=== PATIENT | male | born 1960 | race Caucasian/White ===

== ENCOUNTER 2016-06-24 11:53 | Inpatient (IN) | payer OTHER ==
[~2016-06-24] VITALS: Ht 175.3 cm; Wt 67.1 kg
[~2016-06-24 11:53] MED LIST: ASPIRIN EC81 M1 PO; ATIVAN0.5 M1 PO; ATORVASTATIN CA10 M1 PO; BUPROPION HCL150 M4 PO; CHLORDIAZEPOXID25 M3 PO; DOCUSATE SODIU100 M3 PO; ESCITALOPRAM OX10 MG; ESCITALOPRAM OX10 MG PO; GABAPENTIN300 M2; GABAPENTIN300 M2 PO; HYDROCHLOROTH12.5 M3 PO; LEXAPRO10 M1 PO; MIRALAX119 GM PO; NEURONTIN300 M1 PO; NORCO 325 MG-51 TAB PO; OMEPRAZOLE20 M2 PO; ONE DAILY MULT1 EAC2 PO; POTASSIUM CHLO20 ME2 PO; PRINIVIL20 M1 PO; SENNA8.6 M3 PO; TOPROL XL50 M1 PO; VICODIN 5-3001 EACH PO; VITAMIN B-121000 MC3 PO; VITAMIN B-650 M1 PO; VITAMIN C500 M8 PO; VITAMIN D31000 UNI1 PO
--- NOTE | 2016-06-24 12:13 | NUR ---
YOLIS FROM HOME, PER EMS, [facility] NURSE CALLED PD, REPORTED PT WAS ACTIING IF UNDER THE INFLUENCE OF "SOMETHING", HAD A GUN NEXT TO HIM. PT HAD AN APPOINTMENT AT THE WOUND CENTER TODAY WHICH HE MISSED. PT STATES THE GUM IS LOCKED IN HIS SAFE. C/O PAIN ALL OVER, AND HAND TWITCHING X 2 WEEKS. HAS STAGE 4 COCCYX WOUND WITH A DRAIN. RESTLESS ON STRETCHER. WANDED BY SECURITY.
--- NOTE | 2016-06-24 12:20 | NUR ---
PT STATES HE WAS IN [facility] LAST WEEK, "TOOK TOO MANY MUSCLE RELAXERS". STATES HE HAS RUN OUT OF HYDROCODONE.
--- NOTE | 2016-06-24 12:34 | NUR ---
Geri LISA (WOUND CARE NURSE) AT BEDSIDE. PT HAS STAGE IV COCCYX WOUND, ( 2CM X1,5 X 0.7 CM DEEP) . NO DRAINAGE, NS/ WET TO DRY DRESSING APPLIED.
--- NOTE | 2016-06-24 12:39 | NUR ---
WOUND CARE: REQUESTED BY ER STAFF TO EVALUATE PT FOR SKIN ALTERATION PRESENT ON ADMISSION - CHRONIC NONHEALING STAGE 4 PRESSURE INJURY TO COCCYX - CLEAN RED FILL WITH PERIWOUND EDGE EPIBOLE - 2 X 1.5 X 0.7 CM WITH 0.8 CM UNDERMINING CIRCUMFERENTIALLY - NO EVIDENCE OF INFECTION - BRUISING NOTED TO LEFT EYE AND FOREHEAD WHICH PATIENT REPORTS "FELL AND HIT COFFEE TABLE A FEW DAYS AGO WHEN I TRIPPED ON THE VAC CORD" - PT BEHAVIOR ABNORMAL FROM USUAL STATE - PLEASANT AND COOPERATIVE WITH ALL CARE, ALTHOUGH PT EXTREMELY RESTLESS, TWITCHING, AND UNABLE TO LAY STILL FOR ANY LENGTH OF TIME - ER STAFF UPDATED RE: CHAIN OF EVENTS WHICH LED TO PTS ARRIVAL TO HOSPITAL INCLUDING MULTIPLE CALLS FROM HOME CARE STAFF, DR SALES, AND LAW ENFORCEMENT OFFICERS - HOLD VAC UNTIL FURTHER NOTICE DUE TO CONCERN FOR PT SAFETY - CLEANSE COCCYX WOUND WITH NS FB LOOSELY PACK WITH MOIST SALINE GAUZE AND ABD PAD - PT ABLE TO INDEPENDENTLY REPOSITION WIB
--- NOTE | 2016-06-24 12:45 | NUR ---
DENIES SI OR HI, STATES HIS GUN IS LOCKED AT HOME.
--- NOTE | 2016-06-24 12:48 | ED GENERAL ADULT ---
History of Present Illness General Chief Complaint: Altered Mental Status Stated Complaint: ?ALTERED MENTAL STATUS Source: patient Exam Limitations: no limitations Vital Signs & Intake/Output Vital Signs & Intake/Output Vital Signs Date Time Temp Pulse Resp B/P Pulse O2 O2 Flow FiO2 Ox Delivery Rate 06/25 0643 97.3 69 20 150/88 97 Room Air 06/25 0400 97.6 71 20 122/70 06/25 0032 97.6 71 20 122/70 97 Room Air 06/25 0000 97.6 71 20 122/70 06/24 2200 97.8 83 20 130/80 06/24 2000 97.8 83 20 130/80 06/24 1957 97.8 83 20 130/80 98 Room Air 06/24 1914 99.0 97 18 125/74 98 Room Air 06/24 1800 98.4 84 18 124/90 06/24 1755 98.3 84 18 124/94 99 Room Air 06/24 1431 97.5 85 18 107/68 95 Room Air 06/24 1206 97.0 77 20 117/59 100 Nasal 2.0L Cannula ED Intake and Output 06/25 0000 06/24 1200 Intake Total 3570 Output Total 1280 Balance 2290 Intake, IV 2450 Intake, Oral 1120 Output, Urine 1280 Patient 148 lb Weight Allergies Coded Allergies: No Known Allergies (06/24/16) Triage Note: BIBA FROM HOME, PER EMS, [facility] NURSE CALLED PD, REPORTED PT WAS ACTIING IF UNDER THE INFLUENCE OF "SOMETHING", HAD A GUN NEXT TO HIM. PT HAD AN APPOINTMENT AT THE WOUND CENTER TODAY WHICH HE MISSED. PT STATES THE GUM IS LOCKED IN HIS SAFE. C/O PAIN ALL OVER, AND HAND TWITCHING X 2 WEEKS. HAS STAGE 4 COCCYX WOUND WITH A DRAIN. RESTLESS ON STRETCHER. WANDED BY SECURITY. Triage Nurses Notes Reviewed? yes Onset: Gradual Duration: day(s): (1) Timing: no prior history Injury Environment: home Severity: moderate No Modifying Factors: none HPI: Patient is a 56-year-old male with history of hypertension, chronic COCCYX wound , stage IV, presenting to the emergency department with chief complaint of needing a wound check and dressing change. Per EMS patient was home when the [facility] nurse arrived she reported that he was altered and "on something" and he was had a gun next to him. Patient denies having a gun next. He reports that he had a gun in his states that was locked. He also reports that he had 4 GUNS AND sold 3 of them for money. Denies any suicidal or homicidal ideation. Denies any nausea or vomiting fevers or chills or malaise. Denies any decrease in by mouth intake. Denies any urinary frequency or urgency or dysuria. Per wound care nurse saw the patient and the emergency department, she reports that his mental status is different than baseline. She reports that the wound has been healing up well and there is no signs of acute infection. (BRIGHT LAL,JAJA) Reconcile Medications Ascorbic Acid (Vitamin C) (Unknown Strength) TABLET (Unknown Dose) PO DAILY SUPPLEMENT (Reported) Aspirin (Ecotrin*) 81 MG TABLET.DR 1 TAB PO DAILY HEART/BLOOD (Reported) Atorvastatin Calcium 10 MG TABLET 1 TAB PO DAILY cholestrol (Reported) Bupropion HCl (Bupropion HCl Sr) 150 MG TABLET.ER 1 TAB PO DAILY MENTAL HEALTH (Reported) Bupropion HCl (Bupropion HCl Sr) 100 MG TABLET.ER 1 TAB PO QPM MENTAL HEALTH (Reported) Chlordiazepoxide HCl 25 MG CAPSULE 1 CAP PO TID PRN ALCOHOL WITHDRAWAL ONE TABLET 3 TIMES A DAY FOR 1 DAY THEN ONE TABLET TWICE A DAY FOR ONE DAY THEN ONE TABLET DAILY FOR ONE DAY Cholecalciferol (Vitamin D3) (Vitamin D3) (Unknown Strength) CAPSULE (Unknown Dose) PO DAILY SUPPLEMENT (Reported) Cyanocobalamin (Vitamin B-12) 1,000 MCG TABLET 1 TAB PO DAILY SUPPLEMENT ( Reported) Escitalopram Oxalate 10 MG TABLET 1 TAB PO DAILY MENTAL HEALTH (Reported) Ferrous Sulfate 325 MG (65 MG IRON) TABLET.DR 325 MG PO DAILY SUPPLEMENT Folic Acid 1 MG TABLET 1 TAB PO DAILY SUPPLEMENT (Reported) Gabapentin (Neurontin) 300 MG CAPSULE 1 CAP PO TID ANTICONVULSANT (Reported) Hydrochlorothiazide 12.5 MG CAPSULE 1 CAP PO DAILY blood pressure (Reported) Hydrocodone/Acetaminophen (Vicodin 5-300 MG Tablet) 1 EACH TABLET 2 TAB PO Q12 PRN PAIN SCALE 7-10 (SEVERE) Lisinopril 20 MG TABLET 1 TAB PO DAILY HEART (Reported) Multivitamin (One Daily Multivitamin) 1 EACH TABLET 1 TAB PO DAILY SUPPLEMENT Omeprazole 20 MG CAPSULE.DR 2 TAB PO DAILY Reflux Pyridoxine HCl (Vitamin B-6) (Unknown Strength) CAPSULE (Unknown Dose) PO DAILY SUPPLEMENT (Reported) (MALICK VICENTE,SANDRA) Past History Travel History Traveled to [place] past 21 day No Medical History Any Pertinent Medical History? 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 No (JAJA ARRINGTON) Review of Systems Review of Systems Constitutional: Reports: no symptoms. Comments Review of systems: See HPI, All other systems negative. Constitutional, no chills fever or weight loss HEENT: No visual changes no sore throat no congestion Cardiovascular: No chest pain ,palpitation , orthopnea or ankle swelling Skin, no jaundice no rashes Respiratory: No dyspnea cough sputum or hemoptysis GI: No nausea no vomiting : No dysuria No hematuria Muscle skeletal: no back pain, no neck pain, Neurologic: No numbness no confusion Psych: No stress anxiety Immunology: No splenectomy or history of AIDS (JAJA ARRINGTON) Physical Exam Physical Exam General Appearance: well developed/nourished, no apparent distress, alert, awake , anxious Comments: Well-developed well-nourished person in no acute distress HEENT: extraocular motion intact, no nystagmus. Pupils equally round and reactive to light and accommodation. Nose is atraumatic. External auditory canal and Tympanic membranes clear. Pharynx normal. No swelling or edema. Neck: Supple, no lymphadenopathy, normal range of motion without pain or tenderness Back: Nontender, no CVA tenderness. Full range of motion Cardiovascular: Regular rate and rhythms no murmurs rubs or gallops, normal JVP Respiratory: Chest nontender. No respiratory distress.breath sounds clear to auscultation bilaterally Extremity: No edema, full range of motion. Neuro: Alert oriented x3, slightly confused about the situation, feels that he is here in the emergency Department for a wound check., motor sensory normal, cranial nerves II through XII grossly intact. Skin: Chronic-appearing stage IV wounds noted over the coccyx, no surrounding erythema. Psych: ANXIOUS,PRESSURED SPEECH Core Measures ACS in differential dx? No CVA/TIA Diagnosis: No Severe Sepsis Present: No Septic Shock Present: No (BRIGHT LAL,JAJA) Progress Differential Diagnoses I considered the following diagnoses in my evaluation of the patient: Cellulitis, dehydration, electrolyte abnormality, drug intoxication, polysubstance abuse Plan of Care: Orders Procedure Date/time Status Regular Diet 06/25 D Active Regular Diet 06/25 B Active MISTAKE 06/25 0934 Active ECHOCARDIOGRAM 06/25 0934 Active VIT D 25 HYDROXY 06/25 06 Active THYROID STIMULATING HORMONE 06/25 06 Active CBC WITHOUT DIFFERENTIAL 06/25 06 Active BASIC ELECTROLYTES PLUS BUN&CR 06/25 06 Active VITAMIN B12 06/25 06 Active Pain Treatment and Response 06/25 0325 Active Skin/Pressure Ulcer Assess (Sk 06/25 0321 Active Wound Care/Dressing 06/25 0038 Active Regular Diet 06/24 L Active Vital Signs 06/24 2321 Active Teach/Educate 06/24 2321 Active Nutritional Intake, Monitor 06/24 2321 Active Isolation 06/24 2321 Active Intake & Output 06/24 2321 Active Patient Care Conference 06/24 2321 Active Activity/Ambulation 06/24 2321 Active Pathway - chart 06/24 1748 Active House Staff 06/24 1748 Active Patient Data 06/24 1748 Active Code Status 06/24 1748 Active ED CRISIS PSYCH CONSULT 06/24 1652 Active Patient Data 06/24 1547 Active OXYGEN SETUP (GEN) 06/24 1457 Active Saline Lock 06/24 1457 Active Admit to inpatient 06/24 1457 Active Vital Signs 06/24 1457 Active Activity/Ambulation 06/24 1457 Active Code Status 06/24 1457 Complete Intake & Output 06/24 1355 Active Telemetry/Escrow Manager 06/24 1231 Complete URINE DRUG SCREEN FOR ER ONLY 06/24 1231 Complete URINALYSIS 06/24 1231 Complete ACETOMINOPHEN 06/24 1231 Complete TROPONIN LEVEL 06/24 1231 Complete SALICYLATE 06/24 1231 Complete ETHANOL 06/24 1231 Complete COMPREHENSIVE METABOLIC PANEL 06/24 1231 Complete CBC WITHOUT DIFFERENTIAL 06/24 1231 Complete EKG 06/24 1231 Active VTE Mechanical Prophylaxis 06/24 UNK Active Patient Safety Monitor 06/24 UNK Active Seizure Precautions 06/24 UNK Active CIWA 06/24 UNK Active SOCIAL WORK CONSULT 06/24 UNK Active PSYCHIATRIC CONSULT 06/24 UNK Active PHYSICIAN CONSULT 06/24 UNK Active Current Medications Sig/Anaya Start time Last Medication Dose Stop Time Status Admin Atorvastatin Calcium 10 MG DAILY@1700 06/25 1700 AC (Lipitor) Bupropion HCl 150 MG DAILY 06/25 1000 CAN (Wellbutrin SR) Escitalopram Oxalate 10 MG DAILY 06/25 1000 CAN (Lexapro) Ferrous Sulfate 325 MG DAILY 06/25 1000 AC (Feosol) Lorazepam 0 Q1P PRN 06/24 1800 AC (Ativan) Acetaminophen 650 MG Q6P PRN 06/24 1745 AC (Tylenol) Sodium Chloride 1,000 ML BOLUS ONE 06/24 1400 CAN (Normal Saline 0.9%) 06/24 1559 Laboratory Tests 06/25/16 0650: Anion Gap 7, Estimated GFR > 60, BUN/Creatinine Ratio 26.4 H, Vitamin B12 Pending, 25-OH Vitamin D Total Pending, TSH Pending, CBC w Diff Pending, WBC Pending, RBC Pending, Hgb Pending, Hct Pending, MCV Pending, MCH Pending, RDW Pending, Plt Count Pending, MPV Pending, Gran % Pending, Lymphocytes % Pending, Monocytes % Pending, Eosinophils % Pending, Basophils % Pending, Absolute Granulocytes Pending, Absolute Lymphocytes Pending, Absolute Monocytes Pending, Absolute Eosinophils Pending, Absolute Basophils Pending, PUBS MCHC Pending 06/24/16 1647: Urine Opiates Screen < 100.00, Methadone Screen 51, Barbiturate Screen < 60, Ur Phencyclidine Scrn < 6.00, Amphetamines Screen 544, U Benzodiazepines Scrn < 85, Urine Cocaine Screen < 50, Urine Cannabis Screen < 5.00, Urine Color YEL, Urine Clarity CLEAR, Urine pH 6.0, Ur Specific [place] >= 1.030, Urine Protein NEG, Urine Ketones NEG, Urine Nitrite NEG, Urine Bilirubin NEG, Urine Urobilinogen 0.2, Ur Leukocyte Esterase NEG, Ur Microscopic EXAM NOT REQUIRED, Urine Hemoglobin NEG, Urine Glucose NEG 06/24/16 1302: Anion Gap 13, Estimated GFR 31 L, BUN/Creatinine Ratio 22.3, Glucose 79, Calcium 10.0, Total Bilirubin 0.5, AST 35, ALT 29, Alkaline Phosphatase 87, Troponin I < 0.01, Total Protein 7.6, Albumin 4.1, Globulin 3.5, Albumin/ Globulin Ratio 1.2, CBC w Diff NO MAN DIFF REQ, RBC 4.47 L, MCV 75.6 L, MCH 23.7 L, RDW 20.7 H, MPV 10.6 H, Gran % 75.3 H, Lymphocytes % 13.1 L, Monocytes % 9.8 H, Eosinophils % 1.1, Basophils % 0.7, Absolute Granulocytes 10.4 H, Absolute Lymphocytes 1.8, Absolute Monocytes 1.4 H, Absolute Eosinophils 0.1, Absolute Basophils 0.1, PUBS MCHC 31.4 L, Salicylates < 1.0, Acetaminophen < 10.0 L, Serum Alcohol < 10.0 Diagnostic Imaging: Viewed by Me: Radiology Read, CT Scan. Discussed w/RAD: Radiology Read, CT Scan. Radiology Impression: PATIENT: MANA LORA PRESENT AGE: 56 PATIENT ACCOUNT NO: [id number] : 56 LOCATION: [facility] ORDERING PHYSICIAN: JAJA LAL SERVICE DATE: 06/24/16 EXAM TYPE: CAT - CT HEAD WO IV CONTRAST EXAMINATION: CT HEAD WITHOUT CONTRAST CLINICAL INFORMATION: Altered mental status COMPARISON: 03/02/2016 TECHNIQUE: Contiguous axial imaging was performed from the skull base to vertex without intravenous administration of contrast. FINDINGS: There is no midline shift. There is no mass effect. No hemorrhage. Motion limits the evaluation. Basal cisterns are patent. The posterior fossa risk grossly within normal limits. No extra-axial collection is seen here. IMPRESSION: Negative acute noncontrast CT of the brain. Initial ED EKG: SINUS RHYTHM AT 76 BPM Prior EKG: changed (IMPROVED FROM PREVIOUS ekg) Comments: On arrival patient is alert and oriented 3, pressured speech appears anxious. No focal deficits on exam. We will obtain CBC, CMP, urine drug screen, urinalysis, chest x-ray, head CT. Patient swallowed CUP OF clear thin liquids without choking. Able to complete the entire cup without difficulty. Patient informed of acute kidney injury. IV fluids initiated. Still pending urinalysis. No signs of infection and thus far. Patient does have slightly increased white blood cell count. Signs of wound infection on examination. Patient admitted for acute kidney injury. IV fluids will continue. Patient may need crisis evaluation pending the rest of the laboratory workup. (JAJA ARRINGTON) Departure Departure Time of Disposition: 1511 Disposition: STILL A PATIENT Condition: Stable Clinical Impression Primary Impression: Acute kidney injury Secondary Impressions: Altered mental status Qualifiers: Altered mental status type: unspecified Qualified Code: R41.82 - Altered mental status, unspecified Referrals: PRITI SALES MD (PCP/Family) Departure Forms: Customer Survey General Discharge Information Admission Note Spoke With: ANGELO KENNEDY MD Documentation of Exam: Documentation of any treatments & extenuating circumstances including Concerns Regarding Discharge (functional status, medication knowledge or non-compliance, living conditions, etc.) that warrant an admission rather than observation: Patient requiring IV fluids for acute kidney injury, pending urinalysis may need nephrology consult, discharge at this time and be medically harmful. (JAJA ARRINGTON) Departure Prescriptions: Current Visit Scripts Ferrous Sulfate 325 MG PO DAILY 14 Days PA/PIGMENT MAKING SUPERVISOR Co-Sign Statement Statement: ED Attending supervision documentation- [] I saw and evaluated the patient. I have also reviewed all the pertinent lab results and diagnostic results. I agree with the findings and the plan of care as documented in the PA's/PIGMENT MAKING SUPERVISOR's documentation. [X] I have reviewed the ED Record and agree with the PA's/PIGMENT MAKING SUPERVISOR's documentation. [] Additions or exceptions (if any) to the PAs/PIGMENT MAKING SUPERVISOR's note and plan are summarized below: [] (MALICK VICENTE,SANDRA) Critical Care Note Critical Care Note Critical Care Time: 30-74 min (JAJA ARRINGTON)
--- NOTE | 2016-06-24 13:05 | NUR ---
LABS DRAWN AND SENT(BLUE,SST,PIBK,LAV,SANTOS)
[2016-06-24 13:10] LABS: ABSOLUTE BASOPHIL COUNT 0.1 /CUMM (0.0-0.2); ABSOLUTE EOSINOPHIL COUNT 0.1 /CUMM (0.0-0.7); ABSOLUTE GRANULOCYTE CT 10.4 /CUMM (1.4-6.5); ABSOLUTE LYMPH COUNT 1.8 /CUMM (1.2-3.4); ABSOLUTE MONOCYTE COUNT 1.4 /CUMM (0.10-0.60); BASOPHIL % 0.7 % (0.0-2.0); EOSINOPHIL % 1.1 % (0-5); GRANULOCYTE % 75.3 % (42.2-75.2); HEMATOCRIT 33.7 % (42-52); MEAN CORPUSCULAR HGB 23.7 PG (27.0-31.0); MEAN CORPUSCULAR HGB CONC 31.4 G/DL (33.0-37.0); MEAN CORPUSCULAR VOLUME 75.6 FL (80.0-94.0); MEAN PLATELET VOLUME 10.6 FL (7.4-10.4); PLATELET COUNT 239 /CUMM (130-400); RBC DISTRIBUTION WIDTH 20.7 % (11.5-14.5); RED BLOOD CELL CT 4.47 /CUMM (4.70-6.10); WHITE BLOOD CELL COUNT 13.9 /CUMM (4.8-10.8)
--- NOTE | 2016-06-24 13:54 | NUR ---
1 VALUABLES BAG TO SAFE, 1 BELONGINGS BAG TO CLOSET.
[2016-06-24] MEDS ORDERED: BUPROPION HCL100 M3 PO (14:22)
[2016-06-24] MEDS ORDERED: FOLIC ACID1 M1 PO (14:24)
[2016-06-24] MEDS ORDERED: PANTOPRAZOLE SO20 M1 PO (14:24)
[2016-06-24] MEDS ORDERED: LISINOPRIL20 M1 PO (14:24)
--- NOTE | 2016-06-24 14:34 | RADIOLOGY REPORT ---
EXAMINATION: XR PORTABLE CHEST CLINICAL INFORMATION: Rule out pneumonia. COMPARISON: None. TECHNIQUE: Portable view of the chest was obtained. FINDINGS: Right inferior lateral hemithorax is not completely included. The cardiomediastinal silhouette is within normal limits. The lungs and pleural spaces appear clear. There is no evidence of pneumothorax or pulmonary edema. Included osseous structures appear largely unremarkable. IMPRESSION: No evidence of an acute intrathoracic process.
--- NOTE | 2016-06-24 15:25 | NUR ---
TO AND FROM CT SCAN.
--- NOTE | 2016-06-24 15:35 | CT SCAN REPORT ---
EXAMINATION: CT HEAD WITHOUT CONTRAST CLINICAL INFORMATION: Altered mental status COMPARISON: 03/02/2016 TECHNIQUE: Contiguous axial imaging was performed from the skull base to vertex without intravenous administration of contrast. FINDINGS: There is no midline shift. There is no mass effect. No hemorrhage. Motion limits the evaluation. Basal cisterns are patent. The posterior fossa risk grossly within normal limits. No extra-axial collection is seen here. IMPRESSION: Negative acute noncontrast CT of the brain.
[2016-06-24 16:00] VITALS: BP 130/80
--- NOTE | 2016-06-24 16:00 | History & Physical ---
GALINA VICENTE,[facility] 06/24/16 1559: General Information and HPI History of Present Illness: 56 year old gentleman with a PMH significant for multiple admissions for alcohol dependence and seizure, polysubstance abuse, Stage 4 ulcer on the coccyx, HTN, HLD, gastritis, hemorrhoids, and chronic back pain 2/2 disc herniation, last amidtted in Feb 2016 for alochol intoxicaton, presents with a chief complaint of "I am here for wound vac of my butt wound by Josefina." Per records, however, patient was reportedly found confused by his visiting nurse at home earlier today. The visiting nurse also noticed a gun next to him and subsequently called the police. Patient was then BIBA for a futher evaluation of altered mental status and possible suicidal/homicidal ideation. Per family, patient was recently admitted at [facility] with the same clinical presentation with confusion of indefinite etiology. Per family, his AMS was attributed to possible overdose of home medication (Tramadol and Wellbutryn). On admission patient currently denies SI/HI. He also denies alcohol use since his last admisison for detox at [facility] 3 months ago. He does not use recreational drug use. He is a chronic active smoker. Patient does not see any psychiatrist although he had been taking an antidepressant which he reportedly ran out of recently. Patient lives in a house with his niaon and the stepson's girlfriend. He was hospitalized at [place] back in January 2016 for alcohol intoxication. At that time he was intubated and bedridden for about a week, resulting in a ulcer in his buttock. He has been receiving wound care since then. In addition patient has a history of polysubstance abuse, espeically narcotics over the street. As per previous records, patient had a number of life stresssors since 2014. He had a stroke in November 2014 with residual weakness in the left leg and gait imbalance. He was hospitzlied at [facility] for two weeks after which he lost his job and health insurance. His in August 2015 at the age of 55 from severe COPD. These events ultimately led to his increaed alcohol consumption and hospitalizations at [facility] and [facility] in January and February 2016, respectively. Patient reports that he has been sober since February. On ROS patient reports intermitten dizziness with recent syncopal episodes resulting in a fall a couple of days ago. He has had "twitching in the arms" for the past few weeks and 10 out of 10 lumbar back pain which is also chronic. Patient reports visual hallucination on two occasions during which he saw the ghost of his who last year. He currently denies any f/c, headache, lightheadedness, dizziness, chest pain, palpitations, abdominal pain. Full code. Allergies/Medications Allergies: Coded Allergies: No Known Allergies (06/24/16) Home Med list Ascorbic Acid (Vitamin C) (Unknown Strength) TABLET (Unknown Dose) PO DAILY SUPPLEMENT (Reported) Aspirin (Ecotrin*) 81 MG TABLET.DR 1 TAB PO DAILY HEART/BLOOD (Reported) Atorvastatin Calcium 10 MG TABLET 1 TAB PO DAILY cholestrol (Reported) Bupropion HCl (Bupropion HCl Sr) 150 MG TABLET.ER 1 TAB PO DAILY MENTAL HEALTH (Reported) Bupropion HCl (Bupropion HCl Sr) 100 MG TABLET.ER 1 TAB PO QPM MENTAL HEALTH (Reported) Chlordiazepoxide HCl 25 MG CAPSULE 1 CAP PO TID PRN ALCOHOL WITHDRAWAL ONE TABLET 3 TIMES A DAY FOR 1 DAY THEN ONE TABLET TWICE A DAY FOR ONE DAY THEN ONE TABLET DAILY FOR ONE DAY Cholecalciferol (Vitamin D3) (Vitamin D3) (Unknown Strength) CAPSULE (Unknown Dose) PO DAILY SUPPLEMENT (Reported) Cyanocobalamin (Vitamin B-12) 1,000 MCG TABLET 1 TAB PO DAILY SUPPLEMENT ( Reported) Escitalopram Oxalate 10 MG TABLET 1 TAB PO DAILY MENTAL HEALTH (Reported) Folic Acid 1 MG TABLET 1 TAB PO DAILY SUPPLEMENT (Reported) Gabapentin (Neurontin) 300 MG CAPSULE 1 CAP PO TID ANTICONVULSANT (Reported) Hydrochlorothiazide 12.5 MG CAPSULE 1 CAP PO DAILY blood pressure (Reported) Hydrocodone/Acetaminophen (Vicodin 5-300 MG Tablet) 1 EACH TABLET 2 TAB PO Q12 PRN PAIN SCALE 7-10 (SEVERE) Lisinopril 20 MG TABLET 1 TAB PO DAILY HEART (Reported) Multivitamin (One Daily Multivitamin) 1 EACH TABLET 1 TAB PO DAILY SUPPLEMENT Omeprazole 20 MG CAPSULE.DR 2 TAB PO DAILY Reflux Pyridoxine HCl (Vitamin B-6) (Unknown Strength) CAPSULE (Unknown Dose) PO DAILY SUPPLEMENT (Reported) Past History Travel History Traveled to [place] past 21 day No Medical History Neurological: NONE EENT: TONSILS REMOVED Cardiovascular: hypertension, HLD Respiratory: asthma, COPD Gastrointestinal: GASTRITIS Hepatic: NONE Renal: NONE Musculoskeletal: DISC HERNIATION Psychiatric: NONE Endocrine: NONE Blood Disorders: NONE Cancer(s): NONE 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 Home Who Do You Live With? child Services at Home: None Primary Language: Uzbek ETOH Use: alcoholic Living Will? no Functional Ability ADLs Independent: dressing, eating, toileting, bathing. Ambulation: independent Review of Systems Review of Systems Constitutional: Reports: see HPI. Exam & Diagnostic Data Last 24 Hrs of Vital Signs/I&O Vital Signs Date Time Temp Pulse Resp B/P Pulse O2 O2 Flow FiO2 Ox Delivery Rate 06/24 195 97.8 83 20 130/80 98 Room Air 06/24 1914 99.0 97 18 125/74 98 Room Air 06/24 1800 98.4 84 18 124/90 06/24 1755 98.3 84 18 124/94 99 Room Air 06/24 1431 97.5 85 18 107/68 95 Room Air 06/24 1206 97.0 77 20 117/59 100 Nasal 2.0L Cannula Intake & Output 06/24 1600 06/24 0800 06/24 0000 Intake Total 3000 Output Total Balance 3000 Intake, IV 2000 Intake, Oral 1000 Patient 67.132 kg Weight Physical Exam General Appearance Alert, Oriented X3, Cooperative, No Acute Distress Skin Stage 4 ulcer in the left sided coccyx covered with dressings; no active drainage HEENT Atraumatic, PERRLA, EOMI, Horizontal nystagmus in the right eye, Dry mucous membrane Neck Supple, +2 Carotid Pulse wo Bruit, No LAD Cardiovascular Regular Rate, Normal S1, Normal S2, No Murmurs, Gallops, Rubs Lungs Clear to Auscultation, Normal Air Movement Abdomen Normal Bowel Sounds, Soft, No Tenderness Neurological Normal Gait, Normal Speech, Normal Tone, Sensation Intact, Cranial Nerves 3-12 NL, Decreased strength in LLE (4/5) Extremities No Clubbing, No Cyanosis, No Edema, Normal Pulses, No Tenderness/ Swelling Vascular Normal Pulses, Pulses Symmetrical Last 24 Hrs of Labs/Marcus: Laboratory Tests 06/24/16 1647: Urine Opiates Screen < 100.00, Methadone Screen 51, Barbiturate Screen < 60, Ur Phencyclidine Scrn < 6.00, Amphetamines Screen 544, U Benzodiazepines Scrn < 85, Urine Cocaine Screen < 50, Urine Cannabis Screen < 5.00, Urine Color YEL, Urine Clarity CLEAR, Urine pH 6.0, Ur Specific [place] >= 1.030, Urine Protein NEG, Urine Ketones NEG, Urine Nitrite NEG, Urine Bilirubin NEG, Urine Urobilinogen 0.2, Ur Leukocyte Esterase NEG, Ur Microscopic EXAM NOT REQUIRED, Urine Hemoglobin NEG, Urine Glucose NEG 06/24/16 1302: Anion Gap 13, Estimated GFR 31 L, BUN/Creatinine Ratio 22.3, Glucose 79, Calcium 10.0, Total Bilirubin 0.5, AST 35, ALT 29, Alkaline Phosphatase 87, Troponin I < 0.01, Total Protein 7.6, Albumin 4.1, Globulin 3.5, Albumin/ Globulin Ratio 1.2, CBC w Diff NO MAN DIFF REQ, RBC 4.47 L, MCV 75.6 L, MCH 23.7 L, RDW 20.7 H, MPV 10.6 H, Gran % 75.3 H, Lymphocytes % 13.1 L, Monocytes % 9.8 H, Eosinophils % 1.1, Basophils % 0.7, Absolute Granulocytes 10.4 H, Absolute Lymphocytes 1.8, Absolute Monocytes 1.4 H, Absolute Eosinophils 0.1, Absolute Basophils 0.1, PUBS MCHC 31.4 L, Salicylates < 1.0, Acetaminophen < 10.0 L, Serum Alcohol < 10.0 Assessment/Plan Assessment: 56 year old gentleman with a PMH significant for multiple admissions for alcohol dependence and seizure, polysubstance abuse, Stage 4 ulcer on the coccyx, HTN, HLD, gastritis, hemorrhoids, and chronic back pain 2/2 disc herniation, last amidtted in Feb 2016 for alochol intoxicaton, BIBA for a futher evaluation of altered mental status with dizziness and possible suicidal/homicidal ideation. # Altered mental status 2/2 delirium Etiology unknown. Possibly due to street drug use vs. home med overdose. Utox negative, serum EtOH in a normal range. CT head done in the ED unremarkable for acute pathology. * Admit to general medicine floor * Neuro consulted, appreciate recs * One to one sitter for now esepcially in the setting of possible SI * IV hydration * Vitals per protocol * Check TFT, Vitamin D & B12 # BERNARDO In the ED patient was found to have elevated creatinine of 2.2. Baseline 0.8 per previous records. Most likely pre-renal etiology. * Begin IV resuscitation with NS @ 150cc/hr * BEP daily, trend creatinine # Leukocytosis Most likely reactive. Possibly infectious etiology from the decubitus ulcer. However patient remains febrile with no other signs of SIRS. HDS & VSS. * Vitals every shift * Cont to monitor for signs of infection * Check CBC daily, trend WBC # Stage 4 coccygeal decubitus ulcer * Appreciate wound care recs (Dr. Gann informed) * Dressing change as needed daily # Syncope Patient reports 2 recent falls due to syncope. He endorses intermitten dizziness. * Appreciate neuro recs * Check orthostatic BP * Consider further cardiac work up and cardio consult * IV hydration as per above-mentioned plan # History of EtOH abuse * Initiate CIWA protocol with IV Ativan as needed * Cont folate, thamine, IV hydration # Mood disorders * Consult psych * Cont home meds Wellbutrin 150mg PO daily and Lexapro 10mg PO daily # Chronic shoulder pain * Percocet 2 tab Q6P sever pain * Vicodin 1 tabl Q6P moderate pain. * Tylenol PO for mild pain * Cont home med gabapentin 300mg PO TID # Crhonic medical conditions * Cont Lipitor, Prilosec, baby aspirin at home dose - Regular diet - Mild pathway - DVTppx with Heparin - Full code As Ranked By This Provider Problem List: 1. Benign essential hypertension 2. Hypercholesterolemia 3. chronic shoulder pain 4. Alcohol dependence 5. Altered mental status Qualifiers Altered mental status type: unspecified Qualified Code: R41.82 - Altered mental status, unspecified 6. Acute kidney injury 7. Decubitus ulcer of left buttock, stage 4 8. Opiate abuse, continuous Core Measures/Miscellaneous Acute Coronary Syndrome ACS Diagnosis: No Cerebrovascular Accident CVA/TIA Diagnosis: No Congestive Heart Failure CHF Diagnosis: No Venous Thromboembolism VTE Risk Factors: Age > 40 VTE Prophylaxis Ordered Inpt: Pharm- Heparin No Mech VTE prophylaxis d/t: No contraindications No VTE Pharm Prophylaxis d/t: No contraindications VTE Diagnosis: No VTE Type: NONE VTE Confirmed by (Test): NONE Severe Sepsis Severe Sepsis Present: No Septic Shock Septic Shock Present: No Miscellaneous Documentation Attending Case Discussed With: ANGELO KENNEDY MD Primary Care Physician: PRITI SALES MD Patient sees these Specialists PCP Level of Patient Care: General Medicine ANGELO KENNEDY MD 06/24/16 1725: Attending MD Review Statement Attending Statement Attending MD Statement: examined this patient, discuss w/resident/PA/VICE PRESIDENT OF NEWS, agreed w/resident/PA/VICE PRESIDENT OF NEWS, reviewed EMR data (avail) Attending Assessment/Plan: 56M PMH bipolar, EtOH and polysubstance abuse, large sacral decubitus ulcer, HTN , HLD sent in by visiting nurse for bizarre behavior. Patient was sitting on his couch, very confused, holding a gun. He denies this. When I saw him he was delirious and fidgeting. Calm and cooperative but his story kept changing. Several admissions in the past for EtOH withdrawal and drug overdose, had to be intubated over the summer. Last admission was a week or two ago in [place], resident is getting those records. Labs show BERNARDO, he's dehydrated and not caring for self. Of note he has a vertical nystagmus with leftward gaze. CT head is normal. Remaining neuro exam is normal. 1. Delirium 2. BERNARDO 3. Dehydration 4. Stage IV sacral decubitus ulcer 5. Bipolar disorder 6. Polysubstance abuse Plan - Admit to general medicine - IV hydration - Monitor renal function and electrolytes - Follow up UA and urine culture - Psychiatry consult - Ativan PRN per CIWA - Vitamin supplementation - Check TSH, Vitamin D level, B12 level - Obtain records from recent admission to [facility] - Continue home medications - DVT PPx THAIS HOLLEYIA 06/24/16 1837: Resident Review Statement Resident Statement: examined this patient, discussed with internal grinding machine operator, agreed with internal grinding machine operator Other Findings: Patient is 56-year-old gentleman with past medical history significant for multiple alcohol detox, polysubstance abuse and alcohol abuse with history of recent intubation at [facility], stage IV decubitus ulcer on left gluteal region, hypertension, hyperlipidemia, anxiety depression with bipolar disorder admitted at [place] almost a week ago with overdose on his pain medications came with chief complaint of altered mental status. Patient was seen by home health visiting nurse and she found to have a gun next to him and patient seems very confused and embolus/police was called and patient was brought in. During interview patient was alert and oriented but agitated, was changing his statements very often and denying today's event including having a gun next to him and's seen by visiting nurse. His history was not reliable but he mentioned that he was seeing his lately and last time he saw him was almost few weeks ago when she slept with him. He denied any auditory hallucinations. He denied fever, chills, chest pain, any urinary or bowel complaints. He admits for having severe pain at his ulcer site. He felt 2 days ago at home where he said he was tripped over his wound VAC but later he said he was very dizzy and fell twice. His medications were given by visiting nurse and Under lock. He denied any recent alcohol intake and last alcohol intake was almost 3 months ago. Also denying any substance abuse at the moment. Vital signs on admission were temperature 97.0, pulse 77, respiratory rate 20, blood pressure 117/59, he was saturating 100% on room air Initial labs were WBC count 13.9, hemoglobin 10.6, hematocrit 33.6, platelet count 239, sodium 140, potassium 5.1, BUNs 49, creatinine 2.2, negative troponins and normal LFTs CT head and chest x-ray were normal On physical examination He is alert and oriented 3 but agitated Forehead has an abrasion and left sided PERIorbital bruise Neck supple Chest clear to auscultate Abdomen soft with full bladder Extremities no edema or cyanosis noted Skin stage IV decubitus ulcer covered with dressing no signs of infection or discharge from wound on left buttock Neurological examination was positive for horizontal nystagmus, questionable positive Romberg, imbalance/wide gait Assessment and plan Patient is 56-year-old male with history of polysubstance abuse, alcohol withdrawal, multiple alcohol detox in the past, history of decubitus ulcer stage IV wound VAC, hypertension, hyperlipidemia, anxiety, depression and bipolar disorder came with altered mental status and found to have acute kidney injury on admission labs. His symptoms could be due to acute delirium/ encephalopathy/drug withdrawal versus overdose We will admit patient on general medical floor . Vital signs every shift We will trend WBCs as he was found to have leukocytosis on admission most likely due to dehydration His creatinine was elevated to 2.2 from his normal baseline most likely due to dehydration and we will hydrate him and we'll trend his BEP. As patient was found to have horizontal nystagmus/tremors/questionable positive Romberg and most likely encephalopathy/delirium we would request neurology consultation We will start patient on CIWA and seizure protocols We will hold his antihypertensives as of acute kidney injury for now and we will restart it as his kidney functions improved. We will request social work and psych consultation in a.m. As patient is very agitated we will order sitter We will request medical records from [facility] in a.m. Patient is full code Pharmacological DVT prophylaxis
--- NOTE | 2016-06-24 16:11 | NUR ---
FIDGETY IN BED. REQUESTED BANDAIDS, BACITRACIN AND TAPE, APPLIED TO ALL OF HIS FINGER TIPS, STATES HIS FINGERS ARE CRACKED.
--- NOTE | 2016-06-24 16:22 | NUR ---
HOUISE STAFF IN TO EVALUATE.
--- NOTE | 2016-06-24 16:36 | NUR ---
PT HAS BED ASSIGNMENT 230-2
--- NOTE | 2016-06-24 16:49 | NUR ---
URINE TRIO SENT TO LAB
--- NOTE | 2016-06-24 17:00 | NUR ---
DR. DELGADO CALLED TO [facility] JIMENEZ. PT. APPLIED BACITRACIN TO ABRASION ON FOREHEAD.
--- NOTE | 2016-06-24 17:26 | Admission Certification ---
Admission Certification Certification Statement - As attending physician, I certify that at the time of - admission, based on clinical presentation, severity of - symptoms, need for further diagnostic testing and - therapeutic interventions, and risk of adverse outcomes - without in-hospital treatment, in my clinical assessment, - this patient requires an acute hospital stay for a minimum - of two nights or longer. I have also considered psychsocial - factors such as support system, advanced age, financial - issues, cognitive issues, and failed out-patient treatments, - past re-admission history, safety of patient, and lack of - compliance as applicable. Specific rationale supporting this admission is: Delirium and altered mental status
--- NOTE | 2016-06-24 17:32 | NUR ---
C/O PAIN IN BACK, DIAPHORETIC. DR. CARTAGENA NOTIFIED; WILL ORDER HYDROMETEOROLOGY TEACHER.
--- NOTE | 2016-06-24 17:58 | NUR ---
REPORT TO FLOOR.
--- NOTE | 2016-06-24 17:58 | NUR ---
PT STAES HE HASNT DRANK ALCOHOL IN 3 MONTHS, DENIES HX OF WITHDRAWAL SEIZURES.
[2016-06-24 18:00] VITALS: BP 124/90
--- NOTE | 2016-06-24 18:27 | Event Note ---
Event Note Event Note: Patient's dsister and coy's daughter contacted and informed about the admission at patient's request. They informed be that patient has recently been admitted a week prior for the same chief complaint of confusion without a definite etiology. Per the niaon's daughter, patient overdosed Tramadol and Wellbutryn. Patient's sister requested to be kept updated about hospital course.
--- NOTE | 2016-06-24 18:28 | NUR ---
DAUGHTER IN LAW [employer]YLES CALLED TO REPORT PT HAD TRAMADOL 50 MG # 60 PRESCRIVED ON 06/09, INGESTED ALL OF HIS MED BY LAST WEEK, PRIOR TO HOSPITALIZATION AT [facility] ON 06/15. PT'S HOME CARE NURSE IS FRANCISCO JAVIER ([phone] [facility]).
--- NOTE | 2016-06-24 18:38 | NUR ---
PT AND SON AWARE OF DELAY IN OBTAINING BED. PT SITTING IN RECLINER CHAIR. DENIES CHEST PAIN, SOB.
--- NOTE | 2016-06-24 19:36 | NUR ---
PT MEDICATED WITH 300MG GABAPENTIN, NS INFUSING AT 150ML/HR AND 5000 UNIT HEPARIN SC IN LEFT ABD P0ER EMAR. SITTER IS HERE FOR TRANSPORT TO TAKE PT TO UPSTAIRS
[2016-06-24 19:57] VITALS: BP 130/80
[2016-06-24 20:00] VITALS: BP 130/80
[2016-06-24 22:00] VITALS: BP 130/80
[2016-06-25] VITALS: BP 122/70
--- NOTE | 2016-06-25 00:27 | NUR ---
LATE ENTRY 06/24/16: PT ARRIVED TO FLOOR A&O X 3 WITH SITTER TO BEDSIDE. PT APPEARS AXIOUS WITH PRESSURED SPEECH. C/O PAIN 10/10 TO BACK. MEDS GIVEN PER EMAR. DSG TO COCXY CD&I. CHANGED BY WOUND NURSE IN ED. PT BROUGHT HIS PERSONAL WOUND VAC TO FLOOR NOT ATTACHED, STATING BATTERY . PLACED ON SHELF BELOW TV. L EYE NOTED TO BE SWOLLEN WITH LID AREA RED WELL SMALL LACERATION TO FOREHEAD. PT REPORTS THIS IS RESULT FROM RECENT FALL. BELONGING BAD IN LOCKED B SIDE CLOSET. SMALLER BAG OPENED PER PT REQUEST - 2 PAIRS OF GLASSES AND 2 CELL PHONES (WITH BATTERIES PER PT AND NO CHARGERS) IN ROOM. OTHER BELONGINGS FROM BAG- 1 PACK CIGGARETTES AND 2 LIGHTERS IN A SIDE MED ROOM IN MED DRAWER PER PLATE DRYING MACHINE TENDER. RECEIVING NURSE MADE AWARE. BED LOW, LOCKED, CALL MONGE WITHIN REACH. MONITOR PT STATUS AND MAINTAIN SAFETY PRECATIONS.
[2016-06-25 00:32] VITALS: BP 122/70
[2016-06-25 04:00] VITALS: BP 122/70
--- NOTE | 2016-06-25 06:35 | PN- Housestaff ---
GALINA VICENTE,BLANCA 06/25/16 0634: Subjective Follow-up For: Altered mental status Dizziness Subjective: Patient was seen and examined at bedside. He reports feeling much better after taking Percocet. Awake alert and oriented 3. He reports a good appetite and adequate hydration. Denies any dizziness or lightheadedness nausea vomiting shortness breath chest pain palpitations this morning. No events reported overnight. No new complaints., Review of Systems Constitutional: Reports: see HPI. Objective Last 24 Hrs of Vital Signs/I&O Vital Signs Date Time Temp Pulse Resp B/P Pulse O2 O2 Flow FiO2 Ox Delivery Rate 06/25 0643 97.3 69 20 150/88 97 Room Air 06/25 0400 97.6 71 20 122/70 06/25 0032 97.6 71 20 122/70 97 Room Air 06/25 0000 97.6 71 20 122/70 06/24 2200 97.8 83 20 130/80 06/24 2000 97.8 83 20 130/80 06/24 1957 97.8 83 20 130/80 98 Room Air 06/24 1914 99.0 97 18 125/74 98 Room Air 06/24 1800 98.4 84 18 124/90 06/24 1755 98.3 84 18 124/94 99 Room Air 06/24 1431 97.5 85 18 107/68 95 Room Air Intake & Output 06/25 1600 06/25 0800 06/25 0000 Intake Total 400 570 Output Total 1150 1275 1280 Balance -1150 -875 -710 Intake, IV 450 Intake, Oral 400 120 Output, Urine 1150 1275 1280 Patient 67.132 kg Weight Physical Exam General Appearance: Alert, Oriented X3, Cooperative, No Acute Distress Other Physical Findings: Skin Stage 4 ulcer in the left sided coccyx covered with dressings; no active drainage HEENT Atraumatic, PERRLA, EOMI, Horizontal nystagmus in the right eye, Dry mucous membrane Neck Supple, +2 Carotid Pulse wo Bruit, No LAD Cardiovascular Regular Rate, Normal S1, Normal S2, No Murmurs, Gallops, Rubs Lungs Clear to Auscultation, Normal Air Movement Abdomen Normal Bowel Sounds, Soft, No Tenderness Neurological Normal Gait, Normal Speech, Normal Tone, Sensation Intact, Cranial Nerves 3-12 NL, Decreased strength in LLE (4/5) Extremities No Clubbing, No Cyanosis, No Edema, Normal Pulses, No Tenderness/ Swelling Vascular Normal Pulses, Pulses Symmetrical Last 24 Hrs of Lab/Marcus Results Last 24 Hrs of Labs/Mics: Laboratory Tests 06/25/16 0650: Anion Gap 7, Estimated GFR > 60, BUN/Creatinine Ratio 26.4 H, Vitamin B12 675, 25-OH Vitamin D Total 30.8, TSH 0.080 L, CBC w Diff NO MAN DIFF REQ, RBC 4.26 L, MCV 76.9 L, MCH 24.2 L, RDW 20.7 H, MPV 11.5 H, Gran % 59.5, Lymphocytes % 25.6, Monocytes % 10.4 H, Eosinophils % 3.2, Basophils % 1.3, Absolute Granulocytes 4.2, Absolute Lymphocytes 1.8, Absolute Monocytes 0.7 H, Absolute Eosinophils 0.2, Absolute Basophils 0.1, PUBS MCHC 31.4 L 06/24/16 1647: Urine Opiates Screen < 100.00, Methadone Screen 51, Barbiturate Screen < 60, Ur Phencyclidine Scrn < 6.00, Amphetamines Screen 544, U Benzodiazepines Scrn < 85, Urine Cocaine Screen < 50, Urine Cannabis Screen < 5.00, Urine Color YEL, Urine Clarity CLEAR, Urine pH 6.0, Ur Specific [place] >= 1.030, Urine Protein NEG, Urine Ketones NEG, Urine Nitrite NEG, Urine Bilirubin NEG, Urine Urobilinogen 0.2, Ur Leukocyte Esterase NEG, Ur Microscopic EXAM NOT REQUIRED, Urine Hemoglobin NEG, Urine Glucose NEG Assessment/Plan Assessment: 56 year old gentleman with a PMH significant for multiple admissions for alcohol dependence and seizure, polysubstance abuse, Stage 4 ulcer on the coccyx, HTN, HLD, gastritis, hemorrhoids, and chronic back pain 2/2 disc herniation, last amidtted in Feb 2016 for alochol intoxicaton, BIBA for a futher evaluation of altered mental status with dizziness and possible suicidal/homicidal ideation. # Altered mental status 2/2 delirium vs. Wernicke's encephalopathy Definite etiology unknown. Possibly due to street drug use vs. home med overdose. Utox negative, serum EtOH in a normal range. CT head done in the ED unremarkable for acute pathology. * Start thiamine 500 mg IV TID for 2 days and then 250 mg daily for 5 days * Neuro consulted, appreciate recs * Discontinue sitter per psych recommendation * Discontinue IV fluid, patient tolerating adequate intake by mouth * Vitals per protocol * Check TFT, Vitamin D & B12 - TSH 0.08, Vit D & B12 WNL # BERNARDO In the ED patient was found to have elevated creatinine of 2.2. Baseline 0.8 per previous records. Most likely pre-renal etiology. Patient received 3 L of normal saline since the admission. * Discontinue IV resuscitation * BEP daily, trend creatinine - 1.1 today (given his baseline creatinine of 0.8 patient still has a BERNARDO) * Encourage adequate PO intake and hydration # Leukocytosis - resolved Most likely hemoconcentration vs. reactive. Possibly infectious etiology from the decubitus ulcer but less likely as patient is febrile with no other signs of SIRS. HDS & VSS. * Vitals every shift * Cont to monitor for signs of infection * Check CBC daily, trend WBC - 7 today # Stage 4 coccygeal decubitus ulcer * Appreciate wound care recs (Dr. Gann informed) * Dressing change as needed daily # Syncope Patient reports 2 recent falls due to syncope. He endorses intermitten dizziness. * Appreciate neuro recs * Check orthostatic BP - negative * Consider further cardiac work up and cardio consult * Check echocardiogram # History of EtOH abuse His CIWA score has been 0 since the admission. * Initiate CIWA protocol with IV Ativan as needed * Cont folate, thamine, IV hydration # Anemia Most likely alcohol induced and iron deficiency * Provide iron supplement * Check CBCs daily trend hemoglobin # Mood disorders * Psych consulted, follow recommendation * Hold home meds Wellbutrin 150mg PO daily and Lexapro 10mg PO daily until further psych evaluation # Chronic shoulder and lower back pain * Vicodin 2 tab Q6P sever pain * Tramadol 50mg Q6P moderate pain. * Tylenol PO for mild pain * Cont home med gabapentin 300mg PO TID # Crhonic medical conditions * Cont Lipitor, Prilosec, baby aspirin at home dose - Regular diet - Mild pathway - DVTppx with Heparin - Full code Problem List: 1. Decubitus ulcer of left buttock, stage 4 2. Acute kidney injury 3. Altered mental status 4. Alcohol abuse Pain Ratin Pain Location: Lower back Pain Goal: Remain pain free Pain Plan: Vicodin 2 tab Q6P sever pain Tramadol 50mg Q6P moderate pain. Tylenol PO for mild pain Gabapentin 300mg PO TID Tomorrow's Labs & Rationales: CBC to check for leukocytosis and anemia BEP to check renal function in the setting of BERNARDO KEVIN HOLLY MD 06/25/16 1635: Attending MD Review Statement Attending Statement Attending MD Statement: examined this patient, discuss w/resident/PA/FRUIT II FARMWORKER, agreed w/resident/PA/FRUIT II FARMWORKER, reviewed EMR data (avail), discussed with nursing, discussed with case mgmt, amended to note Attending Assessment/Plan: Patient seen and examined. He is currently alert and oriented 3. He is conversing appropriately. Etiology of his acute confusional state is not clear at this point. He had similar episode recently was admitted to [facility]. Workup at that time was negative including urine toxicology an MRI of the brain. He does have mild horizontal nystagmus on examination. This in addition to his confusion and unsteady gait raise concern for wedding his encephalopathy however he is unsteady gait is due to his chronic left lower extremity weakness. Also his confusion has resolved spontaneously. patient also denies recent alcohol ingestion. There is a possibility he may have ingested some other medication not detected in the urine drug screen however this cannot be confirmed at present. Recommendations: Continue IV hydration overnight with monitoring of further improvement of his BERNARDO. Continue timing supplementation. Will resume his oral regimen upon discharge. If his mental status remained stable he may be discharged home tomorrow. Recommend outpatient follow-up with the neurology service for evaluation of his chronic left lower extremity weakness
[2016-06-25 06:43] VITALS: BP 150/88
[2016-06-25 09:08] LABS: ABSOLUTE BASOPHIL COUNT 0.1 /CUMM (0.0-0.2); ABSOLUTE EOSINOPHIL COUNT 0.2 /CUMM (0.0-0.7); ABSOLUTE GRANULOCYTE CT 4.2 /CUMM (1.4-6.5); ABSOLUTE MONOCYTE COUNT 0.7 /CUMM (0.10-0.60); HEMATOCRIT 32.8 % (42-52); MEAN CORPUSCULAR HGB CONC 31.4 G/DL (33.0-37.0)
[2016-06-25 09:30] LABS: ABSOLUTE LYMPH COUNT 1.8 /CUMM (1.2-3.4); BASOPHIL % 1.3 % (0.0-2.0); EOSINOPHIL % 3.2 % (0-5); GRANULOCYTE % 59.5 % (42.2-75.2); MEAN CORPUSCULAR HGB 24.2 PG (27.0-31.0); MEAN CORPUSCULAR VOLUME 76.9 FL (80.0-94.0); MEAN PLATELET VOLUME 11.5 FL (7.4-10.4); PLATELET COUNT 201 /CUMM (130-400); RBC DISTRIBUTION WIDTH 20.7 % (11.5-14.5); RED BLOOD CELL CT 4.26 /CUMM (4.70-6.10)
[2016-06-25] MEDS ORDERED: FERROUS SULFAT325 M2 PO (09:44)
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
--- NOTE | 2016-06-25 11:33 | PN- Wound Care ---
Subjective Subjective: 86-year-old gentleman followed in the wound care center for a left buttock stage IV pressure ulcer formally treated with wound VAC. He was admitted because of abnormal mental status and his wound VAC was discontinued. Objective Vital Signs and I&Os Vital Signs Result Date Time Pulse Ox 97 06/25 0643 B/P 150/88 06/25 0643 O2 Delivery Room Air 06/25 642 Temp 97.3 06/25 0643 Pulse 69 06/25 0643 Resp 20 06/25 642 O2 Flow Rate 2.0L 06/24 1206 Intake & Output 06/25 0000 06/24 1600 06/24 0800 Intake Total 570 3000 Output Total 1280 Balance -710 3000 Intake, IV 450 2000 Intake, Oral 120 1000 Output, Urine 1280 Patient 148 lb Weight Physical Exam: The left buttock is a approximately 1.5 x 1.5 cm stage IV pressure ulcer there is minor undermining and edges are rolled inwardly there is no probable bone Impression/Plan Impression/Plan Impression/Plan: 56-year-old gentleman who was admitted with altered mental status and stage IV pressure ulcer of the left buttock present on admission. The wound remains clean and if he is to remain in the hospital his wound VAC will be replaced. For now wound care can be packed with small amount of Aquacel Ag changed daily or quarter strength Dakin's changed twice daily
--- NOTE | 2016-06-25 15:03 | Cons- Neurology ---
General Information and HPI Consulting Request Date of Consult: 06/25/16 Requested By: ANGELO KENNEDY MD History of Present Illness: 56-year-old male who states yesterday he was waiting for medical bus pickup when apparently he was late. He then states that someone called the EMS. He states that the please also arrived found him "loopy"" advising that he go to Hospital Per hospital records he was found confused by his visiting nurse and had a gun next to him He has had a recent admission to [facility] for confusion Patient denies alcohol use currently and stated that he stopped all alcohol about 4 months ago He denies headache or loss of consciousness or seizure Once the loss of his about a year ago due to severe COPD He is on chronic pain medication which he states is supervised by visiting nurse Allergies/Medications Allergies: Coded Allergies: No Known Allergies (06/24/16) Home Med List: Ascorbic Acid (Vitamin C) (Unknown Strength) TABLET (Unknown Dose) PO DAILY SUPPLEMENT (Reported) Aspirin (Ecotrin*) 81 MG TABLET.DR 1 TAB PO DAILY HEART/BLOOD (Reported) Atorvastatin Calcium 10 MG TABLET 1 TAB PO DAILY cholestrol (Reported) Bupropion HCl (Bupropion HCl Sr) 150 MG TABLET.ER 1 TAB PO DAILY MENTAL HEALTH (Reported) Bupropion HCl (Bupropion HCl Sr) 100 MG TABLET.ER 1 TAB PO QPM MENTAL HEALTH (Reported) Chlordiazepoxide HCl 25 MG CAPSULE 1 CAP PO TID PRN ALCOHOL WITHDRAWAL ONE TABLET 3 TIMES A DAY FOR 1 DAY THEN ONE TABLET TWICE A DAY FOR ONE DAY THEN ONE TABLET DAILY FOR ONE DAY Cholecalciferol (Vitamin D3) (Vitamin D3) (Unknown Strength) CAPSULE (Unknown Dose) PO DAILY SUPPLEMENT (Reported) Cyanocobalamin (Vitamin B-12) 1,000 MCG TABLET 1 TAB PO DAILY SUPPLEMENT ( Reported) Escitalopram Oxalate 10 MG TABLET 1 TAB PO DAILY MENTAL HEALTH (Reported) Ferrous Sulfate 325 MG (65 MG IRON) TABLET.DR 325 MG PO DAILY SUPPLEMENT Folic Acid 1 MG TABLET 1 TAB PO DAILY SUPPLEMENT (Reported) Gabapentin (Neurontin) 300 MG CAPSULE 1 CAP PO TID ANTICONVULSANT (Reported) Hydrochlorothiazide 12.5 MG CAPSULE 1 CAP PO DAILY blood pressure (Reported) Hydrocodone/Acetaminophen (Vicodin 5-300 MG Tablet) 1 EACH TABLET 2 TAB PO Q12 PRN PAIN SCALE 7-10 (SEVERE) Lisinopril 20 MG TABLET 1 TAB PO DAILY HEART (Reported) Multivitamin (One Daily Multivitamin) 1 EACH TABLET 1 TAB PO DAILY SUPPLEMENT Omeprazole 20 MG CAPSULE.DR 2 TAB PO DAILY Reflux Pyridoxine HCl (Vitamin B-6) (Unknown Strength) CAPSULE (Unknown Dose) PO DAILY SUPPLEMENT (Reported) Current Medications: Current Medications Sig/Anaay Start time Last Medication Dose Route Stop Time Status Admin Acetaminophen 650 MG Q6P PRN 06/24 1745 AC PO Acetaminophen/ 2 TAB Q6P PRN 06/25 1230 AC 06/25 Hydrocodone Bitart PO 1232 Acetaminophen/ 1 TAB Q6P PRN 06/24 1745 DC 06/25 Hydrocodone Bitart PO 0912 Ascorbic Acid 500 MG DAILY 06/25 1000 AC 06/25 PO 0912 Aspirin Buffered 81 MG DAILY 06/25 1000 AC 06/25 PO 0912 Atorvastatin Calcium 10 MG DAILY@1700 06/25 1700 AC PO Bupropion HCl 150 MG DAILY 06/25 1000 CAN PO Bupropion HCl 100 MG QPM 06/24 2200 AC 06/24 PO 2302 Cyanocobalamin 1,000 MCG DAILY 06/25 1000 AC 06/25 PO 0912 Escitalopram Oxalate 10 MG DAILY 06/25 1000 CAN PO Ferrous Sulfate 325 MG DAILY 06/25 1000 AC 06/25 PO 1232 Folic Acid 1 MG DAILY 06/25 1000 AC 06/25 PO 0912 Gabapentin 0 .STK-MED ONE 06/24 1927 DC PO Gabapentin 300 MG TID 06/24 1752 AC 06/25 PO 0912 Heparin Sodium 0 .STK-MED ONE 06/24 1929 DC (Porcine) .ROUTE Heparin Sodium 5,000 UNIT Q8 06/24 1744 AC 06/25 (Porcine) SC 0514 Lorazepam 0 Q1P PRN 06/24 1800 AC IV Omeprazole 40 MG DAILY 06/25 1000 AC 06/25 PO 0912 Oxycodone/ 1 TAB Q4P PRN 06/25 1230 CAN Acetaminophen PO Oxycodone/ 2 TAB Q6P PRN 06/24 1745 DC 06/25 Acetaminophen PO 0514 Patient Medication 1 ED .STK-MED ONE 06/25 1405 DC Teaching ED 06/25 1406 Sodium Chloride 1,000 ML Q6H 06/24 1800 AC 06/25 IV 0912 Sodium Chloride 1,000 ML BOLUS ONE 06/24 1515 DC 06/24 IV 06/24 1614 1511 Sodium Chloride 1,000 ML BOLUS ONE 06/24 1400 DC 06/24 IV 06/24 1459 1419 Sodium Hypochlorite 1 TITA Q12P PRN 06/25 1245 AC TOP Thiamine HCl 250 MG DAILY 06/27 1000 AC Sodium Chloride 100 ML IV Thiamine HCl 500 MG Q8 06/25 1400 AC Sodium Chloride 100 ML IV 06/27 0000 Tramadol HCl 50 MG Q6P PRN 06/25 1230 AC PO Review of Systems Review of Systems: Denies headache, vertigo, diplopia, difficulty with swallowing, chest pain, breathing troubles, incontinence, weight loss,, focal weakness head trauma He has chronic pain and numbness in the left lower extremity and persistent back pain Past History Travel History Traveled to [place] past 21 day No Medical History Neurological: NONE EENT: TONSILS REMOVED Cardiovascular: hypertension, HLD Respiratory: asthma, COPD Gastrointestinal: GASTRITIS Hepatic: NONE Renal: NONE Musculoskeletal: DISC HERNIATION Psychiatric: NONE Endocrine: NONE Blood Disorders: NONE Cancer(s): NONE 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 Home Who Do You Live With? child Services at Home: None Primary Language: Libyan Smoking Status: Light Tobacco Smoker ETOH Use: alcoholic Living Will? no Functional Ability ADLs Independent: dressing, eating, toileting, bathing. Ambulation: independent Exam & Diagnostic Data Vital Signs and I&O Vital Signs Date Time Temp Pulse Resp B/P Pulse O2 O2 Flow FiO2 Ox Delivery Rate 06/25 0643 97.3 69 20 150/88 97 Room Air 06/25 0400 97.6 71 20 122/70 06/25 0032 97.6 71 20 122/70 97 Room Air 06/25 0000 97.6 71 20 122/70 06/24 2200 97.8 83 20 130/80 06/24 1999 97.8 83 20 130/80 06/24 1957 97.8 83 20 130/80 98 Room Air 06/24 1914 99.0 97 18 125/74 98 Room Air 06/24 1800 98.4 84 18 124/90 06/24 1755 98.3 84 18 124/94 99 Room Air Intake & Output 06/25 1600 06/25 0800 06/25 0000 Intake Total 1400 400 570 Output Total 1150 1275 1280 Balance 250 -875 -710 Intake, IV 800 450 Intake, Oral 600 400 120 Output, Urine 1150 1275 1280 Patient 148 lb Weight Physical Exam: Alert and oriented Heart sounds normal'no carotid bruits'distal pulses intact Extraocular movements full, fundi benign,, visual medina intact, no facial weakness, no hearing loss, palate tongue and shoulders intact, no facial sensory loss Normal tone and strength in upper and lower extremities Diminished touch sensation left foot Deep tendon reflexes 1+ bilateral According to functions and gait intact Last 48 Hours of Lab Results: Laboratory Tests 06/25 06/24 0650 1647 Chemistry Sodium (137 - 145 mmol/L) 143 Potassium (3.5 - 5.1 mmol/L) 4.7 Chloride (98 - 107 mmol/L) 108 H Carbon Dioxide (22 - 30 mmol/L) 27 Anion Gap (5 - 16) 7 BUN (9 - 20 mg/dL) 29 H Creatinine (0.7 - 1.2 mg/dL) 1.1 Estimated GFR (>60 ml/min) > 60 BUN/Creatinine Ratio (7 - 25 %) 26.4 H Vitamin B12 (239 - 931 pg/mL) 675 25-OH Vitamin D Total (30 - 100 ng/ml) 30.8 TSH (0.270 - 4.200 uIU/mL) 0.080 L Hematology CBC w Diff NO MAN DIFF REQ WBC (4.8 - 10.8 /CUMM) 7.0 RBC (4.70 - 6.10 /CUMM) 4.26 L Hgb (14.0 - 18.0 G/DL) 10.3 L Hct (42 - 52 %) 32.8 L MCV (80.0 - 94.0 FL) 76.9 L MCH (27.0 - 31.0 PG) 24.2 L RDW (11.5 - 14.5 %) 20.7 H Plt Count (130 - 400 /CUMM) 201 MPV (7.4 - 10.4 FL) 11.5 H Gran % (42.2 - 75.2 %) 59.5 Lymphocytes % (20.5 - 51.1 %) 25.6 Monocytes % (1.7 - 9.3 %) 10.4 H Eosinophils % (0 - 5 %) 3.2 Basophils % (0.0 - 2.0 %) 1.3 Absolute Granulocytes (1.4 - 6.5 /CUMM) 4.2 Absolute Lymphocytes (1.2 - 3.4 /CUMM) 1.8 Absolute Monocytes (0.10 - 0.60 /CUMM) 0.7 H Absolute Eosinophils (0.0 - 0.7 /CUMM) 0.2 Absolute Basophils (0.0 - 0.2 /CUMM) 0.1 PUBS MCHC (33.0 - 37.0 G/DL) 31.4 L Toxicology Urine Opiates Screen (>2000 NG/ML) < 100.00 Methadone Screen (>300 NG/ML) 51 Barbiturate Screen (>200 NG/ML) < 60 Ur Phencyclidine Scrn (>25 NG/ML) < 6.00 Amphetamines Screen (>1000 NG/ML) 544 U Benzodiazepines Scrn (>200 NG/ML) < 85 Urine Cocaine Screen (>300 NG/ML) < 50 Urine Cannabis Screen (>50 NG/ML) < 5.00 Urines Urine Color (YEL,AMB,STR) YEL Urine Clarity (CLEAR) CLEAR Urine pH (5.0 - 8.0) 6.0 Ur Specific Donaldson (1.001 - 1.035) >= 1.030 Urine Protein (NEG,<30 MG/DL) NEG Urine Ketones (NEG) NEG Urine Nitrite (NEG) NEG Urine Bilirubin (NEG) NEG Urine Urobilinogen (0.1 - 1.0 EU/dl) 0.2 Ur Leukocyte Esterase (NEG) NEG Ur Microscopic EXAM NOT REQUIRED Urine Hemoglobin (NEG) NEG Urine Glucose (N MG/DL) NEG 06/24 1302 Chemistry Sodium (137 - 145 mmol/L) 140 Potassium (3.5 - 5.1 mmol/L) 5.1 Chloride (98 - 107 mmol/L) 103 Carbon Dioxide (22 - 30 mmol/L) 25 Anion Gap (5 - 16) 13 BUN (9 - 20 mg/dL) 49 H Creatinine (0.7 - 1.2 mg/dL) 2.2 H Estimated GFR (>60 ml/min) 31 L BUN/Creatinine Ratio (7 - 25 %) 22.3 Glucose (65 - 99 mg/dL) 79 Calcium (8.4 - 10.2 mg/dL) 10.0 Total Bilirubin (0.2 - 1.3 mg/dL) 0.5 AST (17 - 59 U/L) 35 ALT (21 - 72 U/L) 29 Alkaline Phosphatase (< 127 U/L) 87 Troponin I (<0.11 ng/ml) < 0.01 Total Protein (6.3 - 8.2 g/dL) 7.6 Albumin (3.5 - 5.0 g/dL) 4.1 Globulin (1.9 - 4.2 gm/dL) 3.5 Albumin/Globulin Ratio (1.1 - 2.2 %) 1.2 Hematology CBC w Diff NO MAN DIFF REQ WBC (4.8 - 10.8 /CUMM) 13.9 H RBC (4.70 - 6.10 /CUMM) 4.47 L Hgb (14.0 - 18.0 G/DL) 10.6 L Hct (42 - 52 %) 33.7 L MCV (80.0 - 94.0 FL) 75.6 L MCH (27.0 - 31.0 PG) 23.7 L RDW (11.5 - 14.5 %) 20.7 H Plt Count (130 - 400 /CUMM) 239 MPV (7.4 - 10.4 FL) 10.6 H Gran % (42.2 - 75.2 %) 75.3 H Lymphocytes % (20.5 - 51.1 %) 13.1 L Monocytes % (1.7 - 9.3 %) 9.8 H Eosinophils % (0 - 5 %) 1.1 Basophils % (0.0 - 2.0 %) 0.7 Absolute Granulocytes (1.4 - 6.5 /CUMM) 10.4 H Absolute Lymphocytes (1.2 - 3.4 /CUMM) 1.8 Absolute Monocytes (0.10 - 0.60 /CUMM) 1.4 H Absolute Eosinophils (0.0 - 0.7 /CUMM) 0.1 Absolute Basophils (0.0 - 0.2 /CUMM) 0.1 PUBS MCHC (33.0 - 37.0 G/DL) 31.4 L Toxicology Salicylates (0 - 20.0 mg/dL) < 1.0 Acetaminophen (10.0 - 30.0 ug/mL) < 10.0 L Serum Alcohol (<10 MG/DL) < 10.0 Imaging/Other Studies: CT BRAIN FINDINGS: There is no midline shift. There is no mass effect. No hemorrhage. Motion limits the evaluation. Basal cisterns are patent. The posterior fossa risk grossly within normal limits. No extra-axial collection is seen here. IMPRESSION: Negative acute noncontrast CT of the brain. Assessment/Plan Assessment: Possible confusional state, now appears resolved Probable underlying psychiatric disorder Recommendations: psychiatric assessment before discharge Consult Acknowledgment - Thank you for your consult request.
[2016-06-25 15:30] VITALS: BP 120/80
[2016-06-25 22:29] VITALS: BP 140/80
--- NOTE | 2016-06-26 03:38 | PN- Housestaff ---
GALINA VICENTE,BLANCA 06/26/16 0337: Subjective Follow-up For: Altered mental status - resolved Dizziness - resolved Subjective: Patient was seen and examined at bedside. Resting comfortably in bed in no acute distress. Continues to feel well with no new complaints. He has a good appetite with adequate hydration and PO intake. Discussed with him the need for follow up with a psychiatrist and pain specialist upon discharge. Patient is agreeable to it. Denies any dizziness or lightheadedness nausea vomiting shortness breath chest pain palpitations this morning. Review of Systems Constitutional: Reports: see HPI. Objective Last 24 Hrs of Vital Signs/I&O Vital Signs Date Time Temp Pulse Resp B/P Pulse O2 O2 Flow FiO2 Ox Delivery Rate 06/26 0634 97.3 92 20 150/90 97 Room Air 06/25 2229 99.0 101 20 140/80 98 Room Air 06/25 1530 98.2 84 20 120/80 97 Intake & Output 06/26 1600 06/26 0800 06/26 0000 Intake Total 2200 Output Total 200 800 Balance 2000 -800 Intake, IV 1000 Intake, Oral 1200 Output, Urine 200 800 Physical Exam General Appearance: Alert, Oriented X3, Cooperative, No Acute Distress Other Physical Findings: Skin Stage 4 ulcer in the left sided coccyx covered with dressings; no active drainage HEENT Atraumatic, PERRLA, EOMI, Horizontal nystagmus in the right eye, Dry mucous membrane Neck Supple, +2 Carotid Pulse wo Bruit, No LAD Cardiovascular Regular Rate, Normal S1, Normal S2, No Murmurs, Gallops, Rubs Lungs Clear to Auscultation, Normal Air Movement Abdomen Normal Bowel Sounds, Soft, No Tenderness Neurological Normal Gait, Normal Speech, Normal Tone, Sensation Intact, Cranial Nerves 3-12 NL, Decreased strength in LLE (4/5) Extremities No Clubbing, No Cyanosis, No Edema, Normal Pulses, No Tenderness/ Swelling Vascular Normal Pulses, Pulses Symmetrical Current Medications: Current Medications Sig/Anaya Start time Last Medication Dose Route Stop Time Status Admin Acetaminophen 650 MG Q6P PRN 06/24 1745 AC PO Acetaminophen/ 2 TAB Q6P PRN 06/25 1230 AC 06/26 Hydrocodone Bitart PO 0228 Acetaminophen/ 1 TAB Q6P PRN 06/24 1745 DC 06/25 Hydrocodone Bitart PO 0912 Ascorbic Acid 500 MG DAILY 06/25 1000 AC 06/25 PO 0912 Aspirin Buffered 81 MG DAILY 06/25 1000 AC 06/25 PO 0912 Atorvastatin Calcium 10 MG DAILY@1700 06/25 1700 AC 06/25 PO 1616 Bupropion HCl 100 MG QPM 06/24 2200 AC 06/25 PO 2201 Cyanocobalamin 1,000 MCG DAILY 06/25 1000 AC 06/25 PO 0912 Ferrous Sulfate 325 MG DAILY 06/25 1000 AC 06/25 PO 1232 Folic Acid 1 MG DAILY 06/25 1000 AC 06/25 PO 0912 Gabapentin 300 MG TID 06/24 1752 AC 06/25 PO 2201 Heparin Sodium 5,000 UNIT Q8 06/24 1744 AC 06/26 (Porcine) SC 0534 Lorazepam 0 Q1P PRN 06/24 1800 AC IV Nicotine 21 MG ONCE ONE 06/25 2245 DC 06/26 TOP 06/25 2246 0228 Omeprazole 40 MG DAILY 06/25 1000 AC 06/25 PO 0912 Oxycodone/ 1 TAB Q4P PRN 06/25 1230 CAN Acetaminophen PO Oxycodone/ 2 TAB Q6P PRN 06/24 1745 DC 06/25 Acetaminophen PO 0514 Patient Medication 1 ED .STK-MED ONE 06/25 1405 DC Teaching ED 06/25 1406 Sodium Chloride 1,000 ML Q6H 06/24 1800 AC 06/26 IV 0534 Sodium Hypochlorite 1 TITA Q12P PRN 06/25 1245 AC TOP Thiamine HCl 250 MG DAILY 06/27 1000 AC Sodium Chloride 100 ML IV Thiamine HCl 500 MG Q8 06/25 1400 AC 06/26 Sodium Chloride 100 ML IV 06/27 0000 0534 Tramadol HCl 50 MG Q6P PRN 06/25 1230 AC PO Last 24 Hrs of Lab/Marcus Results Last 24 Hrs of Labs/Mics: Laboratory Tests 06/26/16 0748: Free T4 Cancelled 06/26/16 0640: Sodium Pending, Potassium Pending, Chloride Pending, Carbon Dioxide Pending, Anion Gap Pending, BUN Pending, Creatinine Pending, BUN/Creatinine Ratio Pending , Free T4 Pending Assessment/Plan Assessment: 56 year old gentleman with a PMH significant for multiple admissions for alcohol dependence and seizure, polysubstance abuse, Stage 4 ulcer on the coccyx, HTN, HLD, gastritis, hemorrhoids, and chronic back pain 2/2 disc herniation, last amidtted in Feb 2016 for alochol intoxicaton, BIBA for a futher evaluation of altered mental status with dizziness and possible suicidal/homicidal ideation. # Altered mental status 2/2 delirium vs. Wernicke's encephalopathy Definite etiology unknown. Possibly due to street drug use vs. home med overdose. Utox negative, serum EtOH in a normal range. CT head done in the ED unremarkable for acute pathology. * Cont thiamine 500 mg IV TID for 1 more day * Neuro consulted, appreciate recs * Vitals per protocol * Check TFT, Vitamin D & B12 - TSH 0.08, Vit D & B12 WNL # BERNARDO - resolved In the ED patient was found to have elevated creatinine of 2.2. Baseline 0.8 per previous records. Most likely pre-renal etiology. Patient received 3 L of normal saline since the admission. * BEP daily, trend creatinine - 1.0 today * Encourage adequate PO intake and hydration * Continue IVF for this morning and then stop # Leukocytosis - resolved Most likely hemoconcentration vs. reactive. Possibly infectious etiology from the decubitus ulcer but less likely as patient is febrile with no other signs of SIRS. HDS & VSS. * Vitals every shift * Cont to monitor for signs of infection * Check CBC daily, trend WBC # Stage 4 coccygeal decubitus ulcer * Appreciate wound care recs (Dr. Gann informed) * Dressing change as needed daily # Hyperkalemia Patient's K level has been trending up gradually since the admission. * Give 1 dose of lactulose this morning * Repeat BEP in the afternoon, discharge if patient downtrends # Syncope Patient reports 2 recent falls due to syncope. He endorses intermitten dizziness. * Appreciate neuro recs - no interventions recommended * Check orthostatic BP - negative * Consider further cardiac work up and cardio consult * Follow echocardiogram - grossly normal # History of EtOH abuse His CIWA score has been 0 since the admission. * Initiate CIWA protocol with IV Ativan as needed * Cont folate, thamine, IV hydration # Anemia Most likely alcohol induced and iron deficiency * Provide iron supplement * Check CBCs daily trend hemoglobin # Mood disorders * Psych consulted, follow recommendation * Hold home meds Wellbutrin 150mg PO daily and Lexapro 10mg PO daily until further psych evaluation * Start Lexapro 5mg PO daily per psych rec # Chronic shoulder and lower back pain * Vicodin 2 tab Q6P sever pain * Tramadol 50mg Q6P moderate pain. * Tylenol PO for mild pain * Cont home med gabapentin 300mg PO TID # Crhonic medical conditions * Cont Lipitor, Prilosec, baby aspirin at home dose - Regular diet - Mild pathway - DVTppx with Heparin - Full code Problem List: 1. Altered mental status 2. Acute kidney injury Pain Ratin Pain Location: Back Pain Goal: Pain 4 or less Pain Plan: Moderate pathway Tomorrow's Labs & Rationales: None AVNI VICENTE,MAXIMILIANGLORIAELIAS 06/26/16 1310: Attending MD Review Statement Attending Statement Attending MD Statement: examined this patient, discuss w/resident/PA/FARMWORKER FUR, agreed w/resident/PA/FARMWORKER FUR, reviewed EMR data (avail), discussed with nursing, discussed with case mgmt, amended to note Attending Assessment/Plan: Patient similarly examined. Resting comfortably and not in acute distress. He remains alert and oriented 3. He continues to converse appropriately. It is unclear the etiology of his acute confusional state. When EKG encephalopathy appears less likely given his rapid improvement. He very adamantly denies overdosing on any of his prescribed medications though he reports that he feels the dose of his Wellbutrin is too much for him. Case was discussed with the psychiatric service. Recommendations are to discontinue Wellbutrin and begin patient on Lexapro. They will be following the patient in the IOP setting. His acute kidney injury has resolved. Likely secondary to dehydration. His potassium however is elevated today. There is no clear offending drug on board. In view of his complaints of mild constipation will administer a dose of lactulose and hydrate patient intravenously. We'll repeat labs later on this afternoon. If potassium level has improved patient will be discharged home today.
[2016-06-26] MEDS ORDERED: TRAMADOL HCL50 M1 PO (03:54)
[2016-06-26] MEDS ORDERED: VICODIN 5-3001 EACH PO (03:54)
--- NOTE | 2016-06-26 04:01 | Patient Discharge Instructions ---
Discharge Instructions General Discharge Information You were seen/treated for: Altered mental status Watch for these problems: Return to ED if you have worse/persistent dizziness, lightheadedness, confusion, fever, chills, or any symptoms with which you were admitted to the hospital. Special Instructions: 1. Please follow up with Dr. Gilbert (primary care), Dr. Azar (neurologist) and your pain specialist within a week of discharge. 2. Please follow up at [facility] Psychiatry unit on 07/03/16, at 10:15AM, located at [address] [place] [address]. Please bring your reading glasses , insurance card and photo ID. 3. Please follow up [facility] Dr. Pedro (gastroenterology) for colonscopy within 2 weeks of discharge. Diet Continue normal diet: Yes Activity Full Activity/No Limits: Yes Acute Coronary Syndrome Inclusion Criteria At DC or during hospital stay patient has or had the following: ACS DIAGNOSIS No Discharge Core Measures Meds if any: Prescribed or Continued at Discharge Meds if any: NOT Prescribed or Continued at Discharge Congestive Heart Failure Inclusion Criteria At DC or during hospital stay patient has or had the following: CHF DIAGNOSIS No Discharge Core Measures Meds if any: Prescribed or Continued at Discharge Meds if any: NOT Prescribed or Continued at Discharge Cerebrovascular accident Inclusion Criteria At DC or during hospital stay patient has or had the following: CVA/TIA Diagnosis No Discharge Core Measures Meds if any: Prescribed or Continued at Discharge Meds if any: NOT Prescribed or Continued at Discharge Venous thromboembolism Inclusion Criteria VTE Diagnosis No VTE Type NONE VTE Confirmed by (Test) NONE Discharge Core Measures - Per Current guidelines, there needs to be overlap - treatment for the first 5 days of Warfarin therapy. - If discharged on Warfarin prior to 5 days of - overlap therapy, the patient will need to be - assessed for post discharge needs including - *Post discharge parental anticoagulation - *Warfarin and/or parental anticoagulation education - *Follow up date to check INR post discharge At least 5 days overlap therapy as Inpatient No Meds if any: Prescribed or Continued at Discharge Note: Overlap Therapy is Warfarin and Anticoagulant Meds if any: NOT Prescribed or Continued at Discharge
[2016-06-26 06:34] VITALS: BP 150/90
--- NOTE | 2016-06-26 11:07 | ECHOCARDIOGRAM REPORT ---
MANA LORA Age: 56 : 1960 Gender: M Exam Date: 06/25/2016 18:20 Exam Location: [address] Ht (in): 69 Wt (lb): 148 BSA: 1.81 BP: 120 / 80 Ordering Physician: BLANCA MOJICA MD Referring Physician: BLANCA MOJICA MD Technologist: Rebekah Gonzalez [facility] Room Number: 230-02 Indications: LIGHTHEADEDNESS Rhythm: Sinus Technical Quality: Good FINDINGS Left Ventricle Normal global left ventricular size, wall thickness, systolic function with no obvious regional wall motion abnormalities. Normal left ventricular ejection fraction visually estimated at >60%. Normal left ventricular diastolic filling pattern for age. Right Ventricle Normal right ventricular size and function. Right Atrium Normal right atrial size. Left Atrium Mild left atrial dilatation. Mitral Valve Mild mitral annular calcification. Trace mitral regurgitation. Aortic Valve Diffuse thickening of the aortic valve cusps with reduced excursion. Trace aortic regurgitation. Mild aortic stenosis. Tricuspid Valve Tricuspid valve not well visualized, grossly normal. Trace tricuspid regurgitation. No evidence of pulmonary hypertension. Pulmonic Valve Pulmonic valve not well visualized, grossly normal. Pericardium No pericardial effusion. Great Vessels Normal size aortic root. CONCLUSIONS Normal global left ventricular size, wall thickness, systolic function with no obvious regional wall motion abnormalities. Normal left ventricular ejection fraction visually estimated at > 60%. Normal left ventricular diastolic filling pattern for age. Mild left atrial dilatation. Trace mitral regurgitation. Trace aortic regurgitation. Mild aortic stenosis. Ricki Davis M.D. (Electronically Signed) Final Date: 26 June 2016 11:06 MEASUREMENTS (Male / Female) Normal Values 2D ECHO LV Diastolic Diameter PLAX 5.3 cm 4.2 - 5.9 / 3.9 - 5.3 cm LV Systolic Diameter PLAX 3.5 cm 2.1 - 4.0 cm LV Fractional Shortening PLAX 34.0 % 25 - 46 % LV Ejection Fraction 2D Teich 62.4 % IVS Diastolic Thickness 1.1 cm LVPW Diastolic Thickness 1.1 cm LV Relative Wall Thickness 0.4 RV Internal Dim ED PLAX 2.5 cm 1.9 - 3.8 cm LVOT Diameter 2.2 cm Aortic Root Diameter 3.7 cm LA Systolic Diameter LX 4.1 cm 3.0 - 4.0 / 2.7 - 3.8 cm LA Volume 46.0 cm 18 - 58 / 22 - 52 cm Ascending Aorta Diameter 2.9 cm DOPPLER AV Peak Velocity 241.0 cm/s AV Peak Gradient 23.2 mmHg AV Mean Velocity 152.0 cm/s AV Mean Gradient 11.0 mmHg AV Velocity Time Integral 47.1 cm LVOT Peak Velocity 102.0 cm/s LVOT Peak Gradient 4.2 mmHg LVOT Mean Velocity 67.9 cm/s LVOT Mean Gradient 2.0 mmHg LVOT Velocity Time Integral 19.4 cm LVOT Stroke Volume 73.7 cm AV Area Cont Eq vti 1.6 cm AV Area Cont Eq pk 1.6 cm MV Peak Velocity 121.0 cm/s MV Peak Gradient 5.9 mmHg MV Mean Velocity 65.1 cm/s MV Mean Gradient 2.0 mmHg Mitral E Point Velocity 99.7 cm/s Mitral A Point Velocity 74.0 cm/s Mitral E to A Ratio 1.3 MV PHT Velocity 125.0 cm/s MV Deceleration [place] 725.0 cm/s MV Pressure Half Time 51.7 ms MV Area PHT 4.3 cm MV Deceleration Time 169.0 ms TR Peak Velocity 274.0 cm/s TR Peak Gradient 30.0 mmHg Right Atrial Pressure 5.0 mmHg Pulmonary Artery Systolic Pressu 35.0 mmHg Right Ventricular Systolic Press 35.0 mmHg PV Peak Velocity 120.0 cm/s PV Peak Gradient 5.8 mmHg PV Mean Velocity 80.5 cm/s PV Mean Gradient 3.0 mmHg PV Velocity Time Integral 22.5 cm LV E' Lateral Velocity 8.8 cm/s Mitral E to LV E' Lateral Ratio 11.4 LV E' Septal Velocity 7.4 cm/s Mitral E to LV E' Septal Ratio 13.5
--- NOTE | 2016-06-26 12:03 | PN- Psychiatry ---
Assessment/Plan Impression: The patient wishes to stop bupropion, and feels that it may have led to delirium. He wishes to re-start escitalopram/Lexapro, which we recommend at a low dose to reduce adverse events. He agrees to come to a [facility] intake appointment next week, and will arrange a ride with [employer]. The patient reports that he sold three of his firearms, and keeps the 4th one, which belonged to his , in a safe, unloaded. He believes that the VN may have seen the holster, but the firearm was secured in the safe. He denies suicidality or homicidality. He reports he takes gabapentin for neuropathic pain, but this possibly helps with anxiety, as well. Suggestion: 1. Stop bupropion. We do not anticipate a discontinuation syndrome at the current dosing. 2. Start escitalopram 5 mg PO every AM. If tolerated, this may be increased to 10 mg PO every AM after 7 days. B/R/SE reviewed with patient. a. Monitor for hyponatremia b. Monitor EKG for QTc prolongation 3. Baseline EKG on 06/24/16 shows SR, 76bpm, QTc 450 mS. 4. The patient has an intake appointment at [facility] psychiatry on 07/03/16, at 1015AM, at [address] [place] [address], with Jenny. He is to bring his reading glasses, insurance card and photo ID. A card with this information was given to nursing. The patient is in agreement and was given the information verbally. 5. VNA to continue medication administration from lockbox. We do not anticipate further visits. Psychiatry signing off. Thanks-you for asking us to participate in Timoteo's care. Ricki Vasquez APRN, Pager [phone] Subjective Subjective: Pt seen. A+OX3. Denies SI/HI. Not delirious or psychotic. Depression 3/10, but 8 /10 at home; anxiety 8/10; 10/10 is the most severe. Depression began 6 months before his 's . No FPHx, as far as he knows.
--- NOTE | 2016-06-26 13:16 | Discharge Summary ---
See Addendum Visit Information Visit Dates Admission Date: 06/24/16 Discharge Date: 06/26/16 Hospital Course Course Attending Physician: KEVIN HOLLY M.D Primary Care Physician: HENRRY VICENTE,[facility] Course: 56 year old gentleman with a PMH significant for multiple admissions for alcohol dependence and seizure, polysubstance abuse, Stage 4 ulcer on the coccyx, HTN, HLD, gastritis, hemorrhoids, and chronic back pain 2/2 disc herniation, last amidtted at [place] in Feb 2016 for alochol intoxicaton and at [facility] for AMS a week [employer], BIB[place] for a futher evaluation of altered mental status with dizziness and possible suicidal/homicidal ideation. # Altered mental status 2/2 delirium vs. Wernicke's encephalopathy Definite etiology unknown. Possibly due to street drug use vs. home med overdose. Basic utox negative, serum EtOH in a normal range. CT head done in the ED unremarkable for acute patholoy. Although Wernicke's was a less likely diagnosis, patient was supplemented with thiamine intravenously. Neuro was consulted and recommended no interventions as his AMS resolved after 1 day. TSH was low at 0.08. Vitamin D & B12 were WNL. # BERNARDO In the ED patient was found to have elevated creatinine of 2.2. Baseline 0.8 per previous records. Most likely pre-renal etiology. Patient received 3 L of normal saline since the admission. BERNARDO has resolved by the time of discharge as his creatinine improved to 1.0. # Leukocytosis Patient presented with a white count of 13.9. Most likely hemoconcentration vs. reactive. Possibly infectious etiology from the decubitus ulcer but less likely as patient is febrile with no other signs of SIRS. HDS & VSS. His leukocytosis resolved (white count normalized to 7) without requiring any antibiotic therapy. # Stage 4 coccygeal decubitus ulcer The wound remained clean during the hospital stay. Wound was packed with small amount of Aquacel Ag changed daily or quarter strength Dakin's changed twice daily # Hyperkalemia Patient's K level was elevated up to 5.2. He was given one dose of lactulose. Repeat BEP showed a decrease in K level to 4.8 subsequently. # Syncope Patient reported 2 recent falls due to syncope with intermitten dizziness. Neurology was consulted and recommended psychiatric assessment. Orthostatic BP was negative. CT head was unremarkable for acute pathology. Echocardiogram was grossly normal. # History of EtOH abuse His CIWA score has been 0 since the admission. * Patient was monitored per [facility] protocol with IV Ativan as needed. * He received folate, thamine, and IV hydration. # Anemia Most likely alcohol induced and iron deficiency. There were no signs of active bleeding. He remained hemodynamically stable with no significant drop in his hemoglobin during the hospital stay. Patient was provided iron supplement amd a referral to Dr. Pedro for colonoscopy upon discharge. # Mood disorders * Psych was consulted. * Held home meds Wellbutrin 150mg PO daily and Lexapro 10mg PO daily until further psych evaluation * Started him on Lexapro 5mg PO daily per psych rec # Chronic shoulder and lower back pain * Vicodin 2 tab Q6P sever pain * Tramadol 50mg Q6P moderate pain. * Tylenol PO for mild pain * Cont home med gabapentin 300mg PO TID # Crhonic medical conditions * Cont Lipitor, Prilosec, baby aspirin at home dose Allergies: Coded Allergies: No Known Allergies (06/24/16) Disposition Summary Disposition Principal Diagnosis: Altered mental status Additional Diagnosis: Acute kidney injury Discharge Disposition: home or self care Discharge Instructions General Discharge Information Code Status: Full Code Patient's Diet: Regular Patient's Activity: As tolerated Follow-Up Instructions/Appts: 1. Please follow up with Dr. Gilbert (primary care), Dr. Azar (neurologist) and your pain specialist within a week of discharge. 2. Please follow up at [place] [facility] [facility] on 07/03/16, at 10:15AM, located at [address] [place] [address]. Please bring your reading glasses , insurance card and photo ID. 3. Please follow up [facility] Dr. Pedro (gastroenterology) for colonscopy within 2 weeks of discharge. Medications at Discharge Discharge Medications: Stop taking the following medications: Chlordiazepoxide HCl (Chlordiazepoxide HCl) 25 MG CAPSULE ORAL THREE TIMES DAILY as needed for ALCOHOL WITHDRAWAL Qty = 6 Bupropion HCl (Bupropion HCl Sr) 150 MG TABLET.ER ORAL DAILY Qty = 60 Bupropion HCl (Bupropion HCl Sr) 100 MG TABLET.ER ORAL Every night Qty = 30 Continue taking these medications: Hydrochlorothiazide (Hydrochlorothiazide) 12.5 MG CAPSULE 1 Capsule ORAL DAILY Comments: Last Taken: 03/04/16 Time: 1000 Atorvastatin Calcium (Atorvastatin Calcium) 10 MG TABLET 1 Tablet ORAL DAILY Comments: Last Taken:06/26/16 Time:1600 Multivitamin (One Daily Multivitamin) 1 EACH TABLET 1 Tablet ORAL DAILY Days = 30 Comments: Last Taken: 03/04/16 Time: 1000 Aspirin (Ecotrin*) 81 MG TABLET. 1 Tablet ORAL DAILY Comments: Last Taken:06/26/16 Time:0830 Pyridoxine HCl (Vitamin B-6) 50 MG CAPSULE 1 Capsule ORAL DAILY Comments: NOT TAKEN IN HOSPITAL Cholecalciferol (Vitamin D3) (Vitamin D3) (Unknown Strength) CAPSULE Unknown Dose ORAL DAILY Comments: NOT TAKEN IN HOSPITAL Ascorbic Acid (Vitamin C) (Unknown Strength) TABLET Unknown Dose ORAL DAILY Comments: VITAMIN C 5OO MG Last Taken:06/26/16 Time:0830 Cyanocobalamin (Vitamin B-12) 1,000 MCG TABLET 1 Tablet ORAL DAILY Comments: Last Taken:06/26/16 Time:0830 Gabapentin (Neurontin) 300 MG CAPSULE 1 Capsule ORAL THREE TIMES DAILY Days = 30 Comments: Last Taken: 06/26/16 Time: 1600 Omeprazole (Omeprazole) 20 MG CAPSULE. 2 Tablet ORAL DAILY Qty = 30 Comments: Last Taken: 06/26/16 Time: 0830 Folic Acid (Folic Acid) 1 MG TABLET 1 Tablet ORAL DAILY Qty = 30 Comments: Last Taken:06/26/16 Time:0830 Lisinopril (Lisinopril) 20 MG TABLET 1 Tablet ORAL DAILY Qty = 30 Escitalopram Oxalate (Lexapro) 20 MG TABLET 1 Tablet ORAL DAILY Days = 29 Start taking the following new medications: Ferrous Sulfate (Ferrous Sulfate) 325 MG (65 MG IRON) TABLET. 325 Milligram ORAL DAILY Days = 14 No Refills Comments: Last Taken:06/26/16 Time:0830 Copies To: ANTONIO VICENTE,PAULINO Saenz; HENRRY VICENTE,PRITI; OC VICENTE,CEDRIC
[2016-06-26] MEDS ORDERED: LEXAPRO5 M1 PO (13:20)
[2016-06-26] MEDS ORDERED: LEXAPRO20 M1 PO (14:02)
[2016-06-26 14:21] VITALS: BP 150/90
--- NOTE | 2016-06-26 14:50 | NUR ---
wound care: due to concern over discharge and home vac not being charged, as well as concern over if patient will continue with home care services, wound vac was held at this time - pt updated re: reason - wound cleansed with ns and loosely packed with tiele dressing and abd pad - pt educated re: home care instructions and nned to f/u at [facility] wednesday with vac for reapplication recommednation: cleanse coccyx with ns fb tiele packing and dpd daily (pt provided with samples) - offloading at all times please
--- NOTE | 2016-06-26 15:06 | NUR ---
Referral received yesterday via electronic mill order scheduler. This patient is a 56 year old man, admitted to the hospital on 06/24/16 with altered mental status and acute kidney injury. Reason for referral was "Behavioral and Drug Issues". Case discussed at [facility]'s this am. Patient with a known history of ETOH dependence, but none now for a few months (validated by MD). Lola is adamanat that his mental status changes were the direct result of improper doses of wellbutrin, prescribed to him by his community attending. When I saw Scar earlier this afternoon, he was angry that "everyone is pointing their fingers at me". Patient reports discharge anticipated for later today; new home care agency secured (please see Comprehensive CM Assessment). Patient also has outpatient psychiatry appointment for next week. Please call if other social work needs arise.
--- NOTE | 2016-06-26 18:18 | NUR ---
PATIENT DISCHARGED HOME WITH SELF CARE. DISCHARGE PACKET GIVEN TO PATIENT. PMO MANAGER MADE ARRANGEMENT FOR [employer] [facility] HOME. CIGARETTE GIVEN BACK TO PATIENT FROM MED ROOM. ALL QUESTIONS ANSWERED FOR PATIENT.
[2016-08-19] MEDS ORDERED: PANTOPRAZOLE SO20 M1 PO (12:35)
[2016-08-19] MEDS ORDERED: NALTREXONE HCL50 M1 (12:35)
[2016-08-19] MEDS ORDERED: BACLOFEN20 M1 PO (12:36)
[2016-08-19] MEDS ORDERED: HYDROCODON-ACE1 EAC2 PO (12:36)
== END 2016-06-26 19:00 | disposition home health service (06) | DRG 469 ==
LOC: ENRESERVTM → ENRESERVDT → CANRESERV → ERH 11:53 → ERHI 14:57 → 2NA 14:57
PROVIDERS: Internal Medicine; Physician Assistant; ADMIT Internal Medicine
DX: N17.9 Acute kidney failure, unspecified (principal); I10 Essential (primary) hypertension; L89.154 Pressure ulcer of sacral region, stage 4; R41.0 Disorientation, unspecified; F19.10 Other psychoactive substance abuse, uncomplicated; F10.20 Alcohol dependence, uncomplicated
CPT/HCPCS: 2NASP; 36415; 80307; 81003; 82436; 93005; 93010; 93306; 96360; 96361; 96372; 97116-GO; 97162-GP; 99232; 99233; G0480; J1644; J3490

== ENCOUNTER → 2016-08-21 | Day surgery (SDC) | payer OTHER ==
[~2016-08-21] VITALS: Ht 172.7 cm; Wt 59.9 kg
[~2016-08-21] MED LIST changes: +BACLOFEN20 M1 PO; +BUPROPION HCL100 M3 PO; +FERROUS SULFAT325 M2 PO; +FOLIC ACID1 M1 PO; +HYDROCODON-ACE1 EAC2 PO; +LEXAPRO20 M1 PO; +LEXAPRO5 M1 PO; +LISINOPRIL20 M1 PO; +NALTREXONE HCL50 M1; +PANTOPRAZOLE SO20 M1 PO; +TRAMADOL HCL50 M1 PO
--- NOTE | 2016-08-21 10:14 | Operative Report ---
Operative/Inv Procedure Report Surgery Date: 08/21/16 Name of Procedure: 2. 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 Patient had a temporary prolonged bed rest status resulting in a chronic wound that has not been able to close with local care and long-term wound VAC use. We talked about the risks of surgery including infection bleeding pain and numbness disability and recurrence of the wound. We talked about possibility of the wound opening and again requiring prolonged wound care possibly with a VAC. The patient is currently a smoker and says he is not able to stop using tobacco. We talked about the additional risks of that. Patient's were discussed with the patient in regards to postoperative recovery. We informed consent was signed producing to the operating placed supine on the table of Venodyne boots are placed and local anesthesia was administered after IV sedation given. The buttock was prepped and draped in usual sterile fashion. The patient did not tolerate local anesthesia was converted to an LMA. The fasciocutaneous flap was developed off the left gluteal muscle. It was rotated into position after completely excising the ulcer after installation of methylene blue. Tension-free closure was carried out with 3 layers over a drain. Ends dictation
== END ==
LOC: STS 01:39
DX: L89.159 Pressure ulcer of sacral region, unspecified stage (principal); I10 Essential (primary) hypertension; E78.5 Hyperlipidemia, unspecified; E03.9 Hypothyroidism, unspecified; N19 Unspecified kidney failure; F17.200 Nicotine dependence, unspecified, uncomplicated; Z79.82 Long term (current) use of aspirin
CPT/HCPCS: 88304; J0131; J0690; J1100; J2250; J2405

== ENCOUNTER 2016-11-06 15:05 | Inpatient (IN) | payer OTHER ==
[~2016-11-06] VITALS: Ht 175.3 cm; Wt 63.3 kg
--- NOTE | 2016-11-06 15:10 | ED AMS/SEIZURE/WEAK/DIZZY ---
History of Present Illness General Chief Complaint: Altered Mental Status Stated Complaint: BIBA FOR AMS Source: patient, old records, EMS Exam Limitations: no limitations Vital Signs & Intake/Output Vital Signs & Intake/Output Vital Signs Date Time Temp Pulse Resp B/P B/P Pulse O2 O2 Flow FiO2 Mean Ox Delivery Rate 06/04 0023 30 06/04 0000 98.3 85 27 126/76 06/04 0000 94 Ventilator 30% 06/04 0000 98.3 85 27 126/76 94 Ventilator 30% 06/03 2230 30 06/03 2200 90 28 120/67 06/03 2127 86 20 120/74 06/03 1999 97.6 94 22 120/78 06/03 2000 95 Ventilator 30% 06/03 1950 30 06/03 1640 30 06/03 1600 97.6 90 22 131/84 06/03 1600 97.6 90 22 131/84 98 Ventilator 30% 06/03 1409 30 06/03 1400 93 24 134/71 06/03 1200 98.7 83 24 110/70 06/03 1200 97 Ventilator 30% 06/03 1151 30 06/03 1000 87 24 101/59 06/03 0840 30 06/03 0800 97.8 90 24 110/66 06/03 0800 97.8 90 24 110/70 97 Ventilator 30% 06/03 0800 97 Ventilator 30% 06/03 0614 30 06/03 0600 83 26 94/56 06/03 0400 97.7 86 28 112/51 06/03 0400 94 Ventilator 30% 06/03 0344 30 06/03 0200 77 24 99/51 06/03 0137 30 ED Intake and Output /04 0000 06/03 1200 Intake Total 2664 1435 Output Total 1725 1200 Balance 939 235 Intake, IV 2224 1435 Intake, Oral 0 Intake, Other 190 Intake, Tube 140 Feeding Intake, Tube 110 Irrigant Number 0 0 Bowel Movements Output, Urine 1725 1200 Patient 143 lb Weight Weight Bed scale Measurement Method Reconcile Medications Ascorbic Acid (Vitamin C) (Unknown Strength) TABLET (Unknown Dose) PO DAILY SUPPLEMENT (Reported) Aspirin (Ecotrin*) 81 MG TABLET.DR 1 TAB PO DAILY HEART/BLOOD (Reported) Atorvastatin Calcium 10 MG TABLET 1 TAB PO DAILY cholestrol (Reported) Baclofen 20 MG TABLET 1 TAB PO TID LOW BACK PAIN (Reported) Cholecalciferol (Vitamin D3) (Vitamin D3) (Unknown Strength) CAPSULE (Unknown Dose) PO DAILY SUPPLEMENT (Reported) Cyanocobalamin (Vitamin B-12) 1,000 MCG TABLET 1 TAB PO DAILY SUPPLEMENT ( Reported) Escitalopram Oxalate (Lexapro) 20 MG TABLET 1 TAB PO DAILY depression ( Reported) Ferrous Sulfate 325 MG (65 MG IRON) TABLET.DR 325 MG PO DAILY SUPPLEMENT Folic Acid 1 MG TABLET 1 TAB PO DAILY SUPPLEMENT (Reported) Hydrochlorothiazide 12.5 MG CAPSULE 1 CAP PO DAILY blood pressure (Reported) Hydrocodone/Acetaminophen (Hydrocodon-Acetaminophen 5-325) 5 MG-325 MG TABLET 1-2 TAB PO Q4-6 PRN PRN PAIN (Reported) Multivitamin (One Daily Multivitamin) 1 EACH TABLET 1 TAB PO DAILY SUPPLEMENT Naltrexone HCl 50 MG TABLET ETOH DETOX (Reported) Omeprazole 20 MG CAPSULE.DR 2 TAB PO DAILY Reflux Pantoprazole Sodium 20 MG TABLET.DR 1 TAB PO DAILY GERD (Reported) Pyridoxine HCl (Vitamin B-6) 50 MG CAPSULE 1 CAP PO DAILY SUPPLEMENT ( Reported) Triage Nurses Notes Reviewed? yes Onset: Gradual Duration: constant Timing: recent history Severity: severe HPI: Patient is a 56-year-old male with past medical history of multiple admissions due to alcohol dependency and alcohol withdrawal seizures, polysubstance abuse, stage IV decubitus ulcer on coccyx, hypertension, hyperlipidemia, gastritis, hemorrhoids and chronic back pain who was last admitted to [facility] in June 2016 for concerns of delirium versus Warnicke's encephalopathy who presents emergency room brought in by ambulance in which the family member at home was concerned about patient's health. Patient is extremely difficult historian when asking him questions he responds with all answers "hours ago" when when asking review of systems. Patient complains of entire body pain chest pain abdominal pain extremity pain back pain neck pain. Patient states that he does not use illicit drugs however drank alcohol "hours ago" Denies any headache blurred vision recent falls or trauma patient is able tolerate by mouth. Patient has not taken any medications for symptoms It is noted through previous records that 3 days ago patient was evaluated by primary care Priti Sales MD in which he received blood work with a 15,000 leukocytosis and the elevated d-dimer where he received CT angiogram with unremarkable home in embolism findings. It is also noted through old records the patient just received a surgical debridement of his cubitus sacral ulcer PATIENT: MANA LORA PRESENT AGE: 56 PATIENT ACCOUNT NO: [id number] DATE OF : 56 ADMIT/SERVICE DATE: 11/06/16 ATTENDING PHYSICIAN: CLAY LOPEZ PATIENT CARE UNIT CONFIDENTIAL COPY Operative/Inv Procedure Report Surgery Date: 11/06/16 Name of Procedure: Debridement sacral wound with ostectomy Muscle flap coverage bone Fasciocutaneous flap closure buttock Pre-Operative Diagnosis: Sacral wound secondary to paraplegiarecurrent Post-Operative Diagnosis: Same Estimated Blood Loss: 50ml to 100ml Surgeon/Manager Telecom: cruz mccoy Anesthesia: moderate sedation Operative/Procedure Note Note: Patient was counseled regarding the procedure the alternatives the risks and expected outcomes as relates to his request for surgical intervention to treat her recurrent sacral wound. The patient previous flap which failed approximately 1 month to recovery. This was done at [facility]. The patient there is additional risk due to his comorbidities regards to healing. The chance of recurrence infection bleeding and wound dehiscence is moderate. She understanding the risks. We will use the same incision. Patient was brought to the operating room placed supine on the stretcher. He was sedated and turned into the prone position. The buttock was prepped and draped in usual sterile fashion. The previous scar was used and a flap was elevated. The gluteus paz was elevated individually from the fasciocutaneous rotation buttock flap. The muscle was brought into position to cover all exposed bone. The fascial cutaneous flap was then rotated to cover the entire defect. 3 layer closure was carried out over a drain. Of note an ostectomy was performed a portion of which was sent for micron path analysis to identify osteomyelitis and avascular necrosis. DICTATED BY: EDELMIRA MCCOY MD DATE/TIME DICTATED:11/06/16 1549 SILK HANGER:EUGENE (CLAY LOPEZ) Allergies Coded Allergies: Penicillins (UNKNOWN 11/06/16) (SANDRA TERESA MD) Past History Travel History Traveled to [place] past 21 day No Medical History Any Pertinent Medical History? 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 No (CLAY LOPEZ) Review of Systems Review of Systems Constitutional: Reports: see HPI. EENTM: Reports: no symptoms. Respiratory: Reports: see HPI, short of breath. Cardiovascular: Reports: see HPI, chest pain. GI: Reports: see HPI, abdominal pain. Genitourinary: Reports: no symptoms. Musculoskeletal: Reports: see HPI, joint pain, muscle pain. Skin: Reports: no symptoms. Neurological/Psychological: Reports: see HPI. Hematologic/Endocrine: Reports: no symptoms. Immunologic/Allergic: Reports: no symptoms. All Other Systems: Reviewed and Negative (CLAY LOPEZ) Physical Exam Physical Exam General Appearance: anxious, cachetic, moderate distress Head: atraumatic Eyes: Bilateral: normal appearance, PERRL, EOMI. Ears, Nose, Throat: normal pharynx, normal ENT inspection, hearing grossly normal Neck: normal inspection Respiratory: chest non-tender, no respiratory distress, crackles Cardiovascular: regular rate/rhythm Peripheral Pulses: 2+ radial (R), 2+ radial (L) Gastrointestinal: tenderness Back: normal inspection Extremities: normal range of motion Neurologic/Psych: awake, disoriented x 3 Skin: normal color Diagram Body: 1) Noted well-healing old incisional scar with a well-healing Core Measures ACS in differential dx? No CVA/TIA Diagnosis: No Severe Sepsis Present: Yes BC x2: Yes Lactic Acid x2: Yes IV ABX Broad Spectrum: Yes NS/LR Started: Yes Septic Shock Present: No (CLAY LOPEZ) Progress Differential Diagnosis: arrythmia, alcohol intoxication, anemia, benign positional vertigo, CVA/stroke, dehydration, drug intoxication, encephalitis, electrolyte imbalance, GI bleed, hypoglycemia, hypoxia, intracranial Hem., intracranial mass/tumor, labrynthitis, meningitis, Meniere's disease, migraine MO, multiple sclerosis, pneumonia, postural hypotension, presyncope, post- traumatic vertigo, sepsis, seizure disorder, subarachnoid Hem., UTI/pyelo, vertebrobasilar insuff Plan of Care: Orders Procedure Date/time Status CT HEAD WO IV CONTRAST 11/08 0800 Active XRY-PORTABLE CHEST XRAY 11/08 0500 Active ICU LAB BUNDLE 11/08 0500 Active CBC WITHOUT DIFFERENTIAL 11/08 0500 Active Tube Feeding 11/07 L Active ICU LAB BUNDLE 11/07 2000 Complete Restraint- Medical 11/07 1930 Active EKG 11/07 1800 Active Nursing Misc 11/07 1626 Active PROTHROMBIN TIME 11/07 1200 Complete ICU LAB BUNDLE 11/07 1200 Complete STREP PNEUMO URINARY ANTIGEN 11/07 1130 Complete LEGIONELLA URINARY ANTIGEN 11/07 1130 Complete SPUTUM INDUCTION (GEN) 11/07 1129 Complete Restraint- Medical 11/07 0821 Complete Woods, Insertion/Removal/Asses 11/07 0821 Active Drains/Tubes 11/07 0648 Active CREATINE PHOSPHOKINASE 11/07 0440 Complete THERAPIST ORDERS 11/07 UNK Complete Lab Add-on Test 11/07 UNK Active Seizure Precautions 11/07 UNK Active OGT 11/07 UNK Active Nursing Misc 11/07 UNK Complete NUTRITIONAL CONSULT 11/07 UNK Active Current Medications Sig/Anaya Start time Last Medication Dose Stop Time Status Admin Lorazepam 50 MG Q24H 11/08 0000 AC (Ativan Drip) Dextrose/Water 500 ML (D5W) Levetiracetam 500 MG BID 11/07 2200 AC 11/07 (Keppra) 2241 Sodium Chloride 500 ML .Q6H40M 11/07 2030 AC 11/07 (Normal Saline 0.9%) 11/08 0309 2054 Magnesium Sulfate 1 GM ONCE ONE 11/07 1430 CAN (Mag Sulfate in D5) 11/07 1829 Dextrose/Water 100 ML (D5W) Magnesium Sulfate 1 GM ONCE ONE 11/07 1430 CAN (Mag Sulfate in D5) 11/07 1829 Dextrose/Water 100 ML (D5W) Morphine Sulfate 2 MG Q6P PRN 11/07 1145 AC (Morphine) Azithromycin 500 MG DAILY 11/07 1127 AC 11/07 (Zithromax) 11/11 1001 1316 Chlordiazepoxide HCl 25 MG TID 11/07 1120 AC 11/07 (Librium) 2241 Cyanocobalamin/ 1 BAG DAILY 11/07 1000 AC 11/07 Thiamine/Pyridoxine 11/09 1759 1027 (Vitamin in I.V.) Sodium Chloride 1,000 ML (Normal Saline 0.9%) Pantoprazole Sodium 40 MG DAILY 11/07 1000 AC 11/07 (Protonix) 1026 Dextrose/Water 1,000 ML Q13H 11/07 0815 CAN (D5W 1000) Levetiracetam 500 MG ONCE ONE 11/07 0145 CAN (Keppra) 11/07 0146 Ceftazidime 1,000 MG IQ8 11/07 0000 AC 11/07 (Fortaz) 2349 Clindamycin 300 MG IQ8 11/07 0000 AC 11/07 (Cleocin) 2353 Dextrose/Water 50 ML (D5W) Acetaminophen 650 MG Q6 PRN 11/06 1830 AC (Tylenol) Oxycodone HCl 5 MG Q6 PRN 11/06 183 AC (Roxicodone) Oxycodone/ 2 TAB Q6 PRN 11/06 183 AC Acetaminophen (Percocet) Enoxaparin Sodium 40 MG DAILY 11/06 181 AC 11/07 (Lovenox) 0927 Laboratory Tests 11/07/16 2000: Anion Gap 8, Estimated GFR > 60, Glucose 86, Calcium 8.5, Phosphorus 3.0, Magnesium 2.1, Total Bilirubin 0.2, AST 23, ALT 45, Albumin 2.4 L 11/07/16 1250: Anion Gap 8, Estimated GFR > 60, Glucose 86, Calcium 8.3 L, Phosphorus 3.5, Magnesium 1.7, Total Bilirubin 0.1 L, AST 27, ALT 46, Albumin 2.4 L 11/07/16 1056: PT 14.0 H, INR 1.34 H 11/07/16 0440: Troponin I 0.02 11/07/16 0440: Anion Gap 11, Estimated GFR > 60, Glucose 85, Calcium 8.2 L, Phosphorus 4.0, Magnesium 1.8, Total Bilirubin 0.2, AST 34, ALT 50, Creatine Kinase 211 H, Albumin 2.4 L, CBC w Diff NO MAN DIFF REQ, RBC 3.85 L, MCV 82.4, MCH 26.6 L, RDW 22.2 H, MPV 10.0, Gran % 75.3 H, Lymphocytes % 14.9 L, Monocytes % 4.8, Eosinophils % 4.6, Basophils % 0.4, Absolute Granulocytes 7.9 H, Absolute Lymphocytes 1.6, Absolute Monocytes 0.5, Absolute Eosinophils 0.5, Absolute Basophils 0, PUBS MCHC 32.3 L Microbiology 11/07 1332 URINE ROUT: Legionella Antigen - COMP 11/07 1332 URINE ROUT: Streptococcus pneumoniae Antigen (M - COMP 11/07 1215 LOWER RESP: Respiratory Culture - RES 11/07 1215 LOWER RESP: Gram Stain - RES Patient on initial examination was noted to be significantly altered and delirious. Patient was disoriented 4 Patient was afebrile and noted to be hypothermic in which a bear hugger was ordered. Patient had no signs of CVA or TIA. Patient was significantly agitated and significantly showed akathisia. It was noted to me that the hydro technician performed 3 days ago the imaging of the CT angiogram and stated that the patient has been significantly altered compared to 3 days ago. It was also noted that Dr. Mccoy had dictated a surgical debridement on the patient however when discussing with him personally he states that that he incorrectly dictated this on the wrong patient and please disregard the documentation scribed by him today. The sacral ulcer looks well-healing and is not the source of patient's symptoms. Patient does so concern of CT scan of GROUND GLASS OPACITY patient agrees and leukocytosis in which he was administered antibiotics for concerns of pneumonia. Patient was administered significant IV fluid resuscitation Patient noted to be significantly agitated and noted to be significantly a fall risk to himself and others in which she was administered first IV Ativan which patient still was showing significant agitation and akathisia which she was administered another 2 mg of IV Ativan and Benadryl for the safety of himself and others. There was a differential diagnosis noted to be meningitis however patient however on his clinical condition could not ascertain a lumbar puncture in the emergency room Discussed disposition plan with DR. TERESA who also evaluated patient and agrees. (CLAY LOPEZ) Patient seen and examined with Annia and Dr. guerrero at bedside. Acute change in his clinical condition over the past 30 minutes. At this time he is much more delirious, combative. IV Versed given. IV Ativan drip ordered. Patient to be made as the ICU. (MALICK VICENTE,SANDRA) Diagnostic Imaging: Viewed by Me: CT Scan. Radiology Impression: SEE COMMENTS Initial ED EKG: normal intervals, normal p-waves, normal QRS complex, 71 BPM, MULTIPLE ARTIFACT NOTED Comments: PATIENT: MANA LORA PRESENT AGE: 56 PATIENT ACCOUNT NO: [id number] : 56 LOCATION: [facility], [place] ORDERING PHYSICIAN: CLAY LAL SERVICE DATE: 11/06/16 EXAM TYPE: CAT - CT ABD & PELVIS W/O IV CONTRAS EXAMINATION: CT ABDOMEN AND PELVIS WITHOUT CONTRAST CLINICAL INFORMATION: Chest and abdominal pain, short of breath. COMPARISON: CT pulmonary angiogram 11/04/2016. TECHNIQUE: Multidetector volumetric imaging was performed from the superior aspect of the liver through the pubic symphysis. Sagittal and coronal reformatted images were obtained on the technologist's workstation. DLP: 272 mGy-cm FINDINGS: LUNG BASES: A mosaic attenuation pattern is again noted with fairly diffuse groundglass opacity throughout the lower lobes greater than lingula and middle lobe which appears increased compared with the previous exam which is nonspecific most likely related to small airway disease. There is no evidence of underlying interstitial thickening to suggest pulmonary edema or pleural effusions and the heart does not appear enlarged. Hypersensitivity pneumonitis versus atypical or opportunistic pneumonia could have this appearance in the proper clinical setting, especially if the patient is immunocompromised. Eosinophilic pneumonia possibly as well however less likely. Clinical correlation and pulmonary consultation should be considered. LIVER, GALLBLADDER, AND BILIARY TREE: The liver is normal in size, shape, and attenuation. No focal hepatic lesion or biliary ductal dilatation is present. The gallbladder is unremarkable with no evidence of radiopaque gallstones, gallbladder wall thickening, or obvious pericholecystic inflammatory changes. PANCREAS: Unremarkable. SPLEEN: Unremarkable. ADRENAL GLANDS: Normal appearing. KIDNEYS AND URETERS: Unremarkable on this noncontrast examination. Small calcifications in the hilar regions are likely vascular given the extensive atherosclerotic changes. BLADDER: Moderately distended and unremarkable. GASTROINTESTINAL TRACT: Unremarkable, colon is stool-filled. Stomach is underdistended, mural thickening not excluded. ABDOMINAL WALL: No significant hernia is appreciated. LYMPH NODES: There is no evidence of retroperitoneal or mesenteric adenopathy. No inguinal adenopathy or pelvic adenopathy is seen. VASCULAR: Extensive atherosclerotic retroperitoneal calcifications without aneurysmal dilatation. PELVIC VISCERA: Prostate is only mildly enlarged. Urinary bladder moderately distended. OSSEOUS STRUCTURES: Unremarkable. IMPRESSION: 1. Worsening groundglass opacity with somewhat of a mosaic attenuation pattern most likely small airway disease. Pulmonary consultation should be considered. Please see discussion above. 2. There is extensive atherosclerotic aortic calcification without aneurysm, otherwise largely unremarkable examination. DICTATED BY: GOMEZ JOYNER MD DATE/TIME DICTATED:11/06/161600 SILK HANGER:PADMA DATE/TIME TRANSCRIBED:11/06/161600 CONFIDENTIAL, DO NOT COPY WITHOUT APPROPRIATE AUTHORIZATION. PATIENT: MANA LORA PRESENT AGE: 56 PATIENT ACCOUNT NO: [id number] : 56 LOCATION: [facility], [place] ORDERING PHYSICIAN: CLAY LAL SERVICE DATE: 11/06/16 EXAM TYPE: CAT - CT ABD & PELVIS W/O IV CONTRAS EXAMINATION: CT ABDOMEN AND PELVIS WITHOUT CONTRAST CLINICAL INFORMATION: Chest and abdominal pain, short of breath. COMPARISON: CT pulmonary angiogram 11/04/2016. TECHNIQUE: Multidetector volumetric imaging was performed from the superior aspect of the liver through the pubic symphysis. Sagittal and coronal reformatted images were obtained on the technologist's workstation. DLP: 272 mGy-cm FINDINGS: LUNG BASES: A mosaic attenuation pattern is again noted with fairly diffuse groundglass opacity throughout the lower lobes greater than lingula and middle lobe which appears increased compared with the previous exam which is nonspecific most likely related to small airway disease. There is no evidence of underlying interstitial thickening to suggest pulmonary edema or pleural effusions and the heart does not appear enlarged. Hypersensitivity pneumonitis versus atypical or opportunistic pneumonia could have this appearance in the proper clinical setting, especially if the patient is immunocompromised. Eosinophilic pneumonia possibly as well however less likely. Clinical correlation and pulmonary consultation should be considered. LIVER, GALLBLADDER, AND BILIARY TREE: The liver is normal in size, shape, and attenuation. No focal hepatic lesion or biliary ductal dilatation is present. The gallbladder is unremarkable with no evidence of radiopaque gallstones, gallbladder wall thickening, or obvious pericholecystic inflammatory changes. PANCREAS: Unremarkable. SPLEEN: Unremarkable. ADRENAL GLANDS: Normal appearing. KIDNEYS AND URETERS: Unremarkable on this noncontrast examination. Small calcifications in the hilar regions are likely vascular given the extensive atherosclerotic changes. BLADDER: Moderately distended and unremarkable. GASTROINTESTINAL TRACT: Unremarkable, colon is stool-filled. Stomach is underdistended, mural thickening not excluded. ABDOMINAL WALL: No significant hernia is appreciated. LYMPH NODES: There is no evidence of retroperitoneal or mesenteric adenopathy. No inguinal adenopathy or pelvic adenopathy is seen. VASCULAR: Extensive atherosclerotic retroperitoneal calcifications without aneurysmal dilatation. PELVIC VISCERA: Prostate is only mildly enlarged. Urinary bladder moderately distended. OSSEOUS STRUCTURES: Unremarkable. IMPRESSION: 1. Worsening groundglass opacity with somewhat of a mosaic attenuation pattern most likely small airway disease. Pulmonary consultation should be considered. Please see discussion above. 2. There is extensive atherosclerotic aortic calcification without aneurysm, otherwise largely unremarkable examination. PATIENT: MANA LORA PRESENT AGE: 56 PATIENT ACCOUNT NO: [id number] : 56 LOCATION: [facility] ORDERING PHYSICIAN: PRITI SALES MD SERVICE DATE: 11/04/16 EXAM TYPE: CAT - CTA CHEST EXAMINATION: CT ANGIOGRAM CHEST, PE STUDY CLINICAL INFORMATION: Dyspnea. COMPARISON: Chest x-ray 06/24/2016 TECHNIQUE: A noncontrast localizer was performed, followed by the administration of 95 mL Optiray [address] of the chest was then performed. Coronal and sagittal reformatted and 3-D technique MIP images of the chest were completed at the CT scanner and reviewed on the PACS workstation. No adverse effects were reported. DLP: 325.02 mGy-cm. FINDINGS: VASCULAR: The main pulmonary artery, secondary and tertiary branches of the pulmonary artery are normally opacified with no evidence of pulmonary embolism. Atherosclerotic vascular wall calcifications of aorta. No aneurysm or dissection of the aorta. MEDIASTINUM: Shotty mediastinal lymph nodes. There are multiple lymph nodes measuring about 1 cm and less in the pretracheal retrovascular space and AP window. LUNGS: There is a mosaic attenuation pattern of the lung parenchyma. All lobes of the lungs are involved. No significant bronchial wall thickening and no bronchiectasis. There is no attenuation of the vasculature. No interstitial thickening or reticular opacity. No lung nodule. The mosaic attenuation is therefore nonspecific. Would favor small airways disease as etiology. FLUID: There is no pericardial effusion. There is no pleural effusion. AXILLA: No significant lymphadenopathy. UPPER ABDOMEN: Adrenal glands normal. Visualized portions of liver and spleen unremarkable. SKELETAL: No suspicious focal bone finding. IMPRESSION: 1. No evidence of pulmonary embolism. 2. Diffuse Mosaic attenuation of the lung parenchyma possibly related to small airways disease. Clinically correlate. DICTATED BY: EMEKA HENRY MD DATE/TIME DICTATED:11/04/161736 SILK HANGER:PADMA DATE/TIME TRANSCRIBED:11/04/161736 (CLAY LOPEZ) CXR Impression: PATIENT: MANA LORA PRESENT AGE: 56 PATIENT ACCOUNT NO: [id number] : 56 LOCATION: [facility] ORDERING PHYSICIAN: CLAY LAL SERVICE DATE: 11/06/16 EXAM TYPE: RAD - XRY-PORTABLE CHEST XRAY EXAMINATION: XR PORTABLE CHEST CLINICAL INFORMATION: Chest pain. COMPARISON: CTA chest 11/04/2016. TECHNIQUE: Portable frontal view of the chest was obtained. FINDINGS: Single AP view of the chest demonstrates patchy airspace opacities throughout the bilateral lungs. An endotracheal tube is visualized terminating approximately 8.4 cm above the level of the trip. No pleural effusions or pneumothoraces. Cardiomediastinal contours are stable. No visible acute osseous abnormality. IMPRESSION: Multifocal confluent and patchy airspace opacities throughout the bilateral lungs. This finding is nonspecific but may represent a multifocal infectious process. An atypical infectious process should also be considered. An endotracheal tube terminates approximately 8.4 cm above the level of the trip. Consider 2 to 3 cm advancement. DICTATED BY: VASHTI VINCENT MD DATE/TIME DICTATED:11/06/162100 SILK HANGER:PADMA DATE/TIME TRANSCRIBED:11/06/162100 CONFIDENTIAL, DO NOT COPY WITHOUT APPROPRIATE AUTHORIZATION. <Electronically signed in Other Vendor System> SIGNED BY: VASHTI VINCENT MD 11/06/162111 (SANDRA TERESA MD) Departure Departure Disposition: STILL A PATIENT Condition: Critical Clinical Impression Primary Impression: Alcohol withdrawal delirium Secondary Impressions: Encephalopathy, Pneumonia Referrals: PRITI SALES MD (PCP/Family) Departure Forms: Customer Survey General Discharge Information Admission Note Spoke With: STEVE BUCKNER MD Documentation of Exam: Documentation of any treatments & extenuating circumstances including Concerns Regarding Discharge (functional status, medication knowledge or non-compliance, living conditions, etc.) that warrant an admission rather than observation: [ Discussed patient with Dr. Buckner who agrees with ICU admission for concerns of acute delirium and concerns of encephalopathy and delirium tremens and pneumonia. Patient requires continuous telemetry monitoring, , FREQUENT vital signs checks IV benzodiazepine drip IV antibiotics, IV fluid resuscitation infectious disease consultation and neurology consultation] (CLAY LOPEZ) PA/BREAKER OPERATOR Co-Sign Statement Statement: ED Attending supervision documentation- [X] I saw and evaluated the patient. I have also reviewed all the pertinent lab results and diagnostic results. I agree with the findings and the plan of care as documented in the PA's/BREAKER OPERATOR's documentation. [X] I have reviewed the ED Record and agree with the PA's/BREAKER OPERATOR's documentation. [] Additions or exceptions (if any) to the PAs/BREAKER OPERATOR's note and plan are summarized below: [] (SANDRA TERESA MD) Procedures Intubation Time of Intubation: 1999 Intubation Method: orotracheal Tube Size (cm): 7.5 Medications: succinylcholine, ETOMIDATE Breath Sounds After Intubation: equal Intubation Complications: no complications Post Intubation Xray? Yes (SANDRA TERESA MD) Critical Care Note Critical Care Note Critical Care Time: 75-104 min (CLAY LOPEZ)
--- NOTE | 2016-11-06 15:22 | NUR ---
PT REFUSING TO COOPERATE WITH EKG PROCEDURE. WILL NOT LIE DOWN AND WILL NOT UNCROSS ARMS AND LEGS. SITTING IN FARHEEN POSITION AND WHEN ASKED TO PLEASE COMPLY HE SAYS NO EACH TIME.
--- NOTE | 2016-11-06 15:52 | Operative Report ---
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 The patient previous flap which failed approximately 1 month to recovery. This was done at [facility]. The patient there is additional risk due to his comorbidities regards to healing. The chance of recurrence infection bleeding and wound dehiscence is moderate. She understanding the risks. We will use the same incision. Patient was brought to the operating room placed supine on the stretcher. He was sedated and turned into the prone position. The buttock was prepped and draped in usual sterile fashion. The previous scar was used and a flap was elevated. The gluteus paz was elevated individually from the fasciocutaneous rotation buttock flap. The muscle was brought into position to cover all exposed bone. The fascial cutaneous flap was then rotated to cover the entire defect. 3 layer closure was carried out over a drain. Of note an ostectomy was performed a portion of which was sent for micron path analysis to identify osteomyelitis and avascular necrosis.
[2016-11-06 16:07] LABS: ABSOLUTE BASOPHIL COUNT 0 /CUMM (0.0-0.2); ABSOLUTE EOSINOPHIL COUNT 0.2 /CUMM (0.0-0.7); ABSOLUTE GRANULOCYTE CT 13.6 /CUMM (1.4-6.5); ABSOLUTE LYMPH COUNT 0.9 /CUMM (1.2-3.4); ABSOLUTE MONOCYTE COUNT 0.6 /CUMM (0.10-0.60); BASOPHIL % 0 % (0.0-2.0); EOSINOPHIL % 1.2 % (0-5); GRANULOCYTE % 89.1 % (42.2-75.2); MEAN CORPUSCULAR HGB 26.1 PG (27.0-31.0); MEAN CORPUSCULAR HGB CONC 31.7 G/DL (33.0-37.0); MEAN CORPUSCULAR VOLUME 82.4 FL (80.0-94.0); MEAN PLATELET VOLUME 10.1 FL (7.4-10.4); RBC DISTRIBUTION WIDTH 22.6 % (11.5-14.5); RED BLOOD CELL CT 5.22 /CUMM (4.70-6.10); WHITE BLOOD CELL COUNT 15.3 /CUMM (4.8-10.8)
[2016-11-06 16:08] LABS: PLATELET COUNT 360 /CUMM (130-400)
--- NOTE | 2016-11-06 16:11 | CT SCAN REPORT ---
EXAMINATION: CT HEAD WITHOUT CONTRAST CLINICAL INFORMATION: Altered mental status. COMPARISON: Noncontrast head CT 06/24/2016. TECHNIQUE: Contiguous axial imaging was performed from the skull base to vertex without intravenous administration of contrast. DLP: 1117 mGy-cm FINDINGS: No acute intracranial abnormality. No acute intracranial hemorrhage, mass or mass effect or abnormal extra-axial fluid collections. The density within the dural venous sinuses is within normal limits. The ventricles are normal in size, without hydrocephalus. There are no focal areas of hypoattenuation within a vascular distribution to suggest acute transcortical ischemia. The basilar cisterns are patent. No acute calvarial abnormality is identified. Soft tissues appear unremarkable. The imaged paranasal sinuses and mastoid air cells are well aerated. IMPRESSION: No acute intracranial pathology.
--- NOTE | 2016-11-06 16:20 | NUR ---
CONDOM CATH APPLIED IN ORDER TO OBTAIN UA
--- NOTE | 2016-11-06 16:21 | NUR ---
CRITICAL TEST RESULTS [id number] MANA LORA 56 M TESTS AND RESULTS: LACTIC 2.2 Results received and read back by: JANEE JACKSON Results received date and time: 11/06/16 1622 The following provider was notified of the results, and read the results back: MALICK Notified date and time: 11/06/16 at 1622
--- NOTE | 2016-11-06 16:22 | CT SCAN REPORT ---
EXAMINATION: CT ABDOMEN AND PELVIS WITHOUT CONTRAST CLINICAL INFORMATION: Chest and abdominal pain, short of breath. COMPARISON: CT pulmonary angiogram 11/04/2016. TECHNIQUE: Multidetector volumetric imaging was performed from the superior aspect of the liver through the pubic symphysis. Sagittal and coronal reformatted images were obtained on the technologist's workstation. DLP: 272 mGy-cm FINDINGS: LUNG BASES: A mosaic attenuation pattern is again noted with fairly diffuse groundglass opacity throughout the lower lobes greater than lingula and middle lobe which appears increased compared with the previous exam which is nonspecific most likely related to small airway disease. There is no evidence of underlying interstitial thickening to suggest pulmonary edema or pleural effusions and the heart does not appear enlarged. Hypersensitivity pneumonitis versus atypical or opportunistic pneumonia could have this appearance in the proper clinical setting, especially if the patient is immunocompromised. Eosinophilic pneumonia possibly as well however less likely. Clinical correlation and pulmonary consultation should be considered. LIVER, GALLBLADDER, AND BILIARY TREE: The liver is normal in size, shape, and attenuation. No focal hepatic lesion or biliary ductal dilatation is present. The gallbladder is unremarkable with no evidence of radiopaque gallstones, gallbladder wall thickening, or obvious pericholecystic inflammatory changes. PANCREAS: Unremarkable. SPLEEN: Unremarkable. ADRENAL GLANDS: Normal appearing. KIDNEYS AND URETERS: Unremarkable on this noncontrast examination. Small calcifications in the hilar regions are likely vascular given the extensive atherosclerotic changes. BLADDER: Moderately distended and unremarkable. GASTROINTESTINAL TRACT: Unremarkable, colon is stool-filled. Stomach is underdistended, mural thickening not excluded. ABDOMINAL WALL: No significant hernia is appreciated. LYMPH NODES: There is no evidence of retroperitoneal or mesenteric adenopathy. No inguinal adenopathy or pelvic adenopathy is seen. VASCULAR: Extensive atherosclerotic retroperitoneal calcifications without aneurysmal dilatation. PELVIC VISCERA: Prostate is only mildly enlarged. Urinary bladder moderately distended. OSSEOUS STRUCTURES: Unremarkable. IMPRESSION: 1. Worsening groundglass opacity with somewhat of a mosaic attenuation pattern most likely small airway disease. Pulmonary consultation should be considered. Please see discussion above. 2. There is extensive atherosclerotic aortic calcification without aneurysm, otherwise largely unremarkable examination.
--- NOTE | 2016-11-06 16:28 | NUR ---
SILVIA CHOI APPLIED FOR LOW RECTAL TEMP.
--- NOTE | 2016-11-06 16:57 | NUR ---
PATIENT HAS BEEN MEDICATED X'S 2 FOR HIS INABILITY TO REMAIN STILL IN THE BED. PATIENT IS AT RISK OF CAUSING SELF HARM. PATIENT IS CONTINUOUSLY BEING REMINDED THAT HE NEEDS TO BE STILL. REMAINS ON BEAR HUGGER. CONDOM CATH REMAINS IN PLACE.
[2016-11-06 17:00] VITALS: BP 141/63
--- NOTE | 2016-11-06 17:53 | NUR ---
BEAR HUGGER BLANKET IS CHANGED D/T PATIENT THRASHING ABOUT AND TEARING THE PREVIOUS ONE.
--- NOTE | 2016-11-06 18:18 | NUR ---
LORAZEPAM GTT INITIATED PER ORDER. PATIENT CONTINUES TO THRASH AROUND IN BED. MD & CN ARE AWARE. PATIENT REMAINS HYPOTHERMIC
--- NOTE | 2016-11-06 18:41 | NUR ---
ATIVAN GTT INCREASED TO 6MG/HR PER CRITICAL ORTHODONTIC LABORATORY TECHNICIAN.
--- NOTE | 2016-11-06 19:08 | NUR ---
PT BED ASSIGNMENT 108
[2016-11-06 19:11] VITALS: BP 130/68
--- NOTE | 2016-11-06 19:17 | NUR ---
ATIVAN GTT INCREASED TO 8MG/HR PER CC MD
--- NOTE | 2016-11-06 19:51 | NUR ---
etomodate 20mg given ivp for rsi
--- NOTE | 2016-11-06 19:57 | NUR ---
additional 20mg etomodate for sedation during rsi
--- NOTE | 2016-11-06 20:00 | NUR ---
Succinylcholine 150mg ivp for continued rsi.
--- NOTE | 2016-11-06 20:10 | NUR ---
PATIENT IS ORALLY INTUBATED BY DR. TERESA W/ #7.5 ETT WHICH IS TAPED ON THE RIGHT SIDE OF HIS MOUTH AND TAPED AT THE 23CM LL. POSITIVE BREATH SOUNDS BILATERALLY.
--- NOTE | 2016-11-06 20:13 | NUR ---
GUIAC NEGATIVE STOOL
[2016-11-06 20:45] VITALS: BP 105/62
--- NOTE | 2016-11-06 21:12 | RADIOLOGY REPORT ---
EXAMINATION: XR PORTABLE CHEST CLINICAL INFORMATION: Chest pain. COMPARISON: CTA chest 11/04/2016. TECHNIQUE: Portable frontal view of the chest was obtained. FINDINGS: Single AP view of the chest demonstrates patchy airspace opacities throughout the bilateral lungs. An endotracheal tube is visualized terminating approximately 8.4 cm above the level of the trip. No pleural effusions or pneumothoraces. Cardiomediastinal contours are stable. No visible acute osseous abnormality. IMPRESSION: Multifocal confluent and patchy airspace opacities throughout the bilateral lungs. This finding is nonspecific but may represent a multifocal infectious process. An atypical infectious process should also be considered. An endotracheal tube terminates approximately 8.4 cm above the level of the trip. Consider 2 to 3 cm advancement.
[2016-11-06 22:00] VITALS: BP 117/61
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
[2016-11-06 23:00] VITALS: BP 130/80
[2016-11-07] VITALS (12 sets, daily range): BP systolic 94–134; BP diastolic 51–84
[2016-11-07 00:41] LABS: ABSOLUTE BASOPHIL COUNT 0 /CUMM (0.0-0.2); ABSOLUTE LYMPH COUNT 1.6 /CUMM (1.2-3.4); BASOPHIL % 0 % (0.0-2.0)
[2016-11-07 00:59] LABS: ABSOLUTE EOSINOPHIL COUNT 0.3 /CUMM (0.0-0.7); ABSOLUTE MONOCYTE COUNT 0.5 /CUMM (0.10-0.60); EOSINOPHIL % 2.8 % (0-5); GRANULOCYTE % 80.1 % (42.2-75.2); MEAN CORPUSCULAR HGB 26.3 PG (27.0-31.0); MEAN CORPUSCULAR HGB CONC 32.5 G/DL (33.0-37.0); MEAN CORPUSCULAR VOLUME 80.8 FL (80.0-94.0); PLATELET COUNT 291 /CUMM (130-400); RBC DISTRIBUTION WIDTH 21.9 % (11.5-14.5); WHITE BLOOD CELL COUNT 12.5 /CUMM (4.8-10.8)
[2016-11-07 01:01] LABS: HEMATOCRIT 30.2 % (42-52); RED BLOOD CELL CT 3.73 /CUMM (4.70-6.10)
--- NOTE | 2016-11-07 01:19 | NUR ---
FROM 2044-RECEIVED PT FROM ER [facility] AT 2044-ORALLY INTUBATED AND BAGGED BY RESP THERAPIST, EKG MONITORING, ATIVAN GTT INFUSING AT 10MG/HR, ESPARZA IN PLACE, IVF INFUSING,BILATERAL SOFT WRIST RESTRAINTS ON. PT PLACED IN BED AND ATTACHED TO BEDSIDE MONITOR. PLACED ON VENT BY RESP THERAPIST. ORIENTATION TO UNIT DONE. PT SEDATED ON ATIVAN GTT AT 10MG/HR-SEE FLOW SHEET FOR SAS SCORES. NO SEIZURE ACTIVITY NOTED SINCE ADMISSION TO ICU. OCC MOVEMENT NOTED. NO CLOLUS NOTED AT PRESENT. ATIVAN GTT TITRATED DOWN AT 0100. PT PUPILS 1-2MM, SLUGGISH TO LIGHT. PT EXAMINED BY DR. LYNCH AND DR. KING. RHONCI WITH DIMINISHED BREATH SOUNDS AT BASES NOTED. SUCTIONING FOR SM AMT OF THICK, BLOOD TINGED SECREATIONS. NO SOB OR RESP DISTRESS NOTED AT PRESENT. SEE FLOW SHEET FOR VS, 02 SATS, I/O'S. MONITOR SHOWS NSR, NO ECTOPY NOTED AT PRESENT. BP STABLE AT PRESENT. ABD SOFT, NONTENDER, NONDISTENDED, POSITIVE BOWEL SOUNDS. NGT PLACED ORDERED IN RT NARES WITHOUT DIFFICULTY, TAPED AT 65CM, PLACEMENT CONFIRMED BY AIR. ESPARZA IN PLACE-DRAINIG GOOD AMT OF CLEAR YELLOW URINE AT PRESENT. LT UPPER IYER RIGHT BELOW KNEE WITH 1CMX2.3CM SUPERFICIAL OPEN AREA-100% YELLOW, IRREGULAR SHAPED, SURROUNDING SKIN WNL, NO ODOR OR DRAINAGE NOTED. LT BUTTOCKS WITH 1.6CMX0.5CMX0.2CM OPEN AREA-100% RED, NO ODOR OR DRAINAGE NOTED. SURROUNDING SKIN WHITE. AT 010 ATIVAN TITRATED DOWN TO 9MG/HR-WILL MONITOR
--- NOTE | 2016-11-07 02:26 | Admission Certification ---
Admission Certification Certification Statement - As attending physician, I certify that at the time of - admission, based on clinical presentation, severity of - symptoms, need for further diagnostic testing and - therapeutic interventions, and risk of adverse outcomes - without in-hospital treatment, in my clinical assessment, - this patient requires an acute hospital stay for a minimum - of two nights or longer. I have also considered psychsocial - factors such as support system, advanced age, financial - issues, cognitive issues, and failed out-patient treatments, - past re-admission history, safety of patient, and lack of - compliance as applicable. Specific rationale supporting this admission is: Delirium, intubation for airway protection
[2016-11-07 06:01] LABS: ABSOLUTE BASOPHIL COUNT 0 /CUMM (0.0-0.2); ABSOLUTE EOSINOPHIL COUNT 0.5 /CUMM (0.0-0.7); ABSOLUTE GRANULOCYTE CT 7.9 /CUMM (1.4-6.5); ABSOLUTE LYMPH COUNT 1.6 /CUMM (1.2-3.4); ABSOLUTE MONOCYTE COUNT 0.5 /CUMM (0.10-0.60); BASOPHIL % 0.4 % (0.0-2.0); EOSINOPHIL % 4.6 % (0-5); GRANULOCYTE % 75.3 % (42.2-75.2); HEMATOCRIT 31.7 % (42-52); MEAN CORPUSCULAR HGB 26.6 PG (27.0-31.0); MEAN CORPUSCULAR HGB CONC 32.3 G/DL (33.0-37.0); MEAN CORPUSCULAR VOLUME 82.4 FL (80.0-94.0); PLATELET COUNT 304 /CUMM (130-400); RBC DISTRIBUTION WIDTH 22.2 % (11.5-14.5); RED BLOOD CELL CT 3.85 /CUMM (4.70-6.10); WHITE BLOOD CELL COUNT 10.5 /CUMM (4.8-10.8)
--- NOTE | 2016-11-07 06:54 | NUR ---
PT REMAINED SEDATED FOR SHIFT-ATIVAN GTT TITRATED DOWN TO 6MG/HR. NO SEIZURE ACTIVITY NOTED THOUGHOUT SHIFT. NO FURTHER CLONIC MOVEMENTS NOTED. REMAINS IN BILATERAL SOFT WRIST RESTRAINTS. PUPIL REACTING BRISKLY TO LIGHT AT PRESENT. MINIMAL SUCTIONING OF THICK BLOOD TINGED SECREATIONS VIA ETT, MOD AMT OF BLOOD TINGED ORAL SECREATIONS. MONITOR NSR, OCC PVC'S NOTED. BP STABLE THOUGHOUT SHIFT. GOOD URINE OUTPUT FOR SHIFT. NO CHANGE IN LT KNEE AND LT BUTTOCK OPEN AREAS-WOUND CONSULT ORDERED, NUTRITION CONSULT ORDERED, SIZEWISE BED ORDERED. NO OTHER CHANGE IN PT ASSESSMENTS THOUGHOUT SHIFT
--- NOTE | 2016-11-07 08:41 | NUR ---
CXR REQUESTED FOR NGT PLACEMENT(PO MEDS ORDERED) TUG HAND TO ROOM AT 0815 RECEIVED PATIENT W/ ATIVAN RUNNING AT 6MG/HR SAS 3 TITRATED TO 5MG/HR AT 0700 TITRATED TO 4MG/HR AT 0800 B/L SOFT UPPER REST.,ROM GIVEN PUPILS 2MM BRISK,NO S/S SEIZURE ACTIVITY,KEPPRA TO BE GIVEN NSR 90 BP 110/70,POSITIVE PULSES, PER ORDERS D/C NS @ 100MLS AFTER LITER HANGING FINISHES VENTED 30% FIO2 O2 SAT 97% RONCHI BREATH SOUDS/DIMINISHED NGT RIGHT NARES, ABD SOFT POSITIVE B.S. SIZE PAINTER SPECIALITY BED ORDERED, LEFT BUTTOCKS WOUND,LEFT KNEE WOUND,BRUISES B/L KNEES,ALPS IN PLACE, BED LOCKED IN LOW POSITION ESPARZA INTACT ADEQUATE AMOUNT CLEAR YELLOW U/O POTASSIUM 3.4 2 RUNS 10MEQ IV & 40 KLOR TO BE GIVEN MAG. 1.8 400 PO TO BE GIVEN AWAITING XRAY PLACEMENT TO ADM 0800 PO MEDS VIA NGT 0900 TITRATED ATIVAN GTT TO 3MG/HR WILL CONTINUE TO CLOSELY MONITOR
--- NOTE | 2016-11-07 08:52 | PN- Resident CRCU ---
Subjective HPI/CRCU Issues: No acute events overnight. Patient remains intubated and on mechanical ventilation, day #2 with the following vent settings: AC mode, VT 550, FiO2 30%, RR 16 and PEEP 5. Hypothermia has improved with administration of Elmer Hugger. Patient was seen and examined this morning. He is intubated, sedated and unresponsive. He moves all four extremities spontaneously but does not follow commands. He remains on Ativan drip, which was gradually tapered down from 10 mg /hr yesterday to 1 mg/hr today. NG tube was removed and OG tube was placed, with placement successfully confirmed by CXR. CXR this AM showed the ET tube terminating 8.5 cm above the trip and ET tube was subsequently advanced several centimeters. However repeat CXR showed that the ET tube was still in the same position. Per respiratory, this was likely secondary to neck flexion/ extension which can affect ET tube position on CXR. CXR was not advanced further as it was felt by respiratory that it could not be advanced further safely. Oxygen saturations remained stable. Objective Vital Signs & I&O Last 8 Hrs of Vitals and I&O: Vital Signs Date Time Temp Pulse Resp B/P B/P Pulse O2 O2 Flow FiO2 Mean Ox Delivery Rate 06/03 2230 30 06/03 2127 86 20 120/74 06/03 1950 30 06/03 1640 30 06/03 1600 97.6 90 22 131/84 06/03 1600 97.6 90 22 131/84 98 Ventilator 30% 06/03 1409 30 06/03 1400 93 24 134/71 06/03 1200 98.7 83 24 110/70 06/03 1200 97 Ventilator 30% 06/03 1151 30 06/03 1000 87 24 101/59 06/03 0840 30 06/03 0800 97.8 90 24 110/66 06/03 0800 97.8 90 24 110/70 97 Ventilator 30% 06/03 0800 97 Ventilator 30% 06/03 0614 30 06/03 0600 83 26 94/56 06/03 0400 97.7 86 28 112/51 06/03 0400 94 Ventilator 30% 06/03 0344 30 06/03 0200 77 24 99/51 06/03 0137 30 06/03 0000 98.0 84 23 110/65 06/03 0000 95 Ventilator 30% 06/02 2300 98.0 93 23 130/80 95 Ventilator 30% Intake & Output 11/07 1600 Intake Total 1969 Output Total 975 Balance 994 Intake, IV 1779 Intake, Oral 0 Intake, Other 190 Number 0 Bowel Movements Output, Urine 975 Patient 64.665 kg Weight Weight Bed scale Measurement Method Exam General Appearance: sedated, intubated, lethargic, unresponsive, moving all four extremities spontaneously Head: atraumatic, normal appearance Ears, Nose, Throat: moist mucus membranes Neck: normal inspection Respiratory: decreased breath sounds Cardiovascular: regular rate/rhythm Gastrointestinal: soft, non-tender, positive bowel sounds Extremities: no edema, no clubbing or cyanosis Skin: intact, normal color, warm/dry Current Medications: Current Medications Sig/Anaya Start time Last Medication Dose Route Stop Time Status Admin Acetaminophen 650 MG Q6 PRN 11/06 1830 AC PO Azithromycin 500 MG DAILY 11/07 1127 AC 11/07 PO 11/11 1001 1316 Ceftazidime 1,000 MG IQ8 11/07 0000 AC 11/07 IV 1613 Chlordiazepoxide HCl 25 MG TID 11/07 1120 AC 11/07 PO 2241 Clindamycin 300 MG IQ8 11/07 0000 AC 11/07 Dextrose/Water 50 ML IV 1613 Cyanocobalamin/ 1 BAG DAILY 11/07 1000 AC 11/07 Thiamine/Pyridoxine IV 11/09 1759 1027 Sodium Chloride 1,000 ML Cyproheptadine HCl 8 MG Q6 11/07 0500 DC 11/07 PO 1052 Dextrose/Water 1,000 ML Q13H 11/07 0815 CAN IV Enoxaparin Sodium 40 MG DAILY 11/06 1816 AC 11/07 SC 0927 Levetiracetam 500 MG BID 11/07 2200 AC 11/07 NG 2241 Levetiracetam 500 MG Q12 11/07 1000 DC 11/07 N/A 1 UNIT IV 1028 Levetiracetam 1,000 MG ONCE ONE 11/07 0300 DC 11/07 N/A 1 UNIT IV 11/07 0329 0259 Levetiracetam 500 MG ONCE ONE 11/07 0145 CAN IV 11/07 0146 Lorazepam 50 MG Q24H 11/08 0000 AC Dextrose/Water 500 ML IV Lorazepam 1 MG Q1 PRN 11/06 2315 CAN IV Lorazepam 100 MG Q10H 11/06 2300 AC 11/07 Dextrose/Water 1,000 ML IV 11/07 2359 0056 Magnesium Oxide 400 MG ONE ONE 11/07 0830 DC 11/07 PO 11/07 0831 1028 Magnesium Sulfate 1 GM Q2H 11/07 1445 DC 11/07 Dextrose/Water 100 ML IV 11/07 1844 1543 Magnesium Sulfate 1 GM ONCE ONE 11/07 1430 CAN Dextrose/Water 100 ML IV 11/07 1829 Magnesium Sulfate 1 GM ONCE ONE 11/07 1430 CAN Dextrose/Water 100 ML IV 11/07 1829 Morphine Sulfate 2 MG Q6P PRN 11/07 1145 AC IV Oxycodone HCl 5 MG Q6 PRN 11/06 1830 AC PO Oxycodone/ 2 TAB Q6 PRN 11/06 1830 AC Acetaminophen PO Pantoprazole Sodium 40 MG DAILY 11/07 1000 AC 11/07 IV 1026 Potassium Chloride 40 MEQ ONCE ONE 11/07 0830 DC 11/07 PO 11/07 0831 1028 Potassium Chloride 10 MEQ Q1H 11/07 0715 DC 11/07 IV 11/07 0816 1029 Potassium Chloride 20 MEQ Q1H 11/07 0645 DC IV 11/07 0746 Sodium Chloride 500 ML .Q6H40M 11/07 2030 AC 11/07 IV 04 0309 2054 Sodium Chloride 1,000 ML Q10H 11/07 0145 DC 11/07 IV 0145 Sodium Chloride 1,000 ML Q10H / 2315 CAN IV Results Results: Laboratory Tests 11/07 11/07 11/07 11/07 2000 1250 1056 0440 Chemistry Sodium (137 - 145 mmol/L) 144 146 H Potassium (3.5 - 5.1 mmol/L) 3.9 4.6 Chloride (98 - 107 mmol/L) 118 H 120 H Carbon Dioxide (22 - 30 mmol/L) 18 L 18 L Anion Gap (5 - 16) 8 8 BUN (9 - 20 mg/dL) 22 H 27 H Creatinine (0.7 - 1.2 mg/dL) 0.7 0.8 Estimated GFR (>60 ml/min) > 60 > 60 Glucose (65 - 99 mg/dL) 86 86 Calcium (8.4 - 10.2 mg/dL) 8.5 8.3 L Phosphorus (2.5 - 4.5 mg/dL) 3.0 3.5 Magnesium (1.6 - 2.3 mg/dL) 2.1 1.7 Total Bilirubin (0.2 - 1.3 mg/dL) 0.2 0.1 L AST (17 - 59 U/L) 23 27 ALT (21 - 72 U/L) 45 46 Troponin I (<0.11 ng/ml) 0.02 Albumin (3.5 - 5.0 g/dL) 2.4 L 2.4 L Coagulation PT (9.4 - 12.5 SEC) 14.0 H INR (0.90 - 1.17) 1.34 H 11/07 06/ 06/ 0440 0104 0104 Chemistry Sodium (137 - 145 mmol/L) 146 H Potassium (3.5 - 5.1 mmol/L) 3.4 L Chloride (98 - 107 mmol/L) 120 H Carbon Dioxide (22 - 30 mmol/L) 16 L Anion Gap (5 - 16) 11 BUN (9 - 20 mg/dL) 39 H Creatinine (0.7 - 1.2 mg/dL) 0.9 Estimated GFR (>60 ml/min) > 60 Glucose (65 - 99 mg/dL) 85 Lactic Acid (0.7 - 2.1 mmol/L) 0.8 Calcium (8.4 - 10.2 mg/dL) 8.2 L Phosphorus (2.5 - 4.5 mg/dL) 4.0 Magnesium (1.6 - 2.3 mg/dL) 1.8 Total Bilirubin (0.2 - 1.3 mg/dL) 0.2 AST (17 - 59 U/L) 34 ALT (21 - 72 U/L) 50 Creatine Kinase (55 - 170 U/L) 211 H Troponin I (<0.11 ng/ml) 0.01 Albumin (3.5 - 5.0 g/dL) 2.4 L Hematology CBC w Diff NO MAN DIFF REQ WBC (4.8 - 10.8 /CUMM) 10.5 RBC (4.70 - 6.10 /CUMM) 3.85 L Hgb (14.0 - 18.0 G/DL) 10.2 L Hct (42 - 52 %) 31.7 L MCV (80.0 - 94.0 FL) 82.4 MCH (27.0 - 31.0 PG) 26.6 L RDW (11.5 - 14.5 %) 22.2 H Plt Count (130 - 400 /CUMM) 304 MPV (7.4 - 10.4 FL) 10.0 Gran % (42.2 - 75.2 %) 75.3 H Lymphocytes % (20.5 - 51.1 %) 14.9 L Monocytes % (1.7 - 9.3 %) 4.8 Eosinophils % (0 - 5 %) 4.6 Basophils % (0.0 - 2.0 %) 0.4 Absolute Granulocytes (1.4 - 6.5 /CUMM) 7.9 H Absolute Lymphocytes (1.2 - 3.4 /CUMM) 1.6 Absolute Monocytes (0.10 - 0.60 /CUMM) 0.5 Absolute Eosinophils (0.0 - 0.7 /CUMM) 0.5 Absolute Basophils (0.0 - 0.2 /CUMM) 0 PUBS MCHC (33.0 - 37.0 G/DL) 32.3 L 11/07/ 0035 0023 2321 Blood Gas pH (7.35 - 7.45 PH) 7.37 pCO2 (35 - 45 TORR) 23 L pO2 (80 - 100 TORR) 75 L HCO3 (21 - 28 MEQ/L) 13 L ABG O2 Sat (Measured) (>96.0 %) 93.0 L P-50 (Temp Corrected) Y Carboxyhemoglobin (1.5 - 5.0 %) 0.3 L O2 Concentration % 30% Temperature (97.0 - 100.0 FARH) 98.0 Respiration Rate (BPM) 16 O2 Delivery Method ESPRIT Vent Mode AC Expiratory Pressure (CMH2O/P) 5 Tidal Volume (CC) 550 Chemistry Sodium (137 - 145 mmol/L) 146 H Potassium (3.5 - 5.1 mmol/L) 3.6 Chloride (98 - 107 mmol/L) 121 H Carbon Dioxide (22 - 30 mmol/L) 15 L Anion Gap (5 - 16) 10 BUN (9 - 20 mg/dL) 53 H Creatinine (0.7 - 1.2 mg/dL) 1.0 Estimated GFR (>60 ml/min) > 60 Glucose (65 - 99 mg/dL) 92 Serum Osmolality (285 - 295 MOSM/KG) 320 H Calcium (8.4 - 10.2 mg/dL) 7.8 L Phosphorus (2.5 - 4.5 mg/dL) 5.8 H Magnesium (1.6 - 2.3 mg/dL) 1.7 Total Bilirubin (0.2 - 1.3 mg/dL) 0.2 AST (17 - 59 U/L) 36 ALT (21 - 72 U/L) 41 Ammonia (9 - 30 umol/L) 20 Creatine Kinase (55 - 170 U/L) 340 H Albumin (3.5 - 5.0 g/dL) 2.2 L Hematology CBC w Diff NO MAN DIFF REQ WBC (4.8 - 10.8 /CUMM) 12.5 H RBC (4.70 - 6.10 /CUMM) 3.73 L Hgb (14.0 - 18.0 G/DL) 9.8 L Hct (42 - 52 %) 30.2 L MCV (80.0 - 94.0 FL) 80.8 MCH (27.0 - 31.0 PG) 26.3 L RDW (11.5 - 14.5 %) 21.9 H Plt Count (130 - 400 /CUMM) 291 MPV (7.4 - 10.4 FL) 10.0 Gran % (42.2 - 75.2 %) 80.1 H Lymphocytes % (20.5 - 51.1 %) 12.8 L Monocytes % (1.7 - 9.3 %) 4.3 Eosinophils % (0 - 5 %) 2.8 Basophils % (0.0 - 2.0 %) 0 L Absolute Granulocytes (1.4 - 6.5 /CUMM) 10.0 H Absolute Lymphocytes (1.2 - 3.4 /CUMM) 1.6 Absolute Monocytes (0.10 - 0.60 /CUMM) 0.5 Absolute Eosinophils (0.0 - 0.7 /CUMM) 0.3 Absolute Basophils (0.0 - 0.2 /CUMM) 0 PUBS MCHC (33.0 - 37.0 G/DL) 32.5 L Miscellaneous Phlebotomy Draw Site RIGHT RADIAL Strep pneumo urinary antigen (11/07/16): Negative Legionella urinary antigen (11/07/16): Negative Sputum Cx (11/07/16): Moderate WBCs, rare squamous cells, no organisms seen BCx (11/06/16): NGTD x2 CXR Findings: CXR (8:44 AM): 1. ET tube tip terminates at the thoracic inlet, similar to prior and roughly 8.5 cm above trip. Consider advancement. Enteric tube terminates in the stomach and could also be advanced by several centimeters. 2. Significant improvement in the pulmonary opacities bilaterally with residual hazy and nodular opacities persisting. Focal lucency at the right costophrenic angle may reflect lung sparing and can be followed on reassessment. CXR (2:18 PM): Cardiomegaly with [id number] CHF. No change in endotracheal tube and nasogastric tube. EKG Findings: EKG (7:53 AM): Sinus rhythm HR 84 QTc 473 No significant change since previous tracing EKG (6:33 PM): Sinus rhythm HR 91 Atrial premature complex QTc 493 Impression/Plan Impression/Problem List Impression: Mr. Macias is a 56 y/o M with PMHx of alcohol dependence c/b withdrawal seizures with multiple hospitalizations for detox, polysubstance abuse and stage IV decubitus ulcer of the coccyx and sacrum who is admitted for AMS, likely secondary to serotonin syndrome. Problem List: 1. Drug overdose 2. Serotonin syndrome 3. Sacral decubitus ulcer, stage IV 4. Decubitus ulcer of coccygeal region, stage 4 5. Alcohol dependence 6. Polysubstance abuse 7. Acute hypoxemic respiratory failure 8. Endotracheally intubated 9. Acute delirium 10. Pneumonia 11. Sepsis Pain Ratin Tomorrow's Labs & Rationales: CBC and ICU bundle (ICU patient) Plan Respiratory: #Acute hypoxemic respiratory failure: Secondary to AMS. Remains intubated and on mechanical ventilation, day #2 with the following vent settings: AC mode, VT 550 , FiO2 30%, RR 16 and PEEP 5. * Continue mechanical ventilation. * ET tube advanced several centimeters. Although repeat CXR did not show change in position, this is likely not true and reflective of the effect of patient posturing on ET tube position on CXR. Per respiratory, ET tube cannot be advanced further safely. * Protonix 40 mg IV daily for GI PPx while intubated. * NG tube removed and OG tube placed. #Suspected bronchiolitis: CT scan with groundglass opacities in bilateral lungs consistent with small airways disease. Potential etiologies are aspiration pneumonia/pneumonitis, inhalation injury in the setting of polysubstance abuse or recent viral infection. No symptoms concerning for vasculitis or other rheumatologic disease. * Start azithromycin 500 mg PO daily for 5 days. * Consider further workup as outpatient. Infectious Diseases: #Suspected sepsis of unknown origin: Patient was tachypneic and tachycardiac on admission with leukocytosis and lactic acidosis concerning for sepsis. Potential sources are the lungs given concern for aspiration pneumonia given bilateral groundglass opacities on CT scan and AMS and chronic stage IV decubitus of the sacrum/coccyx. Started on clindamycin and ceftazidime yesterday with resolution of leukocytosis and temperatures remaining normal. Infectious work-up negative so far. Strep pneumo and Legionella urinary antigen negative. BCx NGTD x2. No organisms seen on gram stain of sputum. CT Abdomen/Pelvis W/O IV Contrast with no acute intraabdominal pathology. * Continue clindamycin 300 mg IV Q8H and ceftazidime 1 mg IV Q8H. * If all cultures are negative, discontinue ceftazidime and clindamycin and start ceftriaxone. * Follow BCx, UCx and sputum Cx. Cardiovascular: Hemodynamically stable. No issues. Hematology: H/H has decreased from 13/6/43.0 yesterday to 10.2/31.7 today, however this is most likely dilutional as patient received significant amount of IVF. Metabolic: Stable. Lytes and kidney function WNL. * Check ICU bundle daily and replete to K >4, Mg >2 and Phos >2.5. Alimentary: #Tube feeds: * NPO in the setting of AMS. * Start tube feeds running at 20 cc/hr. Neurological: #AMS: Started on cyproheptadine yesterday for suspected serotonin syndrome as patient was on multiple serotonergic agents including Lexapro, trazodone and sertraline and in the presence of leukocytosis and clonus on admission which would be consistent with this diagnosis. Clonus has resolved. Other potential contributory etiologies include drug overdose and alcohol withdrawal in view of history of polysubstance abuse. Of note, patient has a history of suspected Wernicke's encephalopathy. CT Head W/O IV Contrast with no acute intracranial pathology. Mental status remains poor, patient is unresponsive with bilateral Babinski. * Neurology and psychiatry following. Appreciat their recs. * Ativan drip weaned from 10 mg/hr yesterday to 1 mg/hr today. Continue to wean off Ativan drip. * Chlordiazepoxide 25 mg PO Q8H started. Uptitrate as needed. * Repeat CT Head W/O IV Contrast in view of bilateral Babinski on exam. * Discontinue cyproheptadine given resolution of clonus. Poison Control made aware. * Treat for suspected alcohol withdrawal and Wernicke's encephalopathy per psych recs. * Continue banana bag with thiamine. * Avoid serotonergic agents. * Check EEG. * Continue Keppra 500 mg BID. Switch from IV route to through the OG tube. * Morphine 2 mg IV Q6H PRN for agitation. Skin: #Stage IV decubitus ulcer of the coccyx and sacrum: Present on admission. [facility]. * Management per wound care. * Packed with Xeroform, sealed with Telfa and covered with Tegaderm per Wound Care. DVT/Prophylaxis: mechanical, pharmacological Code Status: Full Code
--- NOTE | 2016-11-07 09:42 | RADIOLOGY REPORT ---
EXAMINATION: XR PORTABLE CHEST CLINICAL INFORMATION: ET tube and NG tube placement COMPARISON: Multiple prior studies most recently 11/06/2016 TECHNIQUE: Portable AP view of the chest was obtained. FINDINGS: There is moderate improvement in the hazy opacity and nodularity in the bilateral lungs with findings more prominent on the left side and slight volume loss in the left lower lobe. Focal lucency is seen at the right costophrenic angle, unchanged and this can be followed. No pleural effusion or pneumothorax. The cardiac silhouette is not enlarged. Endotracheal tube terminates at the thoracic inlet. Enteric tube extends below diaphragm. IMPRESSION: 1. ET tube tip terminates at the thoracic inlet, similar to prior and roughly 8.5 cm above trip. Consider advancement. Enteric tube terminates in the stomach and could also be advanced by several centimeters. 2. Significant improvement in the pulmonary opacities bilaterally with residual hazy and nodular opacities persisting. Focal lucency at the right costophrenic angle may reflect lung sparing and can be followed on reassessment.
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
--- NOTE | 2016-11-07 11:26 | Cons- Psychiatry ---
Psychiatric Consult Date of Consult: 11/06/16 Reason for Consult: "AMS, drug overdose" History of Present Illness: Pt with hx of alcohol use disorder with complicated withdrawal + sz, stage IV coccyx ulcer, HTN, HLD, and cLBP admitted for AMS in the setting of likely alcohol use, gabapentin overuse, leading to encephalopathy. Per family report, taking excess gabapentin as well as two antidepressant medications. Pt was found to have clonus on exam and started on treatment for presumptive SS as well as alcohol wd, and WE with thiamine, given past hx of concern for WE. Unfortunately, pt remained intubated with AMS and unable to interview. Allergies: Coded Allergies: Penicillins (UNKNOWN 11/06/16) Current Medications: Current Medications Sig/Anaya Start time Last Medication Dose Route Stop Time Status Admin Acetaminophen 650 MG Q6 PRN 11/06 1830 AC PO Acetaminophen 0 .STK-MED ONE 11/06 1602 DC PO Acetaminophen 650 MG ONCE ONE 11/06 1530 DC 11/06 PO 11/06 1531 1557 Ampicillin Sodium/ 1,500 MG Q6 11/06 1914 DC Sulbactam Sodium IV Sodium Chloride 100 ML Azithromycin 500 MG ONCE ONE 11/06 1630 DC 11/06 Sodium Chloride 250 ML IV 11/06 1729 1722 Ceftazidime 1,000 MG IQ8 11/07 0000 AC 11/07 IV 1028 Ceftriaxone Sodium 0 .STK-MED ONE 11/06 1653 DC .ROUTE Ceftriaxone Sodium 1,000 MG ONCE ONE 11/06 1630 DC / IV 11/06 1631 1651 Clindamycin 300 MG IQ8 11/07 0000 AC 11/07 Dextrose/Water 50 ML IV 0838 Cyanocobalamin/ 1 BAG DAILY 11/07 1000 AC 11/07 Thiamine/Pyridoxine IV 11/09 1759 1027 Sodium Chloride 1,000 ML Cyproheptadine HCl 8 MG Q6 11/07 0500 AC 11/07 PO 1052 Cyproheptadine HCl 12 MG ONCE ONE 11/06 2145 DC / PO 11/06 2146 2307 Dextrose/Water 1,000 ML Q13H 11/07 0815 CAN IV Diphenhydramine HCl 0 .STK-MED ONE 11/06 1652 DC .ROUTE Diphenhydramine HCl 50 MG ONCE ONE 11/06 1645 DC 11/06 IV 11/06 1646 1651 Enoxaparin Sodium 40 MG DAILY 11/06 1816 AC 11/07 SC 0927 Etomidate 0 .STK-MED ONE 11/06 2203 DC IV Etomidate 0 .STK-MED ONE 11/06 1950 DC IV Etomidate 20 MG ONCE ONE 11/06 1945 DC 11/06 IV 11/06 194 1958 Haloperidol 0 .STK-MED ONE 11/06 1911 DC .ROUTE Haloperidol 1 MG ONCE ONE 11/06 1900 DC 11/06 IM 11/06 1901 1908 Levetiracetam 500 MG Q12 11/07 1000 AC 11/07 N/A 1 UNIT IV 1028 Levetiracetam 1,000 MG ONCE ONE 11/07 0300 DC 11/07 N/A 1 UNIT IV 11/07 0329 0259 Levetiracetam 500 MG ONCE ONE 11/07 0145 CAN IV 11/07 0146 Lorazepam 1 MG Q1 PRN 11/06 2315 CAN IV Lorazepam 100 MG Q10H 11/06 2300 AC 11/07 Dextrose/Water 1,000 ML IV 0056 Lorazepam 50 MG ONCE ONE 11/06 1730 DC 11/06 Dextrose/Water 500 ML IV 11/06 1731 1817 Lorazepam 3 MG ONCE ONE 11/06 1715 DC 11/06 IV 11/06 1716 1717 Lorazepam 0 .STK-MED ONE 11/06 1713 DC .ROUTE Lorazepam 0 .STK-MED ONE 11/06 1710 DC .ROUTE Lorazepam 0 .STK-MED ONE 11/06 1652 DC .ROUTE Lorazepam 2 MG ONE ONE 11/06 1645 DC 11/06 IV 11/06 1646 1651 Lorazepam 2 MG ONE ONE 11/06 1630 DC / IV 11/06 1631 1610 Lorazepam 2 MG ONE ONE 11/06 1615 CAN IV 11/06 1616 Lorazepam 0 .STK-MED ONE 11/06 1611 DC .ROUTE Magnesium Oxide 400 MG ONE ONE 11/07 0830 DC 11/07 PO 11/07 0831 1028 Midazolam HCl 4 MG ONCE ONE 11/06 1730 DC 11/06 IV 11/06 1731 1736 Oxycodone HCl 5 MG Q6 PRN 11/06 1830 AC PO Oxycodone/ 2 TAB Q6 PRN 11/06 1830 AC Acetaminophen PO Pantoprazole Sodium 40 MG DAILY 11/07 1000 AC 11/07 IV 1026 Potassium Chloride 40 MEQ ONCE ONE 11/07 0830 DC 11/07 PO 11/07 0831 1028 Potassium Chloride 10 MEQ Q1H 11/07 0715 DC 11/07 IV 11/07 0816 1029 Potassium Chloride 20 MEQ Q1H 11/07 0645 DC IV 11/07 0746 Sodium Chloride 1,000 ML Q10H 11/07 0145 DC 11/07 IV 0145 Sodium Chloride 1,000 ML Q10H 11/06 2315 CAN IV Sodium Chloride 1,000 ML BOLUS ONE 11/06 1630 DC 06/ IV / 1729 1641 Sodium Chloride 1,000 ML BOLUS ONE 11/06 1630 DC / IV / 1729 1646 Sodium Chloride 1,000 ML BOLUS ONE 11/06 1530 DC / IV / 1629 1551 Thiamine HCl 100 MG ONCE ONE 11/06 1900 DC 11/06 Sodium Chloride 100 ML IV 11/06 1959 2313 Past History Past Medical History Any Pertinent Medical History? 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: NONE Past Surgical History Surgical History: WOUND DEBRIDEMENT Psychosocial History Strengths/Capabilities: Tx motivated, 3 months of ETOH abstinence Physical Limitations (Interventions): Chronic pain, multiple medical issues Psychiatric Treatment History Psych Treatment Psychiatric Treatment Yes (unable to specify) Substance Use/Abuse History Drug Use/Abuse Substances Used/Abused Yes Substance Used/Abused Alcohol Last Used [employer] PERSON Substance Abuse Treatment Substance Abuse Treatment Past Substance Abuse TX Yes Inpatient Treatment Yes Outpatient Treatment Yes Response to Treatment relapse recently after 7mo of soberity per family Assessment/Plan Mental Status Orientation: pt intubated, not alert, awake or orientated at this time Affect: Constricted (not a/o) Mental Status Exam: unable to assess as AMS intubated Lab Results: Laboratory Tests 11/07 11/07 11/07 11/07 1056 0440 0440 0104 Chemistry Sodium (137 - 145 mmol/L) Pending 146 H Potassium (3.5 - 5.1 mmol/L) Pending 3.4 L Chloride (98 - 107 mmol/L) Pending 120 H Carbon Dioxide (22 - 30 mmol/L) Pending 16 L Anion Gap (5 - 16) Pending 11 BUN (9 - 20 mg/dL) Pending 39 H Creatinine (0.7 - 1.2 mg/dL) Pending 0.9 Estimated GFR (>60 ml/min) > 60 Glucose (65 - 99 mg/dL) Pending 85 Calcium (8.4 - 10.2 mg/dL) Pending 8.2 L Phosphorus (2.5 - 4.5 mg/dL) Pending 4.0 Magnesium (1.6 - 2.3 mg/dL) Pending 1.8 Total Bilirubin (0.2 - 1.3 mg/dL) Pending 0.2 AST (17 - 59 U/L) Pending 34 ALT (21 - 72 U/L) Pending 50 Creatine Kinase (55 - 170 U/L) 211 H Troponin I (<0.11 ng/ml) 0.02 0.01 Albumin (3.5 - 5.0 g/dL) Pending 2.4 L Coagulation PT Pending INR Pending Hematology CBC w Diff NO MAN DIFF REQ WBC (4.8 - 10.8 /CUMM) 10.5 RBC (4.70 - 6.10 /CUMM) 3.85 L Hgb (14.0 - 18.0 G/DL) 10.2 L Hct (42 - 52 %) 31.7 L MCV (80.0 - 94.0 FL) 82.4 MCH (27.0 - 31.0 PG) 26.6 L RDW (11.5 - 14.5 %) 22.2 H Plt Count (130 - 400 /CUMM) 304 MPV (7.4 - 10.4 FL) 10.0 Gran % (42.2 - 75.2 %) 75.3 H Lymphocytes % (20.5 - 51.1 %) 14.9 L Monocytes % (1.7 - 9.3 %) 4.8 Eosinophils % (0 - 5 %) 4.6 Basophils % (0.0 - 2.0 %) 0.4 Absolute Granulocytes (1.4 - 6.5 /CUMM) 7.9 H Absolute Lymphocytes (1.2 - 3.4 /CUMM) 1.6 Absolute Monocytes (0.10 - 0.60 /CUMM) 0.5 Absolute Eosinophils (0.0 - 0.7 /CUMM) 0.5 Absolute Basophils (0.0 - 0.2 /CUMM) 0 PUBS MCHC (33.0 - 37.0 G/DL) 32.3 L 11/07 11/07 11/07 0104 0035 0023 Blood Gas pH (7.35 - 7.45 PH) 7.37 pCO2 (35 - 45 TORR) 23 L pO2 (80 - 100 TORR) 75 L HCO3 (21 - 28 MEQ/L) 13 L ABG O2 Sat (Measured) (>96.0 %) 93.0 L P-50 (Temp Corrected) Y Carboxyhemoglobin (1.5 - 5.0 %) 0.3 L O2 Concentration % 30% Temperature (97.0 - 100.0 FARH) 98.0 Respiration Rate (BPM) 16 O2 Delivery Method ESPRIT Vent Mode AC Expiratory Pressure (CMH2O/P) 5 Tidal Volume (CC) 550 Chemistry Lactic Acid (0.7 - 2.1 mmol/L) 0.8 Ammonia (9 - 30 umol/L) 20 Hematology CBC w Diff NO MAN DIFF REQ WBC (4.8 - 10.8 /CUMM) 12.5 H RBC (4.70 - 6.10 /CUMM) 3.73 L Hgb (14.0 - 18.0 G/DL) 9.8 L Hct (42 - 52 %) 30.2 L MCV (80.0 - 94.0 FL) 80.8 MCH (27.0 - 31.0 PG) 26.3 L RDW (11.5 - 14.5 %) 21.9 H Plt Count (130 - 400 /CUMM) 291 MPV (7.4 - 10.4 FL) 10.0 Gran % (42.2 - 75.2 %) 80.1 H Lymphocytes % (20.5 - 51.1 %) 12.8 L Monocytes % (1.7 - 9.3 %) 4.3 Eosinophils % (0 - 5 %) 2.8 Basophils % (0.0 - 2.0 %) 0 L Absolute Granulocytes (1.4 - 6.5 /CUMM) 10.0 H Absolute Lymphocytes (1.2 - 3.4 /CUMM) 1.6 Absolute Monocytes (0.10 - 0.60 /CUMM) 0.5 Absolute Eosinophils (0.0 - 0.7 /CUMM) 0.3 Absolute Basophils (0.0 - 0.2 /CUMM) 0 PUBS MCHC (33.0 - 37.0 G/DL) 32.5 L Miscellaneous Phlebotomy Draw Site RIGHT RADIAL 11/06 11/06 11/06 2321 2200 1815 Blood Gas pH (7.35 - 7.45 PH) 7.34 L pCO2 (35 - 45 TORR) 25 L pO2 (80 - 100 TORR) 81 HCO3 (21 - 28 MEQ/L) 13 L ABG O2 Sat (Measured) (>96.0 %) 93.0 L P-50 (Temp Corrected) Y Carboxyhemoglobin (1.5 - 5.0 %) 0.2 L O2 Concentration % 30 Temperature (97.0 - 100.0 FARH) 97.7 Respiration Rate (BPM) 16 O2 Delivery Method VENT Vent Mode CMV Expiratory Pressure (CMH2O/P) 5 Tidal Volume (CC) 550 Chemistry Sodium (137 - 145 mmol/L) 146 H Potassium (3.5 - 5.1 mmol/L) 3.6 Chloride (98 - 107 mmol/L) 121 H Carbon Dioxide (22 - 30 mmol/L) 15 L Anion Gap (5 - 16) 10 BUN (9 - 20 mg/dL) 53 H Creatinine (0.7 - 1.2 mg/dL) 1.0 Estimated GFR (>60 ml/min) > 60 Glucose (65 - 99 mg/dL) 92 Serum Osmolality (285 - 295 MOSM/KG) 320 H Lactic Acid Cancelled Calcium (8.4 - 10.2 mg/dL) 7.8 L Phosphorus (2.5 - 4.5 mg/dL) 5.8 H Magnesium (1.6 - 2.3 mg/dL) 1.7 Total Bilirubin (0.2 - 1.3 mg/dL) 0.2 AST (17 - 59 U/L) 36 ALT (21 - 72 U/L) 41 Creatine Kinase (55 - 170 U/L) 340 H Albumin (3.5 - 5.0 g/dL) 2.2 L Miscellaneous Phlebotomy Draw Site RIGHT RADIAL 11/06 11/06 1708 1530 Chemistry Lactic Acid (0.7 - 2.1 mmol/L) 2.2 H Toxicology Urine Opiates Screen (>2000 NG/ML) < 100.00 Methadone Screen (>300 NG/ML) 45 Barbiturate Screen (>200 NG/ML) < 60 Ur Phencyclidine Scrn (>25 NG/ML) < 6.00 Amphetamines Screen (>1000 NG/ML) < 100 U Benzodiazepines Scrn (>200 NG/ML) < 85 Urine Cocaine Screen (>300 NG/ML) < 50 Urine Cannabis Screen (>50 NG/ML) < 5.00 Urines Urine Color (YEL,AMB,STR) YEL Urine Clarity (CLEAR) CLEAR Urine pH (5.0 - 8.0) 6.0 Ur Specific [place] (1.001 - 1.035) 1.020 Urine Protein (NEG,<30 MG/DL) TRACE H Urine Ketones (NEG) TRACE H Urine Nitrite (NEG) NEG Urine Bilirubin (NEG) NEG Urine Urobilinogen (0.1 - 1.0 EU/dl) 0.2 Ur Leukocyte Esterase (NEG) NEG Ur Microscopic SEDIMENT EXAMINED Urine WBC (0 - 2 /HPF) 3-5 H Ur Epithelial Cells (NONE,FEW) RARE Urine Bacteria (NEG/NONE) FEW H Urine Hemoglobin (NEG) NEG Urine Glucose (N MG/DL) NEG 11/06 11/06 1530 1522 Chemistry Sodium (137 - 145 mmol/L) 146 H Potassium (3.5 - 5.1 mmol/L) 4.3 Chloride (98 - 107 mmol/L) 110 H Carbon Dioxide (22 - 30 mmol/L) 18 L Anion Gap (5 - 16) 19 H BUN (9 - 20 mg/dL) 65 H Creatinine (0.7 - 1.2 mg/dL) 1.2 Estimated GFR (>60 ml/min) > 60 BUN/Creatinine Ratio (7 - 25 %) 54.2 H Glucose (65 - 99 mg/dL) 80 Calcium (8.4 - 10.2 mg/dL) 10.3 H Magnesium (1.6 - 2.3 mg/dL) 2.1 Total Bilirubin (0.2 - 1.3 mg/dL) 0.4 AST (17 - 59 U/L) 45 ALT (21 - 72 U/L) 60 Alkaline Phosphatase (< 127 U/L) 156 H Ammonia (9 - 30 umol/L) < 9 L Creatine Kinase (55 - 170 U/L) 346 H Cancelled Troponin I (<0.11 ng/ml) < 0.01 Total Protein (6.3 - 8.2 g/dL) 7.4 Albumin (3.5 - 5.0 g/dL) 3.7 Globulin (1.9 - 4.2 gm/dL) 3.7 Albumin/Globulin Ratio (1.1 - 2.2 %) 1.0 L Amylase (30 - 110 U/L) 46 Lipase (23 - 300 U/L) 42 TSH (0.270 - 4.200 uIU/mL) 0.064 L Free T4 (0.64 - 1.79 ng/dL) 1.73 Prolactin (3.7 - 17.9 ng/mL) 8.1 Cortisol PM Sample (1.7 - 14.1) 41.5 H Hematology CBC w Diff NO MAN DIFF REQ WBC (4.8 - 10.8 /CUMM) 15.3 H RBC (4.70 - 6.10 /CUMM) 5.22 Hgb (14.0 - 18.0 G/DL) 13.6 L Hct (42 - 52 %) 43.0 MCV (80.0 - 94.0 FL) 82.4 MCH (27.0 - 31.0 PG) 26.1 L RDW (11.5 - 14.5 %) 22.6 H Plt Count (130 - 400 /CUMM) 360 MPV (7.4 - 10.4 FL) 10.1 Gran % (42.2 - 75.2 %) 89.1 H Lymphocytes % (20.5 - 51.1 %) 6.1 L Monocytes % (1.7 - 9.3 %) 3.6 Eosinophils % (0 - 5 %) 1.2 Basophils % (0.0 - 2.0 %) 0 L Absolute Granulocytes (1.4 - 6.5 /CUMM) 13.6 H Absolute Lymphocytes (1.2 - 3.4 /CUMM) 0.9 L Absolute Monocytes (0.10 - 0.60 /CUMM) 0.6 Absolute Eosinophils (0.0 - 0.7 /CUMM) 0.2 Absolute Basophils (0.0 - 0.2 /CUMM) 0 PUBS MCHC (33.0 - 37.0 G/DL) 31.7 L Toxicology Salicylates (0 - 20.0 mg/dL) < 1.0 Acetaminophen (10.0 - 30.0 ug/mL) < 10.0 L Serum Alcohol (<10 MG/DL) < 10.0 Diffential Diagnosis: AMS 2/2 a) SS given report of taking multiple sertoninergic agents b) encephalopathy 2/2 underlying infection vs WE c) complicated alcohol withdrawal +/- recent sz Impression: A/P: Pt with hx of severe AUD c/b wd sz, underlying possible infection, use of multiple seratoningeric agents, and possible WE. At this given, given AMS, use of lexapro, trazodone, and sertraline possible, elevated WBC, and clonus (which helps to distingush presentation for NMS and most other causes of AMS), very resonable to treat for suspected SS. Would continue hydration, cessation of possible offending agents, and cryoheptadine. In addition, also resonable to treat for for complicated alcohol wd and possible WE with thiamine as benefit outweight risks. Given hx, pt at high risk for delirium in the setting of acute infection given ulcer and recent debridement, with w/u already underway. Provisional Treatment Plan: - Continue excellent care for presumed SS, WE, and alcohol wd - Will attempt to see pt tomorrow - Do need to carify if presentation in any way 2/2 intentional overdose in the setting of SI - Will continue to follow Thank you for this very interesting consult.
--- NOTE | 2016-11-07 13:08 | Cons- Neurology ---
General Information and HPI Consulting Request Date of Consult: 11/07/16 Requested By: JOSEY BRANDT MD Reason for Consult: AMS History of Present Illness: The patient is a 56 year old gentleman with a PMH significant for multiple admissions for alcohol dependence and seizure, polysubstance abuse, Stage 4 ulcer on the coccyx, HTN, HLD, gastritis, hemorrhoids, and chronic back pain 2/2 disc herniation was brought in to the hospital by police for altered mental status, after he was found walking naked and was found to be noncohesive, confused, agitated, staring blankly and just answering in single words. The patient has history of drug abuse and has overdosed on his drugs in the past. He is on multiple medications including oxycodone, baclofen, Lexapro, gabapentin , sertraline, trazodone. The brother believes that he might be drinking since he smelled of alcohol prior to admission. Patient has been admitted at [facility] in June 2016 for similar presentation. He was treated with IV Thiamine suspecting Wernicke's Encephalopathy. His altered mental status improved after 1 day. Allergies/Medications Allergies: Coded Allergies: Penicillins (UNKNOWN 11/06/16) Home Med List: Ascorbic Acid (Vitamin C) (Unknown Strength) TABLET (Unknown Dose) PO DAILY SUPPLEMENT (Reported) Aspirin (Ecotrin*) 81 MG TABLET.DR 1 TAB PO DAILY HEART/BLOOD (Reported) Atorvastatin Calcium 10 MG TABLET 1 TAB PO DAILY cholestrol (Reported) Baclofen 20 MG TABLET 1 TAB PO TID LOW BACK PAIN (Reported) Cholecalciferol (Vitamin D3) (Vitamin D3) (Unknown Strength) CAPSULE (Unknown Dose) PO DAILY SUPPLEMENT (Reported) Cyanocobalamin (Vitamin B-12) 1,000 MCG TABLET 1 TAB PO DAILY SUPPLEMENT ( Reported) Escitalopram Oxalate (Lexapro) 20 MG TABLET 1 TAB PO DAILY depression ( Reported) Ferrous Sulfate 325 MG (65 MG IRON) TABLET.DR 325 MG PO DAILY SUPPLEMENT Folic Acid 1 MG TABLET 1 TAB PO DAILY SUPPLEMENT (Reported) Hydrochlorothiazide 12.5 MG CAPSULE 1 CAP PO DAILY blood pressure (Reported) Hydrocodone/Acetaminophen (Hydrocodon-Acetaminophen 5-325) 5 MG-325 MG TABLET 1-2 TAB PO Q4-6 PRN PRN PAIN (Reported) Multivitamin (One Daily Multivitamin) 1 EACH TABLET 1 TAB PO DAILY SUPPLEMENT Naltrexone HCl 50 MG TABLET ETOH DETOX (Reported) Omeprazole 20 MG CAPSULE.DR 2 TAB PO DAILY Reflux Pantoprazole Sodium 20 MG TABLET.DR 1 TAB PO DAILY GERD (Reported) Pyridoxine HCl (Vitamin B-6) 50 MG CAPSULE 1 CAP PO DAILY SUPPLEMENT ( Reported) Current Medications: Current Medications Sig/Anaya Start time Last Medication Dose Route Stop Time Status Admin Acetaminophen 650 MG Q6 PRN 11/06 1830 AC PO Acetaminophen 0 .STK-MED ONE 11/06 1602 DC PO Acetaminophen 650 MG ONCE ONE 11/06 1530 DC 06 PO 11/06 1531 1557 Ampicillin Sodium/ 1,500 MG Q6 11/06 1914 DC Sulbactam Sodium IV Sodium Chloride 100 ML Azithromycin 500 MG DAILY 11/07 1127 AC PO 11/11 1001 Azithromycin 500 MG ONCE ONE 11/06 1630 DC 11/06 Sodium Chloride 250 ML IV 11/06 1729 1722 Ceftazidime 1,000 MG IQ8 11/07 0000 AC 11/07 IV 1028 Ceftriaxone Sodium 0 .STK-MED ONE 11/06 1653 DC .ROUTE Ceftriaxone Sodium 1,000 MG ONCE ONE 11/06 1630 DC 11/06 IV 11/06 1631 1651 Chlordiazepoxide HCl 25 MG TID 11/07 1120 AC PO Clindamycin 300 MG IQ8 11/07 0000 AC 11/07 Dextrose/Water 50 ML IV 0838 Cyanocobalamin/ 1 BAG DAILY 11/07 1000 AC 11/07 Thiamine/Pyridoxine IV 11/09 1759 1027 Sodium Chloride 1,000 ML Cyproheptadine HCl 8 MG Q6 11/07 0500 DC 11/07 PO 1052 Cyproheptadine HCl 12 MG ONCE ONE 11/06 2145 DC 11/06 PO 11/06 2146 2307 Dextrose/Water 1,000 ML Q13H 11/07 0815 CAN IV Diphenhydramine HCl 0 .STK-MED ONE 11/06 1652 DC .ROUTE Diphenhydramine HCl 50 MG ONCE ONE 11/06 1645 DC 11/06 IV 11/06 1646 1651 Enoxaparin Sodium 40 MG DAILY 11/06 1816 AC 11/07 SC 0927 Etomidate 0 .STK-MED ONE 11/06 2203 DC IV Etomidate 0 .STK-MED ONE 11/06 1950 DC IV Etomidate 20 MG ONCE ONE 11/06 1945 DC / IV 11/06 1946 1958 Haloperidol 0 .STK-MED ONE 11/06 1911 DC .ROUTE Haloperidol 1 MG ONCE ONE 11/06 1900 DC 11/06 IM 11/06 1901 1908 Levetiracetam 500 MG BID 11/07 2200 AC NG Levetiracetam 500 MG Q12 11/07 1000 DC 11/07 N/A 1 UNIT IV 1028 Levetiracetam 1,000 MG ONCE ONE 11/07 0300 DC 11/07 N/A 1 UNIT IV 11/07 0329 0259 Levetiracetam 500 MG ONCE ONE 11/07 0145 CAN IV 11/07 0146 Lorazepam 1 MG Q1 PRN 11/06 2315 CAN IV Lorazepam 100 MG Q10H 11/06 2300 AC 11/07 Dextrose/Water 1,000 ML IV 0056 Lorazepam 50 MG ONCE ONE 11/06 1730 DC 11/06 Dextrose/Water 500 ML IV 11/06 1731 1817 Lorazepam 3 MG ONCE ONE 11/06 1715 DC / IV 11/06 1716 1717 Lorazepam 0 .STK-MED ONE 11/06 1713 DC .ROUTE Lorazepam 0 .STK-MED ONE 11/06 1710 DC .ROUTE Lorazepam 0 .STK-MED ONE 11/06 1652 DC .ROUTE Lorazepam 2 MG ONE ONE 11/06 1645 DC / IV 11/06 1646 1651 Lorazepam 2 MG ONE ONE 11/06 1630 DC / IV 11/06 1631 1610 Lorazepam 2 MG ONE ONE 11/06 1615 CAN IV 11/06 1616 Lorazepam 0 .STK-MED ONE 11/06 1611 DC .ROUTE Magnesium Oxide 400 MG ONE ONE 11/07 0830 DC 11/07 PO 11/07 0831 1028 Midazolam HCl 4 MG ONCE ONE 11/06 1730 DC 11/06 IV 11/06 1731 1736 Morphine Sulfate 2 MG Q6P PRN 11/07 1145 AC IV Oxycodone HCl 5 MG Q6 PRN 11/06 1830 AC PO Oxycodone/ 2 TAB Q6 PRN 11/06 1830 AC Acetaminophen PO Pantoprazole Sodium 40 MG DAILY 11/07 1000 AC 11/07 IV 1026 Potassium Chloride 40 MEQ ONCE ONE 11/07 0830 DC /03 PO / 0831 1028 Potassium Chloride 10 MEQ Q1H 11/07 0715 DC / IV 11/07 0816 1029 Potassium Chloride 20 MEQ Q1H 11/07 0645 DC IV 11/07 0746 Sodium Chloride 1,000 ML Q10H 11/07 0145 DC / IV 0145 Sodium Chloride 1,000 ML Q10H 11/06 2315 CAN IV Sodium Chloride 1,000 ML BOLUS ONE 11/06 1630 DC 06/ IV 06/ 1729 1641 Sodium Chloride 1,000 ML BOLUS ONE / 1630 DC 06/ IV / 1729 1646 Sodium Chloride 1,000 ML BOLUS ONE 11/06 1530 DC / IV / 1629 1551 Thiamine HCl 100 MG ONCE ONE 11/06 1900 DC / Sodium Chloride 100 ML IV / 1959 2313 Review of Systems Review of Systems: unabl;e to obtain Past History Travel History Traveled to [place] past 21 day No Medical History Blood Transfusion Hx: No Neurological: NONE EENT: TONSILS REMOVED Cardiovascular: hypertension, HLD Respiratory: asthma, COPD Gastrointestinal: GASTRITIS Hepatic: NONE Renal: NONE Musculoskeletal: DISC HERNIATION Psychiatric: NONE Endocrine: NONE Blood Disorders: NONE Cancer(s): NONE 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 Home Who Do You Live With? child Services at Home: None Primary Language: Occitan Smoking Status: Smoker Current Stat [place] Living Will? no Functional Ability ADLs Independent: dressing, eating, toileting, bathing. Ambulation: independent Exam & Diagnostic Data Vital Signs and I&O Vital Signs Date Time Temp Pulse Resp B/P B/P Pulse O2 O2 Flow FiO2 Mean Ox Delivery Rate 11/07 1151 30 11/07 0840 30 11/07 0800 97.8 90 24 110/66 / 0614 30 11/07 0600 83 26 94/56 / 0400 97.7 86 28 112/51 / 0400 94 Ventilator 30% / 0344 30 11/07 0200 77 24 99/51 / 0137 30 / 0000 98.0 84 23 110/65 06/03 0000 95 Ventilator 30% 11/06 2300 98.0 93 23 130/80 95 Ventilator 30% 11/06 2236 30 11/06 2200 101 26 117/61 11/066 30 11/06 2044 97.8 96 26 105/62 11/065 92 Ventilator 30% 11/06 2008 98.4 107 22 166/87 96 Room Air 11/06 1911 117 22 130/68 11/06 1700 96.8 85 22 141/63 11/06 1625 96.8 11/06 1519 85 22 141/63 93 Room Air Intake & Output 11/07 1600 11/07 0800 11/07 0000 Intake Total 1435 3318 Output Total 1200 480 Balance 235 2838 Intake, IV 1435 3318 Number 0 0 Bowel Movements Output, Urine 1200 480 Patient 64.665 kg 64.665 kg Weight Weight Bed scale Measurement Method Physical Exam: Patient is intubated, sedated, not responsive pupils are 2mm yuly, no ocr, no corneal reflex tone is decreased t/o, no yessi's, no clonus there is yuly babinski no response to noxious stim t/o Last 48 Hours of Lab Results: Laboratory Tests 11/07 11/07 11/07 11/07 1056 0440 0440 0104 Chemistry Sodium (137 - 145 mmol/L) 146 H Potassium (3.5 - 5.1 mmol/L) 3.4 L Chloride (98 - 107 mmol/L) 120 H Carbon Dioxide (22 - 30 mmol/L) 16 L Anion Gap (5 - 16) 11 BUN (9 - 20 mg/dL) 39 H Creatinine (0.7 - 1.2 mg/dL) 0.9 Estimated GFR (>60 ml/min) > 60 Glucose (65 - 99 mg/dL) 85 Calcium (8.4 - 10.2 mg/dL) 8.2 L Phosphorus (2.5 - 4.5 mg/dL) 4.0 Magnesium (1.6 - 2.3 mg/dL) 1.8 Total Bilirubin (0.2 - 1.3 mg/dL) 0.2 AST (17 - 59 U/L) 34 ALT (21 - 72 U/L) 50 Creatine Kinase (55 - 170 U/L) 211 H Troponin I (<0.11 ng/ml) 0.02 0.01 Albumin (3.5 - 5.0 g/dL) 2.4 L Coagulation PT (9.4 - 12.5 SEC) 14.0 H INR (0.90 - 1.17) 1.34 H Hematology CBC w Diff NO MAN DIFF REQ WBC (4.8 - 10.8 /CUMM) 10.5 RBC (4.70 - 6.10 /CUMM) 3.85 L Hgb (14.0 - 18.0 G/DL) 10.2 L Hct (42 - 52 %) 31.7 L MCV (80.0 - 94.0 FL) 82.4 MCH (27.0 - 31.0 PG) 26.6 L RDW (11.5 - 14.5 %) 22.2 H Plt Count (130 - 400 /CUMM) 304 MPV (7.4 - 10.4 FL) 10.0 Gran % (42.2 - 75.2 %) 75.3 H Lymphocytes % (20.5 - 51.1 %) 14.9 L Monocytes % (1.7 - 9.3 %) 4.8 Eosinophils % (0 - 5 %) 4.6 Basophils % (0.0 - 2.0 %) 0.4 Absolute Granulocytes (1.4 - 6.5 /CUMM) 7.9 H Absolute Lymphocytes (1.2 - 3.4 /CUMM) 1.6 Absolute Monocytes (0.10 - 0.60 /CUMM) 0.5 Absolute Eosinophils (0.0 - 0.7 /CUMM) 0.5 Absolute Basophils (0.0 - 0.2 /CUMM) 0 PUBS MCHC (33.0 - 37.0 G/DL) 32.3 L /08 10/08 10/ 0104 0035 0023 Blood Gas pH (7.35 - 7.45 PH) 7.37 pCO2 (35 - 45 TORR) 23 L pO2 (80 - 100 TORR) 75 L HCO3 (21 - 28 MEQ/L) 13 L ABG O2 Sat (Measured) (>96.0 %) 93.0 L P-50 (Temp Corrected) Y Carboxyhemoglobin (1.5 - 5.0 %) 0.3 L O2 Concentration % 30% Temperature (97.0 - 100.0 FARH) 98.0 Respiration Rate (BPM) 16 O2 Delivery Method ESPRIT Vent Mode AC Expiratory Pressure (CMH2O/P) 5 Tidal Volume (CC) 550 Chemistry Lactic Acid (0.7 - 2.1 mmol/L) 0.8 Ammonia (9 - 30 umol/L) 20 Hematology CBC w Diff NO MAN DIFF REQ WBC (4.8 - 10.8 /CUMM) 12.5 H RBC (4.70 - 6.10 /CUMM) 3.73 L Hgb (14.0 - 18.0 G/DL) 9.8 L Hct (42 - 52 %) 30.2 L MCV (80.0 - 94.0 FL) 80.8 MCH (27.0 - 31.0 PG) 26.3 L RDW (11.5 - 14.5 %) 21.9 H Plt Count (130 - 400 /CUMM) 291 MPV (7.4 - 10.4 FL) 10.0 Gran % (42.2 - 75.2 %) 80.1 H Lymphocytes % (20.5 - 51.1 %) 12.8 L Monocytes % (1.7 - 9.3 %) 4.3 Eosinophils % (0 - 5 %) 2.8 Basophils % (0.0 - 2.0 %) 0 L Absolute Granulocytes (1.4 - 6.5 /CUMM) 10.0 H Absolute Lymphocytes (1.2 - 3.4 /CUMM) 1.6 Absolute Monocytes (0.10 - 0.60 /CUMM) 0.5 Absolute Eosinophils (0.0 - 0.7 /CUMM) 0.3 Absolute Basophils (0.0 - 0.2 /CUMM) 0 PUBS MCHC (33.0 - 37.0 G/DL) 32.5 L Miscellaneous Phlebotomy Draw Site RIGHT RADIAL 11/06 11/06 11/06 4030 6718 0974 Blood Gas pH (7.35 - 7.45 PH) 7.34 L pCO2 (35 - 45 TORR) 25 L pO2 (80 - 100 TORR) 81 HCO3 (21 - 28 MEQ/L) 13 L ABG O2 Sat (Measured) (>96.0 %) 93.0 L P-50 (Temp Corrected) Y Carboxyhemoglobin (1.5 - 5.0 %) 0.2 L O2 Concentration % 30 Temperature (97.0 - 100.0 FARH) 97.7 Respiration Rate (BPM) 16 O2 Delivery Method VENT Vent Mode CMV Expiratory Pressure (CMH2O/P) 5 Tidal Volume (CC) 550 Chemistry Sodium (137 - 145 mmol/L) 146 H Potassium (3.5 - 5.1 mmol/L) 3.6 Chloride (98 - 107 mmol/L) 121 H Carbon Dioxide (22 - 30 mmol/L) 15 L Anion Gap (5 - 16) 10 BUN (9 - 20 mg/dL) 53 H Creatinine (0.7 - 1.2 mg/dL) 1.0 Estimated GFR (>60 ml/min) > 60 Glucose (65 - 99 mg/dL) 92 Serum Osmolality (285 - 295 MOSM/KG) 320 H Lactic Acid Cancelled Calcium (8.4 - 10.2 mg/dL) 7.8 L Phosphorus (2.5 - 4.5 mg/dL) 5.8 H Magnesium (1.6 - 2.3 mg/dL) 1.7 Total Bilirubin (0.2 - 1.3 mg/dL) 0.2 AST (17 - 59 U/L) 36 ALT (21 - 72 U/L) 41 Creatine Kinase (55 - 170 U/L) 340 H Albumin (3.5 - 5.0 g/dL) 2.2 L Miscellaneous Phlebotomy Draw Site RIGHT RADIAL 11/06 11/06 1708 1530 Chemistry Lactic Acid (0.7 - 2.1 mmol/L) 2.2 H Toxicology Urine Opiates Screen (>2000 NG/ML) < 100.00 Methadone Screen (>300 NG/ML) 45 Barbiturate Screen (>200 NG/ML) < 60 Ur Phencyclidine Scrn (>25 NG/ML) < 6.00 Amphetamines Screen (>1000 NG/ML) < 100 U Benzodiazepines Scrn (>200 NG/ML) < 85 Urine Cocaine Screen (>300 NG/ML) < 50 Urine Cannabis Screen (>50 NG/ML) < 5.00 Urines Urine Color (YEL,AMB,STR) YEL Urine Clarity (CLEAR) CLEAR Urine pH (5.0 - 8.0) 6.0 Ur Specific Garrett (1.001 - 1.035) 1.020 Urine Protein (NEG,<30 MG/DL) TRACE H Urine Ketones (NEG) TRACE H Urine Nitrite (NEG) NEG Urine Bilirubin (NEG) NEG Urine Urobilinogen (0.1 - 1.0 EU/dl) 0.2 Ur Leukocyte Esterase (NEG) NEG Ur Microscopic SEDIMENT EXAMINED Urine WBC (0 - 2 /HPF) 3-5 H Ur Epithelial Cells (NONE,FEW) RARE Urine Bacteria (NEG/NONE) FEW H Urine Hemoglobin (NEG) NEG Urine Glucose (N MG/DL) NEG 11/06 11/06 1530 1522 Chemistry Sodium (137 - 145 mmol/L) 146 H Potassium (3.5 - 5.1 mmol/L) 4.3 Chloride (98 - 107 mmol/L) 110 H Carbon Dioxide (22 - 30 mmol/L) 18 L Anion Gap (5 - 16) 19 H BUN (9 - 20 mg/dL) 65 H Creatinine (0.7 - 1.2 mg/dL) 1.2 Estimated GFR (>60 ml/min) > 60 BUN/Creatinine Ratio (7 - 25 %) 54.2 H Glucose (65 - 99 mg/dL) 80 Calcium (8.4 - 10.2 mg/dL) 10.3 H Magnesium (1.6 - 2.3 mg/dL) 2.1 Total Bilirubin (0.2 - 1.3 mg/dL) 0.4 AST (17 - 59 U/L) 45 ALT (21 - 72 U/L) 60 Alkaline Phosphatase (< 127 U/L) 156 H Ammonia (9 - 30 umol/L) < 9 L Creatine Kinase (55 - 170 U/L) 346 H Cancelled Troponin I (<0.11 ng/ml) < 0.01 Total Protein (6.3 - 8.2 g/dL) 7.4 Albumin (3.5 - 5.0 g/dL) 3.7 Globulin (1.9 - 4.2 gm/dL) 3.7 Albumin/Globulin Ratio (1.1 - 2.2 %) 1.0 L Amylase (30 - 110 U/L) 46 Lipase (23 - 300 U/L) 42 TSH (0.270 - 4.200 uIU/mL) 0.064 L Free T4 (0.64 - 1.79 ng/dL) 1.73 Prolactin (3.7 - 17.9 ng/mL) 8.1 Cortisol PM Sample (1.7 - 14.1) 41.5 H Hematology CBC w Diff NO MAN DIFF REQ WBC (4.8 - 10.8 /CUMM) 15.3 H RBC (4.70 - 6.10 /CUMM) 5.22 Hgb (14.0 - 18.0 G/DL) 13.6 L Hct (42 - 52 %) 43.0 MCV (80.0 - 94.0 FL) 82.4 MCH (27.0 - 31.0 PG) 26.1 L RDW (11.5 - 14.5 %) 22.6 H Plt Count (130 - 400 /CUMM) 360 MPV (7.4 - 10.4 FL) 10.1 Gran % (42.2 - 75.2 %) 89.1 H Lymphocytes % (20.5 - 51.1 %) 6.1 L Monocytes % (1.7 - 9.3 %) 3.6 Eosinophils % (0 - 5 %) 1.2 Basophils % (0.0 - 2.0 %) 0 L Absolute Granulocytes (1.4 - 6.5 /CUMM) 13.6 H Absolute Lymphocytes (1.2 - 3.4 /CUMM) 0.9 L Absolute Monocytes (0.10 - 0.60 /CUMM) 0.6 Absolute Eosinophils (0.0 - 0.7 /CUMM) 0.2 Absolute Basophils (0.0 - 0.2 /CUMM) 0 PUBS MCHC (33.0 - 37.0 G/DL) 31.7 L Toxicology Salicylates (0 - 20.0 mg/dL) < 1.0 Acetaminophen (10.0 - 30.0 ug/mL) < 10.0 L Serum Alcohol (<10 MG/DL) < 10.0 Imaging/Other Studies: CT head: No acute intracranial pathology. Assessment/Plan Assessment: The patient is a 56 year old gentleman with a PMH significant for multiple admissions for alcohol dependence and seizure, polysubstance abuse, Stage 4 ulcer on the coccyx, HTN, HLD, gastritis, hemorrhoids, and chronic back pain 2/2 disc herniation was brought in to the hospital by police for altered mental status, after he was found walking naked and was found to be noncohesive, confused, agitated, staring blankly and just answering in single words. The patient has history of drug abuse and has overdosed on his drugs in the past. He is on multiple medications including oxycodone, baclofen, Lexapro, gabapentin , sertraline, trazodone. The brother believes that he might be drinking since he smelled of alcohol prior to admission. Agree with psych on recommendation of SS treatment, continue iv hydration repeat CT head considering bilateral Babinski, MRI of brain w/o brain would be preferrable but if unable to do then do CT head w/o contrast EEG when able Continue with thiamine and banana bags Call with questions Recommendations: see above Consult Acknowledgment - Thank you for your consult request.
--- NOTE | 2016-11-07 14:17 | NUR ---
NGT REMOVED,OGT PLACED XRAY ORDERED TUBE FEED TO BE STARTED
--- NOTE | 2016-11-07 16:00 | NUR ---
ASSUMED CARE OF PATIENT. PATIENT JANE SAS 3 DOES NOT FOLLOW COMMANDS BUT DOES MOVE ALL EXTREMITIES. INTUBATED ON VENT WITH SATS IN HIGH 90'S. LUNGS CLEAR A BIT DECREASED AT BASES. MONITOR NSR BELLY SOFT NON TENDER OG TUBE IN PLACE AWAITING CONFIRMATION XRAY PRIOR TO USE. GOOD BOWEL SOUNDS. ESPARZA INTACT DRAINING CLEAR URINE. ABRASION TO L KNEE, STAGE 3 TO L COCCYX EVALUATED BY WOUND NURSE Cary MULLER AND PACKED WITH XEROFORM AND SEALED WITH TELFA AND COVERED WITH TEGADERM. NO EDEMA.
--- NOTE | 2016-11-07 16:02 | RADIOLOGY REPORT ---
EXAMINATION: XR PORTABLE CHEST CLINICAL INFORMATION: ET tube placement. COMPARISON: Chest 11/07/2016 at 8:44 AM. TECHNIQUE: Portable frontal view of the chest was obtained. FINDINGS: There is a nasogastric tube below the diaphragm in stomach. There is endotracheal tube 8 cm above the trip. Is at the same level as before. Both lungs are well-expanded with increased vascular markings and Muna B lines suggestive of CHF. The heart size is borderline enlarged. No acute consolidation or effusion seen. IMPRESSION: Cardiomegaly with [id number] CHF. No change in endotracheal tube and nasogastric tube.
--- NOTE | 2016-11-07 18:36 | Event Note ---
Event Note Event Note: AM CXR had shown the ET tube terminating approximately 8.5 cm above the trip. ET tube was subsequently advanced by several centimeters by respiratory. However repeat CXR showed no change in ET tube positioning. Radiologist on-call was contacted who confirmed the reading. Respiratory therapist was contacted to see if the ET tube could be advanced further. She explained that the ET tube position on CXR is affected by patient positioning including neck flexion/ extension which could potentially explain why the repeat CXR failed to show a change in the ET tube position despite its advancement. She further stated that the ET tube is already at a depth of 26 cm and cannot be advanced further in a safe fashion.
[2016-11-08] VITALS (9 sets, daily range): BP systolic 92–138; BP diastolic 56–82
--- NOTE | 2016-11-08 01:18 | NUR ---
[id number] PATIENT RECEIVED UNRESPONSIVE TO STIMULI NOTED ON PREVIOUS SHIFT, ATIVAN DRIP HAS BEEN OFF SINCE 11/07, PUPILS 4MM EQUAL AND REACT BRISKLY TO LIGHT, SKIN PINK, WARM AND DRY, RETORT PRE COOKER SINUS WITHOUT ECTOPY, HEART RATE 80'S TO 90/MIN, ETT TO VENTILATOR WITH FIO2 OF 30%, CONTINOUS O2 SAT 94%, BREATHE SOUNDS WITH SCATTERED RHONCHI, DIMINISHED RIGHT BASE, OGT IN PATENT AND IN PLACE, ABDOMEN SOFT, +BS, HOB ELEVATED- GASTRIC RESIDUAL CHECK WITH RETURN OF 15 ML, TF CONTINUES AT 20 ML/HR, ESPARZA TO GRAVITY WITH CLEAR YELLOW UO NOTED
[2016-11-08 05:06] LABS: ABSOLUTE BASOPHIL COUNT 0.1 /CUMM (0.0-0.2); ABSOLUTE EOSINOPHIL COUNT 0.3 /CUMM (0.0-0.7); ABSOLUTE GRANULOCYTE CT 7.3 /CUMM (1.4-6.5); ABSOLUTE LYMPH COUNT 1.3 /CUMM (1.2-3.4); ABSOLUTE MONOCYTE COUNT 0.6 /CUMM (0.10-0.60); BASOPHIL % 0.6 % (0.0-2.0); EOSINOPHIL % 2.6 % (0-5); HEMATOCRIT 30.2 % (42-52); MEAN CORPUSCULAR HGB 26.3 PG (27.0-31.0); MEAN CORPUSCULAR HGB CONC 32.2 G/DL (33.0-37.0); MEAN CORPUSCULAR VOLUME 81.8 FL (80.0-94.0); MEAN PLATELET VOLUME 9.6 FL (7.4-10.4); PLATELET COUNT 291 /CUMM (130-400); RBC DISTRIBUTION WIDTH 21.9 % (11.5-14.5); RED BLOOD CELL CT 3.69 /CUMM (4.70-6.10); WHITE BLOOD CELL COUNT 9.5 /CUMM (4.8-10.8)
--- NOTE | 2016-11-08 05:20 | NUR ---
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
--- NOTE | 2016-11-08 06:41 | NUR ---
PATIENT REMAINS MINIMALLY RESPONSIVE- FOR CT HEAD THIS AM, TEMPERATURE LOW GRADE OVERNIGHT, AWAITING AM MD ROUNDS
--- NOTE | 2016-11-08 07:59 | RADIOLOGY REPORT ---
EXAMINATION: XR PORTABLE CHEST CLINICAL INFORMATION: Confirm ET tube placement. Patient is intubated and on mechanical ventilation. COMPARISON: 11/07/2016. TECHNIQUE: Portable AP 90 degrees upright view of the chest was obtained. FINDINGS: ET tube tip terminates approximately 5 cm above trip. Enteric tube extends below diaphragm, tip not visualized. The cardiac silhouette is mildly enlarged. Vascular congestion and mild increased interstitial markings is seen similar to the prior allowing for differences in aeration. The lung volumes are decreased. Patchy retrocardiac opacity is suspected. No significant pleural effusions. IMPRESSION: ET tube tip terminates 5 cm above trip. Persistent interstitial edema is demonstrated. Retrocardiac opacity is suspected, difficult to evaluate with a shallow inspiration.
--- NOTE | 2016-11-08 08:11 | PN- Resident CRCU ---
Subjective HPI/CRCU Issues: Patient seen and examined at bedside this AM. He was resting comfortably in bed in no acute distress and remains on mechanical ventilation for respiratory support. He is on both a fentanyl drip, PO librium via OGT and morphine PRN agitation. 24 Hour Events: Telemetry events: None. Vital signs last 24 hours: T 97.6-100.1, HR 83-94, RR 17-29, BP 105-134/59-80, O2 94-100% on AC ventilation RR 16 TV 550 FiO2 30% 5 PEEP. Total intake last 24 hours: 3560 cc Total output last 24 hours: 2540 cc Objective Vital Signs & I&O Last 8 Hrs of Vitals and I&O: Intake & Output 11/08 1600 Intake Total Output Total Balance Patient 140 lb Weight Weight Bed scale Measurement Method T 97.6-100.1, HR 83-94, RR 17-29, BP 105-134/59-80, O2 94-100% on AC ventilation RR 16 TV 550 FiO2 30% 5 PEEP. Exam General Appearance: well developed/nourished, sedated, intubated Head: atraumatic, normal appearance Ears, Nose, Throat: moist mucus membranes Neck: normal inspection, supple Respiratory: normal breath sounds Cardiovascular: regular rate/rhythm Gastrointestinal: normal bowel sounds, soft, non-tender Extremities: normal inspection Cranial Nerves: PERRL Skin: normal color, warm/dry Nutrition Nutrition: tube feeding Current Medications: Current Medications Sig/Anaya Start time Last Medication Dose Route Stop Time Status Admin Acetaminophen 650 MG Q6 PRN 11/06 1830 DC PO Azithromycin 500 MG DAILY 11/08 1104 DC Sodium Chloride 250 ML IV Azithromycin 500 MG DAILY 11/07 1127 AC 06/04 PO 11/11 1001 0945 Ceftazidime 1,000 MG IQ8 11/07 0000 DC 06 IV 0753 Ceftriaxone Sodium 1,000 MG DAILY 11/08 1104 AC 06/ IV 1229 Chlordiazepoxide HCl 50 MG TID 11/08 1600 AC PO Chlordiazepoxide HCl 25 MG TID 11/07 1120 DC / PO 0945 Clindamycin 300 MG IQ8 11/07 0000 DC 06 Dextrose/Water 50 ML IV 2353 Cyanocobalamin/ 1 BAG DAILY 11/07 1000 AC / Thiamine/Pyridoxine IV 11/09 1759 1112 Sodium Chloride 1,000 ML Enoxaparin Sodium 40 MG DAILY 11/06 1816 AC 11/08 SC 0945 Fentanyl Citrate 1,000 MCG Q24H 11/08 0900 AC 11/08 Dextrose/Water 250 ML IV 0946 Levetiracetam 500 MG BID 11/07 2200 AC 11/08 NG 0945 Lorazepam 50 MG Q24H 11/08 0000 DC Dextrose/Water 500 ML IV Lorazepam 100 MG Q10H 11/06 2300 DC 11/07 Dextrose/Water 1,000 ML IV 11/07 2359 0056 Magnesium Sulfate 1 GM ONCE ONE 11/08 1115 AC 11/08 Dextrose/Water 100 ML IV 11/08 1514 1116 Magnesium Sulfate 1 GM Q2H 11/07 1445 DC 11/07 Dextrose/Water 100 ML IV 11/07 1844 1543 Magnesium Sulfate 1 GM ONCE ONE 11/07 1430 CAN Dextrose/Water 100 ML IV 11/07 1829 Magnesium Sulfate 1 GM ONCE ONE 11/07 1430 CAN Dextrose/Water 100 ML IV 11/07 1829 Morphine Sulfate 2 MG Q6P PRN 11/07 1145 AC 11/08 IV 0753 Oxycodone HCl 5 MG Q6 PRN 11/06 1830 DC PO Oxycodone/ 2 TAB Q6 PRN 11/06 1830 DC 11/08 Acetaminophen PO 0849 Pantoprazole Sodium 40 MG DAILY 11/07 1000 AC 11/08 IV 0945 Potassium Chloride 40 MEQ ONCE ONE 11/08 0830 DC 11/08 PO / 0831 0849 Sodium Chloride 500 ML .Q6H40M 11/07 2030 DC 11/08 IV 11/08 0948 0331 CXR Findings: IMPRESSION: ET tube tip terminates 5 cm above trip. Persistent interstitial edema is demonstrated. Retrocardiac opacity is suspected, difficult to evaluate with a shallow inspiration. CT Scan Findings: CT head: IMPRESSION: No acute intracranial pathology. No significant interval change compared to recent head CT. Impression/Plan Impression/Problem List Impression: Mr. Macias is a 56 year old male with PMH alcohol dependance, seizures, polysubstance abuse, stage 4 ulcer of the coccyx, HTN, HLD, gastritis, hemorrhoids and chronic back pain 2/2 disc herniation who was brought in to the hospital by police for altered mental status. He is on multiple medications including oxycodone, baclofen, lexapro, gabapentin, sertraline and trazodone as an outpatient so there was concern from family that he overdosed or was altered secondary to alcohol intake. The patient is currently being monitored in the ICU and the following is the management: 1. Altered mental status Started on cyproheptadine / for suspected serotonin syndrome as patient was on multiple serotonergic agents including lexapro, trazodone and sertraline and in the presence of leukocytosis and clonus on admission which would be consistent with this diagnosis. Clonus has resolved. Other potential contributory etiologies include drug overdose and alcohol withdrawal in view of history of polysubstance abuse. Of note, patient has a history of suspected Wernicke's encephalopathy. CT Head w/o IV contrast showed no acute intracranial pathology. Mental status remains poor.. * Neurology and psychiatry following. Appreciate their recs. * Ativan drip off, patient now on fentanyl drip * Chlordiazepoxide increased to 50 mg PO Q8H. * Repeat CT Head this AM showed no interval change from prior and no acute intracranial pathology * Discontinued cyproheptadine given resolution of clonus. Poison Control made aware. * Treat for suspected alcohol withdrawal and Wernicke's encephalopathy per psych recs. * Continue banana bag with thiamine. * Avoid serotonergic agents. * Check EEG. * Continue PO Keppra 500 mg BID via OGT * Morphine 2 mg IV Q6H PRN for agitation. 2. Acute hypoxemic respiratory failure * Secondary to AMS. Remains intubated and on mechanical ventilation, day #3 with the following vent settings: AC mode, VT 550, FiO2 30%, RR 16 and PEEP 5. * Continue mechanical ventilation. * Protonix 40 mg IV daily for GI PPx while intubated. * Will cosnider steroids in future * Continue OG tube placed. 3. Suspected bronchiolitis * CT scan w/ groundglass opacities in b/l lungs consistent with small airways disease. * Change to ceftriaxone and azithromycin for bronchiolitis * Follow up repeat EKG in AM and if QTC prolonged cahnge azithro to doxycycline * Consider further workup as outpatient. 4. Sepsis * Patient was tachypneic/tachycardiac on admission with leukocytosis and lactic acidosis concerning for sepsis. Potential sources: lungs given bilateral groundglass opacities on CT scan and chronic stage IV decubitus of the sacrum/ coccyx. * Infectious work-up negative so far, WBC count improved today to 9.5, Tmax 100.1 * Strep pneumo and Legionella urinary antigen negative. * BCx NGTD x2. * LRC has light growth of staph aureus (prelim report) * CT Abdomen/Pelvis W/O IV Contrast with no acute intraabdominal pathology. * Continue antibiotics noted above and follow up final cultures 5. Stage 4 decubitus ulcer of coccyx and sacrum * Present on admission. * [facility]. * Management per wound care. * Packed with Xeroform, sealed with Telfa and covered with Tegaderm per Wound Care. 6. Alcohol abuse * Continue CIWA scoring * Continue librium, titrate up as needed * Banana bag to continue with replacement of vitamins * Continue to follow pysch recommendations FULL CODE DVTP: SC Lovenox Diet: Tube feeding Problem List: 1. Endotracheally intubated 2. Sepsis 3. Acute hypoxemic respiratory failure 4. Polysubstance abuse 5. Acute delirium 6. Altered mental status 7. Encephalopathy 8. Decubitus ulcer of coccygeal region, stage 4 Pain Ratin Tomorrow's Labs & Rationales: ICU bundle, CBC Plan DVT/Prophylaxis: mechanical, pharmacological Code Status: Full Code
--- NOTE | 2016-11-08 09:43 | PN- CRCU ---
Subjective HPI/Critical Care Issues: Still agitated low grade temp on sedation intubated On fio2 of .3 Adequate urineout put noted ON ivf still Tube feeding ongoing Objective Current Medications: Current Medications Sig/Anaya Start time Last Medication Dose Route Stop Time Status Admin Acetaminophen 650 MG Q6 PRN 11/06 1830 DC PO Azithromycin 500 MG DAILY 11/07 1127 AC 06 PO 07 1001 1316 Ceftazidime 1,000 MG IQ8 11/07 0000 AC 11/08 IV 0753 Chlordiazepoxide HCl 25 MG TID 11/07 1120 AC 11/07 PO 2241 Clindamycin 300 MG IQ8 11/07 0000 AC 11/07 Dextrose/Water 50 ML IV 2353 Cyanocobalamin/ 1 BAG DAILY 11/07 1000 AC 11/07 Thiamine/Pyridoxine IV 11/09 1759 1027 Sodium Chloride 1,000 ML Cyproheptadine HCl 8 MG Q6 11/07 0500 DC 11/07 PO 1052 Enoxaparin Sodium 40 MG DAILY 11/06 1816 AC 11/07 SC 0927 Fentanyl Citrate 1,000 MCG Q24H 11/08 0900 AC Dextrose/Water 250 ML IV Levetiracetam 500 MG BID 11/07 2200 AC 11/07 NG 2241 Levetiracetam 500 MG Q12 11/07 1000 DC 11/07 N/A 1 UNIT IV 1028 Lorazepam 50 MG Q24H 11/08 0000 DC Dextrose/Water 500 ML IV Lorazepam 100 MG Q10H 11/06 2300 DC 11/07 Dextrose/Water 1,000 ML IV 11/07 2359 0056 Magnesium Sulfate 1 GM Q2H 11/07 1445 DC 11/07 Dextrose/Water 100 ML IV 11/07 1844 1543 Magnesium Sulfate 1 GM ONCE ONE 11/07 1430 CAN Dextrose/Water 100 ML IV 11/07 1829 Magnesium Sulfate 1 GM ONCE ONE 11/07 1430 CAN Dextrose/Water 100 ML IV 11/07 1829 Morphine Sulfate 2 MG Q6P PRN 11/07 1145 AC 11/08 IV 0753 Oxycodone HCl 5 MG Q6 PRN 11/06 1830 DC PO Oxycodone/ 2 TAB Q6 PRN 11/06 1830 DC 11/08 Acetaminophen PO 0849 Pantoprazole Sodium 40 MG DAILY 11/07 1000 AC 11/07 IV 1026 Potassium Chloride 40 MEQ ONCE ONE 11/08 0830 DC 11/08 PO 11/08 0831 0849 Sodium Chloride 500 ML .Q6H40M 11/07 2030 AC 11/08 IV 11/08 0948 0331 Vital Signs & I&O Last 24 Hrs of Vitals and I&O: Vital Signs Date Time Temp Pulse Resp B/P B/P Pulse O2 O2 Flow FiO2 Mean Ox Delivery Rate 11/08 0815 30 / 0800 98.2 80 22 138/80 96 Ventilator 30% 11/08 0800 94 Ventilator 30% 11/08 0600 30 / 0600 99.2 90 25 134/82 06/04 0400 100.1 98 28 130/80 06/04 0400 98 Ventilator 30% / 0316 30 / 0200 99.0 98 29 123/70 06/04 0023 30 06/04 0000 98.3 85 27 126/76 06/04 0000 94 Ventilator 30% 06/04 0000 98.3 85 27 126/76 94 Ventilator 30% /03 2230 30 / 2200 90 28 120/67 06/03 2127 86 20 120/74 06/03 2000 97.6 94 22 120/78 06/03 2000 95 Ventilator 30% 06/03 1950 30 06/03 1640 30 06/03 1600 97.6 90 22 131/84 06/03 1600 97.6 90 22 131/84 98 Ventilator 30% 06/03 1409 30 06/03 1400 93 24 134/71 06/03 1200 98.7 83 24 110/70 06/03 1200 97 Ventilator 30% /03 1151 30 06/03 1000 87 24 101/59 Intake & Output /04 1600 06/04 0800 06/04 0000 Intake Total 876 695 Output Total 815 750 Balance 61 -55 Intake, IV 519 445 Intake, Tube 137 140 Feeding Intake, Tube 220 110 Irrigant Number 0 Bowel Movements Output, Urine 815 750 Patient 140 lb Weight Weight Bed scale Measurement Method Impression/Plan Impression/Plan Impression/Plan: Cxr ETT 5 cms above trip retrocardiac opacity Physical Exam General Appearance Intubated and sedated Skin warm, 2.5 cm ulcer over the left buttock near the coccyx, 1.5 X 1.5 cm skin break over the left knee, multiple bruise jacobson over both knees Skin Temp/Moisture Exam: Warm/Dry Sepsis Skin Exam (color): Normal for Ethnicity HEENT Atraumatic, PERRLA, EOMI, dried blood seen in the oral cavity Neck Supple, No JVD Cardiovascular Normal S1, Normal S2, tachycardia Lungs diminished breath sounds bilaterally Abdomen Normal Bowel Sounds, Soft Neurological exaqm difficult. Clonus not sig today Extremities No Clubbing, No Cyanosis, No Edema, Normal Pulses Vascular Normal Pulses, Pulses Symmetrical CT scan of the head was unremarkable CT of the abdomen and pelvis showed groundglass opacity bilateral significant small vessel disease with severe atherosclerosis of the aorta CTAshowed significant bronchiolitis-like picture with small vessel disease with no bronchiectasis IMPRESSION This is an unfortunate 56-year-old gentleman with severe alcohol dependency with multiple admissions, history of seizure, polysubstance abuse, significant sacral decubiti, hypertension, hyperlipidemia, previous gastritis and hemorrhoids, chronic back pain, now comes in with * Acute delirium secondary to multiple issues which could include combination of and - probable drug overdose versus alcohol withdrawal versus serotonin syndrome. Clonus noted initially by houseofficers on exam upon admission which seems to have resolved * Severe Resp failure hypoxic due to decreased mentation, Sig bronchiolitis with prob aspiration pna * REsolved Hypothermia rule out sepsis but seems unlikely, now better * Significant alcoholism with previous withdrawal seizure with probable seizure- now on keppra * Rule out Wernicke's encephalopathy on thiamine * ALtered Thyroid tests * Bilateral small airway disease as noted in his recent CT scan highly suggestive of bronchiolitis patient may be having significant GERD or rule out polysub inhalation abuse or He may have had recent viral infection. No clinical evidence suggestive of vasculitis or significant rheumatological disease so far, which needs to be investigated once stable * Depression, mood disorder, chronic pain, polypharmacy * Significant sacral decubiti for months followed by wound clinic * BOrderline qtc prolongation REC * Continue mechanical ventilator * Continue IV Ativan use a drip if needed. Increase librium dose tid * Continue Keppra it could be switched to OG tube * Pantoprazole * Change to ceftriaxone and zithromycin for bronchiolitis,watch qtc daily and if high change azithro to doxy * Can increase tube feedings to goal * Potassium replacement down OG 40 bid * Mag one gram today IV to keep above 2 * Watch for seizures * will consider steroids in the future for bronchioitis * Can dc ivf if stable and increase free water bolus * Start fentanyl drip low dose with ativan and chlordiazepoxide * DVT propylaxis, watch sugars Code Status: Full Code
--- NOTE | 2016-11-08 11:03 | CT SCAN REPORT ---
EXAMINATION: CT HEAD WITHOUT CONTRAST CLINICAL INFORMATION: Change in mental status. COMPARISON: Head CT performed 11/06/2016. TECHNIQUE: Contiguous axial imaging was performed from the skull base to vertex without intravenous administration of contrast. DLP: 284 mGy-cm FINDINGS: There is no evidence of acute intracranial hemorrhage or territorial infarction. No abnormal mass effect or midline shift is seen. Barrientos to white matter differentiation is well preserved. No extra-axial fluid collections are identified. The ventricles and sulcal spaces are proportionate without hydrocephalus. There is no new abnormal attenuation within the brain parenchyma. The osseous structures and soft tissues are normal. The mastoid air cells are well aerated. Mild mucosal thickening within the right maxillary sinus. IMPRESSION: No acute intracranial pathology. No significant interval change compared to recent head CT.
--- NOTE | 2016-11-08 12:34 | NUR ---
@0800-PT OPENS EYES TO VERBAL STIM. NOT FOLLOWS COMMANDS. PUPILS EQUAL AND REACTIVE. YAO. BILAT WRIST RESTRAINTS CONT FOR SAFETY OF ETT. MEDCIATED WITH MORPHINE PRN DOSE DUE TO PT CONT RESTLESS IN BED. FLACC SCORE 5. HX CHRONIC BACK PAIN. ORDER NOTED FOR CT SCAN OF HEAD THIS AM. AFEBRILE AT THIS TIME. CONT ON VENT-NO CHANGE TO SETTINGS NOTED. MOD AMTS OF ORAL AND ETT SECRETIONS NOTED. O2SAT 93-96% WITH COARSE BREATH SOUNDS AUSCULATED. NSR HR 80-90S. BP STABLE. OGT WITH JEVITY 1.2 INFUSING AT 20ML/HR WITH NO ADVANCEMENT ORD NOTED. H20 FLUSHES Q4H 110ML/HR. ESPARZA IN PLACE WITH ADEQUATE CLEAR YELLOW OUTPUT NOTED. MULT SCABS NOTED FROM FALLS AT HOME. SCABBED ABRASION NOTED TO LFA AND L KNEE. L KNEE SCAB NOTED TO HAVE PURULENT DRAINAGE WHEN PRESSURE APPLIED TO SURROUNDING AREA-DR TSE AT BEDSIDE TO ASSESS. IVF NS INFUSING AT 75ML/HR. BANANA BAG TO INFUSE AT 125ML/HR WHEN ARRIVES FROM PHARMACY. KLOR 40MEQ ADMINISTERED AT THIS TIME FOR K+3.6. CONT TO MONITOR CLOSELY.
--- NOTE | 2016-11-08 12:41 | NUR ---
@1000-FENT GTT STARTED AT 50MCG/HR PER ORDER. BANANA BAG INFUSING AT 125ML/HR. TF INCREASED TO 30ML/HR FOR 12HOURS. AWAITING SIZEWISE MATTRESS. PT HAS STAGE 3 PRESSURE INJURY TO COCCYX-DSG INTACT. WILL CHANGE LATER THIS AM. @1030-THIS RN TRANSPORTED PT TO CT SCAN FOR CT OF HEAD. PT ROSEMARY WELL.
--- NOTE | 2016-11-08 16:52 | NUR ---
@1600-PT CONT ON FENT GTT, INFUSING AT 50MCG/HR. BILAT WRIST RESTRAINTS CONT FOR SAFETY OF ETT. PT PLACED ON NEW SIZEWISE MATTRESS. CONT ON VENT-NO CHANGE TO SETTINGS. NSR HR 70S. BP STABLE. JEVITY CONT TO INFUSE AT 30ML/HR, TO ADVANCE TO 50ML AT 2300. COCCYX WOUND PACKED WITH KALTOSTAT, COVERED WITH TELFA AND TEGADERM. REPOSITONED TO L SIDE WITH PILLOWS. SCABBED ABRASIONS NOTED TO FORHEAD, LFA AND L KNEE. + PULSES NOTED. BANANA BAG CONT TO INFUSE AT 125ML/HR. CONT TO MONITOR CLOSELY. MOUTH CARE PROVIDED.
--- NOTE | 2016-11-08 18:12 | NUR ---
@1805-PT NOTED TO HAVE EYE GAZE TO LEFT WITH MILD MUSCLE TWITCHING BELOW R EYE. RAIL SPECIALIST DR MURRAY CALLED TO BEDSIDE TO ASSESS. GAZE RESOLVED AT THIS TIME. NO NEW ORDERS NOTED
[2016-11-09] VITALS (13 sets, daily range): BP systolic 94–150; BP diastolic 54–80
--- NOTE | 2016-11-09 03:14 | NUR ---
AFTER 1 HOUR OF 500 ML NS BOLUS BP REMAIN ON THE LOWER SIDE AT 62/34, DR. CAMERON INFORMED, PATIENT SEEN AND EXAMINED, ORDER TO START LEVOPHED DRIP. IV LEVOPHED 8 MG/ 250 DOUBLE CONENTRATE STARTED AND TITRATED ACCORDING TO THE [employer] MAP OF ABOVE 65 MMHG.
--- NOTE | 2016-11-09 03:47 | NUR ---
AT 0130, PATIENT BECAME AGITATED AND SEVERELY RESTLESS, NOT FOLLOWING COMMAND, TRYING TO GET OUT OF THE BED. DR. CAMERON INFORMED. PATIENT SEEN BY THE ABOVE DOCTOR, ORDER TO GIVE 2 MG IV ATIVEN, FENTANYL DRIP CURRENTLY RUNNING AT 100 MCG INCRAESED TO 125 MCG.
--- NOTE | 2016-11-09 03:51 | NUR ---
AT 0140, PATIENT REMAIN SEVERLY RESTLESS, REQUEST FOR ANOTHER DOSE OF ATIVAN AND 4 POINTS RESTRAINTS ADN VEST RESTRAINTS. IV FENTANYL INCREASED TO 150 MCG.
--- NOTE | 2016-11-09 03:55 | NUR ---
AT 0220, PATIENT STILL AGITATED AN D RESTLESS, ASKED DOCTOR TO PUT A PRN ORDER OF ATIVAN. AT 0225, 2 MG OF IV ATIVAN PRN ORDER GIVEN IV. PATIENT MODERATELY CALM BUT STILL MOVING LEFT AND RIGHT OCCASIONALLY. AT 0245, PATIENT SETTLED ADN CALM DOWM, VITAL SIGNS ARE STABLE, REMAIN ON 4 POINTS RESTRAINTS AND VEST RESTRAINTS. IV FENTANYL REMAIN AT 150 MCG.
[2016-11-09 05:28] LABS: ABSOLUTE BASOPHIL COUNT 0 /CUMM (0.0-0.2); ABSOLUTE EOSINOPHIL COUNT 0.5 /CUMM (0.0-0.7); ABSOLUTE GRANULOCYTE CT 8.3 /CUMM (1.4-6.5); ABSOLUTE LYMPH COUNT 1.4 /CUMM (1.2-3.4); ABSOLUTE MONOCYTE COUNT 0.7 /CUMM (0.10-0.60); BASOPHIL % 0.1 % (0.0-2.0); EOSINOPHIL % 4.8 % (0-5); GRANULOCYTE % 76.1 % (42.2-75.2); HEMATOCRIT 30.9 % (42-52); MEAN CORPUSCULAR HGB 26.3 PG (27.0-31.0); MEAN CORPUSCULAR HGB CONC 31.9 G/DL (33.0-37.0); MEAN CORPUSCULAR VOLUME 82.6 FL (80.0-94.0); MEAN PLATELET VOLUME 9.9 FL (7.4-10.4); PLATELET COUNT 277 /CUMM (130-400); RBC DISTRIBUTION WIDTH 22.4 % (11.5-14.5); RED BLOOD CELL CT 3.73 /CUMM (4.70-6.10); WHITE BLOOD CELL COUNT 10.9 /CUMM (4.8-10.8)
--- NOTE | 2016-11-09 07:17 | PN- Resident CRCU ---
Subjective HPI/CRCU Issues: Follow-up for: -Altered mental status secondary to drug overdose versus serotonin syndrome -Acute hypoxic respiratory failure/intubation -Hypothermia--resolved -Alcoholic withdrawal syndrome -Possible Wernicke's encephalopathy -CT chest findings suggestive for bilateral small airway disease -Sacral decubitus ulcer -Depression/mood disorder -Chronic pain syndrome Patient was seen and examined this morning, he is sedated intubated, open eyes half way to verbal stimulus, no purposeful movement. Overnight reported about repeat agitation that required multiple Ativan IV administration 24 Hour Events: AC 550/16/5/30% 95% Temperature 98.5, MAXIMUM TEMPERATURE 98.8 Blood pressure lowest 92/52, highest 160/52 Intake 08/08/2005, output 1760 Fentanyl drip running at 75.2 mcg/h Tolerating tube feeds well Objective Vital Signs & I&O Last 8 Hrs of Vitals and I&O: 11 Exam General Appearance: sedated, intubated Head: atraumatic, normal appearance Ears, Nose, Throat: normal pharynx, normal ENT inspection Neck: normal inspection, supple, full range of motion Respiratory: chest non-tender, rhonchi Cardiovascular: regular rate/rhythm Gastrointestinal: normal bowel sounds, soft, non-tender Extremities: normal inspection, normal capillary refill, normal range of motion, no edema Cranial Nerves: BL pinpoint pupils Current Medications: Current Medications Sig/Anaya Start time Last Medication Dose Route Stop Time Status Admin Azithromycin 500 MG DAILY 11/07 1127 AC 11/09 PO 11/11 1001 0956 Ceftriaxone Sodium 1,000 MG DAILY 11/08 1104 AC 11/09 IV 0955 Chlordiazepoxide HCl 100 MG TID 11/09 1600 AC PO Chlordiazepoxide HCl 50 MG TID 11/08 1600 DC 11/09 PO 1013 Cyanocobalamin/ 1 BAG DAILY 11/07 1000 AC 11/09 Thiamine/Pyridoxine IV 11/09 1759 0954 Sodium Chloride 1,000 ML Enoxaparin Sodium 40 MG DAILY 11/06 1816 AC 11/09 SC 0955 Fentanyl Citrate 1,000 MCG Q24H 11/08 0900 AC 11/09 Dextrose/Water 250 ML IV 1026 Levetiracetam 500 MG BID 11/07 2200 AC 11/09 NG 0954 Lorazepam 1 MG ONCE ONE 11/09 0915 DC 11/09 IV 11/09 0916 0917 Lorazepam 2 MG Q4P PRN 11/09 0215 AC 11/09 IV 0225 Lorazepam 2 MG ONE ONE 11/09 0130 DC 11/09 IV 11/09 0131 0132 Magnesium Sulfate 1 GM ONCE ONE 11/08 1115 DC 11/08 Dextrose/Water 100 ML IV 11/08 1514 1116 Morphine Sulfate 2 MG Q6P PRN 11/07 1145 AC 11/08 IV 0753 Pantoprazole Sodium 40 MG DAILY 11/07 1000 AC 11/09 IV 0955 Potassium Chloride 10 MEQ ONCE ONE 11/09 0745 DC 11/09 IV 11/09 0746 0810 Vancomycin HCl 1,000 MG Q12 11/09 1047 AC Sodium Chloride 250 ML IV Impression/Plan Impression/Problem List Impression: Mr. Macias is a 56 year old male with H alcohol dependance, seizures, polysubstance abuse, stage 4 ulcer of the coccyx, HTN, HLD, gastritis, hemorrhoids and chronic back pain 2/2 disc herniation who was brought in to the hospital by police for altered mental status. He is on multiple medications including oxycodone, baclofen, lexapro, gabapentin, sertraline and trazodone as an outpatient so there was concern from family that he overdosed or was altered secondary to alcohol intake. The patient is currently being monitored in the ICU and the following is the management: 1. Altered mental status Started on cyproheptadine 11/06 for suspected serotonin syndrome as patient was on multiple serotonergic agents including lexapro, trazodone and sertraline and in the presence of leukocytosis and clonus on admission which would be consistent with this diagnosis. Clonus has resolved. Other potential contributory etiologies include drug overdose and alcohol withdrawal in view of history of polysubstance abuse. Of note, patient has a history of suspected Wernicke's encephalopathy. CT Head w/o IV contrast showed no acute intracranial pathology. Mental status remains poor. * Neurology and psychiatry following. Appreciate their recs. * Ativan drip off, patient now on fentanyl drip * Ativan when necessary for agitation * Chlordiazepoxide increased to 100 mg PO Q8H. * Repeat CT Head showed no interval change from prior and no acute intracranial pathology * Discontinued cyproheptadine given resolution of clonus. Poison Control made aware. * Treat for suspected alcohol withdrawal and Wernicke's encephalopathy per psych recs. * Continue banana bag with thiamine. * If an antipsychotic is indicated do not utilize second-generation antipsychotics due to concern of possible serotonin syndrome and serotonergic properties of these meds. Haldol would be medication of choice. * Continue PO Keppra 500 mg BID via OGT * Morphine 2 mg IV Q6H PRN for agitation. 2. Acute hypoxemic respiratory failure * Secondary to AMS. Remains intubated and on mechanical ventilation, Day#4 * Protonix 40 mg IV daily for GI PPx while intubated. * Will cosnider steroids in future * Continue OG tube placed 3. Suspected bronchiolitis * CT scan w/ groundglass opacities in b/l lungs consistent with small airways disease * Continue ceftriaxone and azithromycin for bronchiolitis Day#2 * Sputum culture positive for staph aureus, will start vancomycin Day#1 for possible MRSA * Follow up repeat EKG in AM and if QTC prolonged cahnge azithro to doxycycline * Consider further workup as outpatient 4. Sepsis * Patient was tachypneic/tachycardiac on admission with leukocytosis and lactic acidosis concerning for sepsis. Potential sources: lungs given bilateral groundglass opacities on CT scan and chronic stage IV decubitus of the sacrum/ coccyx. * Infectious work-up negative so far, improved afebrile and no leukocytosis * Strep pneumo and Legionella urinary antigen negative * BCx NGTD x2 * Sputum culture positive for staph aureus, will start vancomycin Day#1 for possible MRSA * CT Abdomen/Pelvis W/O IV Contrast with no acute intraabdominal pathology * Continue antibiotics noted above and follow up final cultures 5. Stage 4 decubitus ulcer of coccyx and sacrum * Present on admission * [facility] * Management per wound care * Packed with Xeroform, sealed with Telfa and covered with Tegaderm per Wound Care * Aggressive offloading and frequent repositioning per Wound Care * Wound care can be Aquacel Ag placed over the wound. If there is any evidence of progression would advanced to a Clinitron bed 6. Alcohol abuse * Continue CIWA scoring * Will Increase librium to 100mg Q8 hours * PRN ativan * Banana bag to continue with replacement of vitamins * Continue to follow pysch recommendations FULL CODE DVTP: SC Lovenox Diet: Tube feeding Problem List: 1. Sepsis 2. Acute hypoxemic respiratory failure 3. Decubitus ulcer of coccygeal region, stage 4 4. Serotonin syndrome 5. Drug overdose 6. Encephalopathy 7. Alcohol withdrawal delirium 8. Acute delirium 9. Altered mental status Pain Ratin Tomorrow's Labs & Rationales: CBC, ICU bundle Plan DVT/Prophylaxis: mechanical, pharmacological Code Status: Full Code
--- NOTE | 2016-11-09 08:02 | PN- Wound Care ---
Subjective Subjective: pt intubated low air loss mattress in place. As to evaluate stage IV decubitus ulcer of the coccyx present on admission Objective Vital Signs and I&Os Vital Signs Result Date Time Pulse Ox 93 11/09 699 B/P 106/63 11/09 699 O2 Delivery Ventilator 11/09 699 O2 Flow Rate 30% 11/09 699 Temp 98.5 11/09 699 Pulse 77 11/09 699 Resp 16 11/09 699 FiO2 30 11/09 556 Intake & Output 11/09 0000 11/08 1600 11/09 799 Intake Total 1252.6 1289 876 Output Total 515 650 815 Balance 737.6 639 61 Intake, IV 662.6 839 519 Intake, Other 260 Intake, Tube 180 137 Feeding Intake, Tube 330 270 220 Irrigant Number 0 0 Bowel Movements Output, Stool 0 Output, Urine 515 650 815 Patient 140 lb Weight Weight Bed scale Measurement Method There is approximately 1.2 x 0.6 cm stage IV pressure ulcer with 100% red fill no exposed bone minor undermining no periwound erythema or drainage. This was present on admission Impression/Plan Impression/Plan Impression/Plan: 56-year-old with chronic stage IV pressure ulcer admitted with respiratory failure now intubated. The wound appears clean and not infected. Recommend aggressive offloading frequent repositioning. Wound care can be Aquacel Ag placed over the wound. If there is any evidence of progression would advanced to a Clinitron bed
--- NOTE | 2016-11-09 08:47 | NUR ---
0800: RECEIVED PATIENT IN BED. SAS 3-5, 5 WITH CARE. PUPILS PIN POINT, VERY SLUGGISH. NSR ON MONITOR, NO ECTOPY NOTED. B/P 110/66 MANUALLY. AFEBRILE. VENTED ETT 7.5 @ 26CM TO THE LEFT, LUNGS RHONCHI THROUGHOUT, SUCTION VIA ETT AND ORAL SHOW WHITE THIN SECRETIONS. VENT SETTINGS AC-16 550/30% PEEP 5. ABDOMEN SOFT, +BS. OGT AT 75CM, JEVITY 1.2 YOBANI @ 50ML/HR RESIDUAL 75ML. TUBE FEED TO BE TURNED UP TO GOAL RATE OF 70ML AT 11AM. ESPARZA IN PLACE DRAINING CLEAR YELLOW URINE ADEQUATE AMOUNTS. STAGE 4 TO COCCYX, EVALUATED BY DR ASIF, [employer] DAILY, SIZEWISE MATTRESS IN PLACE. SCATTERED SCABS. ALPS ON. #20 LF X2, FENTANYL GTT AT 75MCG OR 18.8 ML. SOFT RESTRAINTS X4, TREVON IN PLACE FOR AGITATION. CIWA 6 AT THIS TIME. K 3.8 TODAY, 10 MEQ KCL IV GIVEN. UPON ASSESSMENT WITH DR ASIF PATIENT NOTED TO HAVE LEFT LATERAL GAZE, ? SEIZURE ACTIVITY. MD PIMENTEL AWARE. TO HAVE EEG TODAY. WILL MONITOR.
--- NOTE | 2016-11-09 09:21 | NUR ---
PATIENT RESTELSS, AGITATED, ATIVAN 1MG IV GIVEN.
--- NOTE | 2016-11-09 09:21 | RADIOLOGY REPORT ---
EXAMINATION: XR PORTABLE CHEST CLINICAL INFORMATION: Respiratory failure, ET tube placement COMPARISON: 11/08/2016 TECHNIQUE: Portable frontal view of the chest was obtained. FINDINGS: Endotracheal tube tip lies approximately 4.8 cm above the trip. Enteric tube courses below the diaphragm. Lung volumes are symmetric. There is retrocardiac opacification which appears slightly worsened from prior. Additional regions of patchy/hazy airspace opacity are present bilaterally, left lung greater than right and similar in appearance to prior. No pneumothorax is seen. No significant pleural effusion. Cardiac size is at the upper limits of normal. No acute osseous findings are seen. IMPRESSION: Endotracheal tube tip 4.8 cm above the trip. Worsening retrocardiac opacification. Persistent additional regions of patchy/hazy airspace opacity bilaterally appear similar to prior.
--- NOTE | 2016-11-09 09:34 | NUR ---
WOUND CARE: REQUESTED BY [facility] TO EVAL PT FOR SKIN ALTERATIONS PRESENT ON ADMISSION - PT SEEN BY DR DESAI THIS AM FOR TREATMENT OF STAGE 4 PRESSURE INJURY - PLEASE REFER TO MD RECOMMENDATIONS - MAY USE KALTOSTAT Q 3 DAYS UNTIL AQUACEL AG IS AVAILABLE
--- NOTE | 2016-11-09 09:58 | PN- CRCU ---
Subjective HPI/Critical Care Issues: Still is sig agitated Intubated and sedated Objective Current Medications: Current Medications Sig/Anaya Start time Last Medication Dose Route Stop Time Status Admin Azithromycin 500 MG DAILY 11/08 1104 DC Sodium Chloride 250 ML IV Azithromycin 500 MG DAILY 11/07 1127 AC 11/08 PO 11/11 1001 0945 Ceftazidime 1,000 MG IQ8 11/07 0000 DC 11/08 IV 0753 Ceftriaxone Sodium 1,000 MG DAILY 11/08 1104 AC 11/08 IV 1229 Chlordiazepoxide HCl 50 MG TID 11/08 1600 AC 11/08 PO 2139 Chlordiazepoxide HCl 25 MG TID 11/07 1120 DC 11/08 PO 0945 Clindamycin 300 MG IQ8 11/07 0000 DC 11/07 Dextrose/Water 50 ML IV 2353 Cyanocobalamin/ 1 BAG DAILY 11/07 1000 AC 11/08 Thiamine/Pyridoxine IV 11/09 1759 1112 Sodium Chloride 1,000 ML Enoxaparin Sodium 40 MG DAILY 11/06 1816 11/08 SC 0945 Fentanyl Citrate 1,000 MCG Q24H 11/08 0900 AC 11/09 Dextrose/Water 250 ML IV 0135 Levetiracetam 500 MG BID 11/07 2200 AC 11/08 NG 2138 Lorazepam 1 MG ONCE ONE 11/09 0915 DC 11/09 IV 11/09 0916 0917 Lorazepam 2 MG Q4P PRN 11/09 0215 AC 11/09 IV 0225 Lorazepam 2 MG ONE ONE 11/09 0130 DC 11/09 IV 11/09 0131 0132 Magnesium Sulfate 1 GM ONCE ONE 11/08 1115 DC 11/08 Dextrose/Water 100 ML IV 11/08 1514 1116 Morphine Sulfate 2 MG Q6P PRN 11/07 1145 AC 11/08 IV 0753 Pantoprazole Sodium 40 MG DAILY 11/07 1000 AC 11/08 IV 0945 Potassium Chloride 10 MEQ ONCE ONE 11/09 0745 DC 11/09 IV 11/09 0746 0810 Vital Signs & I&O Last 24 Hrs of Vitals and I&O: Laboratory Tests 11/09 11/08 0500 0435 Chemistry Sodium (137 - 145 mmol/L) 143 145 Potassium (3.5 - 5.1 mmol/L) 3.8 3.6 Chloride (98 - 107 mmol/L) 112 H 118 H Carbon Dioxide (22 - 30 mmol/L) 22 20 L Anion Gap (5 - 16) 8 8 BUN (9 - 20 mg/dL) 13 17 Creatinine (0.7 - 1.2 mg/dL) 0.6 L 0.7 Estimated GFR (>60 ml/min) > 60 > 60 Glucose (65 - 99 mg/dL) 95 94 Calcium (8.4 - 10.2 mg/dL) 8.5 8.5 Phosphorus (2.5 - 4.5 mg/dL) 3.5 2.9 Magnesium (1.6 - 2.3 mg/dL) 1.6 1.7 Total Bilirubin (0.2 - 1.3 mg/dL) 0.2 0.2 AST (17 - 59 U/L) 19 19 ALT (21 - 72 U/L) 42 38 Albumin (3.5 - 5.0 g/dL) 2.3 L 2.3 L Hematology CBC w Diff NO MAN DIFF REQ NO MAN DIFF REQ WBC (4.8 - 10.8 /CUMM) 10.9 H 9.5 RBC (4.70 - 6.10 /CUMM) 3.73 L 3.69 L Hgb (14.0 - 18.0 G/DL) 9.8 L 9.7 L Hct (42 - 52 %) 30.9 L 30.2 L MCV (80.0 - 94.0 FL) 82.6 81.8 MCH (27.0 - 31.0 PG) 26.3 L 26.3 L RDW (11.5 - 14.5 %) 22.4 H 21.9 H Plt Count (130 - 400 /CUMM) 277 291 MPV (7.4 - 10.4 FL) 9.9 9.6 Gran % (42.2 - 75.2 %) 76.1 H 77.0 H Lymphocytes % (20.5 - 51.1 %) 12.9 L 14.0 L Monocytes % (1.7 - 9.3 %) 6.1 5.8 Eosinophils % (0 - 5 %) 4.8 2.6 Basophils % (0.0 - 2.0 %) 0.1 0.6 Absolute Granulocytes (1.4 - 6.5 /CUMM) 8.3 H 7.3 H Absolute Lymphocytes (1.2 - 3.4 /CUMM) 1.4 1.3 Absolute Monocytes (0.10 - 0.60 /CUMM) 0.7 H 0.6 Absolute Eosinophils (0.0 - 0.7 /CUMM) 0.5 0.3 Absolute Basophils (0.0 - 0.2 /CUMM) 0 0.1 PUBS MCHC (33.0 - 37.0 G/DL) 31.9 L 32.2 L 11/07 11/07 11/07 2000 1250 1056 Chemistry Sodium (137 - 145 mmol/L) 144 146 H Potassium (3.5 - 5.1 mmol/L) 3.9 4.6 Chloride (98 - 107 mmol/L) 118 H 120 H Carbon Dioxide (22 - 30 mmol/L) 18 L 18 L Anion Gap (5 - 16) 8 8 BUN (9 - 20 mg/dL) 22 H 27 H Creatinine (0.7 - 1.2 mg/dL) 0.7 0.8 Estimated GFR (>60 ml/min) > 60 > 60 Glucose (65 - 99 mg/dL) 86 86 Calcium (8.4 - 10.2 mg/dL) 8.5 8.3 L Phosphorus (2.5 - 4.5 mg/dL) 3.0 3.5 Magnesium (1.6 - 2.3 mg/dL) 2.1 1.7 Total Bilirubin (0.2 - 1.3 mg/dL) 0.2 0.1 L AST (17 - 59 U/L) 23 27 ALT (21 - 72 U/L) 45 46 Albumin (3.5 - 5.0 g/dL) 2.4 L 2.4 L Coagulation PT (9.4 - 12.5 SEC) 14.0 H INR (0.90 - 1.17) 1.34 H Microbiology Date/Time Procedure - Status Source Growth 11/07 1332 Legionella Antigen - COMP URINE ROUT 11/07 1332 Streptococcus pneumoniae Antigen (M - COMP URINE ROUT 11/07 1215 Respiratory Culture - RES LOWER RESP STAPH AUREUS 11/07 1215 Gram Stain - RES LOWER RESP 11/07 0010 Urine Culture - COMP URINE ROUT 11/06 2100 Surveillance Culture - COMP UPPER RESP 11/06 2052 Surveillance Culture - COMP GI 11/06 1650 Blood Culture - RES BLOOD 11/06 1640 Blood Culture - RES BLOOD Vital Signs Date Time Temp Pulse Resp B/P B/P Pulse O2 O2 Flow FiO2 Mean Ox Delivery Rate 06/05 0820 30 06/05 0700 98.5 77 16 106/63 93 Ventilator 30% 06/05 0600 98.5 85 14 150/68 06/05 0557 30 06/05 0403 30 06/05 0400 98.5 70 16 111/69 06/05 0400 94 Ventilator 30% 06/05 0057 30 06/05 0000 98.8 64 16 111/66 06/05 0000 98.8 64 16 138/80 06/05 0000 96 Ventilator 30% 06/04 2300 98.8 72 16 100/59 95 Ventilator 30% 06/04 2246 30 06/04 2200 98.2 60 16 92/56 06/04 2000 98.2 68 17 110/62 06/04 2000 94 Ventilator 30% 06/04 1950 30 06/04 1600 94 Ventilator 30% 06/04 1600 97.3 74 16 122/76 97 Ventilator 30% 06/04 1555 30 06/04 1400 30 06/04 1210 30 06/04 1200 96 Ventilator 30% Intake & Output 06/05 1600 06/05 0800 06/05 0000 Intake Total 864 1252.6 Output Total 595 515 Balance 269 737.6 Intake, IV 244 662.6 Intake, Other 400 260 Intake, Tube 220 330 Irrigant Output, Stool 0 Output, Urine 595 515 Impression/Plan Impression/Plan Impression/Plan: Cxr ETT 5 cms above trip retrocardiac opacity Physical Exam General Appearance Intubated and sedated Skin warm, 2.5 cm ulcer over the left buttock near the coccyx, 1.5 X 1.5 cm skin break over the left knee, multiple bruise jacobson over both knees Skin Temp/Moisture Exam: Warm/Dry Sepsis Skin Exam (color): Normal for Ethnicity HEENT Atraumatic, PERRLA, EOMI, dried blood seen in the oral cavity Neck Supple, No JVD Cardiovascular Normal S1, Normal S2, tachycardia Lungs diminished breath sounds bilaterally Abdomen Normal Bowel Sounds, Soft Neurological exaqm difficult. Clonus not sig today Extremities No Clubbing, No Cyanosis, No Edema, Normal Pulses Vascular Normal Pulses, Pulses Symmetrical CT scan of the head was unremarkable CT of the abdomen and pelvis showed groundglass opacity bilateral significant small vessel disease with severe atherosclerosis of the aorta CTA showed significant bronchiolitis-like picture with small vessel disease with no bronchiectasis IMPRESSION This is an unfortunate 56-year-old gentleman with severe alcohol dependency with multiple admissions, history of seizure, polysubstance abuse, significant sacral decubiti, hypertension, hyperlipidemia, previous gastritis and hemorrhoids, chronic back pain, now comes in with * Acute delirium secondary to multiple issues which could include combination of and - probable drug overdose versus alcohol withdrawal versus serotonin syndrome. Clonus noted initially by houseofficers on exam upon admission which seems to have resolved * Severe Resp failure hypoxic due to decreased mentation, Sig bronchiolitis with prob aspiration pna * REsolved Hypothermia rule out sepsis but seems unlikely, now better * Significant alcoholism with previous withdrawal seizure with probable seizure- now on keppra * Rule out Wernicke's encephalopathy on thiamine * ALtered Thyroid tests * Bilateral small airway disease as noted in his recent CT scan highly suggestive of bronchiolitis patient may be having significant GERD or rule out polysub inhalation abuse or He may have had recent viral infection. No clinical evidence suggestive of vasculitis or significant rheumatological disease so far, which needs to be investigated once stable * Depression, mood disorder, chronic pain, polypharmacy * Significant sacral decubiti for months followed by wound clinic * BOrderline qtc prolongation REC * Continue mechanical ventilator * Continue IV Ativan use a drip if needed. Increase librium dose tid * Continue Keppra it could be switched to OG tube * Pantoprazole * Change to ceftriaxone and zithromycin for bronchiolitis,watch qtc daily and if high change azithro to doxy * Start IV Vanco and isolate the patient for now till culture is back to rule out mrsa * Cont tube feeding * Potassium replacement down OG 40 bid * Mag one gram today IV to keep above 2 * Watch for seizures * will consider steroids in the future for bronchioitis * Can dc ivf if stable and increase free water bolus * Start fentanyl drip low dose COnt librium and can use ativan * DVT propylaxis, watch sugars Code Status: Full Code
--- NOTE | 2016-11-09 10:48 | PN- Psychiatry ---
Assessment/Plan Impression: Identifying Info: 56-year-old male known to this service with a h/o ETOH use d/o , PSA, MDD, r/o Wernicke's and chronic pain BIBA to [facility] ED on 11/06/16 with AMS. Admitted to critical care unit for treatment of delirium due to probable drug overdose versus alcohol withdrawal versus serotonin syndrome. Consult requested due to question of overdose and psych history. SUBJECTIVE (pt unable to participate in interview, is currentley intubated and sedated) Message left for current outpatient Psychiatrist Dr. Obie Carmona ) of [facility] to gain collateral. Brief ROS Gait: Unobserved Sleep: Did not assess Appetite: Did not assess OBJECTIVE Mental Status Exam Presentation/Appearance: Lying in bed. 2 point soft wrist restraints in place. Orientation: Unable to assess Sensorium: Somnolent Eye contact: Poor Affect: Flat Mood: Unable to assess Depression: Unable to assess Anxiety: Unable to assess Thought Content: - Unable to assess Thought Process: Unable to assess Associations: Unable to assess Speech: None Judgment: Unable to assess Insight: Unable to assess Cognition: Memory: Unable to assess Attention/Concentration: Unable to assess Fund of Knowledge: Unable to assess Abstractions: Unable to assess MMSE: Unable to assess Per nursing report this patient was agitated this morning, for aggression against his restraints. He was not redirectable and was completely disoriented and disorganized. He was given Ativan IV when necessary to good effect. ASSESSMENT 56-year-old male with a history of chronic alcohol abuse as well as overuse of medications presents to [facility] emergency department with altered mental status. He has multiple previous admissions for the same complaint which is typically attributed to accidental overdose. However at present intentional needs to be ruled out. He is known to have considerable bereavement issues and has in the past been suspected of Wernicke's. There is some concern his present status may be somewhat attributable to serotonin syndrome. More information will need to be gained from this patient as delirium clears. Diagnosis Delirium due to multiple etiologies including ETOH withdrawl possible serotonin syndrome and possible Wernicke's encephalopathy, mixed level of activity Major depressive disorder Alcohol use disorder, severe Cocaine use disorder in sustained remission Marijuana use disorder in sustained remission A total of 30 minutes was spent with the patient with more than 50% of the time spent in counseling and/or coordination of care. Suggestion: 1. Continue CIWA, vitamins, and benzodiazepine taper. 2. Recommend treatment of agitation with Ativan with careful consideration of total daily intake of benzodiazepines. If an antipsychotic is indicated do not utilize second-generation antipsychotics due to concern of possible serotonin syndrome and serotonergic properties of these meds. Haldol would be medication of choice. 3. We will collect collateral information from outpatient psychiatric prescriber. 4. We will continue to assess if overdose was intentional or not. Thank you for including psychiatry in this case, we will continue to follow. Subjective Subjective: as above Objective Last 24 Hrs of Vital Signs/I&O Current Medications Sig/Anaya Start time Last Medication Dose Route Stop Time Status Admin Azithromycin 500 MG DAILY 11/08 1104 DC Sodium Chloride 250 ML IV Azithromycin 500 MG DAILY 11/07 1127 AC 11/09 PO 11/11 1001 0956 Ceftazidime 1,000 MG IQ8 11/07 0000 DC 11/08 IV 0753 Ceftriaxone Sodium 1,000 MG DAILY 11/08 1104 AC 11/09 IV 0955 Chlordiazepoxide HCl 100 MG TID 11/09 1600 UNVr PO Chlordiazepoxide HCl 50 MG TID 11/08 1600 DC 11/09 PO 1013 Chlordiazepoxide HCl 25 MG TID 11/07 1120 DC 11/08 PO 0945 Clindamycin 300 MG IQ8 11/07 0000 DC 11/07 Dextrose/Water 50 ML IV 2353 Cyanocobalamin/ 1 BAG DAILY 11/07 1000 AC 11/09 Thiamine/Pyridoxine IV 11/09 1759 0954 Sodium Chloride 1,000 ML Enoxaparin Sodium 40 MG DAILY 11/06 1816 AC 11/09 SC 0955 Fentanyl Citrate 1,000 MCG Q24H 11/08 0900 AC 11/09 Dextrose/Water 250 ML IV 1026 Levetiracetam 500 MG BID 11/07 2200 AC 11/09 NG 0954 Lorazepam 1 MG ONCE ONE 11/09 0915 DC 11/09 IV 11/09 0916 0917 Lorazepam 2 MG Q4P PRN 11/09 0215 AC 11/09 IV 0225 Lorazepam 2 MG ONE ONE 11/09 0130 DC 11/09 IV 11/09 0131 0132 Magnesium Sulfate 1 GM ONCE ONE 11/08 1115 DC 11/08 Dextrose/Water 100 ML IV 11/08 1514 1116 Morphine Sulfate 2 MG Q6P PRN 11/07 1145 AC 11/08 IV 0753 Pantoprazole Sodium 40 MG DAILY 11/07 1000 AC 11/09 IV 0955 Potassium Chloride 10 MEQ ONCE ONE 11/09 0745 DC 11/09 IV 11/09 0746 0810 Laboratory Tests 11/09/16 0500: Anion Gap 8, Estimated GFR > 60, Glucose 95, Calcium 8.5, Phosphorus 3.5, Magnesium 1.6, Total Bilirubin 0.2, AST 19, ALT 42, Albumin 2.3 L, CBC w Diff NO MAN DIFF REQ, RBC 3.73 L, MCV 82.6, MCH 26.3 L, RDW 22.4 H, MPV 9.9, Gran % 76.1 H, Lymphocytes % 12.9 L, Monocytes % 6.1, Eosinophils % 4.8, Basophils % 0.1, Absolute Granulocytes 8.3 H, Absolute Lymphocytes 1.4, Absolute Monocytes 0.7 H, Absolute Eosinophils 0.5, Absolute Basophils 0, PUBS MCHC 31.9 L Vital Signs Date Time Temp Pulse Resp B/P B/P Pulse O2 O2 Flow FiO2 Mean Ox Delivery Rate / 0820 30 06/05 0700 98.5 77 16 106/63 93 Ventilator 30% /05 0600 98.5 85 14 150/68 06/05 0557 30 06/05 0403 30 06/05 0400 98.5 70 16 111/69 06/05 0400 94 Ventilator 30% 06/05 0057 30 06/05 0000 98.8 64 16 111/66 06/05 0000 98.8 64 16 138/80 06/05 0000 96 Ventilator 30% 06/04 2300 98.8 72 16 100/59 95 Ventilator 30% 06/04 2246 30 06/04 2200 98.2 60 16 92/56 06/04 1999 98.2 68 17 110/62 06/04 1999 94 Ventilator 30% 06/04 1950 30 06/04 1600 94 Ventilator 30% 06/04 1600 97.3 74 16 122/76 97 Ventilator 30% 06/04 1555 30 06/04 1400 30 06/04 1210 30 06/04 1200 96 Ventilator 30% Intake & Output / 1600 06/05 0800 06/05 0000 Intake Total 864 1252.6 Output Total 595 515 Balance 269 737.6 Intake, IV 244 662.6 Intake, Other 400 260 Intake, Tube 220 330 Irrigant Output, Stool 0 Output, Urine 595 515
--- NOTE | 2016-11-09 13:18 | NUR ---
TUBE FEED INCREASED TO 70ML AT 11:00. RESIDUAL AT THAT TIME WAS 20ML. PATIENT TURNED AND REPOSITIONED, DRESSING CHANGED, 2MG IV ATIVAN GIVEN FOR RESTLESSNESS AND SQUIRMING, PATIENT THRASHING HEAD SIDE TO SIDE, REMAINS IN RESTRAINTS. WILL MONITOR.
--- NOTE | 2016-11-09 15:04 | ELECTROENCEPHALOGRAM REPORT ---
Electroencephalogram Report Electroencephalogram Results Date of service: 11/09/16 Attending MD: JOSEY BRANDT MD Disability Specialist: Linda Dubon EEG Number: [id number] Test Utilizes: 10-20 system, 21 lead 18 channel digital recording Pertinent Hx/Physical/Neuro Findings/Clin Diagnosis: Abnormal mental status, history of seiuzres reported, evaluation for seizures requested Inpatient Medications: Current Medications Sig/Anaya Start time Last Medication Dose Route Stop Time Status Admin Azithromycin 500 MG DAILY 11/07 1127 AC 11/09 PO 11/11 1001 0956 Ceftriaxone Sodium 1,000 MG DAILY 11/08 1104 AC 11/09 IV 0955 Chlordiazepoxide HCl 100 MG TID 11/09 1600 AC PO Chlordiazepoxide HCl 50 MG TID 11/08 1600 DC 11/09 PO 1013 Cyanocobalamin/ 1 BAG DAILY 11/07 1000 AC 11/09 Thiamine/Pyridoxine IV 11/09 1759 0954 Sodium Chloride 1,000 ML Enoxaparin Sodium 40 MG DAILY 11/06 1816 AC 11/09 SC 0955 Fentanyl Citrate 1,000 MCG Q24H 11/08 0900 AC 11/09 Dextrose/Water 250 ML IV 1026 Levetiracetam 500 MG BID 11/07 2200 AC 11/09 NG 0954 Lorazepam 1 MG ONCE ONE 11/09 0915 DC 11/09 IV 11/09 0916 0917 Lorazepam 2 MG Q4P PRN 11/09 0215 AC 11/09 IV 1255 Lorazepam 2 MG ONE ONE 11/09 0130 DC / IV 11/09 0131 0132 Magnesium Sulfate 1 GM ONCE ONE 11/08 1115 DC 11/08 Dextrose/Water 100 ML IV 11/08 1514 1116 Morphine Sulfate 2 MG Q6P PRN 11/07 1145 AC / IV 0753 Pantoprazole Sodium 40 MG DAILY 11/07 1000 AC 11/09 IV 0955 Potassium Chloride 40 MEQ BID 11/09 1342 AC PO Potassium Chloride 10 MEQ ONCE ONE 11/09 0745 DC / IV 11/09 0746 0810 Vancomycin HCl 1,000 MG Q12 11/09 1047 AC 11/09 Sodium Chloride 250 ML IV 1255 Interpretation: Background consists mainly of moderate amplitude 6 Hertz generalized theta with intermittent intermixed slower delta frequencies. FIRDA (frontal intermittent rhythmic delta activity) is seen intermittently. No lateralized or epileptiform abnormalites seen. Activation procedures could not be performed. Impression: Abnormal due to moderate to severe generalized slowing with FIRDA consistent with a toxic or metabolic encephalopathy. No epileptiform abnormalities seen.
--- NOTE | 2016-11-09 17:08 | NUR ---
PATIENT WAS THRASHING AROUND IN BED, PULLING AT RESTRAINTS, TRYING TO TURN HIMSELF OVER. REPOSITIONED PATIENT ON LEFT SIDE. IV ATIVAN GIVEN PER ORDER. WHILE ON LEFT SIDE SAT DROPPED TO 85% AND REMAINED. FIO2 TURNED UP TO 35% WILL MONITOR.
--- NOTE | 2016-11-09 20:34 | NUR ---
PT WITH PERIODS OF AGITATION, SEDATED AT OTHER TIMES. ON FENTANYL GTT AT 100MCG/HR. SOFT RESTRAINTS X4 AND TREVON VEST IN PLACE. NOT FOLLOWING COMMANDS AT PRESENT. PUPILS 1MM, REACT SLUGGISHLY. ORALLY INTUBATED AND VENTED. RHONCI THOUGHOUT BILATERALLY. SUCTIONING FOR MOD OF THICK YELLOW SECREATIONS. NO SOB OR RESP DISTRESS NOTED AT PRESENT. SEE FLOW SHEET FOR VS, 02 SATS, I/O'S. MONITOR SHOWS NSR, NO ECTOPY NOTED AT PRESENT. BP STABLE AT PRESENT. ABD SOFT, NONTENDER, NONDISTENDED, POSITIVE BOWEL SOUNDS. OGT IN PLACE-PLACEMENT CONFIRMED BY AIR, ON TUBE FEEDS, TOLERATING WELL AT PRESENT. ESPARZA IN PLACE-DRAINING ADEQUATE AMT OF CLEAR YELLOW URINE AT PRESENT. LT BUTTOCKS WITH STAGE 4 WOUND PER RN REPORT-DRESSING C/D/I AT PRESENT, POSITIONING ON SIDE Q2, ON SIZEWISE BED. MULTIPLE SCABBED AREAS NOTED, LT KNEE, SCALP, BILATERAL ARMS
--- NOTE | 2016-11-09 22:30 | NUR ---
PT VERY AGITATED DESPITE BEING MORPHINE IV AND TITRATING FENTAYL GTT TO 150CG/HR-REPORTED TO DR. KING-ATIVAN 2MG IV GIVEN ORDERED-SEE EMAR. WILL MONITOR
[2016-11-10] VITALS: BP 102/58
[2016-11-10 04:00] VITALS: BP 94/52
[2016-11-10 05:04] LABS: ABSOLUTE BASOPHIL COUNT 0.1 /CUMM (0.0-0.2); ABSOLUTE EOSINOPHIL COUNT 0.5 /CUMM (0.0-0.7); ABSOLUTE GRANULOCYTE CT 7.9 /CUMM (1.4-6.5); ABSOLUTE LYMPH COUNT 1.3 /CUMM (1.2-3.4); ABSOLUTE MONOCYTE COUNT 0.6 /CUMM (0.10-0.60); BASOPHIL % 0.5 % (0.0-2.0); EOSINOPHIL % 4.8 % (0-5); GRANULOCYTE % 76.2 % (42.2-75.2); HEMATOCRIT 29.6 % (42-52); MEAN CORPUSCULAR HGB 26.1 PG (27.0-31.0); MEAN CORPUSCULAR HGB CONC 31.7 G/DL (33.0-37.0); MEAN CORPUSCULAR VOLUME 82.4 FL (80.0-94.0); RBC DISTRIBUTION WIDTH 21.7 % (11.5-14.5); RED BLOOD CELL CT 3.59 /CUMM (4.70-6.10); WHITE BLOOD CELL COUNT 10.4 /CUMM (4.8-10.8)
--- NOTE | 2016-11-10 05:08 | NUR ---
RESIDUAL AT 0400 250ML-TUBE FEEDS ON HOLD FOR 1HR-WILL RECHECK RESIDUAL-DR. KING AWARE-WILL MONITOR. GOOD EFFECT FROM 1 TIME ORDERED OF ATIVAN-PT DID NOT NEED ANOTHER ATIVAN UNTIL 0200. FENTANYL GTT REMAINS AT 150MCG/HR
[2016-11-10 05:39] LABS: PLATELET COUNT 257 /CUMM (130-400)
[2016-11-10 06:00] VITALS: BP 114/61
--- NOTE | 2016-11-10 07:27 | PN- Resident CRCU ---
See Addendum Subjective HPI/CRCU Issues: Follow-up for: Unknown overdose Encephalopathy Respiratory distress requiring intubation Decubitus ulcers of the left buttock Respiratory infection 24 Hour Events: Vital signs stable. Continuous agitation overnight noted requiring Ativan dose. Vital signs stable sinus rhythm heart rate of 80. Still on fentanyl 150 g drip and on intubation with before meals AC:VC tidal volume 550, PEEP of 5, rate 16 FiO2 45%. Woods day 4 and intact. Objective Vital Signs & I&O Last 8 Hrs of Vitals and I&O: Intake & Output 11/10 1600 Intake Total 1502 Output Total 440 Balance 1062 Intake, IV 794 Intake, Other 80 Intake, Tube 518 Feeding Intake, Tube 110 Irrigant Number 0 Bowel Movements Output, Urine 440 Exam General Appearance: well developed/nourished, no apparent distress, alert, awake , agitated Head: atraumatic, normal appearance Ears, Nose, Throat: ET TUBE INTACT Neck: JVD Respiratory: lungs clear Cardiovascular: regular rate/rhythm Gastrointestinal: normal bowel sounds, soft Extremities: normal capillary refill, no edema Current Medications: Current Medications Sig/Anaya Start time Last Medication Dose Route Stop Time Status Admin Azithromycin 500 MG DAILY 11/07 1127 AC 11/10 PO 11/11 1001 1021 Ceftriaxone Sodium 1,000 MG DAILY 11/08 1104 AC 11/10 IV 1021 Chlordiazepoxide HCl 100 MG TID 11/09 1600 AC 11/10 PO 1616 Cyanocobalamin/ 1 BAG DAILY 11/07 1000 DC 11/09 Thiamine/Pyridoxine IV 11/09 1759 0954 Sodium Chloride 1,000 ML Enoxaparin Sodium 40 MG DAILY 11/06 1816 AC 11/10 SC 1022 Fentanyl Citrate 1,000 MCG Q6H 11/10 0300 AC 11/10 Dextrose/Water 250 ML IV 1616 Fentanyl Citrate 1,000 MCG Q24H / 2000 DC / Dextrose/Water 250 ML IV 2025 Fentanyl Citrate 1,000 MCG Q24H / 0900 DC / Dextrose/Water 250 ML IV / 2000 1026 Folic Acid 1 MG DAILY 11/10 1000 AC 11/10 PO 1024 Furosemide 40 MG ONCE ONE 11/10 1545 CAN IV PUSH 11/10 1546 Furosemide 20 MG ONCE ONE 11/10 1545 DC IV PUSH 11/10 1546 Haloperidol 1 MG ONCE ONE 11/10 1515 DC 11/10 IM 11/10 1516 1514 Levetiracetam 500 MG BID 11/07 2200 AC 11/10 NG 1023 Lorazepam 2 MG ONE ONE 11/09 2230 DC 11/09 IV 11/09 2231 2229 Lorazepam 2 MG Q4P PRN 11/09 0215 AC 11/10 IV 1450 Magnesium Sulfate 1 GM ONCE ONE 11/10 0730 DC 11/10 Dextrose/Water 100 ML IV 11/10 1129 0755 Magnesium Sulfate 1 GM Q2H 11/09 1545 DC 11/09 Dextrose/Water 100 ML IV 11/09 1944 1655 Morphine Sulfate 2 MG Q6P PRN 11/07 1145 AC 11/10 IV 0813 Multivitamins 5 ML DAILY 11/10 1000 AC 11/10 PO 1021 Pantoprazole Sodium 40 MG DAILY 11/07 1000 AC 11/10 IV 1021 Polyethylene Glycol 17 GM DAILY 11/09 1548 AC 11/10 PO 1021 Potassium Chloride 40 MEQ BID 11/09 2200 DC 11/09 PO 2333 Potassium Chloride 40 MEQ BID 11/09 1342 DC 11/09 PO 1549 Thiamine HCl 100 MG DAILY 11/10 1000 AC 11/10 PO 1021 Vancomycin HCl 1,000 MG Q12 11/10 1000 AC 11/10 Sodium Chloride 250 ML IV 1020 Vancomycin HCl 1,000 MG Q12 11/09 1047 DC 11/09 Sodium Chloride 250 ML IV 2141 Impression/Plan Impression/Problem List Impression: Mr. Macias is a 56 year old male with PMH alcohol dependance, seizures, polysubstance abuse, stage 4 ulcer of the coccyx, HTN, HLD, gastritis, hemorrhoids and chronic back pain 2/2 disc herniation who was brought in to the hospital by police for altered mental status. He is on multiple medications including oxycodone, baclofen, lexapro, gabapentin, sertraline and trazodone as an outpatient so there was concern from family that he overdosed or was altered secondary to alcohol intake. Poison control was contacted upon admission and recommended a one-time dose of cyproheptadine due to presentation of clonus which led to a high suspicious of possible serotonin syndrome.He is in day 4 for ICU admission. Impression and Plan Respiratory: Still intubated day for secondary to severe respiratory failure likely from his chronic bronchiolitis superimposed by acute PNA. Currently continues to be moderately agitated which may prolong a possible liberation trial. Will assessment on a daily basis. Infection: Bronchiolitis currently on ceftriaxone and azithromycin and rhythm isolate with MSSA. Patient was on vancomycin yesterday. Ideally will switch to more appropriate methicillin to sedative agents such as oxacillin. However, patient is also groin gram-negative rods and sensitivities pending. We'll hold off on switching from vancomycin until gram-negative rods have beed identified with their sensitivity. Unasyn to cover the staph and gram neg will be probably be a good coverage if pseudomonas is not the identified bug. Regarding the buttock ulcer which is stage I will continue with daily dressing changes and repositioning, does not look infectious at this point, Cardiology: Stable with sinus rhythm no acute telemetry events. Concern for prolonged QT in the setting of possible initiation of hearing Haldol. His obtained today did not show any significant lengthening of the QT. Hematology: H&H currently stable. No acute bleeding noted. Metabolic: Stable with no noted acute metabolic derangement. Alimentary: Continue with TPN which is at goal rate of 70ml/hr. will trend triglyceride levels as needed. Neurological: Awoken by verbal stimuli. No overnight episode of seizures noted, will continue Keppra. However continues to be moderate to significant agitated requiring doses of Ativan. Chlordiazepoxide was increased to 3 times a day yesterday in addition to fentanyl drip. If patient continues to be agitated will consider Ativan drip. Due to initial assessment of possible serotonin syndrome will keep off any second-generation ANTIpsychotic and may use Haldol as needed. Will minimize agitation triggers such as uncontrolled pain. Problem List: 1. Sepsis Pain Ratin Tomorrow's Labs & Rationales: ICU Plan DVT/Prophylaxis: mechanical, pharmacological Code Status: Full Code
--- NOTE | 2016-11-10 07:31 | NUR ---
PT WITH PERIODS OF SEVERE AGITATION, AND PERIODS OF SEDATION. CURRENTLY ON FENTANYL GTT AT 150MCG/HR, LAST ATIVAN DOSE AT 0630. SAS 3-6 FOR SHIFT. REMAINS IN TREVON VEST AND 4 POINT SOFT RESTRAINTS. SUCTIONING FOR MOD AMT THICK YELLOW SECREATIONS. RHONCI BILATERALLY. NSR, NO ECTOPY, BP STABLE FOR SHIFT. GOOD URINE OUTPUT FOR SHIFT. LT BUTTOCKS C/D/I. RESIDUALS DOWN TO 120ML-TUBE FEEDS RESUMED AT 0600. PT BECAME VERY AGITATED WHEN ATTEMPTED CHEST XRAY-SALES DONOR RECRUITMENT REPRESENTATIVE UNABLE TO OBTAIN-WILL ATTEMPT WHEN MORE SEDATED
[2016-11-10 08:00] VITALS: BP 112/70
--- NOTE | 2016-11-10 09:39 | RADIOLOGY REPORT ---
EXAMINATION: XR PORTABLE CHEST CLINICAL INFORMATION: Mechanical ventilation. ET tube position. COMPARISON: 11/09/2016 TECHNIQUE: Portable AP view of the chest was obtained. FINDINGS: Endotracheal tube is located 5.4 cm above the trip. Enteric tube extends below the diaphragm, into the stomach, and beyond the [id number]. Again noted is a large cardiac silhouette, congested pulmonary vessels, interstitial opacities and hazy, patchy opacities suggestive of ongoing pulmonary edema. No overt pleural effusion. No pneumothorax, pneumomediastinum or other significant interval change. IMPRESSION: 1. Endotracheal tube is 5.4 cm above the trip. 2. Persistent pulmonary edema.
--- NOTE | 2016-11-10 11:43 | NUR ---
@0800-PT OPENS EYES TO VERBAL STIM. PT BECOMES VERY AGITATED AND RESTLESS WITH ANY STIMULATION, THRASHING BODY IN BED. PT CONT ON FENT GTT. INCREASED TO 175MCH FROM 150MCG THIS AM AND MEDICATED WITH PRN MORPHINE. ASSISTED TO COMF POSITION WITH PILLOWS. 4PT RESTRAINTS AND TREVON REMAINS IN PLACE FOR SAFETY OF PT,ETT,IVS. CONT ON VENT. NO CHANGE TO SETTINGS. PT DEAST TO 88% WHEN RESTLESS. SUCTIONED FOR ROMO, THICK SECRETIONS AT THIS TIME. MOUTH CARE PROVIDED. NSR HR 70-90S. BP STABLE. OGT INTACT, CONFIRMED PLACEMENT. NO RESIDUAL NOTED. TF CONT TO INFUSE AT GOAL RATE OF 70ML/HR. MIRALAX TO BE ADMINISTERED WITH AM MEDS FOR NO BM X 5 DAYS. ABD DISTENDED, SOFT WITH +BS. ESPARZA IN PLACE WITH ADEQUATE OUPUT NOTED. MULT ABRASIONS,SCABBED AREAS NOTED TO FOREHEAD, BUE AND L KNEE. PT HAS STAGE 4 PRESSURE INJURY WITH DSG INTACT AT THIS TIME. WILL PLACE NEW [employer] DSG THIS AM. 1 GM MAG INFUSING FOR MAG 1.7. PT RESTARTED ON PO VITAMINS. CONT TO MONITOR. CALL MONGE WITHIN REACH.
--- NOTE | 2016-11-10 11:48 | NUR ---
@1100-PERIOD OF EXTREME AGITATION AND THRASHING IN BED. PT MEDICATED WITH PRN DOSE OF ATIVAN. REPOSITIONED TO L SIDE WITH PILLOWS. CXR DONE AND PENDING.
[2016-11-10 16:00] VITALS: BP 122/70
--- NOTE | 2016-11-10 19:00 | NUR ---
ASSUMED CARE OF PT.; SEDATED SAS OF 3, PUPILS EQUAL AND REACTIVE. HR 68 IN SR. BP 122/72. REMAINS ON VENTILATOR; SETTINGS UNCHANGED PT. SUCTIONED FOR SCANT THICK ROMO SECRETIONS. FENTANYL AT 175MCG./43.8 ML/HR. TUBE FEED INFUSING AT GOAL OF 70 ML/HR. STAGE 4 DECUBITUS COVERED WITH AQUACELL AND TELFA IN PLACE. ESPARZA DRAINING CLEAR/YELLOW URINE.
[2016-11-10 22:00] VITALS: BP 107/63
--- NOTE | 2016-11-10 22:25 | NUR ---
PT. VERY AGITATED; MEDICATED WITH 2MG ATIVAN IV. REPOSITIONED WITH PILLOWS, AGITATION CONTINUED FOR COUPLE MINUTES THEN PT. CALMED DOWN INTO SAS OF 3.
[2016-11-11] VITALS (7 sets, daily range): BP systolic 100–128; BP diastolic 58–80
[2016-11-11 05:41] LABS: ABSOLUTE BASOPHIL COUNT 0 /CUMM (0.0-0.2); ABSOLUTE EOSINOPHIL COUNT 0.6 /CUMM (0.0-0.7); ABSOLUTE GRANULOCYTE CT 13.6 /CUMM (1.4-6.5); ABSOLUTE LYMPH COUNT 1.8 /CUMM (1.2-3.4); ABSOLUTE MONOCYTE COUNT 0.9 /CUMM (0.10-0.60); BASOPHIL % 0.2 % (0.0-2.0); EOSINOPHIL % 3.7 % (0-5); GRANULOCYTE % 79.8 % (42.2-75.2); HEMATOCRIT 34.4 % (42-52); MEAN CORPUSCULAR HGB 26.2 PG (27.0-31.0); MEAN CORPUSCULAR HGB CONC 31.9 G/DL (33.0-37.0); MEAN CORPUSCULAR VOLUME 82.1 FL (80.0-94.0); MEAN PLATELET VOLUME 10.8 FL (7.4-10.4); RBC DISTRIBUTION WIDTH 21.5 % (11.5-14.5); RED BLOOD CELL CT 4.19 /CUMM (4.70-6.10)
[2016-11-11 05:59] LABS: PLATELET COUNT 313 /CUMM (130-400)
--- NOTE | 2016-11-11 07:39 | Event Note ---
Event Note Event Note: BRIEF : Culture and Sensitivity Discussed with lab the culture and sensitivity, his enterobacter and Staph both are sensitive to ceftrioxone (even thought not the usual choice for staph), as the patient is already on combination of ceftrixone and azithromycin, we will continue the same.
--- NOTE | 2016-11-11 07:50 | PN- Resident CRCU ---
Subjective HPI/CRCU Issues: Unknown overdose Encephalopathy Respiratory distress requiring intubation Decubitus ulcers of the left buttock Respiratory infection 24 Hour Events: Intubation day 6 ac:vc TV:550, FIO2 55%, requiring increased FiO2 since last night. Continues to have episodes of agitation requiring 2 mg Ativan when necessary doses. Vital signs stable. Woods intact day 6. Objective Vital Signs & I&O Last 8 Hrs of Vitals and I&O: Intake & Output 11/11 1600 Intake Total Output Total Balance Patient 65.913 kg Weight Weight Bed scale Measurement Method Exam General Appearance: awake, wakes up to verbal stimuli. minimally follows verbal commands. appears agitated when awoken. Current Medications: Current Medications Sig/Anaya Start time Last Medication Dose Route Stop Time Status Admin Azithromycin 500 MG DAILY 11/07 1127 DC 11/11 PO 11/11 1001 0911 Bisacodyl 10 MG ONCE ONE 11/11 0900 DC 11/11 AR 11/11 0901 1013 Ceftriaxone Sodium 1,000 MG DAILY 11/08 1104 AC 11/11 IV 0911 Chlordiazepoxide HCl 100 MG TID 11/09 1600 AC 11/11 PO 1616 Enoxaparin Sodium 40 MG DAILY 11/06 1816 AC 11/11 SC 0909 Fentanyl Citrate 1,000 MCG Q6H 11/10 0300 AC 11/11 Dextrose/Water 250 ML IV 1659 Folic Acid 1 MG DAILY 11/10 1000 AC 11/11 PO 0908 Furosemide 20 MG ONCE ONE 11/11 1200 CAN IV 11/11 1201 Furosemide 20 MG ONCE ONE 11/11 0900 DC 11/11 IV 11/11 0901 0908 Levetiracetam 500 MG BID 11/07 2200 AC 11/11 NG 0908 Lorazepam 2 MG ONE ONE 11/11 1900 UNVr IV 11/11 1901 Lorazepam 50 MG ONCE ONE 11/11 1830 DC Sodium Chloride 500 ML IV 11/11 1831 Lorazepam 2 MG Q4P PRN 11/09 0215 AC 11/11 IV 1616 Magnesium Oxide 400 MG BID 11/12 1000 AC PO Magnesium Oxide 400 MG BID 11/11 1000 DC PO Magnesium Sulfate 1 GM Q2H 11/11 0730 DC 11/11 Dextrose/Water 100 ML IV 11/11 1129 0908 Methylprednisolone 60 MG DAILY 11/11 1037 AC 11/11 IV 1215 Morphine Sulfate 2 MG Q6P PRN 11/07 1145 AC 11/11 IV 0742 Multivitamins 5 ML DAILY 11/10 1000 AC 11/11 PO 0911 Pantoprazole Sodium 40 MG DAILY 11/07 1000 AC 11/11 IV 0909 Polyethylene Glycol 17 GM DAILY 11/09 1548 AC 11/11 PO 0909 Thiamine HCl 100 MG DAILY 11/10 1000 AC 11/11 PO 0911 Impression/Plan Impression/Problem List Impression: Mr. Macias is a 56 year old male with PMH alcohol dependance, seizures, polysubstance abuse, stage 4 ulcer of the coccyx, HTN, HLD, gastritis, hemorrhoids and chronic back pain 2/2 disc herniation who was brought in to the hospital by police for altered mental status. He is on multiple medications including oxycodone, baclofen, lexapro, gabapentin, sertraline and trazodone as an outpatient so there was concern from family that he overdosed or was altered secondary to alcohol intake. Poison control was contacted upon admission and recommended a one-time dose of cyproheptadine due to presentation of clonus which led to a high suspicious of possible serotonin syndrome.He is in day 4 for ICU admission. Impression and Plan Respiratory: Day 6 of intubation. Today he is noted to have increased O2 demand , with FiO2 increased from 45 to 50 and then 55%. Chest x-ray obtained shows persistent pulmonary edema. Furosemide was not given yesterday due to borderline low blood pressure. We'll go ahead and give furosemide 20 mg IV now and reassess fluid status . Will also start solumedrol 40 mg. Infection: Bronchiolitis currently on ceftriaxone and azithromycin isolate with MSSA and Enterobacter Cloacia to both susceptible to ceftriaxone. Cardiology: Stable with sinus rhythm no acute telemetry events. Concern for prolonged QT in the setting of possible Haldol PRN use. Yesterday EKG was unremarkable for any significant QT changes, will continue to obtain periodic EKGs and will also replenish potassium and magnesium appropriately. Hematology: H&H currently stable. No acute bleeding noted. However creased white blood count is noted. Possibly could be worsening of respiratory infection, patient is currently on appropriate antibiotic coverage. Will continue to trend leukocytosis. Metabolic: Stable with no noted acute metabolic derangement. Alimentary: Continue with TPN which is at goal rate of 70ml/hr. will trend triglyceride levels as needed. Neurological: Awoken by verbal stimuli with intermittent episodes of aagitation. No overnight episode of seizures noted, will continue Keppra. However continues to be moderate to significant agitated requiring doses of Ativan. Will stop . If patient continues to be agitated will consider Ativan drip. Due to initial assessment of possible serotonin syndrome will keep off any second-generation ANTIpsychotic. Will start Haldol 1 mg q4-6h prn. Will minimize agitation triggers such as uncontrolled pain. Problem List: 1. Endotracheally intubated 2. Acute hypoxemic respiratory failure 3. Decubitus ulcer of left buttock, stage 4 4. Altered mental status Pain Ratin Tomorrow's Labs & Rationales: icu bundle Plan DVT/Prophylaxis: mechanical, pharmacological Code Status: Full Code
--- NOTE | 2016-11-11 08:13 | PN- Wound Care ---
Subjective Subjective: Patient remains intubated and sedated Objective Vital Signs and I&Os Vital Signs Result Date Time FiO2 55 11/11 0758 B/P 104/70 11/11 0400 Temp 98.7 11/11 0400 Pulse 70 11/11 0400 Resp 15 11/11 0400 Pulse Ox 98 11/11 0400 O2 Delivery Ventilator 11/12 399 O2 Flow Rate 40% 11/11 040 Intake & Output 11/11 0000 11/10 1600 11/10 0800 Intake Total 1134 1502 744 Output Total 750 440 830 Balance 384 1062 -86 Intake, IV 354 794 303 Intake, Oral 0 Intake, Other 80 Intake, Tube 560 518 331 Feeding Intake, Tube 220 110 110 Irrigant Number 0 0 0 Bowel Movements Output, Urine 750 440 830 Exam of the coccyx wounds shows it to be essentially unchanged. Wound has a clean base measurements are unchanged there's been no wound progression or deterioration Impression/Plan Impression/Plan Impression/Plan: 56-year-old with chronic stage IV pressure ulcer admitted with respiratory failure now intubated. The wound appears clean and not infected. Recommend aggressive offloading frequent repositioning. Wound care can be Aquacel Ag placed over the wound. If there is any evidence of progression would advanced to a Clinitron bed. Coccyx wound is stable continue current wound care
--- NOTE | 2016-11-11 09:07 | RADIOLOGY REPORT ---
EXAMINATION: XR PORTABLE CHEST CLINICAL INFORMATION: Worsening bronchiolitis. Increased O2 demand. Leukocytosis. COMPARISON: Chest radiograph 11/10/2016 and chest radiograph 11/09/2016. TECHNIQUE: Portable frontal view of the chest was obtained. FINDINGS: The distal tip of the endotracheal tube is located 5.2 cm above the trip. An enteric tube extends below the diaphragm. Numerous cardiac leads overlie the chest. There is increasing bibasilar airspace disease and a possible small right effusion. The cardiac silhouette is enlarged but unchanged. Upper mediastinal contours are normal. No acute osseous finding. IMPRESSION: There is increasing bibasilar airspace disease and a possible small right effusion. In the setting of leukocytosis these findings may represent a manifestation of pneumonia.
--- NOTE | 2016-11-11 10:36 | PN- CRCU ---
Subjective HPI/Critical Care Issues: Doing worse Increased oxygen requirement Secretions are the same Sedated with high dose of fentanyl and large dose of librium Objective Current Medications: Current Medications Sig/Anaya Start time Last Medication Dose Route Stop Time Status Admin Azithromycin 500 MG DAILY 11/07 1127 DC 11/11 PO 11/11 1001 0911 Bisacodyl 10 MG ONCE ONE 11/11 0900 DC 11/11 SD 11/11 0901 1013 Ceftriaxone Sodium 1,000 MG DAILY 11/08 1104 AC 11/11 IV 0911 Chlordiazepoxide HCl 100 MG TID 11/09 1600 AC 11/11 PO 0917 Enoxaparin Sodium 40 MG DAILY 11/06 1816 AC 11/11 SC 0909 Fentanyl Citrate 1,000 MCG Q6H 11/10 0300 AC 11/11 Dextrose/Water 250 ML IV 1013 Folic Acid 1 MG DAILY 11/10 1000 AC 11/11 PO 0908 Furosemide 20 MG ONCE ONE 11/11 0900 DC 11/11 IV 11/11 0901 0908 Furosemide 40 MG ONCE ONE 11/10 1545 CAN IV PUSH 11/10 1546 Furosemide 20 MG ONCE ONE 11/10 1545 DC IV PUSH 11/10 1546 Haloperidol 1 MG ONCE ONE 11/10 1515 DC 11/10 IM 11/10 1516 1514 Levetiracetam 500 MG BID 11/07 2200 AC 11/11 NG 0908 Lorazepam 2 MG Q4P PRN 11/09 0215 AC 11/11 IV 1026 Magnesium Oxide 400 MG BID 11/12 1000 AC PO Magnesium Oxide 400 MG BID 11/11 1000 DC PO Magnesium Sulfate 1 GM Q2H 11/11 0730 AC 11/11 Dextrose/Water 100 ML IV 11/11 1129 0908 Magnesium Sulfate 1 GM ONCE ONE 11/10 0730 DC 11/10 Dextrose/Water 100 ML IV 11/10 1129 0755 Morphine Sulfate 2 MG Q6P PRN 11/07 1145 AC 11/11 IV 0742 Multivitamins 5 ML DAILY 11/10 1000 AC 11/11 PO 0911 Pantoprazole Sodium 40 MG DAILY 11/07 1000 AC 11/11 IV 0909 Polyethylene Glycol 17 GM DAILY 11/09 1548 AC 11/11 PO 0909 Thiamine HCl 100 MG DAILY 11/10 1000 AC 11/11 PO 0911 Vancomycin HCl 1,000 MG Q12 11/10 1000 DC 11/10 Sodium Chloride 250 ML IV 1020 Vital Signs & I&O Last 24 Hrs of Vitals and I&O: Vital Signs Date Time Temp Pulse Resp B/P B/P Pulse O2 O2 Flow FiO2 Mean Ox Delivery Rate 11/11 08 98.7 110 18 128/80 92 Ventilator 55% 11/11 0800 91 Ventilator 55% 11/11 0758 55 / 0541 50 / 0536 40 / 0400 98.7 70 15 104/70 06/ 0400 98 Ventilator 40% 11/11 0349 40 / 0051 40 06/ 0000 92 Ventilator 40% 06/ 0000 98.7 88 17 100/69 92 Ventilator 40% 11/10 2253 40 11/10 2200 98.6 70 16 107/63 11/10 2009 40 11/10 2000 97 Ventilator 40% 11/10 1619 40 11/10 1600 98.7 79 16 122/70 92 Ventilator 40% / 1600 95 Ventilator 40% / 1352 40 / 1200 95 Ventilator 45% 11/10 1106 45 Intake & Output 11/11 1600 11/11 0800 06/ 0000 Intake Total 1134 1134 Output Total 1000 750 Balance 134 384 Intake, IV 354 354 Intake, Oral 0 0 Intake, Tube 560 560 Feeding Intake, Tube 220 220 Irrigant Number 0 0 Bowel Movements Output, Urine 1000 750 Patient 145 lb Weight Weight Bed scale Measurement Method Impression/Plan Impression/Plan Impression/Plan: Cxr ETT 5 cms above trip retrocardiac opacity Physical Exam General Appearance Intubated and sedated Skin warm, ulcer in the buttock left knee, multiple bruise jacobson over both knees Skin Temp/Moisture Exam: Warm/Dry Sepsis Skin Exam (color): Normal for Ethnicity HEENT Atraumatic, PERRLA, EOMI, dried blood seen in the oral cavity Neck Supple, No JVD Cardiovascular Normal S1, Normal S2, tachycardia Lungs diminished breath sounds bilaterally Abdomen Normal Bowel Sounds, Soft Neurological exaqm difficult. Clonus not sig today Extremities No Clubbing, No Cyanosis, No Edema, Normal Pulses Vascular Normal Pulses, Pulses Symmetrical CT scan of the head was unremarkable CT of the abdomen and pelvis showed groundglass opacity bilateral significant small vessel disease with severe atherosclerosis of the aorta CTA showed significant bronchiolitis-like picture with small vessel disease with no bronchiectasis IMPRESSION This is an unfortunate 56-year-old gentleman with severe alcohol dependency with multiple admissions, history of seizure, polysubstance abuse, significant sacral decubiti, hypertension, hyperlipidemia, previous gastritis and hemorrhoids, chronic back pain, now comes in with * Acute delirium secondary to multiple issues which could include combination of and - probable drug overdose versus alcohol withdrawal versus serotonin syndrome. Clonus noted initially by houseofficers on exam upon admission which seems to have resolved * Severe Resp failure hypoxic due to decreased mentation, Sig bronchiolitis with prob aspiration pna now with enterobacter and staph pna * REsolved Hypothermia rule out sepsis but seems unlikely, now better * Significant alcoholism with previous withdrawal seizure with probable seizure- now on keppra * Rule out Wernicke's encephalopathy on thiamine * ALtered Thyroid tests * Bilateral small airway disease as noted in his recent CT scan highly suggestive of bronchiolitis patient may be having significant GERD or rule out polysub inhalation abuse or He may have had recent viral infection. No clinical evidence suggestive of vasculitis or significant rheumatological disease so far, which needs to be investigated once stable * Depression, mood disorder, chronic pain, polypharmacy * Significant sacral decubiti for months followed by wound clinic * BOrderline qtc prolongation being monitored REC * Continue mechanical ventilator * Continue IV Ativan use a drip if needed. Increase librium dose tid * Agg bowel regimen with bid senna, docusate, mirlax daily with prn supp * Continue Keppra, ppi * Ceftriaxone and zithromycin for bronchiolitis,watch qtc daily and if high change azithro to doxy * Rpt sputum culture * Cont tube feeding * Ok with lasix daily and can rpt * Check qtc daily and use haldol prn aswell * Keep mag more than 2 * Watch for seizures * Start solumedrol 60 mg daily and strict sugar control * Cont fentanyl drip reduce the dose and Cont librium and can use ativan * DVT propylaxis, watch sugars Will follow closely Code Status: Full Code
--- NOTE | 2016-11-11 11:53 | NUR ---
@0800-PT AGITATED, RESTLESS. FLACC 6. MEDICATED WITH PRN MORPHINE. FENT GTT CONT AT 175MCG. RESTRAINTS TREVON AND 4PT SOFT CONT FOR SAFETY OF PT AND TUBES. PUPILS EQUAL AND REACTIVE. EQUAL STRENGTH NOTED. NOT FOLOWING COMMANDS. CONT ON VENT-O2SAT 88-90%. RT AT BEDSIDE, SUCTIONED FOR MOD AMTS OF ROMO SECRETIONS. FIO2 INCREASED TO 55% BY RT. RHONCHI AUSCULTATED. ORAL CARE PROVIDED. NSR HR 90-110. BP 90 SYSTOLIC. CXR ORD FOR THIS AM. ECHO ORD. TF JEVITY 1.2 INFUSING AT GOAL RATE OF 70ML/HR. NO BM X 6 DAYS. ABD DISTENDED BUT SOFT, +BS NOTED. WILL REPORT TO HOUSESTAFF AND OBTAIN ORDER FOR DULCOLEX SUPP. ESPARZA IN PLACE WITH ADEQUATE OUTPUT NOTED. ABRASIONS CONT TO FOREHEAD, LFA AND L KNEE-SCABBED AND OPEN TO AIR. STAGE 4 PRESSURE INJURY CONT TO COCCYX-DSG INTACT. CONT ON SIZEWISE MATTRESS. MAG 1.6-TO RECIEVE 2 RUNS OF MAG BOLUS 1GM EACH. WBC 17(YEST 10.4) CONT TO MONITOR CLOSELY. CALL MONGE WITHINR EACH.
--- NOTE | 2016-11-11 11:59 | NUR ---
@0900-MEDICATED WITH IV LASIX 20MG X 1 PER ORDER. DUIRESED LARGE AMTS OF CLEAR YELLOW URINE. @1030-PT REPOSIITONED AND NEW AQUACEL DSG PLACED TO STAGE 4 ULCER TO COCCYX. EKG DONE AT THIS TIME ORD. ECHO ORD. @1100-REPORT GIVEN TO MONICA IVORY
--- NOTE | 2016-11-11 15:55 | NUR ---
1130 RECIEVED REPORT;PT SUPINE HOB UP 30% SEMI AWAKE WHILE ON SEDATION. ETT TO VENT 55% FIO2,TF OGT J 1.2 70ML Q4 H20 110ML. ROSEMARY WELL. MONITOR NSR,ISAIAS, 4PT RESTRAINTS PLUS JOSE JUAN LESTER. PT ON FENTANYL GTT AT 175 MCQ FOR BACK PAIN. ATIVAN GIVEN EARLIER IV. B/P LABILE AND OBSERVED. MANUAL HIGHER THAN AUTO, INC OF LARGE AMT GREEN STOOL HEME POS AND REPORTED.RESTING FOR NOW. DECREASED FIO2 TO 50% PER RT.
[2016-11-12] VITALS (13 sets, daily range): BP systolic 11–118; BP diastolic 54–73
--- NOTE | 2016-11-12 00:02 | NUR ---
PT ON FENTANYL GTT AT 150MCG/HR AND ATIVAN GTT AT 4MG/HR-SAS SCORE 5 AT PRESENT. SEE FLOW SHEET FOR SAS SCORE. PT OPENS EYES TO VERBAL STIMULI, NOT FOLLOWING COMMANDS AT PRESENT. SOFT [address], TREVON VEST ON. ORALLY INTUBATED AND VENTED. BREATH SOUNDS CLEAR WITH DIMINISHED BREATH SOUNDS AT BASES BILATERALLY. NO SOB OR RESP DISTRESS NOTED AT PRESENT. SUCTIONING FOR SM AMT OF THICK YELLOW SECREATIONS. SEE FLOW SHEET FOR VS, 02 SATS, I/O'S. MONITOR SHOWS SB DOWN TO 49, NO ECTOPY NOTED AT PRESENT. BP STABLE AT PRESENT. ABD SOFT, NONTENDER, NONDISTENDED, POSITIVE BOWEL SOUNDS. OGT IN PLACE-PLACEMENT CONFIRMED BY AIR-ON TUBE FEEDS-TOLERATING WELL AT PRESENT. ESPARZA IN PLACE-DRAINING ADEQUATE AMT OF CLEAR YELLOW URINE AT PRESENT. LT BUTTOCKS WITH STAGE 4-DRESSING C/D/I. ABRASIONS TO LT KNEE AND FOREHEAD NOTED
[2016-11-12 05:41] LABS: ABSOLUTE BASOPHIL COUNT 0 /CUMM (0.0-0.2); ABSOLUTE EOSINOPHIL COUNT 0 /CUMM (0.0-0.7); ABSOLUTE GRANULOCYTE CT 8.8 /CUMM (1.4-6.5); ABSOLUTE LYMPH COUNT 0.6 /CUMM (1.2-3.4); ABSOLUTE MONOCYTE COUNT 0.3 /CUMM (0.10-0.60); BASOPHIL % 0.1 % (0.0-2.0); EOSINOPHIL % 0 % (0-5); HEMATOCRIT 31.3 % (42-52); MEAN CORPUSCULAR HGB CONC 31.9 G/DL (33.0-37.0); MEAN CORPUSCULAR VOLUME 81.5 FL (80.0-94.0); MEAN PLATELET VOLUME 11.5 FL (7.4-10.4); RBC DISTRIBUTION WIDTH 21.4 % (11.5-14.5); RED BLOOD CELL CT 3.84 /CUMM (4.70-6.10); WHITE BLOOD CELL COUNT 9.6 /CUMM (4.8-10.8)
[2016-11-12 06:39] LABS: GRANULOCYTE % 90.8 % (42.2-75.2)
[2016-11-12 06:40] LABS: PLATELET COUNT 272 /CUMM (130-400)
--- NOTE | 2016-11-12 07:36 | NUR ---
PT'S ATIVAN GTT IS AT 4MG/HR, FENTANYL GTT AT 125MCG/HR-PT SEDATED WITH SAS OF 3 WHEN LEFT ALONE, PT AGITATED WITH ANY CARE. REMAINS ORALLY INTUBATED AND VENTED. SUCTIONING FOR SM AMT THICK WHITE-YELLOW SECREATIONS. MONITOR SB 40-50'S WHEN SEDATED, UP TO 60'S WHEN AGITATED. SBP 90-110'S. TOLERATING TUBE FEEDS WELL AT PRESENT. ESPARZA WITH GOOD URINE OUTPUT FOR SHIFT. NO OTHER CHANGE IN PT ASSESSMENTS THOUGHOUT SHIFT
--- NOTE | 2016-11-12 08:25 | RADIOLOGY REPORT ---
EXAMINATION: XR PORTABLE CHEST CLINICAL INFORMATION: Increased oxygen demand. Bronchiolitis. Patient intubated. COMPARISON: CXR from 11/10/2016 and 11/11/2016. TECHNIQUE: Portable frontal view of the chest was obtained. FINDINGS: Endotracheal tube is in stable position at 5.2 cm above the trip. The enteric tube extends below the diaphragm, into the stomach and beyond the [id number]. The expansion of the lungs is improved compared to 11/11/2016. Again noted is peribronchial interstitial thickening, bilaterally, and hazy opacity in both lungs consistent with bronchiolitis and/or pneumonitis. Overall, disease appears improved compared to 11/10/2016. No pneumothorax, pneumomediastinum or other significant interval change. IMPRESSION: 1. Endotracheal tube is in stable position at 5.2 cm above the trip. 2. Findings suggestive of persistent airway inflammation/pneumonitis, although disease appears slightly improved compared to 11/10/2016.
--- NOTE | 2016-11-12 09:12 | PN- CRCU ---
Subjective HPI/Critical Care Issues: Doing worse Increased oxygen requirement Secretions are the same Sedated with high dose of fentanyl and large dose of librium Objective Current Medications: Current Medications Sig/Anaya Start time Last Medication Dose Route Stop Time Status Admin Azithromycin 500 MG DAILY 11/07 1127 DC 11/11 PO 11/11 1001 0911 Ceftriaxone Sodium 1,000 MG DAILY 11/08 1104 AC 11/12 IV 0849 Chlordiazepoxide HCl 100 MG TID 11/09 1600 AC 11/11 PO 2201 Enoxaparin Sodium 40 MG DAILY 11/06 1816 AC 11/12 SC 0850 Fentanyl Citrate 1,000 MCG Q6H 11/10 0300 AC 11/12 Dextrose/Water 250 ML IV 0833 Folic Acid 1 MG DAILY 11/10 1000 AC 11/12 PO 0849 Furosemide 20 MG ONCE ONE 11/11 1200 CAN IV 11/11 1201 Haloperidol 1 MG Q4-6 PRN PRN 11/11 1930 AC IM Levetiracetam 500 MG BID 11/07 2200 AC 11/12 NG 0850 Lorazepam 50 MG ONCE ONE 11/12 0700 AC 11/12 Sodium Chloride 500 ML IV 11/12 1929 0752 Lorazepam 2 MG ONE ONE 11/11 1900 DC 11/11 IV 11/11 1901 1910 Lorazepam 50 MG ONCE ONE 11/11 1830 DC 11/11 Sodium Chloride 500 ML IV 11/11 1831 2000 Lorazepam 2 MG Q4P PRN 11/09 0215 AC 11/11 IV 1616 Magnesium Oxide 400 MG BID 11/12 1000 AC 11/12 PO 0850 Magnesium Sulfate 1 GM Q2H 11/11 0730 DC 11/11 Dextrose/Water 100 ML IV 11/11 1129 0908 Methylprednisolone 60 MG DAILY 11/11 1037 AC 11/12 IV 0850 Morphine Sulfate 2 MG Q6P PRN 11/07 1145 AC 11/11 IV 0742 Multivitamins 5 ML DAILY 11/10 1000 AC 11/12 PO 0850 Pantoprazole Sodium 40 MG DAILY 11/07 1000 AC 11/12 IV 0849 Polyethylene Glycol 17 GM DAILY 11/09 1548 AC 11/12 PO 0850 Thiamine HCl 100 MG DAILY 11/10 1000 AC 11/12 PO 0850 Vital Signs & I&O Last 24 Hrs of Vitals and I&O: Vital Signs Date Time Temp Pulse Resp B/P B/P Pulse O2 O2 Flow FiO2 Mean Ox Delivery Rate 06/08 0841 35 06/08 0600 64 16 109/65 06/08 0555 35 06/08 0400 96.6 73 23 90/54 06/08 0400 95 Ventilator 40% /08 0336 35 06/08 0201 35 06/08 0200 46 16 116/70 06/08 0000 97.0 52 16 106/64 06/08 0000 97 Ventilator 40% / 2300 97.0 52 16 106/64 97 Ventilator 40% 06/07 2200 35 06/07 2200 60 16 120/58 06/1999 96.0 68 16 100/60 /1999 99 Ventilator 40% 06/07 1925 40 06/07 1650 50 06/07 1600 98.2 82 24 120/80 06/07 1600 98 Ventilator 50% /07 1600 98.2 82 16 120/80 98 Ventilator 50% 06/07 1402 50 06/07 1200 99 Ventilator 55% /07 1127 55 Intake & Output 11/12 1600 /08 0800 06/08 0000 Intake Total 1320 1024 Output Total 1260 1800 Balance 60 -776 Intake, IV 704 424 Intake, Tube 506 490 Feeding Intake, Tube 110 110 Irrigant Number 0 Bowel Movements Output, Urine 1260 1800 Laboratory Tests 11/12 11/11 0457 UNK Chemistry Sodium (137 - 145 mmol/L) 134 L Cancelled Potassium (3.5 - 5.1 mmol/L) 4.7 Cancelled Chloride (98 - 107 mmol/L) 99 Cancelled Carbon Dioxide (22 - 30 mmol/L) 26 Cancelled Anion Gap (5 - 16) 9 Cancelled BUN (9 - 20 mg/dL) 16 Cancelled Creatinine (0.7 - 1.2 mg/dL) 0.6 L Cancelled Estimated GFR (>60 ml/min) > 60 Glucose (65 - 99 mg/dL) 111 H Cancelled Calcium (8.4 - 10.2 mg/dL) 8.9 Cancelled Phosphorus (2.5 - 4.5 mg/dL) 4.8 H Cancelled Magnesium (1.6 - 2.3 mg/dL) 2.0 Cancelled Total Bilirubin (0.2 - 1.3 mg/dL) 0.2 Cancelled AST (17 - 59 U/L) 35 Cancelled ALT (21 - 72 U/L) 42 Cancelled Albumin (3.5 - 5.0 g/dL) 2.7 L Cancelled Hematology CBC w Diff NO MAN DIFF REQ WBC (4.8 - 10.8 /CUMM) 9.6 RBC (4.70 - 6.10 /CUMM) 3.84 L Hgb (14.0 - 18.0 G/DL) 10.0 L Hct (42 - 52 %) 31.3 L MCV (80.0 - 94.0 FL) 81.5 MCH (27.0 - 31.0 PG) 26.0 L RDW (11.5 - 14.5 %) 21.4 H Plt Count (130 - 400 /CUMM) 272 MPV (7.4 - 10.4 FL) 11.5 H Gran % (42.2 - 75.2 %) 90.8 H Lymphocytes % (20.5 - 51.1 %) 6.0 L Monocytes % (1.7 - 9.3 %) 3.1 Eosinophils % (0 - 5 %) 0 Basophils % (0.0 - 2.0 %) 0.1 Absolute Granulocytes (1.4 - 6.5 /CUMM) 8.8 H Absolute Lymphocytes (1.2 - 3.4 /CUMM) 0.6 L Absolute Monocytes (0.10 - 0.60 /CUMM) 0.3 Absolute Eosinophils (0.0 - 0.7 /CUMM) 0 Absolute Basophils (0.0 - 0.2 /CUMM) 0 PUBS MCHC (33.0 - 37.0 G/DL) 31.9 L /07 0500 Chemistry Sodium (137 - 145 mmol/L) 132 L Potassium (3.5 - 5.1 mmol/L) 5.2 H Chloride (98 - 107 mmol/L) 100 Carbon Dioxide (22 - 30 mmol/L) 25 Anion Gap (5 - 16) 7 BUN (9 - 20 mg/dL) 13 Creatinine (0.7 - 1.2 mg/dL) 0.6 L Estimated GFR (>60 ml/min) > 60 Glucose (65 - 99 mg/dL) 89 Calcium (8.4 - 10.2 mg/dL) 8.5 Phosphorus (2.5 - 4.5 mg/dL) 4.3 Magnesium (1.6 - 2.3 mg/dL) 1.6 Total Bilirubin (0.2 - 1.3 mg/dL) 0.3 AST (17 - 59 U/L) 28 ALT (21 - 72 U/L) 37 Albumin (3.5 - 5.0 g/dL) 2.6 L Hematology CBC w Diff NO MAN DIFF REQ WBC (4.8 - 10.8 /CUMM) 17.0 H RBC (4.70 - 6.10 /CUMM) 4.19 L Hgb (14.0 - 18.0 G/DL) 11.0 L Hct (42 - 52 %) 34.4 L MCV (80.0 - 94.0 FL) 82.1 MCH (27.0 - 31.0 PG) 26.2 L RDW (11.5 - 14.5 %) 21.5 H Plt Count (130 - 400 /CUMM) 313 MPV (7.4 - 10.4 FL) 10.8 H Gran % (42.2 - 75.2 %) 79.8 H Lymphocytes % (20.5 - 51.1 %) 10.9 L Monocytes % (1.7 - 9.3 %) 5.4 Eosinophils % (0 - 5 %) 3.7 Basophils % (0.0 - 2.0 %) 0.2 Absolute Granulocytes (1.4 - 6.5 /CUMM) 13.6 H Absolute Lymphocytes (1.2 - 3.4 /CUMM) 1.8 Absolute Monocytes (0.10 - 0.60 /CUMM) 0.9 H Absolute Eosinophils (0.0 - 0.7 /CUMM) 0.6 Absolute Basophils (0.0 - 0.2 /CUMM) 0 PUBS MCHC (33.0 - 37.0 G/DL) 31.9 L Microbiology Date/Time Procedure - Status Source Growth 11/11 115 Respiratory Culture - RES LOWER RESP 11/11 1150 Gram Stain - RES LOWER RESP Impression/Plan Impression/Plan Impression/Plan: Physical Exam General Appearance Intubated and sedated Skin warm, ulcer in the buttock left knee, multiple bruise jacobson over both knees Skin Temp/Moisture Exam: Warm/Dry Sepsis Skin Exam (color): Normal for Ethnicity HEENT Atraumatic, PERRLA, EOMI, dried blood seen in the oral cavity Neck Supple, No JVD Cardiovascular Normal S1, Normal S2, tachycardia Lungs diminished breath sounds bilaterally Abdomen Normal Bowel Sounds, Soft Neurological exaqm difficult. Clonus not sig today Extremities No Clubbing, No Cyanosis, No Edema, Normal Pulses Vascular Normal Pulses, Pulses Symmetrical CT scan of the head was unremarkable CT of the abdomen and pelvis showed groundglass opacity bilateral significant small vessel disease with severe atherosclerosis of the aorta CTA showed significant bronchiolitis-like picture with small vessel disease with no bronchiectasis IMPRESSION This is an unfortunate 56-year-old gentleman with severe alcohol dependency with multiple admissions, history of seizure, polysubstance abuse, significant sacral decubiti, hypertension, hyperlipidemia, previous gastritis and hemorrhoids, chronic back pain, now comes in with * Acute delirium secondary to multiple issues which could include combination of and - probable drug overdose versus alcohol withdrawal versus serotonin syndrome. Clonus noted initially by houseofficers on exam upon admission which seems to have resolved * Severe Resp failure hypoxic due to decreased mentation, Sig bronchiolitis with prob aspiration pna now with enterobacter and staph pna * REsolved Hypothermia rule out sepsis but seems unlikely, now better * Significant alcoholism with previous withdrawal seizure with probable seizure- now on keppra * Rule out Wernicke's encephalopathy on thiamine * ALtered Thyroid tests * Bilateral small airway disease as noted in his recent CT scan highly suggestive of bronchiolitis patient may be having significant GERD or rule out polysub inhalation abuse or He may have had recent viral infection. No clinical evidence suggestive of vasculitis or significant rheumatological disease so far, which needs to be investigated once stable * Depression, mood disorder, chronic pain, polypharmacy * Significant sacral decubiti for months followed by wound clinic * BOrderline qtc prolongation being monitored upon admission REC * Continue mechanical ventilator * Continue IV Ativan use a drip, wean down and then wean fentanyl. Use haldol aswell if qtc is ok * Agg bowel regimen with bid senna, docusate, mirlax daily with prn supp * Continue Keppra, ppi * Ceftriaxone and zithromycin for bronchiolitis,watch qtc daily and if high change azithro to doxy * Cont tube feeding * Give lasix today and prob rpt this pm. Keep potassium more than 4 and mag more than 2 * Check qtc daily and use haldol prn aswell * Watch for seizures * Solumedrol 60 mg daily and strict sugar control * DVT propylaxis, watch sugars Will follow closely Code Status: Full Code
--- NOTE | 2016-11-12 09:26 | PN- Resident CRCU ---
Subjective HPI/CRCU Issues: Unknown overdose Encephalopathy Respiratory distress requiring intubation Decubitus ulcers of the left buttock Respiratory infection 24 Hour Events: Continous agitation o/n, on ativan drip with Haldol 1 mg q 4-6h prn. Fio2 requirement decreased to 35% in the morning. Objective Vital Signs & I&O Last 8 Hrs of Vitals and I&O: Intake & Output 11/13 1600 11/13 0800 11/13 0000 Intake Total 1322 1245 Output Total 930 1235 Balance 392 10 Intake, IV 579 538 Intake, Tube 523 497 Feeding Intake, Tube 220 210 Irrigant Number 0 0 Bowel Movements Output, Urine 930 1235 Laboratory Tests 11/13 0429 Chemistry Sodium (137 - 145 mmol/L) 135 L Potassium (3.5 - 5.1 mmol/L) 4.3 Chloride (98 - 107 mmol/L) 101 Carbon Dioxide (22 - 30 mmol/L) 26 Anion Gap (5 - 16) 8 BUN (9 - 20 mg/dL) 16 Creatinine (0.7 - 1.2 mg/dL) 0.6 L Estimated GFR (>60 ml/min) > 60 Glucose (65 - 99 mg/dL) 104 H Calcium (8.4 - 10.2 mg/dL) 9.0 Phosphorus (2.5 - 4.5 mg/dL) 3.6 Magnesium (1.6 - 2.3 mg/dL) 2.0 Total Bilirubin (0.2 - 1.3 mg/dL) 0.1 L AST (17 - 59 U/L) 21 ALT (21 - 72 U/L) 39 Albumin (3.5 - 5.0 g/dL) 2.7 L Hematology CBC w Diff NO MAN DIFF REQ WBC (4.8 - 10.8 /CUMM) 11.9 H RBC (4.70 - 6.10 /CUMM) 3.51 L Hgb (14.0 - 18.0 G/DL) 9.3 L Hct (42 - 52 %) 28.7 L MCV (80.0 - 94.0 FL) 81.8 MCH (27.0 - 31.0 PG) 26.5 L RDW (11.5 - 14.5 %) 21.4 H Plt Count (130 - 400 /CUMM) 286 MPV (7.4 - 10.4 FL) 11.6 H Gran % (42.2 - 75.2 %) 79.5 H Lymphocytes % (20.5 - 51.1 %) 12.1 L Monocytes % (1.7 - 9.3 %) 7.4 Eosinophils % (0 - 5 %) 1.0 Basophils % (0.0 - 2.0 %) 0 L Absolute Granulocytes (1.4 - 6.5 /CUMM) 9.4 H Absolute Lymphocytes (1.2 - 3.4 /CUMM) 1.4 Absolute Monocytes (0.10 - 0.60 /CUMM) 0.9 H Absolute Eosinophils (0.0 - 0.7 /CUMM) 0.1 Absolute Basophils (0.0 - 0.2 /CUMM) 0 PUBS MCHC (33.0 - 37.0 G/DL) 32.3 L Vital Signs Date Time Temp Pulse Resp B/P B/P Pulse O2 O2 Flow FiO2 Mean Ox Delivery Rate 06/ 0816 35 06/09 0600 57 16 91/56 06/09 0532 30 06/09 0400 97.7 69 17 98/52 06/09 0400 94 Ventilator 30% 06/09 0326 30 06/09 0032 30 06/09 0000 98.5 61 16 111/66 06/09 0000 92 Ventilator 30% 06/08 2300 98.5 61 16 94/58 94 Ventilator 30% 06/08 2217 30 06/08 2200 79 21 116/64 06/08 1999 7.8 70 17 100/57 06/08 2000 97 Ventilator 30% 06/08 1936 30 06/08 1800 82 18 11/62 06/08 1605 35 06/08 1600 Ventilator 30% 06/08 1600 97.1 56 16 110/70 96 Ventilator 30% 06/08 1409 35 06/08 1400 69 20 118/73 06/08 1200 97.8 80 18 114/70 06/08 1200 97 Ventilator 35% 06/08 1200 97.8 80 18 114/70 97 Ventilator 35% 06/08 1045 35 Exam General Appearance: alert, agitated Neck: normal inspection, supple, ET intact. Respiratory: crackles b/l. Cardiovascular: regular rate/rhythm Gastrointestinal: normal bowel sounds, soft Extremities: normal inspection, no edema Skin: cocxygeal decubitus (stage iii) Current Medications: Current Medications Sig/Anaya Start time Last Medication Dose Route Stop Time Status Admin Ceftriaxone Sodium 1,000 MG DAILY 11/13 1000 AC 11/13 IV 0954 Ceftriaxone Sodium 1,000 MG DAILY 11/08 1104 DC 11/12 IV 0849 Chlordiazepoxide HCl 100 MG TID 11/09 1600 AC 11/13 PO 0851 Enoxaparin Sodium 40 MG DAILY 11/06 1816 AC 11/13 SC 0852 Fentanyl Citrate 1,000 MCG Q6H 11/10 0300 AC 11/13 Dextrose/Water 250 ML IV 0519 Folic Acid 1 MG DAILY 11/10 1000 AC 11/13 PO 0851 Haloperidol 1 MG Q4-6 PRN PRN 11/11 1930 AC 11/13 IM 0951 Levetiracetam 500 MG BID 11/07 2200 AC 11/13 NG 0851 Lorazepam 50 MG Q24H 11/12 1430 AC 11/13 Dextrose/Water 500 ML IV 0903 Lorazepam 50 MG ONCE ONE 11/12 0700 DC 11/12 Sodium Chloride 500 ML IV 11/12 1929 0752 Lorazepam 2 MG Q4P PRN 11/09 0215 AC 11/11 IV 1616 Magnesium Oxide 400 MG BID 11/12 1000 AC 11/13 PO 0851 Methylprednisolone 60 MG DAILY 11/11 1037 AC 11/13 IV 0852 Morphine Sulfate 2 MG Q6P PRN 11/07 1145 AC 11/13 IV 0015 Multivitamins 5 ML DAILY 11/10 1000 AC 11/13 PO 0851 Pantoprazole Sodium 40 MG DAILY 11/07 1000 AC 11/13 IV 0851 Polyethylene Glycol 17 GM DAILY 11/09 1548 AC 11/13 PO 0851 Thiamine HCl 100 MG DAILY 11/10 1000 AC 11/13 PO 0851 Impression/Plan Impression/Problem List Impression: Mr. Macias is a 56 year old male with PMH alcohol dependance, seizures, polysubstance abuse, stage 4 ulcer of the coccyx, HTN, HLD, gastritis, hemorrhoids and chronic back pain 2/2 disc herniation who was brought in to the hospital by police for altered mental status. He is on multiple medications including oxycodone, baclofen, lexapro, gabapentin, sertraline and trazodone as an outpatient so there was concern from family that he overdosed or was altered secondary to alcohol intake. Poison control was contacted upon admission and recommended a one-time dose of cyproheptadine due to presentation of clonus which led to a high suspicious of possible serotonin syndrome.He is in day 4 for ICU admission. Impression and Plan Respiratory: Day 6 of intubation. Today he is noted to have decreased O2 demand , s/p lasix diuresis. Chest x-ray obtained shows persistent pulmonary edema. Will continue solumedrol 40 mg. Infection: Bronchiolitis currently on ceftriaxone and azithromycin isolate with MSSA and Enterobacter Cloacia to both susceptible to ceftriaxone. Cardiology: Stable with sinus rhythm no acute telemetry events. Concern for prolonged QT in the setting of possible Haldol PRN use. EKG shows no obvious QT prolongation. will also replenish potassium and magnesium appropriately. Hematology: H&H currently stable. No acute bleeding noted. However creased white blood count is noted. Possibly could be worsening of respiratory infection, patient is currently on appropriate antibiotic coverage. Will continue to trend leukocytosis. Metabolic: Stable with no noted acute metabolic derangement. Alimentary: Continue with TPN which is at goal rate of 70ml/hr. will trend triglyceride levels as needed. Neurological: Awoken by verbal stimuli with intermittent episodes of aagitation. No overnight episode of seizures noted, will continue Keppra. However continues to be moderate to significant agitated requiring doses of Ativan. Will stop . If patient continues to be agitated will consider Ativan drip. Due to initial assessment of possible serotonin syndrome will keep off any second-generation ANTIpsychotic. Will start Haldol 1 mg q4-6h prn. Will minimize agitation triggers such as uncontrolled pain. Problem List: 1. Endotracheally intubated 2. Acute hypoxemic respiratory failure 3. Decubitus ulcer of left buttock, stage 4 Pain Ratin Tomorrow's Labs & Rationales: ICU BUNDLE Plan DVT/Prophylaxis: mechanical, pharmacological Code Status: Full Code
--- NOTE | 2016-11-12 10:49 | NUR ---
0800: RECEIVED PATIENT IN BED. SEDATED, SAS 3-5 AT TIMES. ON ATIVAN GTT AT 4MG/HR FENTANYL AT 125MCG/HR. PUPILS EQUAL, REACTIVE, DOES NOT FOLLOW COMMANDS. SINUS GURPREET TO SINUS RHYTHM ON MONITOR. AFEBRILE. B/P 90-100'S. LUNGS RHONCHI THROUGHOUT, WHITE THIN ORAL SECRETIONS NOTED. INTUBATED 7.5 ETT IN THE CENTER AT 26CM. VENT SETTINGS AC-16 550/35% PEEP 5. ABDOMEN SOFT, +BS. OGT IN PLACE 65CM AT LIP, JEVITY 1.2 YOBANI RUNNING AT 70ML/HR WITH Q4 H20 FLUSHES OF 110ML. ESPARZA DRAINING YELLOW URINE. ADEQUATE AMOUNTS. STAGE 4 TO LEFT BUTTOCK, DRESSING CHANGED BY [employer] ENGINEER CALLUM. AQUACEL AG, TELFA AND TEGADERM. SCABS NOTED TO HEAD, AND LEFT LEG/KNEE. #22 LF #20 LF. PATIENT REMAINS IN 4 POINT SOFT RESTRAINTS AND TREVON, PATIENT THRASHES AROUND BED AT TIMES AND PULLS AT RESTRAINTS. TURNED AND REPOSITIONED, MOUTH CARE GIVEN. WILL MONITOR.
--- NOTE | 2016-11-12 11:04 | NUR ---
PATIENT TURNED AND REPOSITIONED, AFTER ANY CARE PROVIDED PATIENT GETS EXTREMELY RESTLESS AND AGITATED, THRASHES AROUND IN BED, PULLS AT RESTRAINTS. DRIPS REMAIN ATIVAN @ 3MG AND FENT @ 100MCG. WILL MONITOR.
--- NOTE | 2016-11-12 11:40 | NUR ---
2MG IV MORPHINE GIVEN, PT REMAINS RESTLESS, FLACC 6. SAS 5. WILL MONITOR.
--- NOTE | 2016-11-12 12:15 | NUR ---
ATIVAN GTT TURNED BACK UP TO 4MG/HR SAS REMAINS AT 5. EKG DONE, IM HALDOL 1MG TO LEFT DELTOID GIVEN, WILL MONITOR. PATIENT CONTINUES TO THRASH AROUND THE BED AND TUG AT RESTRAINTS.
--- NOTE | 2016-11-12 12:17 | NUR ---
FENTANYL GTT INCREASED BACK UP TO 125 MCG WILL MONITOR.
--- NOTE | 2016-11-12 15:47 | ECHOCARDIOGRAM REPORT ---
MANA LORA Age: 56 : 1960 Gender: M Exam Date: 11/11/2016 16:17 Exam Location: [facility] Ht (in): 69 Wt (lb): 145 BSA: 1.79 BP: 128 / 80 Ordering Physician: ALEX QUISPE MD Referring Physician: ALEX QUISPE MD Technologist: Rebekah Gonzalez RDCS Room Number: 108 Indications: SHORTNESS OF BREATH Rhythm: Sinus Technical Quality: Good FINDINGS Left Ventricle Normal left ventricular size, borderline increased wall thickness and normal systolic function with no obvious regional wall motion abnormalities. Normal left ventricular diastolic filling pattern for age. The ejection fraction is visually estimated at >65 %. Right Ventricle The right ventricle is normal in size and function. Right Atrium The right atrium is normal in size. Left Atrium The left atrium is normal in size. The interatrial septum is intact. Mitral Valve Mild thickening/calcification of the mitral valve leaflets. Trace mitral regurgitation. Aortic Valve Diffuse thickening of the aortic valve cusps with reduced excursion. Mild aortic stenosis. No aortic regurgitation. Tricuspid Valve The tricuspid valve is normal in structure and function. There is mild tricuspid regurgitation. Pulmonary artery systolic pressure is upper normal. Pulmonic Valve Structurally normal pulmonic valve. There is no pulmonic regurgitation. Pericardium Normal pericardium without effusion. No pleural effusion. Great Vessels Upper normal size aortic root. The aortic arch and great vessels are well seen and are normal. CONCLUSIONS Normal left ventricular size, borderline increased wall thickness and normal systolic function with no obvious regional wall motion abnormalities. The ejection fraction is visually estimated at >65 %. The left atrium is normal in size. Mild thickening/calcification of the mitral valve leaflets. Trace mitral regurgitation. Diffuse thickening of the aortic valve cusps with reduced excursion. Mild aortic stenosis. No aortic regurgitation. Pulmonary artery systolic pressure is upper normal. Upper normal size aortic root. Blake Schaefer M.D. (Electronically Signed) Final Date: 12 November 2016 15:46 MEASUREMENTS (Male / Female) Normal Values 2D ECHO LV Diastolic Diameter PLAX 5.2 cm 4.2 - 5.9 / 3.9 - 5.3 cm LV Systolic Diameter PLAX 2.9 cm 2.1 - 4.0 cm LV Fractional Shortening PLAX 44.2 % 25 - 46 % LV Ejection Fraction 2D Teich 75.1 % IVS Diastolic Thickness 1.1 cm LVPW Diastolic Thickness 1.1 cm LV Relative Wall Thickness 0.4 RV Internal Dim ED PLAX 2.5 cm 1.9 - 3.8 cm LVOT Diameter 2.1 cm Aortic Root Diameter 3.7 cm LA Systolic Diameter LX 3.6 cm 3.0 - 4.0 / 2.7 - 3.8 cm LA Volume 42.0 cm 18 - 58 / 22 - 52 cm Ascending Aorta Diameter 3.0 cm DOPPLER AV Peak Velocity 275.0 cm/s AV Peak Gradient 30.3 mmHg AV Mean Velocity 195.0 cm/s AV Mean Gradient 17.0 mmHg AV Velocity Time Integral 55.6 cm LVOT Peak Velocity 110.0 cm/s LVOT Peak Gradient 4.8 mmHg LVOT Mean Velocity 75.8 cm/s LVOT Mean Gradient 3.0 mmHg LVOT Velocity Time Integral 21.6 cm LVOT Stroke Volume 74.8 cm AV Area Cont Eq vti 1.3 cm AV Area Cont Eq pk 1.4 cm MV Peak Velocity 106.0 cm/s MV Peak Gradient 4.5 mmHg MV Mean Velocity 63.8 cm/s MV Mean Gradient 2.0 mmHg Mitral E Point Velocity 97.2 cm/s Mitral A Point Velocity 75.5 cm/s Mitral E to A Ratio 1.3 MV PHT Velocity 107.0 cm/s MV Deceleration [place] 389.0 cm/s MV Pressure Half Time 82.5 ms MV Area PHT 2.7 cm MV Deceleration Time 246.0 ms TR Peak Velocity 274.0 cm/s TR Peak Gradient 30.0 mmHg Right Atrial Pressure 5.0 mmHg Pulmonary Artery Systolic Pressu 35.0 mmHg Right Ventricular Systolic Press 35.0 mmHg PV Peak Velocity 111.0 cm/s PV Peak Gradient 4.9 mmHg PV Mean Velocity 83.4 cm/s PV Mean Gradient 3.0 mmHg PV Velocity Time Integral 25.4 cm LV E' Lateral Velocity 13.9 cm/s Mitral E to LV E' Lateral Ratio 7.0 LV E' Septal Velocity 7.3 cm/s Mitral E to LV E' Septal Ratio 13.3
--- NOTE | 2016-11-12 16:01 | NUR ---
PATIENT SAS 3. ATIVAN TURNED DOWN TO 3MG/HR AT THIS TIME. FENTANYL REMAINS AT 125MCG. WILL TURN DOWN FENTANYL IN 1 HOUR IF PATIENT REMAINS CALM. WILL MONITOR.
--- NOTE | 2016-11-12 17:08 | NUR ---
FENTANYL GTT TURNED DOWN TO 100MCG AT THIS TIME. SAS REMAINS A 3
--- NOTE | 2016-11-12 18:15 | NUR ---
PATIENT THRASHING AROUND IN BED, REPOSITIONED. IM HALDOL GIVEN TO RIGHT DELTOID. WILL MONITOR.
--- NOTE | 2016-11-12 18:42 | NUR ---
PATIENT CONTINUES TO THRASH AROUND IN BED, TUGGING AT RESTRAINTS. IV MORPHINE GIVEN.
--- NOTE | 2016-11-12 20:49 | NUR ---
PT ON FENTANYL GTT AT 100MCG/HR AND ATIVAN AT 3MG/HR WHICH WAS INCREASED TO 4 BECAUSE OF SAS SCORE OF 5. PT OPENS EYES TO NAME CALLING, FOLLOWS COMMANDS AT TIMES, NODS HEAD YES/NO TO SIMPLE QUESTIONS. TREVON VEST AND 4 POINT SOFT RESTRAINTS IN PLACE. SEE FLOW FOR SAS SCORES. SEE FREQUENT VS SHEET FOR ATIVAN, FENTANYL TITRATIONS. ORALLY INTUBATED AND VENTED. RHONCI THOUGHOUT BILATERALLY. SUCTIONING FOR SM AMT THICK PALE YELLOW SECREATIONS. NO SOB OR RESP DISTRESS NOTED AT PRESENT. SEE FLOW SHEET FOR VS, 02 SATS, I/O'S. MONITOR SHOWS SB, NO ECTOPY NOTED AT PRESENT. BP STABLE AT PRESENT. ABD SOFT, NONTENDER, NONDISTENDED, POSITIVE BOWEL SOUNDS. OGT IN PLACE-PLACEMENT CONFIRMED BY AIR, ON TUBE FEEDS-TOLERATED WELL AT PRESENT. ESPARZA IN PLACE-DRAINING ADEQUATE AMT OF CLEAR YELLOW URINE AT PRESENT. LT BUTTOCK DRESSING C/D/I-STAGE 4 PER RN REPORT. MULTIPLE SCABS ON FOREHEAD, LT KNEE AND ARMS NOTED. ON SIZEWISE BED
[2016-11-13] VITALS (10 sets, daily range): BP systolic 91–122; BP diastolic 52–72
[2016-11-13 05:30] LABS: ABSOLUTE BASOPHIL COUNT 0 /CUMM (0.0-0.2); ABSOLUTE EOSINOPHIL COUNT 0.1 /CUMM (0.0-0.7); ABSOLUTE GRANULOCYTE CT 9.4 /CUMM (1.4-6.5); ABSOLUTE LYMPH COUNT 1.4 /CUMM (1.2-3.4); ABSOLUTE MONOCYTE COUNT 0.9 /CUMM (0.10-0.60); BASOPHIL % 0 % (0.0-2.0); GRANULOCYTE % 79.5 % (42.2-75.2); HEMATOCRIT 28.7 % (42-52); MEAN CORPUSCULAR HGB 26.5 PG (27.0-31.0); MEAN CORPUSCULAR HGB CONC 32.3 G/DL (33.0-37.0); MEAN CORPUSCULAR VOLUME 81.8 FL (80.0-94.0); MEAN PLATELET VOLUME 11.6 FL (7.4-10.4); RBC DISTRIBUTION WIDTH 21.4 % (11.5-14.5); RED BLOOD CELL CT 3.51 /CUMM (4.70-6.10); WHITE BLOOD CELL COUNT 11.9 /CUMM (4.8-10.8)
[2016-11-13 06:45] LABS: PLATELET COUNT 286 /CUMM (130-400)
--- NOTE | 2016-11-13 07:19 | PN- Resident CRCU ---
Subjective HPI/CRCU Issues: Unknown overdose Encephalopathy Respiratory distress requiring intubation Decubitus ulcers of the left buttock Respiratory infection 24 Hour Events: status unchanged, continous . fio2 demand tapered down to 35% s/p lasix 40 mg. Intubation day 8 ac:vc TV:550, FIO2 35%,. Continues to have episodes of agitation requiring Ativan drip (day3) currently at 3mg/hr, fentanyl dose decreased to 75mcg. VS stable, with no acute overnight event reported by nursing staff. Woods intact day 8. Objective Vital Signs & I&O Last 8 Hrs of Vitals and I&O: Laboratory Tests 11/13/16 0429: Anion Gap 8, Estimated GFR > 60, Glucose 104 H, Calcium 9.0, Phosphorus 3.6, Magnesium 2.0, Total Bilirubin 0.1 L, AST 21, ALT 39, Albumin 2.7 L, CBC w Diff NO MAN DIFF REQ, RBC 3.51 L, MCV 81.8, MCH 26.5 L, RDW 21.4 H, MPV 11.6 H, Gran % 79.5 H, Lymphocytes % 12.1 L, Monocytes % 7.4, Eosinophils % 1.0, Basophils % 0 L, Absolute Granulocytes 9.4 H, Absolute Lymphocytes 1.4, Absolute Monocytes 0.9 H, Absolute Eosinophils 0.1, Absolute Basophils 0, PUBS MCHC 32.3 L Vital Signs Date Time Temp Pulse Resp B/P B/P Pulse O2 O2 Flow FiO2 Mean Ox Delivery Rate 11/13 0816 35 / 0600 57 16 91/56 / 0532 30 / 0400 97.7 69 17 98/52 /09 0400 94 Ventilator 30% / 0326 30 06/ 0032 30 06/09 0000 98.5 61 16 111/66 06/09 0000 92 Ventilator 30% 06/08 2300 98.5 61 16 94/58 94 Ventilator 30% 06/08 2217 30 06/08 2200 79 21 116/64 06/08 1999 7.8 70 17 100/57 06/08 1999 97 Ventilator 30% 06/08 1936 30 06/08 1800 82 18 11/62 06/08 1605 35 06/08 1600 Ventilator 30% 06/08 1600 97.1 56 16 110/70 96 Ventilator 30% 06/08 1409 35 06/08 1400 69 20 118/73 06/08 1200 97.8 80 18 114/70 06/08 1200 97 Ventilator 35% 06/08 1200 97.8 80 18 114/70 97 Ventilator 35% / 1045 35 Intake & Output 11/13 1600 11/13 0800 / 0000 Intake Total 1322 1245 Output Total 930 1235 Balance 392 10 Intake, IV 579 538 Intake, Tube 523 497 Feeding Intake, Tube 220 210 Irrigant Number 0 0 Bowel Movements Output, Urine 930 1235 Exam General Appearance: awake, agitated, not following commands. Head: atraumatic Ears, Nose, Throat: ET TUBE INTACT Neck: supple Respiratory: decreased breath sounds b/l. Cardiovascular: regular rate/rhythm Gastrointestinal: normal bowel sounds, soft Current Medications: Current Medications Sig/Anaya Start time Last Medication Dose Route Stop Time Status Admin Ceftriaxone Sodium 1,000 MG DAILY 11/13 1000 AC 11/13 IV 0954 Chlordiazepoxide HCl 100 MG TID 11/09 1600 AC 11/13 PO 0851 Enoxaparin Sodium 40 MG DAILY 11/06 1816 AC 11/13 SC 0852 Fentanyl Citrate 1,000 MCG Q6H 11/10 0300 AC 11/13 Dextrose/Water 250 ML IV 0519 Folic Acid 1 MG DAILY 11/10 1000 AC 11/13 PO 0851 Haloperidol 1 MG Q4-6 PRN PRN 11/11 1930 AC 11/13 IM 0951 Levetiracetam 500 MG BID 11/07 2200 AC 11/13 NG 0851 Lorazepam 50 MG Q24H / 1430 AC 11/13 Dextrose/Water 500 ML IV 0903 Lorazepam 50 MG ONCE ONE 11/12 0700 MA 11/12 Sodium Chloride 500 ML IV 11/12 1929 0752 Lorazepam 2 MG Q4P PRN 11/09 0215 AC 11/11 IV 1616 Magnesium Oxide 400 MG BID 11/12 1000 AC 11/13 PO 0851 Methylprednisolone 60 MG DAILY 11/11 1037 AC 11/13 IV 0852 Morphine Sulfate 2 MG Q6P PRN 11/07 1145 AC / IV 1048 Multivitamins 5 ML DAILY 11/10 1000 AC / PO 0851 Pantoprazole Sodium 40 MG DAILY 11/07 1000 AC 11/13 IV 0851 Polyethylene Glycol 17 GM DAILY 11/09 1548 AC 11/13 PO 0851 Thiamine HCl 100 MG DAILY 11/10 1000 AC 11/13 PO 0851 Impression/Plan Impression/Problem List Impression: Mr. Macias is a 56 year old male with PMH alcohol dependance, seizures, polysubstance abuse, stage 4 ulcer of the coccyx, HTN, HLD, gastritis, hemorrhoids and chronic back pain 2/2 disc herniation who was brought in to the hospital by police for altered mental status. He is on multiple medications including oxycodone, baclofen, lexapro, gabapentin, sertraline and trazodone as an outpatient so there was concern from family that he overdosed or was altered secondary to alcohol intake. Poison control was contacted upon admission and recommended a one-time dose of cyproheptadine due to presentation of clonus which led to a high suspicious of possible serotonin syndrome.He is in day 4 for ICU admission. Impression and Plan Respiratory: Day 6 of intubation. Today he is noted to have increased O2 demand , with FiO2 increased from 45 to 50 and then 55%. Chest x-ray obtained shows persistent pulmonary edema. Furosemide was not given yesterday due to borderline low blood pressure. We'll go ahead and give furosemide 20 mg IV now and reassess fluid status . Will also start solumedrol 40 mg. Infection: Bronchiolitis currently on ceftriaxone and azithromycin isolate with MSSA and Enterobacter Cloacia to both susceptible to ceftriaxone. Cardiology: Stable with sinus rhythm no acute telemetry events. Concern for prolonged QT in the setting of possible Haldol PRN use. Yesterday EKG was unremarkable for any significant QT changes, will continue to obtain periodic EKGs and will also replenish potassium and magnesium appropriately. Hematology: H&H currently stable. No acute bleeding noted. However creased white blood count is noted. Possibly could be worsening of respiratory infection, patient is currently on appropriate antibiotic coverage. Will continue to trend leukocytosis. Metabolic: Stable with no noted acute metabolic derangement. Alimentary: Continue with TPN which is at goal rate of 70ml/hr. will trend triglyceride levels as needed. Neurological: Awoken by verbal stimuli with intermittent episodes of aagitation. No overnight episode of seizures noted, will continue Keppra. However continues to be moderate to significant agitated requiring doses of Ativan drip . Due to initial assessment of possible serotonin syndrome will keep off any second- generation ANTIpsychotic. Haldol 1 mg q4-6h prn. Will minimize agitation triggers such as uncontrolled pain. Problem List: 1. Endotracheally intubated Pain Ratin Tomorrow's Labs & Rationales: ICU BUNDLE Plan DVT/Prophylaxis: mechanical, pharmacological Code Status: Full Code
--- NOTE | 2016-11-13 07:57 | NUR ---
PT OPENS EYES TO VERBAL STIMULI, STARTING TO FOLLOW COMMANDS, SAS 3-4- ATIVAN GTT AT 3MG/HR CURRENTLY AND FENTANYL GTT AT 75MCG/HR. PT EASIER TO CALM WHEN AGITATED. LAST HALDOL DOSE 0 AND LAST MORPHINE DOSE 0015. REMAINS ORALLY INTUBATED AND VENTED. SUCTIONING FOR SM AMT OF THICK YELLOW SECREATIONS. FI02 INCREASED TO 35% AT 0530. MONITOR SB-NSR, NO ECTOPY FOR SHIFT. SBP 90-100'S FOR SHIFT. GOOD URINE OUTPUT FOR SHIFT. TOLERATING TUBE FEEDS WELL FOR SHIFT. NO OTHER CHANGE IN PT ASSESSMENTS THOUGHOUT SHIFT
--- NOTE | 2016-11-13 08:26 | RADIOLOGY REPORT ---
EXAMINATION: XR PORTABLE CHEST CLINICAL INFORMATION: Increased oxygen demand bronchiolitis status post intubation day 5 COMPARISON: 11/12/2016 TECHNIQUE: Portable frontal view of the chest was obtained. FINDINGS: Endotracheal tube tip lies approximately 5 cm above the trip. Enteric tube courses in the stomach. There is mildly improved aeration throughout the mid-upper left lung compared to prior, with residual hazy opacification noted. Retrocardiac opacification, however, may be worsened. There is also mild persistent hazy opacity at the right base. No pneumothorax is seen. No significant pleural effusion. Cardiac size appears at the upper limits of normal. Calcification is present at the aortic arch. No acute osseous findings are seen. IMPRESSION: Mildly improved aeration in the mid to upper left lung with residual hazy opacification, although retrocardiac opacification may be worsened. Mild hazy right basilar opacity is similar to prior.
--- NOTE | 2016-11-13 11:09 | NUR ---
0800: RECEIVED PATIENT IN BED. SAS 4-5. AWAKES TO VERBAL STIMULI, DOES NOT FOLLOW COMMADS. PUPILS EQUAL AND REACTIVE. SINUS GURPREET TO SINUS RHYTHM ON MONITOR. B/P 92/60 MANUALLY. INTUBATED 7.5 ETT CENTER AT 26CM. VENT SETTINGS AC-16 550/35% PEEP 5. RHONCHI NOTED. SCANT ORAL SECRETIONS. TUBE FEED RUNNING VIA OGT AT 65CM AT LIP. JEVITY 1.2 @ 70ML, H20 110 ML Q4. RESIDUAL 10ML. ESPARZA REMAINS IN PLACE DRAINING ADEQUATE AMOUNTS OF CLEAR YELLOW URINE. STAGE 4 TO LEFT BUTTOCKS. DRESSING CHANGED. AQUACEL AG, TELFA AND TEGADERM. ON SIZEWISE. SCAB NOTED TO LEFT KNEE. #22LF #20 LF. ATIVAN GTT RUNNING AT 3MG/HR AND FENTANYL GTT RUNNING AT 75MCG/HR. CIWA 0-10. RESTRAINTS REMAIN IN PLACE, DUE TO PATIENT THRASHING AROUND IN BED AND PULLING AT LINES ECT. WILL MONITOR.
--- NOTE | 2016-11-13 13:49 | PN- Pulmonary ---
Subjective HPI/Critical Care Issues: Doing worse Increased oxygen requirement Secretions are the same Sedated with high dose of fentanyl and large dose of librium Objective Current Medications: Current Medications Sig/Anaya Start time Last Medication Dose Route Stop Time Status Admin Ceftriaxone Sodium 1,000 MG DAILY 11/13 1000 AC 11/13 IV 0954 Chlordiazepoxide HCl 100 MG TID 11/09 1600 AC 11/13 PO 0851 Enoxaparin Sodium 40 MG DAILY 11/06 1816 AC 11/13 SC 0852 Fentanyl Citrate 1,000 MCG Q6H 11/10 0300 AC 11/13 Dextrose/Water 250 ML IV 0519 Folic Acid 1 MG DAILY 11/10 1000 AC 11/13 PO 0851 Haloperidol 1 MG Q4-6 PRN PRN 11/11 1930 AC 11/13 IM 0951 Levetiracetam 500 MG BID 11/07 2200 AC 11/13 NG 0851 Lorazepam 50 MG Q24H 11/12 1430 AC 11/13 Dextrose/Water 500 ML IV 0903 Lorazepam 50 MG ONCE ONE 11/12 0700 DC 11/12 Sodium Chloride 500 ML IV 11/12 1929 0752 Lorazepam 2 MG Q4P PRN 11/09 0215 AC 11/11 IV 1616 Magnesium Oxide 400 MG BID 11/12 1000 AC 11/13 PO 0851 Methylprednisolone 60 MG DAILY 11/11 1037 AC 11/13 IV 0852 Morphine Sulfate 2 MG Q6P PRN 11/07 1145 AC 11/13 IV 1048 Multivitamins 5 ML DAILY 11/10 1000 AC 11/13 PO 0851 Pantoprazole Sodium 40 MG DAILY 11/07 1000 AC 11/13 IV 0851 Polyethylene Glycol 17 GM DAILY 11/09 1548 AC 11/13 PO 0851 Thiamine HCl 100 MG DAILY 11/10 1000 AC 11/13 PO 0851 Vital Signs & I&O Last 24 Hrs of Vitals and I&O: Vital Signs Date Time Temp Pulse Resp B/P B/P Pulse O2 O2 Flow FiO2 Mean Ox Delivery Rate 11/13 1200 97.9 64 22 110/60 11/13 1200 97 Ventilator 35% 11/13 1200 97.9 64 22 110/60 97 Ventilator 35% 11/13 1142 35 11/13 1000 74 16 97/53 11/13 0816 35 11/13 0800 97.6 56 16 92/60 11/13 0800 96 Ventilator 35% 06/09 0800 97.6 56 16 92/60 96 Ventilator 35% 06/09 0600 57 16 91/56 06/09 0532 30 06/09 0400 97.7 69 17 98/52 06/09 0400 94 Ventilator 30% 06/09 0326 30 06/09 0032 30 06/09 0000 98.5 61 16 111/66 06/09 0000 92 Ventilator 30% 06/08 2300 98.5 61 16 94/58 94 Ventilator 30% 06/08 2217 30 06/08 2200 79 21 116/64 06/08 2000 7.8 70 17 100/57 06/08 2000 97 Ventilator 30% 06/08 1936 30 06/08 1800 82 18 11/62 06/08 1605 35 06/08 1600 Ventilator 30% 06/08 1600 97.1 56 16 110/70 96 Ventilator 30% 06/08 1409 35 06/08 1400 69 20 118/73 Intake & Output / 1600 06/09 0800 06/09 0000 Intake Total 1322 1245 Output Total 930 1235 Balance 392 10 Intake, IV 579 538 Intake, Tube 523 497 Feeding Intake, Tube 220 210 Irrigant Number 0 0 Bowel Movements Output, Urine 930 1235 Impression/Plan Impression/Plan Impression/Plan: Physical Exam General Appearance Intubated and sedated Skin warm, ulcer in the buttock left knee, multiple bruise jacobson over both knees Skin Temp/Moisture Exam: Warm/Dry Sepsis Skin Exam (color): Normal for Ethnicity HEENT Atraumatic, PERRLA, EOMI, dried blood seen in the oral cavity Neck Supple, No JVD Cardiovascular Normal S1, Normal S2, tachycardia Lungs diminished breath sounds bilaterally Abdomen Normal Bowel Sounds, Soft Neurological exaqm difficult. Clonus not sig today Extremities No Clubbing, No Cyanosis, No Edema, Normal Pulses Vascular Normal Pulses, Pulses Symmetrical CT scan of the head was unremarkable CT of the abdomen and pelvis showed groundglass opacity bilateral significant small vessel disease with severe atherosclerosis of the aorta CTA showed significant bronchiolitis-like picture with small vessel disease with no bronchiectasis IMPRESSION This is an unfortunate 56-year-old gentleman with severe alcohol dependency with multiple admissions, history of seizure, polysubstance abuse, significant sacral decubiti, hypertension, hyperlipidemia, previous gastritis and hemorrhoids, chronic back pain, now comes in with * Acute delirium secondary to multiple issues which could include combination of and - probable drug overdose versus alcohol withdrawal versus serotonin syndrome. Clonus noted initially by houseofficers on exam upon admission which seems to have resolved * Severe Resp failure hypoxic due to decreased mentation, Sig bronchiolitis with prob aspiration pna now with enterobacter and staph pna * REsolved Hypothermia rule out sepsis but seems unlikely, now better * Significant alcoholism with previous withdrawal seizure with probable seizure- now on keppra * Rule out Wernicke's encephalopathy on thiamine * ALtered Thyroid tests * Bilateral small airway disease as noted in his recent CT scan highly suggestive of bronchiolitis patient may be having significant GERD or rule out polysub inhalation abuse or He may have had recent viral infection. No clinical evidence suggestive of vasculitis or significant rheumatological disease so far, which needs to be investigated once stable * Depression, mood disorder, chronic pain, polypharmacy * Significant sacral decubiti for months followed by wound clinic * BOrderline qtc prolongation being monitored upon admission REC * Continue mechanical ventilator * Continue IV Ativan use a drip, wean down and then wean fentanyl. Use haldol aswell if qtc is ok * Agg bowel regimen with bid senna, docusate, mirlax daily with prn supp * Continue Keppra, ppi * Ceftriaxone and zithromycin for bronchiolitis, watch qtc daily and if high change azithro to doxy * Cont tube feeding * Give lasix today and prob rpt this pm. Keep potassium more than 4 and mag more than 2 * Check qtc daily and use haldol prn aswell * Watch for seizures * Solumedrol 60 mg daily and strict sugar control * DVT propylaxis, watch sugars Will follow closely
--- NOTE | 2016-11-13 17:35 | Event Note ---
Event Note Event Note: Situation: Patient's brother and sister requested family meeting. Background: Patient with multiple admissions for EtOH dependence/withdrawal and significant past medical history of polysubstance abuse, stage 4 coxxygeal ulcer, addmied for evaluation of altered mental status and overdose of unknown substance. Asessment/Recommendations: Patients family was informed of his current clinical condition. It was emphasized that patient is critically ill and his care will be addressed day by day. Their concerns were addressed and questions answered. They were encouraged to continue to partcipate in his care and will require tremenous support and encouragement should he recover from his current clinical state. They requested that he never to be given prescriptions of large quantities on discharge as he "will abuse them". They requested to have social service be involved when appropriate to have a cohesive plan in place. They request that he be considered for psychiatric services when appropriate and feel an inpatient evaluation may be beneficial to him.
--- NOTE | 2016-11-13 20:44 | NUR ---
@2000 PT WIDE AWAKE, AGITATED, ATTEMPTING TO PULL OUT ET TUBE AND ATTEMPTING TO GET OUT OF BED DESPITE SOFT RESTRAINT X4 AND TREVON. PT IS ABLE TO FOLLOW SIMPLE COMMANDS, +HAND GRASPS, BUT UNABLE TO CALM PT. SAS 5, ATIVAN INCREASED TO 4MG/HR, FENTANYL REMAINS AT 75MCG/HR. HR ST 100'S. FIO2 30%, SAT 98-99% SCATTERED RHONCHI, SUCTIONED FOR MODERATE AMOUNT OF THICK WHITE SECRETIONS. OGT WITH TUBE FEEDS AT GOAL, RESIDUAL 30ML, ABDOMEN SOFT +BS. PT REPOSITIONED.
[2016-11-14] VITALS (11 sets, daily range): BP systolic 100–164; BP diastolic 62–88
[2016-11-14 05:09] LABS: ABSOLUTE BASOPHIL COUNT 0 /CUMM (0.0-0.2); ABSOLUTE EOSINOPHIL COUNT 0 /CUMM (0.0-0.7); ABSOLUTE GRANULOCYTE CT 12.2 /CUMM (1.4-6.5); ABSOLUTE LYMPH COUNT 1.6 /CUMM (1.2-3.4); ABSOLUTE MONOCYTE COUNT 0.9 /CUMM (0.10-0.60); BASOPHIL % 0.1 % (0.0-2.0); EOSINOPHIL % 0.1 % (0-5); GRANULOCYTE % 82.5 % (42.2-75.2); MEAN CORPUSCULAR HGB 25.6 PG (27.0-31.0); MEAN CORPUSCULAR HGB CONC 31.2 G/DL (33.0-37.0); MEAN CORPUSCULAR VOLUME 82.1 FL (80.0-94.0); MEAN PLATELET VOLUME 11.8 FL (7.4-10.4); PLATELET COUNT 305 /CUMM (130-400); RBC DISTRIBUTION WIDTH 20.7 % (11.5-14.5); RED BLOOD CELL CT 4.11 /CUMM (4.70-6.10); WHITE BLOOD CELL COUNT 14.8 /CUMM (4.8-10.8)
[2016-11-14 05:15] LABS: HEMATOCRIT 33.8 % (42-52)
--- NOTE | 2016-11-14 06:52 | NUR ---
PT HAS BEEN AWAKE ALL NIGHT, MULTIPLE REPOSITIONING, PT SHAKING HIS HEAD YES OR NO TO QUESTIONS. PT HAS BEEN RESTLESS AND AGITATED MOST OF NIGHT DESPITE CURRENT MEDICATIONS AND PRN MEDS. PT WITH MULTIPLE ATTEMPTS AT PULLING ET TUBE, PT INSTRUCTED ON THE HARM THIS WOULD CAUSE IF SUCCESSFUL.
--- NOTE | 2016-11-14 08:38 | PN- Resident CRCU ---
See Addendum Subjective HPI/CRCU Issues: -Questionable overdose of unknown substance -Encephalopathy -Respiratory distress requiring intubation -Decubitus ulcers of the left buttock -Respiratory infection Sedated and mechanically ventilated. Afebrile, hemodynamically stable, saturating mid 90s on ventilator with FiO2 of 30%. No acute overnight events reported. Objective Vital Signs & I&O Last 8 Hrs of Vitals and I&O: Vital Signs Date Time Temp Pulse Resp B/P B/P Pulse O2 O2 Flow FiO2 Mean Ox Delivery Rate 11/14 1200 97.2 84 19 120/70 06/ 1200 96 Ventilator 30% / 1114 30 06/ 1000 92 17 146/86 06/10 0808 30 / 0800 98.0 70 16 124/78 06/ 0800 94 Ventilator 30% 11/14 0800 98.0 70 16 124/78 94 Ventilator 30% / 0645 30 / 0600 97.0 90 17 164/75 06/10 0400 97.0 78 17 146/83 06/10 0400 95 Ventilator 30% / 0300 30 06/10 0042 30 06/ 0000 97.2 77 18 142/88 06/10 0000 98 Ventilator 30% 06/10 0000 97.2 77 18 142/88 98 Ventilator 30% /09 2200 97.0 62 16 122/72 06/09 2157 30 06/09 2000 97.7 79 16 110/62 06/09 2000 98 Ventilator 30% /09 1908 30 06/09 1631 30 06/09 1600 97.1 57 16 111/60 06/09 1600 98 Ventilator 30% 06/09 1600 97.1 57 16 111/60 98 Ventilator 30% 06/09 1400 84 17 111/59 06/09 1349 30 Intake & Output /10 1600 06/10 0800 06/10 0000 Intake Total 1251 1314.6 Output Total 1500 1500 Balance -249 -185.4 Intake, IV 541 477.6 Intake, Oral 0 0 Intake, Other 220 310 Intake, Tube 490 527 Feeding Number 0 0 Bowel Movements Output, Urine 1500 1500 Exam General Appearance: no apparent distress, sedated, intubated, lethargic Head: atraumatic, normal appearance Respiratory: normal breath sounds, chest non-tender, no respiratory distress Cardiovascular: regular rate/rhythm Gastrointestinal: normal bowel sounds, soft Extremities: normal inspection, no edema Weaning Parameters NIF: 28 Minute Volume: 8 Resp rate: 15 Vt: 550 Heart Rate: 68 Weaning Schedule Start Time: 1635 Minute Volume: 8 Resp Rate: 15 Vt: 550 Heart Rate: 69 End Time: 1800 Minute Volume: 11 Resp Rate: 28 Vt: 430 Heart Rate: 75 Current Medications: Current Medications Sig/Anaya Start time Last Medication Dose Route Stop Time Status Admin Ceftriaxone Sodium 1,000 MG DAILY 11/13 1000 AC 11/14 IV 0917 Chlordiazepoxide HCl 100 MG TID 11/09 1600 AC 11/14 PO 0917 Enoxaparin Sodium 40 MG DAILY 11/06 1816 AC 11/14 SC 0917 Fentanyl Citrate 1,000 MCG Q13H 11/13 1700 AC 11/14 Dextrose/Water 250 ML IV 0642 Fentanyl Citrate 1,000 MCG Q6H 11/10 0300 DC 11/13 Dextrose/Water 250 ML IV 0519 Folic Acid 1 MG DAILY 11/10 1000 AC 11/14 PO 0917 Haloperidol 5 MG .STK-MED ONE 11/13 1800 DC IM 11/13 1801 Haloperidol 1 MG Q4-6 PRN PRN 11/11 1930 AC 11/13 IM 1803 Levetiracetam 500 MG BID 11/07 2200 AC 11/14 NG 0918 Lorazepam 50 MG Q24H 11/12 1430 AC 11/13 Dextrose/Water 500 ML IV 2315 Lorazepam 2 MG Q4P PRN 11/09 0215 AC 11/14 IV 0145 Magnesium Oxide 400 MG BID 11/12 1000 AC 11/14 PO 0917 Methylprednisolone 60 MG DAILY 11/11 1037 AC 11/14 IV 0917 Morphine Sulfate 2 MG Q6P PRN 11/07 1145 AC 11/13 IV 2350 Multivitamins 5 ML DAILY 11/10 1000 AC 11/14 PO 0918 Pantoprazole Sodium 40 MG DAILY 11/07 1000 AC 11/14 IV 0917 Polyethylene Glycol 17 GM DAILY 11/09 1548 AC 11/14 PO 0917 Senna 187 MG AT BEDTIME 11/13 2200 AC 11/13 PO 2147 Thiamine HCl 100 MG DAILY 11/10 1000 AC 11/14 PO 0917 Impression/Plan Impression/Problem List Impression: Mr. Macias is a 56 year old male with H alcohol dependance, seizures, polysubstance abuse, stage 4 ulcer of the coccyx, HTN, HLD, gastritis, hemorrhoids and chronic back pain 2/2 disc herniation who was brought in to the hospital by police for altered mental status. He is on multiple medications including oxycodone, baclofen, lexapro, gabapentin, sertraline and trazodone as an outpatient so there was concern from family that he overdosed or was altered secondary to alcohol intake. Poison control was contacted upon admission and recommended a one-time dose of cyproheptadine due to presentation of clonus which led to a high suspicious of possible serotonin syndrome.He is in day 5 of ICU admission. Impression and Plan: Respiratory: * Day 7 post intubation. * Chest x-ray:Lung disease is not appreciably changed compared to the prior radiograph of yesterday. * Continue Solu-Medrol 60 mg daily * X-ray tomorrow morning * Continue mechanical ventilator as current Infection: Bronchiolitis currently on ceftriaxone and azithromycin isolate with MSSA and Enterobacter Cloacia to both susceptible to ceftriaxone. * Continue azithromycin and ceftriaxone Cardiology: Stable with sinus rhythm no acute telemetry events. Concern for prolonged QT in the setting of possible Haldol PRN use. Yesterday EKG was unremarkable for any significant QT changes, will continue to obtain periodic EKGs if there is a need for Haldol. Hematology: H&H currently stable. No acute bleeding noted. Metabolic: Stable with no noted acute metabolic derangement. Alimentary: Continue with TPN which is at goal rate. Neurological: Pt is sedated and mechanically ventilated. He responded to verbal stimuli. No overnight episode of seizures reported. He is taking the following FARM REPORTER affecting meds and we will continue current regimen * Keppra * Fentanyl drip * Lorazepam drip * Haloperidol 1 mg every 4-6 when necessary * Librium 100 mg 3 times a day by mouth * Ativan 2 mg IV every 4 when necessary TPN DVT PPx: ALBS and Lovenox GIT PPx: Pantoprazole IV Full code Problem List: 1. Decubitus ulcer of coccygeal region, stage 4 2. Serotonin syndrome Pain Ratin Tomorrow's Labs & Rationales: ICU bundle and CBC Plan DVT/Prophylaxis: mechanical, pharmacological Code Status: Full Code
--- NOTE | 2016-11-14 09:35 | PN- Pulmonary ---
Subjective HPI/Critical Care Issues: Patient remains intubated and agitated on fentanyl and Ativan Objective Current Medications: Current Medications Sig/Anaya Start time Last Medication Dose Route Stop Time Status Admin Ceftriaxone Sodium 1,000 MG DAILY 11/13 1000 AC 11/14 IV 0917 Chlordiazepoxide HCl 100 MG TID 11/09 1600 AC 11/14 PO 0917 Enoxaparin Sodium 40 MG DAILY 11/06 1816 AC 11/14 SC 0917 Fentanyl Citrate 1,000 MCG Q13H 11/13 1700 AC 11/14 Dextrose/Water 250 ML IV 0642 Fentanyl Citrate 1,000 MCG Q6H 11/10 0300 DC 11/13 Dextrose/Water 250 ML IV 0519 Folic Acid 1 MG DAILY 11/10 1000 AC 11/14 PO 0917 Haloperidol 5 MG .STK-MED ONE 11/13 1800 DC IM 11/13 1801 Haloperidol 1 MG Q4-6 PRN PRN 11/11 1930 AC 11/13 IM 1803 Levetiracetam 500 MG BID 11/07 2200 AC 11/14 NG 0918 Lorazepam 50 MG Q24H 11/12 1430 AC 11/13 Dextrose/Water 500 ML IV 2315 Lorazepam 2 MG Q4P PRN 11/09 0215 AC 11/14 IV 0145 Magnesium Oxide 400 MG BID 11/12 1000 AC 11/14 PO 0917 Methylprednisolone 60 MG DAILY 11/11 1037 AC 11/14 IV 0917 Morphine Sulfate 2 MG Q6P PRN 11/07 1145 AC 11/13 IV 2350 Multivitamins 5 ML DAILY 11/10 1000 AC 11/14 PO 0918 Pantoprazole Sodium 40 MG DAILY 11/07 1000 AC 11/14 IV 0917 Polyethylene Glycol 17 GM DAILY 11/09 1548 AC 11/14 PO 0917 Senna 187 MG AT BEDTIME 11/13 2200 AC 11/13 PO 2147 Thiamine HCl 100 MG DAILY 11/10 1000 AC 11/14 PO 0917 Vital Signs & I&O Last 24 Hrs of Vitals and I&O: Vital Signs Date Time Temp Pulse Resp B/P B/P Pulse O2 O2 Flow FiO2 Mean Ox Delivery Rate 11/14 0808 30 11/14 0645 30 11/14 0600 97.0 90 17 164/75 11/14 0400 97.0 78 17 146/83 11/14 0400 95 Ventilator 30% 06/10 0300 30 06/10 0042 30 06/ 0000 97.2 77 18 142/88 06/10 0000 98 Ventilator 30% / 0000 97.2 77 18 142/88 98 Ventilator 30% /09 2200 97.0 62 16 122/72 06/09 2157 30 06/ 2000 97.7 79 16 110/62 06/ 2000 98 Ventilator 30% / 1908 30 / 1631 30 / 1600 97.1 57 16 111/60 06/09 1600 98 Ventilator 30% 06/ 1600 97.1 57 16 111/60 98 Ventilator 30% 06/ 1400 84 17 111/59 06/09 1349 30 / 1200 97.9 64 22 110/60 06/09 1200 97 Ventilator 35% / 1200 97.9 64 22 110/60 97 Ventilator 35% /09 1142 35 06/09 1000 74 16 97/53 Intake & Output / 1600 06/10 0800 06/ 0000 Intake Total 1251 1314.6 Output Total 1500 1500 Balance -249 -185.4 Intake, IV 541 477.6 Intake, Oral 0 0 Intake, Other 220 310 Intake, Tube 490 527 Feeding Number 0 0 Bowel Movements Output, Urine 1500 1500 Oxygen saturation on 30% is 99% to have his chest shows scattered rhonchi cardiac exam shows regular S1 and S2 abdomen is soft nontender ventilatory parameters are unchanged continues to tolerate enteral feedings Impression/Plan Impression/Plan Impression/Plan: 56-year-old gentleman with severe delirium multifactorial in the setting of alcohol. Is being treated for bronchitis. Respiratory status and mental status has not improved to allow for extubation at this time Recommendations: Continue present ventilator settings and doses of Ativan and fentanyl with persistent agitation complete course of antibiotics. Continue previously delineated treatment plan
--- NOTE | 2016-11-14 10:45 | RADIOLOGY REPORT ---
EXAMINATION: XR PORTABLE CHEST CLINICAL INFORMATION: Increased oxygen demand. Patient intubated. COMPARISON: CXR from 11/13/2016. TECHNIQUE: Portable frontal view of the chest was obtained. FINDINGS: The tip of the endotracheal tube is now located approximately 6.5 cm above the trip. The enteric tube extends below the diaphragm and beyond the [id number]. There is persistent, bilateral peribronchial interstitial thickening. There is persistent hazy, streaky opacity in the left retrocardiac region. No new pulmonary abnormalities. Cardiac silhouette is borderline enlarged, unchanged. No pneumothorax, pneumomediastinum, overt pleural effusion or other significant interval change. IMPRESSION: 1. Endotracheal tube is 6.5 cm above the trip. 2. Lung disease is not appreciably changed compared to the prior radiograph of 11/13/2016. Note that Dr. Hay was notified of the ET tube position at 10:40 am.
--- NOTE | 2016-11-14 14:43 | NUR ---
[id number] SHIFT NOTE: RECEIVED PATIENT IN BED, ALERT, DOES FOLLOW SOME SIMPLE COMMANDS, PUPILS EQUAL AND REACTIVE. SAS 4-5. FENTANYL GTT REMAINS AT 75MCG OR 18.8ML, ATIVAN GTT TURNED DOWN TO 3MG OR 30ML. INTUBATED, ETT ADVANCED PER RADIOLOGY BY 1CM. OGT WAS AT 55CM ADVANCED TO 60CM. SEE FLOW SHEET FOR VITALS AND VENT SETTINGS. TUBE FEED RUNNING AT GOAL RATE, TOLERATING WELL. ESPARZA REMAINS IN PLACE DRAINING ADEQUATE AMOUNTS OF URINE. TURNED AND REPOSITIONED, STAGE 4 TO LEFT BUTTOCKS, DRESSING CHANGED, AQUACEL AG/TELFA/TEGADERM. ON SIZEWISE, ALPS ON. WILL MONITOR.
--- NOTE | 2016-11-14 15:36 | Patient Discharge Instructions ---
Discharge Instructions General Discharge Information You were seen/treated for: Overdose,unresposiveness Acute hypoxic and hypercarbic respiratory failure Possible aspiration pneumonia Alcohol withdrawal Drug overdose You had these procedures: Intubation status post extubation Special Instructions: follow-up with your primary care physician in one week after discharge please follow up with your psychiatry appointment coming up " IOP intake appointment scheduled for December 04 at 10 AM at [address] [facility] in [place]" Diet Continue normal diet: Yes Activity Full Activity/No Limits: Yes Acute Coronary Syndrome Inclusion Criteria At DC or during hospital stay patient has or had the following: ACS DIAGNOSIS No Discharge Core Measures Meds if any: Prescribed or Continued at Discharge Meds if any: NOT Prescribed or Continued at Discharge Congestive Heart Failure Inclusion Criteria At DC or during hospital stay patient has or had the following: CHF DIAGNOSIS No Discharge Core Measures Meds if any: Prescribed or Continued at Discharge Meds if any: NOT Prescribed or Continued at Discharge Cerebrovascular accident Inclusion Criteria At DC or during hospital stay patient has or had the following: CVA/TIA Diagnosis No Discharge Core Measures Meds if any: Prescribed or Continued at Discharge Meds if any: NOT Prescribed or Continued at Discharge Venous thromboembolism Inclusion Criteria VTE Diagnosis No VTE Type NONE VTE Confirmed by (Test) NONE Discharge Core Measures - Per Current guidelines, there needs to be overlap - treatment for the first 5 days of Warfarin therapy. - If discharged on Warfarin prior to 5 days of - overlap therapy, the patient will need to be - assessed for post discharge needs including - *Post discharge parental anticoagulation - *Warfarin and/or parental anticoagulation education - *Follow up date to check INR post discharge At least 5 days overlap therapy as Inpatient No Meds if any: Prescribed or Continued at Discharge Note: Overlap Therapy is Warfarin and Anticoagulant Meds if any: NOT Prescribed or Continued at Discharge Meds if any: NOT Prescribed or Continued at Discharge
--- NOTE | 2016-11-14 17:54 | NUR ---
PATIENT PLACED COMPLETELY ON SIDE, STILL SQUIRMING. PATIENT ANSWERING SIMPLE YES OR NO QUESTIONS BY NODDING HEAD. RESTRAINTS REMAIN IN PLACE. WILL MONITOR.
--- NOTE | 2016-11-14 19:52 | NUR ---
PT AWAKE, PERIODS OF RESTLESSNESS AND AGITATION, REMAINS ON FENTANYL AT 75MCG/HR AND ATIVAN AT 3MG/HR WITH SAS OF 4-5. PT FOLLOWS COMMANDS, MOVING ALL EXTREMETIES, SHAKING HEAD YES OR NO TO QUESTIONS. HR SR 70'S, SBP 112/62 MANUALLY. 98% ON FIO2 OF 30% LUNGS CLEAR, MOUTH CARE GIVEN. TUBE FEEDS AT GOAL VIA OGT, 20ML OF RESIDUAL NOTED. ESPARZA IN PLACE ADEQUATE CLEAR YELLOW URINE. PT ON SPECIALTY MATTRESS, STAGE 4 DECUB ON COCCYX DRESSING CHANGED BY RN EARLIER INTACT.
[2016-11-15] VITALS: BP 138/78
[2016-11-15 04:00] VITALS: BP 126/82
[2016-11-15 05:32] LABS: ABSOLUTE BASOPHIL COUNT 0.1 /CUMM (0.0-0.2); ABSOLUTE EOSINOPHIL COUNT 0.1 /CUMM (0.0-0.7); ABSOLUTE GRANULOCYTE CT 8.2 /CUMM (1.4-6.5); ABSOLUTE MONOCYTE COUNT 1.2 /CUMM (0.10-0.60); BASOPHIL % 0.7 % (0.0-2.0); EOSINOPHIL % 0.8 % (0-5); GRANULOCYTE % 71.2 % (42.2-75.2); HEMATOCRIT 35.8 % (42-52); MEAN CORPUSCULAR HGB 25.6 PG (27.0-31.0); MEAN CORPUSCULAR HGB CONC 31.3 G/DL (33.0-37.0); MEAN CORPUSCULAR VOLUME 81.7 FL (80.0-94.0); MEAN PLATELET VOLUME 11.7 FL (7.4-10.4); PLATELET COUNT 388 /CUMM (130-400); RBC DISTRIBUTION WIDTH 20.9 % (11.5-14.5); RED BLOOD CELL CT 4.38 /CUMM (4.70-6.10)
[2016-11-15 05:56] LABS: WHITE BLOOD CELL COUNT 11.6 /CUMM (4.8-10.8)
[2016-11-15 08:00] VITALS: BP 130/80
--- NOTE | 2016-11-15 08:24 | PN- Resident CRCU ---
Subjective HPI/CRCU Issues: Unknown overdose Encephalopathy Respiratory distress requiring intubation Decubitus ulcers of the left buttock Respiratory infection 24 Hour Events: status unchanged. Intubation day 10 modeAC TV:550, RR: 12 FIO2 30%,. Continues to have episodes of agitation requiring Ativan drip (day5) currently at 3mg/hr, fentanyl dose at 75mcg. VS stable, with no acute overnight event reported by nursing staff. Woods intact day 10. Objective Vital Signs & I&O Last 8 Hrs of Vitals and I&O: Vital Signs Date Time Temp Pulse Resp B/P B/P Pulse O2 O2 Flow FiO2 Mean Ox Delivery Rate 11/15 1437 25 / 1200 100 Ventilator 25% 11/15 1112 25 11/15 0843 30 11/15 0800 100 Ventilator 30% 11/15 0800 96.5 66 30 130/80 100 Ventilator 30% 11/15 0400 97.8 70 23 126/82 11/15 0400 99 Ventilator 30% 11/15 0314 30 11/15 0022 30 11/15 0000 97.0 70 18 138/78 06/ 0000 99 Ventilator 30% 11/15 0000 97.0 70 18 138/78 95 Ventilator 30% 11/14 2220 30 06/10 2200 97.0 81 16 136/65 06/10 2017 30 11/15 1999 96.8 76 20 112/62 11/15 1999 98 Ventilator 30% 11/14 1800 83 16 108/63 06/10 1603 30 / 1600 97.9 80 16 100/62 06/10 1600 97 Ventilator 30% 11/14 1600 97.9 80 16 97 Ventilator 30% Intake & Output 11/15 1600 Intake Total 1240.4 Output Total 250 Balance 990.4 Intake, IV 360.4 Intake, Oral 0 Intake, Tube 560 Feeding Intake, Tube 320 Irrigant Output, Urine 250 Exam General Appearance: awake, INTERMITTENT EPISODED OF AGITATION Neck: normal inspection, supple Respiratory: dimished breath sounds on lower lobes b/l Cardiovascular: regular rate/rhythm Gastrointestinal: normal bowel sounds, soft Extremities: normal inspection, no edema Weaning Parameters NIF: 14 Minute Volume: 5.56 Resp rate: 14 Vt: 453 Heart Rate: 68 Weaning Schedule Start Time: 0810 Minute Volume: 5.56 Resp Rate: 14 Vt: 453 Heart Rate: 68 End Time: 0936 Minute Volume: 9.45 Resp Rate: 22 Vt: 596 Heart Rate: 71 Current Medications: Current Medications Sig/Anaya Start time Last Medication Dose Route Stop Time Status Admin Ceftriaxone Sodium 1,000 MG DAILY 11/13 1000 AC 11/15 IV 0911 Chlordiazepoxide HCl 100 MG TID 11/09 1600 AC 11/15 PO 0910 Enoxaparin Sodium 40 MG DAILY 11/06 1816 AC 11/15 SC 0911 Fentanyl Citrate 1,000 MCG Q13H 11/13 1700 AC 11/15 Dextrose/Water 250 ML IV 0911 Folic Acid 1 MG DAILY 11/10 1000 AC 11/15 PO 0910 Haloperidol 1 MG Q4-6 PRN PRN 11/11 1930 AC 11/13 IM 1803 Levetiracetam 500 MG BID 11/07 2200 AC 11/15 NG 0911 Lorazepam 50 MG Q24H 11/12 1430 AC 11/15 Dextrose/Water 500 ML IV 0449 Lorazepam 2 MG Q4P PRN 11/09 0215 AC 11/14 IV 0145 Magnesium Oxide 400 MG BID 11/12 1000 AC 11/15 PO 0910 Methylprednisolone 60 MG DAILY 11/11 1037 AC 11/15 IV 0911 Morphine Sulfate 2 MG Q6P PRN 11/07 1145 AC 11/13 IV 2350 Multivitamins 5 ML DAILY 11/10 1000 AC 11/15 PO 0911 Pantoprazole Sodium 40 MG DAILY 11/07 1000 AC 11/15 IV 0911 Polyethylene Glycol 17 GM DAILY 11/09 1548 AC 11/15 PO 0911 Senna 187 MG AT BEDTIME 11/13 2200 AC 11/14 PO 2134 Thiamine HCl 100 MG DAILY 11/10 1000 AC 11/15 PO 0910 Impression/Plan Impression/Problem List Impression: Mr. Macias is a 56 year old male with PMH alcohol dependance, seizures, polysubstance abuse, stage 4 ulcer of the coccyx, HTN, HLD, gastritis, hemorrhoids and chronic back pain 2/2 disc herniation who was brought in to the hospital by police for altered mental status. He is on multiple medications including oxycodone, baclofen, lexapro, gabapentin, sertraline and trazodone as an outpatient so there was concern from family that he overdosed or was altered secondary to alcohol intake. Poison control was contacted upon admission and recommended a one-time dose of cyproheptadine due to presentation of clonus which led to a high suspicious of possible serotonin syndrome.He is in day 4 for ICU admission. Impression and Plan Respiratory: Day 10 of intubation. 2nd ABG obtained shows improvemnet, will decrease minute ventilation to RR of 12. Not a candidtae fo Liberation trial as he still requires a significant amount of sedation due to agitation. Infection: Bronchiolitis currently on ceftriaxone and azithromycin isolate with MSSA and Enterobacter Cloacia to both susceptible to ceftriaxone. Sacral decubitus ulcer,stage IV. Continue dressing and repositioning. Cardiology: Stable with sinus rhythm no acute telemetry events. Concern for prolonged QT in the setting of possible Haldol PRN use. We will obtain periodic EKG with frequent also use and replenish electrolytes with a goal of potassium above 4 and magnesium above 2. Hematology: H&H currently stable. No acute bleeding noted. However creased white blood count is noted. Possibly could be worsening of respiratory infection, patient is currently on appropriate antibiotic coverage. Will continue to trend leukocytosis. Metabolic: Stable with no noted acute metabolic derangement. Alimentary: Continue with TPN which is at goal rate of 70ml/hr. will trend triglyceride levels as needed. Neurological: Awoken by verbal stimuli with intermittent episodes of aagitation. No overnight episode of seizures noted, will continue Keppra. However continues to be moderate to significant agitated requiring doses of Ativan drip . Due to initial assessment of possible serotonin syndrome will keep off any second- generation ANTIpsychotic. Haldol 1 mg q4-6h prn. Will minimize agitation triggers such as uncontrolled pain. Problem List: 1. Endotracheally intubated Pain Ratin Tomorrow's Labs & Rationales: icu bundle Plan DVT/Prophylaxis: mechanical, pharmacological Code Status: Full Code
--- NOTE | 2016-11-15 10:14 | PN- Pulmonary ---
Subjective HPI/Critical Care Issues: Patient remains intubated sedated now day 9 of intubation. Extubation is not feasible. Objective Current Medications: Current Medications Sig/Anaya Start time Last Medication Dose Route Stop Time Status Admin Ceftriaxone Sodium 1,000 MG DAILY 11/13 1000 AC 11/15 IV 0911 Chlordiazepoxide HCl 100 MG TID 11/09 1600 AC 11/15 PO 0910 Enoxaparin Sodium 40 MG DAILY 11/06 1816 AC 11/15 SC 0911 Fentanyl Citrate 1,000 MCG Q13H 11/13 1700 AC 11/15 Dextrose/Water 250 ML IV 0911 Folic Acid 1 MG DAILY 11/10 1000 AC 11/15 PO 0910 Haloperidol 1 MG Q4-6 PRN PRN 11/11 1930 AC 11/13 IM 1803 Levetiracetam 500 MG BID 11/07 2200 AC 11/15 NG 0911 Lorazepam 50 MG Q24H 11/12 1430 AC 11/15 Dextrose/Water 500 ML IV 0449 Lorazepam 2 MG Q4P PRN 11/09 0215 AC 11/14 IV 0145 Magnesium Oxide 400 MG BID 11/12 1000 AC 11/15 PO 0910 Methylprednisolone 60 MG DAILY 11/11 1037 AC 11/15 IV 0911 Morphine Sulfate 2 MG Q6P PRN 11/07 1145 AC 11/13 IV 2350 Multivitamins 5 ML DAILY 11/10 1000 AC 11/15 PO 0911 Pantoprazole Sodium 40 MG DAILY 11/07 1000 AC 11/15 IV 0911 Polyethylene Glycol 17 GM DAILY 11/09 1548 AC 11/15 PO 0911 Senna 187 MG AT BEDTIME 11/13 2200 AC 11/14 PO 2134 Thiamine HCl 100 MG DAILY 11/10 1000 AC 11/15 PO 0910 Vital Signs & I&O Last 24 Hrs of Vitals and I&O: Vital Signs Date Time Temp Pulse Resp B/P B/P Pulse O2 O2 Flow FiO2 Mean Ox Delivery Rate 11/15 0843 30 11/15 0800 100 Ventilator 30% 11/15 0800 96.5 66 30 130/80 100 Ventilator 30% 11/15 0400 97.8 70 23 126/82 11/15 0400 99 Ventilator 30% 11/15 0314 30 11/15 0022 30 11/15 0000 97.0 70 18 138/78 11/15 0000 99 Ventilator 30% 11/15 0000 97.0 70 18 138/78 95 Ventilator 30% /10 2220 30 / 2200 97.0 81 16 136/65 /10 2017 30 11/15 1999 96.8 76 20 112/62 11/15 1999 98 Ventilator 30% /10 1800 83 16 108/63 /10 1603 30 /10 1600 97.9 80 16 100/62 /10 1600 97 Ventilator 30% /10 1600 97.9 80 16 97 Ventilator 30% /10 1425 30 11/14 1400 80 18 115/63 10 1200 97.2 84 19 120/70 10 1200 96 Ventilator 30% 11/14 1114 30 Intake & Output 11/15 1600 11/15 0800 11/15 0000 Intake Total 1049 1318 Output Total 950 1999 Balance 99 -682 Intake, IV 453 447 Intake, Oral 0 0 Intake, Other 220 400 Intake, Tube 471 Feeding Intake, Tube 376 Irrigant Number 1 1 Bowel Movements Output, Urine 950 1999 Patient 145 lb Weight Weight Bed scale Measurement Method O2 30% saturation 100% exam of his chest shows occasional rhonchi cardiac exam shows regular S1 and S2 abdomen is soft nontender ventilator settings remain unchanged Impression/Plan Impression/Plan Impression/Plan: 56-year-old gentleman with severe delirium multifactorial in the setting of alcohol. Is being treated for bronchitis. Respiratory status and mental status has not improved to allow for extubation at this time Recommendations: Obtain blood gas as minute ventilation may be able to be reduced. Attempt to reduce sedation as mental status allows. Complete course of antibiotics. Continue with current treatment plan
--- NOTE | 2016-11-15 14:58 | RADIOLOGY REPORT ---
EXAMINATION: XR PORTABLE CHEST CLINICAL INFORMATION: Patient attended and intubated. Possible overdose. COMPARISON: CXR from 11/13/2016 and 11/14/2016 TECHNIQUE: Portable frontal view of the chest was obtained. FINDINGS: Endotracheal tube is now located approximately 8 cm above the trip. The enteric tube extends below the diaphragm and into the proximal stomach. Again noted is peribronchial interstitial thickening in both lungs. This could reflect presence of mild edema and/or interstitial pneumonitis. The cardiac silhouette is borderline enlarged, unchanged. No pneumothorax or other significant interval change. IMPRESSION: 1. Endotracheal tube is approximately 8 cm above the trip. Recommend distally advancing the tube by approximately 3 cm. 2. Pulmonary disease remains similar in appearance compared to 11/14/2016. ET tube position, and recommendation for tube adjustment, was discussed by telephone with Dr. Rich at 2:50 pm.
--- NOTE | 2016-11-15 15:25 | RADIOLOGY REPORT ---
EXAMINATION: XR PORTABLE CHEST CLINICAL INFORMATION: Evaluate position of endotracheal tube. COMPARISON: Portable chest x-ray 11/15/2016. TECHNIQUE: Portable frontal view of the chest was obtained. FINDINGS: Allowing for differences in technique, patient positioning and aeration of the lungs, single AP view of the chest demonstrates interval advancement of the endotracheal tube which is visualized terminating between the clavicular heads, approximately 4.7 cm above the level of the trip. An enteric catheter descends below the level of the diaphragm and is visualized terminating in the region of the gastric fundus. The bilateral lungs are unchanged. Redemonstrated is pulmonary hypoinflation. There are prominent interstitial lung markings and peribronchial thickening within the bilateral lungs, left greater than right, with subtle opacities identified predominantly within the left lung. No pneumothoraces. Cardiomediastinal contours are stable. IMPRESSION: Interval advancement of the endotracheal tube which is now visualized terminating approximately 4.7 cm above the level of the trip. Otherwise, no significant interval changes in the appearance of the chest.
[2016-11-15 16:00] VITALS: BP 110/65
[2016-11-15 20:00] VITALS: BP 114/74
[2016-11-15 22:00] VITALS: BP 95/62
[2016-11-16] VITALS (12 sets, daily range): BP systolic 102–124; BP diastolic 60–79
[2016-11-16 05:13] LABS: ABSOLUTE BASOPHIL COUNT 0 /CUMM (0.0-0.2); ABSOLUTE EOSINOPHIL COUNT 0.1 /CUMM (0.0-0.7); ABSOLUTE GRANULOCYTE CT 7.1 /CUMM (1.4-6.5); ABSOLUTE MONOCYTE COUNT 0.9 /CUMM (0.10-0.60); BASOPHIL % 0.3 % (0.0-2.0); EOSINOPHIL % 1.1 % (0-5); GRANULOCYTE % 69.8 % (42.2-75.2); HEMATOCRIT 34.3 % (42-52); MEAN CORPUSCULAR HGB 25.8 PG (27.0-31.0); MEAN CORPUSCULAR HGB CONC 31.5 G/DL (33.0-37.0); MEAN CORPUSCULAR VOLUME 81.8 FL (80.0-94.0); MEAN PLATELET VOLUME 10.4 FL (7.4-10.4); PLATELET COUNT 383 /CUMM (130-400); RBC DISTRIBUTION WIDTH 20.8 % (11.5-14.5); WHITE BLOOD CELL COUNT 10.1 /CUMM (4.8-10.8)
--- NOTE | 2016-11-16 07:07 | PN- Resident CRCU ---
Subjective HPI/CRCU Issues: Unknown overdose Encephalopathy Respiratory distress requiring intubation Decubitus ulcers of the left buttock Respiratory infection Day 11 of intubation. Vent mode: AC. Tidal volume 500, respiratory rate 12, FiO2 25, PEEP 5. TPN: 70ml/hr continuous (Jevity 1.2cal) with 110ml water flush every 4 hours. Fentanyl drip at 200mcg/hr. 24 Hour Events: Seen and examined at bedside. Decreased episodes of agitation noted, Ativan drip stop and on Fentanyl drip. O2 demand appears to be decreasing with Fio2 down to 25%. Objective Vital Signs & I&O Last 8 Hrs of Vitals and I&O: Intake & Output 11/16 1600 11/16 0800 11/16 0000 Intake Total 990 1031 Output Total 500 600 Balance 490 431 Intake, IV 224 151 Intake, Other 100 Intake, Tube 546 560 Feeding Intake, Tube 220 220 Irrigant Number 1 Bowel Movements Output, Urine 500 600 Laboratory Tests 11/16 11/15 0435 1450 Blood Gas pH (7.35 - 7.45 PH) 7.43 pCO2 (35 - 45 TORR) 34 L pO2 (80 - 100 TORR) 109 H HCO3 (21 - 28 MEQ/L) 22 ABG O2 Sat (Measured) (>96.0 %) 98.0 P-50 (Temp Corrected) N Carboxyhemoglobin (1.5 - 5.0 %) 0 L O2 Concentration % 25% Respiration Rate (BPM) 12 O2 Delivery Method VENT Vent Mode AC Expiratory Pressure (CMH2O/P) 5 Tidal Volume (CC) 500 Pressure Support (CMH2O/P) 0 Chemistry Sodium (137 - 145 mmol/L) 133 L Potassium (3.5 - 5.1 mmol/L) 4.4 Chloride (98 - 107 mmol/L) 97 L Carbon Dioxide (22 - 30 mmol/L) 29 Anion Gap (5 - 16) 8 BUN (9 - 20 mg/dL) 22 H Creatinine (0.7 - 1.2 mg/dL) 0.6 L Estimated GFR (>60 ml/min) > 60 Glucose (65 - 99 mg/dL) 93 Calcium (8.4 - 10.2 mg/dL) 9.3 Phosphorus (2.5 - 4.5 mg/dL) 4.5 Magnesium (1.6 - 2.3 mg/dL) 2.1 Total Bilirubin (0.2 - 1.3 mg/dL) 0.2 AST (17 - 59 U/L) 17 ALT (21 - 72 U/L) 37 Albumin (3.5 - 5.0 g/dL) 3.0 L Hematology CBC w Diff NO MAN DIFF REQ WBC (4.8 - 10.8 /CUMM) 10.1 RBC (4.70 - 6.10 /CUMM) 4.20 L Hgb (14.0 - 18.0 G/DL) 10.8 L Hct (42 - 52 %) 34.3 L MCV (80.0 - 94.0 FL) 81.8 MCH (27.0 - 31.0 PG) 25.8 L RDW (11.5 - 14.5 %) 20.8 H Plt Count (130 - 400 /CUMM) 383 MPV (7.4 - 10.4 FL) 10.4 Gran % (42.2 - 75.2 %) 69.8 Lymphocytes % (20.5 - 51.1 %) 19.5 L Monocytes % (1.7 - 9.3 %) 9.3 Eosinophils % (0 - 5 %) 1.1 Basophils % (0.0 - 2.0 %) 0.3 Absolute Granulocytes (1.4 - 6.5 /CUMM) 7.1 H Absolute Lymphocytes (1.2 - 3.4 /CUMM) 2.0 Absolute Monocytes (0.10 - 0.60 /CUMM) 0.9 H Absolute Eosinophils (0.0 - 0.7 /CUMM) 0.1 Absolute Basophils (0.0 - 0.2 /CUMM) 0 PUBS MCHC (33.0 - 37.0 G/DL) 31.5 L Miscellaneous Phlebotomy Draw Site RIGHT RADIAL 11/15 1035 Blood Gas pH (7.35 - 7.45 PH) 7.54 H pCO2 (35 - 45 TORR) 29 L pO2 (80 - 100 TORR) 90 HCO3 (21 - 28 MEQ/L) 24 ABG O2 Sat (Measured) (>96.0 %) 97.0 P-50 (Temp Corrected) N Carboxyhemoglobin (1.5 - 5.0 %) 0.1 L O2 Concentration % 30% Respiration Rate (BPM) 16 O2 Delivery Method VENT Vent Mode AC Expiratory Pressure (CMH2O/P) 5 Tidal Volume (CC) 550 Pressure Support (CMH2O/P) 0 Miscellaneous Phlebotomy Draw Site RIGHT RADIAL Vital Signs Date Time Temp Pulse Resp B/P B/P Pulse O2 O2 Flow FiO2 Mean Ox Delivery Rate 11/16 0814 25 11/16 0600 97.9 74 28 124/70 06/ 0547 25 11/16 0402 25 11/16 0400 97.9 58 12 110/64 / 0400 98 Ventilator 25% 11/16 0200 97.6 58 12 104/68 Exam General Appearance: alert, awake, responds to verbal command. Head: atraumatic, normal appearance Ears, Nose, Throat: ET TUBE INTACT Respiratory: decreaed breath sounds RLL and LLL. Cardiovascular: regular rate/rhythm Gastrointestinal: normal bowel sounds, soft Extremities: Soft upper and lower extremity restaraints intact Weaning Parameters NIF: 32 Minute Volume: 7.9 Resp rate: 12 Vt: 630 Heart Rate: 66 Weaning Schedule Start Time: 1925 Minute Volume: 7.9 Resp Rate: 12 Vt: 630 Heart Rate: 66 End Time: 2150 Minute Volume: 12 Resp Rate: 14 Vt: 600 Heart Rate: 69 Current Medications: Current Medications Sig/Anaya Start time Last Medication Dose Route Stop Time Status Admin Ceftriaxone Sodium 1,000 MG DAILY 11/13 1000 DC 11/16 IV 0848 Chlordiazepoxide HCl 100 MG TID 11/09 1600 AC 11/16 PO 0853 Dextrose/Sodium 1,000 ML ONCE ONE 11/16 1500 AC 11/16 Chloride IV 11/17 1059 1451 Enoxaparin Sodium 40 MG DAILY 11/06 1816 AC 11/16 SC 0852 Fentanyl Citrate 25 MCG Q72H 11/16 0945 11/16 TOP 0956 Fentanyl Citrate 1,000 MCG Q13H 11/13 1700 DC 11/16 Dextrose/Water 250 ML IV 0811 Folic Acid 1 MG DAILY 11/10 1000 AC 11/16 PO 0853 Furosemide 20 MG ONCE ONE 11/16 1000 DC 11/16 IV 11/16 1001 0956 Haloperidol 2 MG ONCE ONE 11/16 0945 DC 11/16 IM 11/16 0946 0956 Haloperidol 1 MG Q4-6 PRN PRN 11/11 1930 AC 11/16 IM 0616 Levetiracetam 500 MG Q12 11/16 2200 AC 11/16 N/A 1 UNIT IV 2150 Levetiracetam 500 MG BID 11/07 2200 AC 11/16 NG 0852 Lorazepam 2 MG Q4 11/16 1400 AC 11/17 IV 0628 Lorazepam 50 MG Q24H 11/12 1430 DC 11/15 Dextrose/Water 500 ML IV 0449 Magnesium Oxide 400 MG BID 11/12 1000 AC 11/16 PO 0852 Magnesium Sulfate 1 GM Q2H 11/17 0715 AC Dextrose/Water 100 ML IV 11/17 1114 Methylprednisolone 40 MG DAILY 11/16 1000 AC 11/16 IV 1124 Methylprednisolone 60 MG DAILY 11/11 1037 DC 11/16 IV 0848 Morphine Sulfate 2 MG Q6P PRN 11/07 1145 AC 11/13 IV 2350 Multivitamins 5 ML DAILY 11/10 1000 AC 11/16 PO 0852 Pantoprazole Sodium 40 MG DAILY 11/07 1000 AC 11/16 IV 0848 Polyethylene Glycol 17 GM DAILY 11/09 1548 AC 11/16 PO 0852 Potassium Chloride 10 MEQ Q1H 11/17 0715 AC IV 11/17 0916 Senna 187 MG AT BEDTIME 11/13 2200 AC 11/14 PO 2134 Thiamine HCl 100 MG DAILY 11/10 1000 AC 11/16 PO 0853 Impression/Plan Impression/Problem List Impression: Mr. Macias is a 56 year old male with PMH alcohol dependance, seizures, polysubstance abuse, stage 4 ulcer of the coccyx, HTN, HLD, gastritis, hemorrhoids and chronic back pain 2/2 disc herniation who was brought in to the hospital by police for altered mental status. He is on multiple medications including oxycodone, baclofen, lexapro, gabapentin, sertraline and trazodone as an outpatient so there was concern from family that he overdosed or was altered secondary to alcohol intake. Poison control was contacted upon admission and recommended a one-time dose of cyproheptadine due to presentation of clonus which led to a high suspicious of possible serotonin syndrome.He is in day 4 for ICU admission. Impression and Plan Respiratory: Day 12 of intubation. ABG obtained shows improvemnet, with improvement in FIO2 (now on 25%). Pt could probably be extubated. Infection: Bronchiolitis currently on ceftriaxone and azithromycin isolate with MSSA and Enterobacter Cloacia to both susceptible to ceftriaxone. Sacral decubitus ulcer,stage IV. Continue dressing and repositioning. Cardiology: Stable with sinus rhythm no acute telemetry events. Concern for prolonged QT in the setting of possible Haldol PRN use. We will obtain periodic EKG with frequent also use and replenish electrolytes with a goal of potassium above 4 and magnesium above 2. Hematology: H&H currently stable. No acute bleeding noted. However creased white blood count is noted. Possibly could be worsening of respiratory infection, patient is currently on appropriate antibiotic coverage. Will continue to trend leukocytosis. Metabolic: Stable with no noted acute metabolic derangement. Alimentary: Continue with TPN which is at goal rate of 70ml/hr. will trend triglyceride levels as needed. Neurological: Awoken by verbal stimuli with intermittent episodes of aagitation. No overnight episode of seizures noted, will continue Keppra. Will taper fentanyl drip and start fentanyl patch. Ativan 1-2 mg prn. Due to initial assessment of possible serotonin syndrome will keep off any second-generation ANTIpsychotic. Haldol 1 mg q4-6h prn. Will minimize agitation triggers such as uncontrolled pain. Problem List: 1. Endotracheally intubated 2. Acute hypoxemic respiratory failure 3. Sacral decubitus ulcer, stage IV 4. Drug overdose 5. Encephalopathy Pain Ratin Tomorrow's Labs & Rationales: ICU BUNDLE ABG Plan DVT/Prophylaxis: mechanical, pharmacological Code Status: Full Code
--- NOTE | 2016-11-16 08:22 | NUR ---
PATIENT ON WEAN TRIAL AT THIS TIME
--- NOTE | 2016-11-16 09:52 | PN- CRCU ---
Subjective HPI/Critical Care Issues: ON psv trial still agitated Follows commands DId have a bowel movement yesterday Objective Current Medications: Current Medications Sig/Anaya Start time Last Medication Dose Route Stop Time Status Admin Ceftriaxone Sodium 1,000 MG DAILY 11/13 1000 AC 11/16 IV 0848 Chlordiazepoxide HCl 100 MG TID 11/09 1600 AC 11/16 PO 0853 Enoxaparin Sodium 40 MG DAILY 11/06 1816 AC 11/16 SC 0852 Fentanyl Citrate 1,000 MCG Q13H 11/13 1700 AC 11/16 Dextrose/Water 250 ML IV 0811 Folic Acid 1 MG DAILY 11/10 1000 AC 11/16 PO 0853 Haloperidol 1 MG Q4-6 PRN PRN 11/11 1930 AC 11/16 IM 0616 Levetiracetam 500 MG BID 11/07 2200 AC 11/16 NG 0852 Lorazepam 50 MG Q24H 11/12 1430 AC 11/15 Dextrose/Water 500 ML IV 0449 Lorazepam 2 MG Q4P PRN 11/09 0215 DC 11/14 IV 0145 Magnesium Oxide 400 MG BID 11/12 1000 AC 11/16 PO 0852 Methylprednisolone 60 MG DAILY 11/11 1037 AC 11/16 IV 0848 Morphine Sulfate 2 MG Q6P PRN 11/07 1145 AC 11/13 IV 2350 Multivitamins 5 ML DAILY 11/10 1000 AC 11/16 PO 0852 Pantoprazole Sodium 40 MG DAILY 11/07 1000 AC 11/16 IV 0848 Polyethylene Glycol 17 GM DAILY 11/09 1548 AC 11/16 PO 0852 Senna 187 MG AT BEDTIME 11/13 2200 AC 11/14 PO 2134 Thiamine HCl 100 MG DAILY 11/10 1000 AC 11/16 PO 0853 Vital Signs & I&O Last 24 Hrs of Vitals and I&O: Vital Signs Date Time Temp Pulse Resp B/P B/P Pulse O2 O2 Flow FiO2 Mean Ox Delivery Rate 11/16 0814 25 11/16 0600 97.9 74 28 124/70 11/16 0547 25 11/16 0402 25 11/16 0400 97.9 58 12 110/64 11/16 0400 98 Ventilator 25% 11/16 0200 97.6 58 12 104/68 06/12 0105 25 11/16 0000 97.6 68 12 104/68 12 0000 97.6 68 12 104/68 98 Ventilator 25% 11/16 0000 98 Ventilator 25% 11/15 2200 97.6 62 12 95/62 11/15 2152 25 11/16 1999 97.6 62 12 114/74 11/16 1999 98 Ventilator 25% 11/15 1921 25 11/15 1634 25 11/15 1600 95 Ventilator 25% 11/15 1600 98.1 73 16 110/65 95 Ventilator 25% 11/15 1437 25 11/15 1200 100 Ventilator 25% 11/15 1112 25 Intake & Output 11/16 1600 11/16 0800 11/16 0000 Intake Total 990 1031 Output Total 500 600 Balance 490 431 Intake, IV 224 151 Intake, Other 100 Intake, Tube 546 560 Feeding Intake, Tube 220 220 Irrigant Number 1 Bowel Movements Output, Urine 500 600 Impression/Plan Impression/Plan Impression/Plan: Physical Exam General Appearance Intubated and sedated Skin warm, ulcer in the buttock left knee, multiple bruise jacobson over both knees Skin Temp/Moisture Exam: Warm/Dry Sepsis Skin Exam (color): Normal for Ethnicity HEENT Atraumatic, PERRLA, EOMI, dried blood seen in the oral cavity Neck Supple, No JVD Cardiovascular Normal S1, Normal S2, tachycardia Lungs diminished breath sounds bilaterally Abdomen Normal Bowel Sounds, Soft Neurological exaqm difficult. Clonus not sig today Extremities No Clubbing, No Cyanosis, No Edema, Normal Pulses Vascular Normal Pulses, Pulses Symmetrical CT scan of the head was unremarkable CT of the abdomen and pelvis showed groundglass opacity bilateral significant small vessel disease with severe atherosclerosis of the aorta CTA showed significant bronchiolitis-like picture with small vessel disease with no bronchiectasis IMPRESSION This is an unfortunate 56-year-old gentleman with severe alcohol dependency with multiple admissions, history of seizure, polysubstance abuse, significant sacral decubiti, hypertension, hyperlipidemia, previous gastritis and hemorrhoids, chronic back pain, now comes in with * REsolving Acute delirium secondary to multiple issues which could include combination of and - probable drug overdose versus alcohol withdrawal versus serotonin syndrome. Clonus noted initially by houseofficers on exam upon admission which seems to have resolved * Severe Resp failure hypoxic due to decreased mentation, Sig bronchiolitis with prob aspiration pna now with enterobacter and staph pna * REsolved Hypothermia rule out sepsis but seems unlikely, now better * Significant alcoholism with previous withdrawal seizure with probable seizure- now on keppra * Rule out Wernicke's encephalopathy on thiamine * ALtered Thyroid tests * Bilateral small airway disease as noted in his recent CT scan highly suggestive of bronchiolitis patient may be having significant GERD or rule out polysub inhalation abuse or He may have had recent viral infection. No clinical evidence suggestive of vasculitis or significant rheumatological disease so far, which needs to be investigated once stable * Depression, mood disorder, chronic pain, polypharmacy * Significant sacral decubiti for months followed by wound clinic * BOrderline qtc prolongation being monitored upon admission REC * Continue mechanical ventilator, Extubate if ok on weaning * Haldol prn, fentanyl patch 25 mcg prn ativan and librium wean down slowly if ok with po post extubation * Continue Keppra, ppi * Ceftriaxone for ten days and dc * Watch for seizures * Reduce Solumedrol 40 mg daily and strict sugar control * DVT propylaxis, watch sugars Will follow closely Code Status: Full Code
--- NOTE | 2016-11-16 10:15 | NUR ---
PATIENT EXTUBATED AT THIS TIME. 1015 AM. PLACED ON 4L NC.
--- NOTE | 2016-11-16 11:44 | RADIOLOGY REPORT ---
EXAMINATION: XR PORTABLE CHEST CLINICAL INFORMATION: Possible SSRI overdose in an obtunded, intubated patient. COMPARISON: CXR from 11/15/2016 TECHNIQUE: Portable frontal view of the chest was obtained. FINDINGS: Endotracheal tube and nasogastric tube have been removed. Lungs are symmetrically expanded. There is persistent, asymmetric interstitial opacity in both lungs (involving left lung more so than right lung). Cardiac silhouette remains borderline enlarged. No pneumothorax, overt pleural effusion or other significant interval change. IMPRESSION: 1. Endotracheal and nasogastric tubes have been removed. 2. Peribronchial interstitial opacity in both lungs remains similar in appearance compared to 11/15/2016.
[2016-11-17] VITALS (8 sets, daily range): BP systolic 100–140; BP diastolic 62–80
[2016-11-17 04:38] LABS: ABSOLUTE BASOPHIL COUNT 0 /CUMM (0.0-0.2); ABSOLUTE EOSINOPHIL COUNT 0.1 /CUMM (0.0-0.7); ABSOLUTE GRANULOCYTE CT 8.1 /CUMM (1.4-6.5); ABSOLUTE LYMPH COUNT 1.6 /CUMM (1.2-3.4); BASOPHIL % 0.4 % (0.0-2.0); EOSINOPHIL % 0.5 % (0-5); MEAN CORPUSCULAR HGB 25.5 PG (27.0-31.0); MEAN CORPUSCULAR HGB CONC 31.4 G/DL (33.0-37.0); MEAN CORPUSCULAR VOLUME 81.2 FL (80.0-94.0); MEAN PLATELET VOLUME 10.7 FL (7.4-10.4); PLATELET COUNT 423 /CUMM (130-400); RED BLOOD CELL CT 4.56 /CUMM (4.70-6.10); WHITE BLOOD CELL COUNT 10.8 /CUMM (4.8-10.8)
--- NOTE | 2016-11-17 08:08 | PN- Resident CRCU ---
Subjective HPI/CRCU Issues: Unknown overdose Encephalopathy Respiratory distress requiring intubation Decubitus ulcers of the left buttock Respiratory infection 24 Hour Events: Second day of extubation, failed swallow eval yesterday. Still on 4 point restraints and Rj. He appears more alert awake and is able to conversate compared to yesterday. No acute overnight event reported by nursing staff or telemetry monitors. Objective Vital Signs & I&O Last 8 Hrs of Vitals and I&O: Intake & Output 11/17 1600 Intake Total Output Total Balance Patient 63.276 kg Weight Weight Bed scale Measurement Method Exam General Appearance: alert, awake Other Physical Findings: Head: atraumatic, normal appearance Ears, Nose, Throat: ET TUBE INTACT Respiratory: decreaed breath sounds RLL and LLL. Cardiovascular: regular rate/rhythm Gastrointestinal: normal bowel sounds, soft Extremities: Soft upper and lower extremity restaraints intact Weaning Parameters NIF: 15 Minute Volume: 9.13 Resp rate: 15 Vt: 350 Heart Rate: 62 Weaning Schedule Start Time: 0811 Minute Volume: 9.13 Resp Rate: 15 Vt: 350 Heart Rate: 62 End Time: 1000 Minute Volume: 8.05 Resp Rate: 10 Vt: 340 Heart Rate: 56 Current Medications: Current Medications Sig/Anaya Start time Last Medication Dose Route Stop Time Status Admin Chlordiazepoxide HCl 100 MG TID 11/09 1600 AC 11/16 PO 0853 Dextrose/Sodium 1,000 ML ONCE ONE 11/17 1315 AC 11/17 Chloride IV 11/18 0914 1341 Dextrose/Sodium 1,000 ML ONCE ONE 11/16 1500 DC 11/16 Chloride IV 11/17 1059 1451 Enoxaparin Sodium 40 MG DAILY 11/06 1816 AC 11/17 SC 1055 Fentanyl Citrate 25 MCG Q72H 11/16 0945 AC 11/16 TOP 0956 Folic Acid 1 MG DAILY 11/10 1000 AC 11/16 PO 0853 Haloperidol 1 MG Q4-6 PRN PRN 11/11 1930 AC 11/16 IM 0616 Levetiracetam 500 MG Q12 11/16 2200 AC 11/17 N/A 1 UNIT IV 1024 Levetiracetam 500 MG BID 11/07 2200 AC 11/16 NG 0852 Lorazepam 2 MG Q4 11/16 1400 AC 11/17 IV 1727 Magnesium Oxide 400 MG BID 11/12 1000 AC 11/16 PO 0852 Magnesium Sulfate 1 GM Q2H 11/17 0715 DC 11/17 Dextrose/Water 100 ML IV 11/17 1114 1107 Methylprednisolone 40 MG DAILY 11/16 1000 AC 11/17 IV 1052 Morphine Sulfate 2 MG Q6P PRN 11/07 1145 AC 11/13 IV 2350 Multivitamins 5 ML DAILY 11/10 1000 AC 11/16 PO 0852 Pantoprazole Sodium 40 MG DAILY 11/07 1000 AC 11/17 IV 1054 Polyethylene Glycol 17 GM DAILY 11/09 1548 AC 11/16 PO 0852 Potassium Chloride 10 MEQ Q1H 11/17 0715 DC 11/17 IV 11/17 0916 1159 Senna 187 MG AT BEDTIME 11/13 2200 AC 11/14 PO 2134 Thiamine HCl 100 MG DAILY 11/10 1000 AC 11/16 PO 0853 Impression/Plan Impression/Problem List Impression: Mr. Macias is a 56 year old male with H alcohol dependance, seizures, polysubstance abuse, stage 4 ulcer of the coccyx, HTN, HLD, gastritis, hemorrhoids and chronic back pain 2/2 disc herniation who was brought in to the hospital by police for altered mental status. He is on multiple medications including oxycodone, baclofen, lexapro, gabapentin, sertraline and trazodone as an outpatient so there was concern from family that he overdosed or was altered secondary to alcohol intake. Poison control was contacted upon admission and recommended a one-time dose of cyproheptadine due to presentation of clonus which led to a high suspicious of possible serotonin syndrome.He is in day 4 for ICU admission. Impression and Plan Respiratory: Day 2 of extubation,sating well at RA. Infection: Bronchiolitis currently on ceftriaxone and azithromycin isolate with MSSA and Enterobacter Cloacia to both susceptible to ceftriaxone. Sacral decubitus ulcer,stage IV. Continue dressing and repositioning. Cardiology: Stable with sinus rhythm no acute telemetry events. Concern for prolonged QT in the setting of possible Haldol PRN use. We will obtain periodic EKG with frequent also use and replenish electrolytes with a goal of potassium above 4 and magnesium above 2. Hematology: H&H currently stable. No acute bleeding noted. However creased white blood count is noted. Possibly could be worsening of respiratory infection, patient is currently on appropriate antibiotic coverage. Will continue to trend leukocytosis. Metabolic: Stable with no noted acute metabolic derangement. Alimentary: Orogastric tube was removed during extubation. Patient initially felt swallow eval yesterday. we'll try again today Neurological: Awake and alert compared to previous days able to carry out a conversation. Currently on Ativan 2 mg every for us is not able to take oral chlordiazepoxide. Still requiring 4 point restraints imposed for now.Due to initial assessment of possible serotonin syndrome will keep off any second- generation ANTIpsychotic. Haldol 1 mg q4-6h prn. Will minimize agitation triggers such as uncontrolled pain. Problem List: 1. Acute hypoxemic respiratory failure 2. Polysubstance abuse Pain Ratin Tomorrow's Labs & Rationales: ICU BUNDLE Plan DVT/Prophylaxis: mechanical, pharmacological Code Status: Full Code
--- NOTE | 2016-11-17 09:16 | PN- Pulmonary ---
Subjective HPI/Critical Care Issues: Doing well On room air following commands Still restrained Objective Current Medications: Current Medications Sig/Anaya Start time Last Medication Dose Route Stop Time Status Admin Ceftriaxone Sodium 1,000 MG DAILY 11/13 1000 DC 11/16 IV 0848 Chlordiazepoxide HCl 100 MG TID 11/09 1600 AC 11/16 PO 0853 Dextrose/Sodium 1,000 ML ONCE ONE 11/16 1500 AC 11/16 Chloride IV 11/17 1059 1451 Enoxaparin Sodium 40 MG DAILY 11/06 1816 AC 11/16 SC 0852 Fentanyl Citrate 25 MCG Q72H 11/16 0945 AC 11/16 TOP 0956 Fentanyl Citrate 1,000 MCG Q13H 11/13 1700 DC 11/16 Dextrose/Water 250 ML IV 0811 Folic Acid 1 MG DAILY 11/10 1000 AC 11/16 PO 0853 Furosemide 20 MG ONCE ONE 11/16 1000 DC 11/16 IV 11/16 1001 0956 Haloperidol 2 MG ONCE ONE 11/16 0945 DC 11/16 IM 11/16 0946 0956 Haloperidol 1 MG Q4-6 PRN PRN 11/11 1930 AC 11/16 IM 0616 Levetiracetam 500 MG Q12 11/16 2200 AC 11/16 N/A 1 UNIT IV 2150 Levetiracetam 500 MG BID 11/07 2200 AC 11/16 NG 0852 Lorazepam 2 MG Q4 11/16 1400 AC 11/17 IV 0628 Lorazepam 50 MG Q24H 11/12 1430 DC 11/15 Dextrose/Water 500 ML IV 0449 Magnesium Oxide 400 MG BID 11/12 1000 AC 11/16 PO 0852 Magnesium Sulfate 1 GM Q2H 11/17 0715 Dextrose/Water 100 ML IV 11/17 1114 Methylprednisolone 40 MG DAILY 11/16 1000 AC 11/16 IV 1124 Methylprednisolone 60 MG DAILY 11/11 1037 DC 11/16 IV 0848 Morphine Sulfate 2 MG Q6P PRN 11/07 1145 AC 11/13 IV 2350 Multivitamins 5 ML DAILY 11/10 1000 AC 11/16 PO 0852 Pantoprazole Sodium 40 MG DAILY 11/07 1000 AC 11/16 IV 0848 Polyethylene Glycol 17 GM DAILY 11/09 1548 AC 11/16 PO 0852 Potassium Chloride 10 MEQ Q1H 11/17 0715 AC 11/17 IV 11/17 0916 0843 Senna 187 MG AT BEDTIME 11/13 2200 AC 11/14 PO 2134 Thiamine HCl 100 MG DAILY 11/10 1000 AC 11/16 PO 0853 Vital Signs & I&O Last 24 Hrs of Vitals and I&O: Vital Signs Date Time Temp Pulse Resp B/P B/P Pulse O2 O2 Flow FiO2 Mean Ox Delivery Rate 11/17 06 97.6 70 15 120/77 11/17 0400 Room Air 11/17 0400 97.6 56 22 135/66 11/17 0200 98.7 68 22 123/73 11/17 0000 Room Air 11/17 0000 98.7 68 16 122/68 11/17 0000 98.7 68 16 122/68 99 Room Air 11/16 2200 97.6 64 16 110/73 11/16 2000 Room Air 11/16 2000 97.6 68 16 124/74 11/16 1800 84 20 107/75 11/16 1600 Room Air 11/16 1600 97.8 82 20 118/64 11/16 1600 97.5 82 20 118/64 95 Room Air 11/16 1400 76 20 119/79 11/16 1200 98.1 72 20 114/62 11/16 1200 96 Nasal 2.0L Cannula 11/16 1000 58 20 102/67 Intake & Output 11/17 1600 11/17 0800 11/17 0000 Intake Total 375 380 Output Total 650 700 Balance -275 -320 Intake, IV 375 380 Number 1 Bowel Movements Output, Urine 650 700 Impression/Plan Impression/Plan Impression/Plan: Physical Exam General Appearance alert and oriented Skin warm, ulcer in the buttock left knee, multiple bruise jacobson over both knees Skin Temp/Moisture Exam: Warm/Dry Sepsis Skin Exam (color): Normal for Ethnicity HEENT Atraumatic, PERRLA, EOMI, dried blood seen in the oral cavity Neck Supple, No JVD Cardiovascular Normal S1, Normal S2, tachycardia Lungs diminished breath sounds bilaterally Abdomen Normal Bowel Sounds, Soft Neurological exaqm difficult. Clonus not sig today Extremities No Clubbing, No Cyanosis, No Edema, Normal Pulses Vascular Normal Pulses, Pulses Symmetrical CT scan of the head was unremarkable CT of the abdomen and pelvis showed groundglass opacity bilateral significant small vessel disease with severe atherosclerosis of the aorta CTA showed significant bronchiolitis-like picture with small vessel disease with no bronchiectasis Echo showed mild IMPRESSION This is an unfortunate 56-year-old gentleman with severe alcohol dependency with multiple admissions, history of seizure, polysubstance abuse, significant sacral decubiti, hypertension, hyperlipidemia, previous gastritis and hemorrhoids, chronic back pain, now comes in with * REsolving Acute delirium secondary to multiple issues which could include combination of and - probable drug overdose versus alcohol withdrawal versus serotonin syndrome. Clonus noted initially by houseofficers on exam upon admission which seems to have resolved * Severe Resp failure hypoxic due to decreased mentation, Sig bronchiolitis with prob aspiration pna now with enterobacter and staph pna s/pintubation for a prolonged period now extubated * Resolved Hypothermia rule out sepsis but seems unlikely, now better * Significant alcoholism with previous withdrawal seizure with probable seizure- now on keppra * Rule out Wernicke's encephalopathy on thiamine * ALtered Thyroid tests * Bilateral small airway disease as noted in his recent CT scan highly suggestive of bronchiolitis patient may be having significant GERD or rule out polysub inhalation abuse or He may have had recent viral infection. No clinical evidence suggestive of vasculitis or significant rheumatological disease so far, which needs to be investigated once stable * Depression, mood disorder, chronic pain, polypharmacy * Significant sacral decubiti for months followed by wound clinic * BOrderline qtc prolongation being monitored upon admission * Aortic stenosi mild REC * Cont current care, steroid po or iv if npo 40 for 5 days 30 for five, 20 x 5, 10 x 5, 5 x5 and dc * Haldol prn, fentanyl patch 25 mcg prn ativan and librium wean down in the next 4 days * Continue Keppra, ppi * Dc abx * Watch for seizures * DVT propylaxis, watch sugars * Ok to the floor Will follow closely
--- NOTE | 2016-11-17 13:34 | NUR ---
Patient's Occupational therapy eval cancelled for today. Unable to arouse patient from sleep. Will resume tomorrow in AM.
--- NOTE | 2016-11-17 23:44 | NUR ---
LATE ENTRY: PT ARRIVED TO FLOOR AT 1345 IN A TREVON AND BILAT WRIST RESTRAINTS. PT CALM AND COOPERATIVE BUT OCCASSIONALLY ATTEMPTING TO GET OUT OF BED. VSS. PT IN NO ACUTE DISTRESS. PT ALERT TO PLACE BUT NOT PERSON OR TIME. NO EVENTS THROUGHOUT SHIFT.
[2016-11-18] VITALS: BP 120/80
[2016-11-18 06:00] VITALS: BP 128/80
[2016-11-18 06:30] VITALS: BP 128/80
--- NOTE | 2016-11-18 10:02 | Transfer of Care Summary ---
Hospital Course Course Hospital Course: 56 year old gentleman with a PMH significant for multiple admissions for alcohol dependence and seizure, polysubstance abuse, Stage 4 ulcer on the coccyx, HTN, HLD, gastritis, hemorrhoids, and chronic back pain 2/2 disc herniation was brought in to the hospital by police for altered mental status. Most of the history was obtained from patient's brother and sister. Patient's brother states that this morning he went his house and found him walking naked. On questioning, patient was found to be noncohesive, confused, agitated, staring blankly and just answering in single words. Pt was admitted to ICU with the following issues addressed: Assessment/Plan: Respiratory: #Acute hypoxemic respiratory failure: Secondary to AMS. Requiring intubation for 11 days, extubated on 11/16/ #Suspected bronchiolitis: CT scan with groundglass opacities in bilateral lungs consistent with small airways disease. Potential etiologies are aspiration pneumonia/pneumonitis, inhalation injury in the setting of polysubstance abuse or recent viral infection. No symptoms concerning for vasculitis or other rheumatologic disease. * Completed axithromycin and 10 day ceftriaxone (grew staph aureus and eneterobacteriace colae) * Consider further workup as outpatient. Cardiovascular: Hemodynamically stable. No issues. Alimentary: #Tube feeds: Was on tube feeds with orogastric tube that was removed wtih extubation. Failed swallo eval on 11/17. We try again on 11/18. If passes, please restart oral meds including Librium (stop scheduled Ativan) Neurological: #AMS: One time cyproheptadine dose for suspected serotonin syndrome as patient was on multiple serotonergic agents including Lexapro, trazodone and sertraline and in the presence of leukocytosis and clonus on admission which was suggestive with this diagnosis. Clonus resolved next day. resolved. Other potential contributory etiologies include drug overdose and alcohol withdrawal in view of history of polysubstance abuse. Of note, patient has a history of suspected Wernicke's encephalopathy. CT Head W/O IV Contrast with no acute intracranial pathology. EEG results showed Abnormal findings due to moderate to severe generalized slowing with FIRDA consistent with a toxic or metabolic encephalopathy. No epileptiform abnormalities seen. Mental status remained poor initially with continous agitation requiring Ativan drip and Haldol 1 mg q4-6 prn, , was still on soft restraints when transferred to [facility]. * psychiatry following. Appreciat their recs. * Please obtain periodic EKG to assess QT if Haldol is needed. * If patient passes swallow eval, please dc the scheduled IV Ativan and restart Librium, also swict Keppra to oral formulattion. * Avoid serotonergic agents. * No atypical antipsychotics due to suspicious of serotonin syndrome * ON fentanyl 25 mcg, please taper appropriately Skin: #Stage IV decubitus ulcer of the coccyx and sacrum: Present on admission. [facility]. * Management per wound care. * Packed with Xeroform, sealed with Telfa and covered with Tegaderm per Wound Care. * Ativan drip weaned from 10 mg/hr yesterday to 1 mg/hr today. Continue to wean off Ativan drip. * Chlordiazepoxide 25 mg PO Q8H started. Uptitrate as needed. * Repeat CT Head W/O IV Contrast in view of bilateral Babinski on exam. * Discontinue cyproheptadine given resolution of clonus. Poison Control made aware. * Treat for suspected alcohol withdrawal and Wernicke's encephalopathy per psych recs. * Continue banana bag with thiamine. * Avoid serotonergic agents. * Check EEG. * Continue Keppra 500 mg BID. Switch from IV route to through the OG tube. * Morphine 2 mg IV Q6H PRN for agitation. Skin: #Stage IV decubitus ulcer of the coccyx and sacrum: Present on admission. Has been following [facility] for several months. * Management per wound care. * Packed with Xeroform, sealed with Telfa and covered with Tegaderm per Wound Care.
--- NOTE | 2016-11-18 10:32 | NUR ---
PATIENT WAS GREETED AND ADVISED THAT MD ORDERED OCCUPATONAL THERAPY EVALUATION. PATIENT STATED THAT HE WAS NOT INTERESTED. PATIENT REFUSED.
--- NOTE | 2016-11-18 11:00 | PN- Housestaff ---
MASOOD VICENTE,SATHISH 11/18/16 1100: Subjective Follow-up For: Intoxication Hypoxic respiratory failure s/p extubation Failed swallow evaluation Subjective: I saw and examined the patient today morning He is lying in the bed, alert and oriented X 3 confused at times. Reports he is hungry. He is agitated and on 4 point restraints with [place]well initially, discontinued lower restraints on later part of the day. Patient later failed swallow evaluation with all consistencies. NG tube was placed, started on tube feeds. Had a telephone conversation with family, requested family meeting on Wednesday. His sister requested a call back tomorrow regarding time of family meeting. Review of Systems Constitutional: Reports: see HPI. Objective Last 24 Hrs of Vital Signs/I&O Vital Signs Date Time Temp Pulse Resp B/P B/P Pulse O2 O2 Flow FiO2 Mean Ox Delivery Rate 11/18 0630 98.1 63 18 128/80 93 Room Air 11/18 0600 98.1 63 18 128/80 11/18 0000 Room Air 11/18 0000 97.7 84 20 120/80 11/17 2143 97.7 84 19 120/80 96 11/17 1543 97.1 63 19 100/62 91 Room Air Intake & Output 11/18 1600 11/18 0800 11/18 0000 Intake Total 400 400 Output Total 400 900 Balance 0 -500 Intake, IV 400 400 Intake, Oral 0 Number 0 Bowel Movements Output, Urine 400 900 Physical Exam General Appearance: Alert, Cooperative, oriented but confused at times. Skin: No Rashes, No Breakdown HEENT: Atraumatic, PERRLA, EOMI Neck: Supple Cardiovascular: Normal S1, Normal S2 Lungs: Clear to Auscultation, Normal Air Movement Abdomen: Normal Bowel Sounds, Soft, No Tenderness Neurological: Normal Tone, Sensation Intact, Cranial Nerves 3-12 NL Extremities: No Clubbing, No Cyanosis Current Medications: Current Medications Sig/Anaya Start time Last Medication Dose Route Stop Time Status Admin Chlordiazepoxide HCl 75 MG TID 11/18 1000 AC PO Chlordiazepoxide HCl 100 MG TID 11/09 1600 DC 11/16 PO 0853 Dextrose/Sodium 1,000 ML ONCE ONE 11/17 1315 DC 11/17 Chloride IV 11/18 0914 1341 Enoxaparin Sodium 40 MG DAILY 11/06 1816 AC 11/18 SC 1035 Fentanyl Citrate 25 MCG Q72H 11/16 0945 AC 11/16 TOP 0956 Folic Acid 1 MG DAILY 11/10 1000 AC 11/16 PO 0853 Haloperidol 1 MG Q4-6 PRN PRN 11/11 1930 AC 11/16 IM 0616 Levetiracetam 500 MG Q12 11/16 2200 DC 11/18 N/A 1 UNIT IV 1035 Levetiracetam 500 MG BID 11/07 2200 AC 11/16 NG 0852 Lorazepam 1 MG Q1 PRN 11/18 1345 AC 11/18 IV 1339 Lorazepam 2 MG Q6 11/18 1200 AC 11/18 IV 1123 Lorazepam 2 MG Q4 11/16 1400 DC 11/18 IV 0534 Magnesium Oxide 400 MG BID 11/12 1000 AC 11/16 PO 0852 Methylprednisolone 40 MG DAILY 11/16 1000 AC 11/18 IV 1035 Morphine Sulfate 2 MG Q6P PRN 11/07 1145 AC 11/18 IV 1036 Multivitamins 5 ML DAILY 11/10 1000 AC 11/16 PO 0852 Pantoprazole Sodium 40 MG DAILY 11/07 1000 AC 11/18 IV 1034 Polyethylene Glycol 17 GM DAILY 11/09 1548 AC 11/16 PO 0852 Senna 187 MG AT BEDTIME 11/13 2200 AC 11/14 PO 2134 Thiamine HCl 100 MG DAILY 11/10 1000 AC 11/16 PO 0853 Assessment/Plan Assessment: Patient is a 56-year-old male with past medical history significant for alcohol abuse, alcohol-related seizures (not an upright home), medication overuse, polysubstance abuse, stage IV sacral decubitus ulcer, hypertension, hyperlipidemia, chronic back pain brought by police after found to be intoxicated. On examination he is found to have clonus. Initial differentials are alcohol withdrawal versus serotonin syndrome versus medication overdose. Patient was admitted to critical care after intubating for airway protection in the setting of acute delirium. Admission vitals were significant for tachycardia/tachycardia with leukocytosis concerning for sepsis however workup including blood cultures, CT abdomen and pelvis has been negative. Started on CIWA protocol. CT scan chest demonstrated groundglass opacities in bilateral lungs consistent with bronchiolitis probably from aspiration pneumonia - his respiratory Cultures grew staph aureus, yeast, Enterobacter. He received a five-day course of azithromycin and ceftriaxone. Also started on IV methylprednisone 60 mg (11/11/2016 2 11/16/2016), tapered to 40 mg (11/16/16). As patient is very agitated started on IV Ativan drip which was now tapered to Librium 75 TID and Ativan IV. Seizure prophylaxis with IV Keppra for her to oral Keppra as patient had history of alcohol related seizures. Nutritional support provided with orogastric tube feeds. Patient was extubated on 11/16/2016 and transferred to general medicine floor on 11/17/2016. He failed swallow evaluation after extubation. EEG on 11/09/2016 - demonstrated Abnormal findings due to moderate to severe generalized slowing with FIRDA consistent with a toxic or metabolic encephalopathy. No epileptiform abnormalities seen. Plan Acute hypoxic respiratory failure secondary to acute delirium from overdose * Patient is currently on room air * Continue IV methylprednisone 40 mg 3/5 days, followed by 30 X 5 days, 20 X 5 days, 10 X 5 days * Antibiotic course completed * Currently on fentanyl 25 g patch which need to be tapered slowly * Patient is on bilateral upper extremity restraints and Cantwell * Appreciate pulmonary recommendations Alcohol withdrawal * Continue CIWA protocol with scheduled and as necessary IV Ativan (scores 10-15 ) * Librium taper cannot be provided as patient is nothing by mouth * Follow-up psychiatric recommendations * Continue Keppra for seizure prophylaxis, monitor for seizures, not on levetiracetam (Keppra) at home * Avoiding serotonergic agents and atypical antipsychotics * Folic acid/Thiamine/multivitamin * Haloperidol 1 mg every 6 IM when necessary for agitation * Please repeat EKG periodically and check for QTc Stage IV left buttock deubitus ulcer * Present on admission, follows [facility] * Dressing with Xeroform, sealed with Tefla, with tegaderm per wound care Diet * Patient failed swallow evaluation today for all consistencies * Repeat swallow evaluation * NG tube was placed, chest x-ray visualized it at distal esophagus requiring advancement. * We will repeat x-ray after advancing * Once in place tube feeds were ordered * Nothing by mouth Pain management * Currently on fentanyl patch and morphine 2 mg IV every 6 when necessary Bowel regimen * MiraLAX and senna daily DVT prophylaxis * Subcutaneous Lovenox CODE STATUS * full code Family meeting regarding goals of care on Wednesday, sister requested a call back tomorrow to inform regarding approximate time. Family requests social media assistant, case management, medical team during family metting. Problem List: 1. Alcohol dependence 2. Decubitus ulcer of left buttock, stage 4 Pain Ratin Pain Location: n/a Pain Goal: Pain 4 or less Pain Plan: Morphine and tylenol Tomorrow's Labs & Rationales: weston VAZQUEZ MD,AMANDA 11/18/16 1144: Attending MD Review Statement Attending Statement Attending MD Statement: examined this patient, discuss w/resident/PA/COVERED BUTTON MAKER, agreed w/resident/PA/COVERED BUTTON MAKER, reviewed EMR data (avail), discussed with nursing, discussed with case mgmt, reviewed images, amended to note Attending Assessment/Plan: Patient seen and examined, remains in restraints. He is still somewhat confused. Patient was transferred out of ICU yesterday. Vital Signs Date Time Temp Pulse Resp B/P B/P Pulse O2 O2 Flow FiO2 Mean Ox Delivery Rate 11/18 0630 98.1 63 18 128/80 93 Room Air 11/18 0600 98.1 63 18 128/80 11/18 0000 Room Air 11/18 0000 97.7 84 20 120/80 11/17 2143 97.7 84 19 120/80 96 11/17 1543 97.1 63 19 100/62 91 Room Air on exam ; awake, nad. cv; s1,s2, rrr resp; clear abd; soft, nt, bs+ ext; no edema. no labs today. A/P: 56 y/o M with pmh sig for multiple admissions for alcohol dependence and seizure, polysubstance abuse, Stage 4 ulcer on the coccyx, HTN, HLD, gastritis, hemorrhoids, and chronic back pain 2/2 disc herniation admitted with acute hypoxic and spray failure, staph aureus pneumonia, suspected bronchiolitis on CT scanning, altered mental status with the possibility of serotonin syndrome, polysubstance and alcohol use. Patient was initially intubated and finally extubated. Transferred to medicine floor. Remains on very heavy doses of Librium as well as Ativan. Patient on Keppra with reported history of seizure. Please clarify indication for Keppra. Patient with a swallow eval today to see if he can swallow. He remains a multivitamin, folate and thiamine. He remains in restraints, will try to disuse restraints one by one. We'll try to taper both Librium and Ativan. DVT px; Lovenox. Pt will require aggressive PT.
--- NOTE | 2016-11-18 11:41 | NUR ---
wound care: pt seen for f/u from icu transfer - known to this racebook writer as longstanding wound center treatment for pressure ulcer to coccyx - s/p failed flap with dr mccoy - coccyx persists with a stage 4 pressure injury 1.6 x 0.9 x 0.4 cm with circumferential undermining 0.4 cm - overlay of slough with palpable periosteum noted - periwound unremarkable - scant serous drng - pt currently on size stoner mattress recommednation: cleanse with ns fb aquacel ag and dpd daily - please use clinitron mattress, as pt has had recent flap sx and deterioiration of overall medical and mental status places him at high risk - dieteary to evaluate if protein requirements adequate - sidelying position wib
--- NOTE | 2016-11-18 11:45 | NUR ---
PT SHOWED INCREASE IN ORIENTATION AND DECREASE IN AGITATION, BILATERAL LOWER SOFT RESTRAINTS REMOVED, DR. CHANDRA AWARE. REPORT GIVEN IN TO ONCOMING RN.
--- NOTE | 2016-11-18 12:50 | PN- Pulmonary ---
Subjective HPI/Critical Care Issues: Till agitated fatigued Objective Current Medications: Current Medications Sig/Anaya Start time Last Medication Dose Route Stop Time Status Admin Chlordiazepoxide HCl 75 MG TID 11/18 1000 AC PO Chlordiazepoxide HCl 100 MG TID 11/09 1600 DC 11/16 PO 0853 Dextrose/Sodium 1,000 ML ONCE ONE 11/17 1315 DC 11/17 Chloride IV 11/18 0914 1341 Enoxaparin Sodium 40 MG DAILY 11/06 1816 AC 11/18 SC 1035 Fentanyl Citrate 25 MCG Q72H 11/16 0945 AC 11/16 TOP 0956 Folic Acid 1 MG DAILY 11/10 1000 AC 11/16 PO 0853 Haloperidol 1 MG Q4-6 PRN PRN 11/11 1930 AC 11/16 IM 0616 Levetiracetam 500 MG Q12 11/16 2200 DC 11/18 N/A 1 UNIT IV 1035 Levetiracetam 500 MG BID 11/07 2200 AC 11/16 NG 0852 Lorazepam 2 MG Q6 11/18 1200 AC 11/18 IV 1123 Lorazepam 2 MG Q4 11/16 1400 DC 11/18 IV 0534 Magnesium Oxide 400 MG BID 11/12 1000 AC 11/16 PO 0852 Methylprednisolone 40 MG DAILY 11/16 1000 AC 11/18 IV 1035 Morphine Sulfate 2 MG Q6P PRN 11/07 1145 AC 11/18 IV 1036 Multivitamins 5 ML DAILY 11/10 1000 AC 11/16 PO 0852 Pantoprazole Sodium 40 MG DAILY 11/07 1000 AC 11/18 IV 1034 Polyethylene Glycol 17 GM DAILY 11/09 1548 AC 11/16 PO 0852 Senna 187 MG AT BEDTIME 11/13 2200 AC 11/14 PO 2134 Thiamine HCl 100 MG DAILY 11/10 1000 AC 11/16 PO 0853 Vital Signs & I&O Last 24 Hrs of Vitals and I&O: Vital Signs Date Time Temp Pulse Resp B/P B/P Pulse O2 O2 Flow FiO2 Mean Ox Delivery Rate 11/18 0530 98.1 63 18 128/80 93 Room Air 11/18 0600 98.1 63 18 128/80 11/18 0000 Room Air 11/18 0000 97.7 84 20 120/80 11/173 97.7 84 19 120/80 96 11/17 1543 97.1 63 19 100/62 91 Room Air Intake & Output 11/18 1600 11/18 0800 11/18 0000 Intake Total 400 400 Output Total 400 900 Balance 0 -500 Intake, IV 400 400 Intake, Oral 0 Number 0 Bowel Movements Output, Urine 400 900 Impression/Plan Impression/Plan Impression/Plan: Physical Exam General Appearance alert and oriented Skin warm, ulcer in the buttock left knee, multiple bruise jacobson over both knees Skin Temp/Moisture Exam: Warm/Dry Sepsis Skin Exam (color): Normal for Ethnicity HEENT Atraumatic, PERRLA, EOMI, dried blood seen in the oral cavity Neck Supple, No JVD Cardiovascular Normal S1, Normal S2, tachycardia Lungs diminished breath sounds bilaterally Abdomen Normal Bowel Sounds, Soft Neurological exaqm difficult. Clonus not sig today Extremities No Clubbing, No Cyanosis, No Edema, Normal Pulses Vascular Normal Pulses, Pulses Symmetrical CT scan of the head was unremarkable CT of the abdomen and pelvis showed groundglass opacity bilateral significant small vessel disease with severe atherosclerosis of the aorta CTA showed significant bronchiolitis-like picture with small vessel disease with no bronchiectasis Echo showed mild IMPRESSION This is an unfortunate 56-year-old gentleman with severe alcohol dependency with multiple admissions, history of seizure, polysubstance abuse, significant sacral decubiti, hypertension, hyperlipidemia, previous gastritis and hemorrhoids, chronic back pain, now comes in with * REsolving Acute delirium secondary to multiple issues which could include combination of and - probable drug overdose versus alcohol withdrawal versus serotonin syndrome. Clonus noted initially by houseofficers on exam upon admission which seems to have resolved * Severe Resp failure hypoxic due to decreased mentation, Sig bronchiolitis with prob aspiration pna now with enterobacter and staph pna s/pintubation for a prolonged period now extubated * Resolved Hypothermia * Significant alcoholism with previous withdrawal seizure with probable seizure- now on keppra * ALtered Thyroid tests * Bilateral small airway disease as noted in his recent CT scan highly suggestive of bronchiolitis patient may be having significant GERD or rule out polysub inhalation abuse or He may have had recent viral infection. No clinical evidence suggestive of vasculitis or significant rheumatological disease so far, which needs to be investigated once stable * Depression, mood disorder, chronic pain, polypharmacy / Significant sacral decubiti for months followed by wound clinic * Aortic stenosi mild REC * Cont current care, steroid po or iv if npo 40 for 5 days 30 for five, 20 x 5, 10 x 5, 5 x5 and dc * Haldol prn, fentanyl patch 25 mcg prn ativan and librium wean down in the next 4 days * Continue Keppra, ppi * Dc abx * Watch for seizures * DVT propylaxis, watch sugars * Transferred to [facility] Will follow closely
[2016-11-18 13:44] VITALS: BP 130/80
--- NOTE | 2016-11-18 13:58 | NUR ---
SPEECH THERAPIST AT BEDSIDE FOR FOLLOW UP SWALLOW EVAL AT THIS TIME.
--- NOTE | 2016-11-18 14:12 | PN- Psychiatry ---
Assessment/Plan Impression: Identifying Info: 56-year-old male known to this service with a h/o ETOH use d/o , PSA, MDD, r/o Wernicke's and chronic pain BIBA to [place] ED on 11/06/16 with AMS. Admitted to critical care unit for treatment of delirium due to probable drug overdose versus alcohol withdrawal versus serotonin syndrome. Now downgraded to general medical floor. SUBJECTIVE Patient reports "Oh yea... I'm out of it." Denies that current overdose was a suicide attempt. "It was just alcohol and pot... I was drinking for 7 weeks." Endorses continued feelings of confusion at times. Reports that he would like to be on Prozac for mood and that "wellbutrin almost killed me," so he would not consider it. He would consider mirtazepine as a less serotinergic antidepressant option to replace trazodone. Verbalizes understanding that psychotropics will be held until delirium more clear. Brief ROS Gait: Unobserved Sleep: Poor Appetite: Poor OBJECTIVE Mental Status Exam Presentation/Appearance: Lying in bed. 2 point soft wrist restraints in place. Cooeprative with interview to the best of his ability Orientation: Person, place, month, states date is "," states year is "tr " Sensorium: Somnolent but easy to arouse Eye contact: Fair Affect: Blunted Mood: Depressed Depression: Endorses Anxiety: Endorses Thought Content: - Denies SI/HI, AH/VH, PI. States and also believes they will not kill themselves. - Denies Hopeless/Helpless Thoughts Thought Process: Moderate confusion but linear at times Associations: Appropriate Speech: Soft, minimal Judgment: Fair Insight: Fair Cognition: Memory: Deficits noted Attention/Concentration: Deficits noted Fund of Knowledge: Adequate Abstractions: Did not assess MMSE: Did not assess Per nursing report patient was agitation appears to be improving. He was able to be decreased from 4 to 2 point restraints. ASSESSMENT 56-year-old male with a history of chronic alcohol abuse as well as overuse of medications presents to [facility] emergency department with altered mental status. He denies intentional overdose or overuse of psychotropics. He is known to have considerable bereavement issues and has in the past been suspected of Wernicke's. Delirium appears to be clearing slowly. It would be prudent to hold home psych meds for now. Diagnosis Delirium due to multiple etiologies including ETOH withdrawl possible serotonin syndrome and possible Wernicke's encephalopathy, mixed level of activity, clearing Major depressive disorder, severe Alcohol use disorder, severe Cocaine use disorder Marijuana use disorder A total of 30 minutes was spent with the patient with more than 50% of the time spent in counseling and/or coordination of care. Suggestion: 1. Continue CIWA, vitamins, and benzodiazepine taper. Plpan 20% decrease in total amount daily. 2. Continue to hold home psychiatric medications until more clear. Will consult with outpatient prescriber r/t what medications he would like to restart. 3. Will plan to restart naltrexone by mouth while in hospital once more medically stable. 4. Continue Haldol as currently ordered for dangerous agitation. Thank you for including psychiatry in this case, we will continue to follow. Subjective Subjective: as above Objective Last 24 Hrs of Vital Signs/I&O Current Medications Sig/Anaya Start time Last Medication Dose Route Stop Time Status Admin Chlordiazepoxide HCl 75 MG TID 11/18 1000 AC PO Chlordiazepoxide HCl 100 MG TID 11/09 1600 DC 11/16 PO 0853 Dextrose/Sodium 1,000 ML ONCE ONE 11/17 1315 DC 11/17 Chloride IV 11/18 0914 1341 Enoxaparin Sodium 40 MG DAILY 11/06 1816 AC 11/18 SC 1035 Fentanyl Citrate 25 MCG Q72H 11/16 0945 11/16 TOP 0956 Folic Acid 1 MG DAILY 11/10 1000 AC 11/16 PO 0853 Haloperidol 1 MG Q4-6 PRN PRN 11/11 1930 AC 11/16 IM 0616 Levetiracetam 500 MG Q12 11/16 2200 DC 11/18 N/A 1 UNIT IV 1035 Levetiracetam 500 MG BID 11/07 2200 AC 11/16 NG 0852 Lorazepam 1 MG Q1 PRN 11/18 1345 AC 11/18 IV 1339 Lorazepam 2 MG Q6 11/18 1200 AC 11/18 IV 1123 Lorazepam 2 MG Q4 11/16 1400 DC 11/18 IV 0534 Magnesium Oxide 400 MG BID 11/12 1000 AC 11/16 PO 0852 Methylprednisolone 40 MG DAILY 11/16 1000 AC 11/18 IV 1035 Morphine Sulfate 2 MG Q6P PRN 11/07 1145 AC 11/18 IV 1036 Multivitamins 5 ML DAILY 11/10 1000 AC 11/16 PO 0852 Pantoprazole Sodium 40 MG DAILY 11/07 1000 AC 11/18 IV 1034 Polyethylene Glycol 17 GM DAILY 11/09 1548 AC 11/16 PO 0852 Senna 187 MG AT BEDTIME 11/13 2200 AC 11/14 PO 2134 Thiamine HCl 100 MG DAILY 11/10 1000 AC 11/16 PO 0853 Vital Signs Date Time Temp Pulse Resp B/P B/P Pulse O2 O2 Flow FiO2 Mean Ox Delivery Rate 11/18 1344 97.0 79 20 130/80 96 Room Air 11/18 0630 98.1 63 18 128/80 93 Room Air 11/18 0600 98.1 63 18 128/80 11/18 0000 Room Air 11/18 0000 97.7 84 20 120/80 11/17 2143 97.7 84 19 120/80 96 11/17 1543 97.1 63 19 100/62 91 Room Air Intake & Output 11/18 1600 11/18 0800 11/18 0000 Intake Total 400 400 Output Total 400 400 900 Balance -400 0 -500 Intake, IV 400 400 Intake, Oral 0 Number 0 Bowel Movements Output, Urine 400 400 900
--- NOTE | 2016-11-18 15:46 | Event Note ---
Event Note Event Note: Situation I had a telephone conversation with sister diana Kemp ([phone]) in regard to goals of care and whether patient has been on keppra in the past. Brief Patient was admitted with overdose, intubated in ICU for around 11 days. He was extubated and transfered to general medicine floor yesterday. He remains fairly alert and oriented x 3 but confused and cloudy at times. He usually stays with near his step son who is a drug addict and there is a high likelyhood of repetition of the situation. I spoke with his sister today. She stays in [place] -- wants to have a family meeting regarding goals of care. She reports patient takes a lot of medications, overdoses several times. He had 4-5 admissions this year so far for overdose. She is very concerned - not to restart all his medications, requests to reduce (if possible). She is also request web content & social media manager consult to help with his living situation, support or rehabilitation facilities. Patient was not on keppra previously - It was started during this admission to prevent seizures. Patient does have a history of alcohol related seizures in the past,but no history of epilepsy. Assessment and Plan Plan for a family meeting on wednesday - Diana(sister) requests a call back tomorrow for particular time. A multidisciplinary approach incluiding Medical team (attending, resident, exercise science internship), sheet metal worker supervisor, Case management in the family meeting would be ideal. (family requests) Update about pharmacy He follows [facility] pharmacy; phone - [phone]; ZIP Code [id number]
--- NOTE | 2016-11-18 15:54 | NUR ---
NGT ENTERED INTO PTS R NARE AT 55 CM. RADIOLOGY CALLED FOR PORTABLE CHEST XRAY.
--- NOTE | 2016-11-18 16:41 | RADIOLOGY REPORT ---
EXAMINATION: XR PORTABLE CHEST CLINICAL INFORMATION: Status post NG tube placement. Evaluate positioning. COMPARISON: Portable chest x-ray 11/16/2016. TECHNIQUE: Portable frontal view of the chest was obtained. FINDINGS: The lungs are well-expanded, without focal airspace consolidation. No pleural effusions or pneumothoraces are identified. Cardiomediastinal contours are stable. There has been interval placement of an enteric catheter which is visualized terminating at the gastroesophageal junction. Soft tissues are unremarkable. No acute osseous abnormality is identified. IMPRESSION: Interval placement of an enteric catheter, which is visualized terminating within the distal esophagus, at the gastroesophageal junction. Recommend 5-6 cm advancement.
--- NOTE | 2016-11-18 17:43 | NUR ---
NG TUBE ADVANCED TO 61 CM PER FIRST XRAY. XRAY AT BEDSIDE FOR 2ND CONFIRMATION OF PLACEMENT.
--- NOTE | 2016-11-18 18:28 | RADIOLOGY REPORT ---
EXAMINATION: XR PORTABLE CHEST CLINICAL INFORMATION: Evaluate NG tube position. COMPARISON: Chest x-ray 11/18/2016. TECHNIQUE: Portable frontal view of the chest was obtained. FINDINGS: Interval advancement of the nasogastric tube with the tip of the NG tube now visualized within the gastric fundus. However, the side-port of the NG tube is visualized at the gastroesophageal junction. Otherwise, stable appearance of the chest. Stable cardiomediastinal contours. Stable mildly prominent interstitial lung markings with mild peribronchial thickening. No focal airspace consolidation and no pleural effusions or pneumothoraces. IMPRESSION: Interval advancement of the nasogastric tube, with the tip of the NG tube now visualized within the gastric fundus. The side port of the NG tube lies at the gastroesophageal junction. Recommend an additional 3 cm advancement.
--- NOTE | 2016-11-18 18:42 | NUR ---
FURTHER ADVANCEMENT OF NGT TO 64 CM PER SECOND XRAY CONFIRMATION. ARTISTIC DIRECTOR PAGED FOR THIRD XRAY CONFIRMATION.
--- NOTE | 2016-11-18 19:52 | RADIOLOGY REPORT ---
EXAMINATION: XR PORTABLE CHEST CLINICAL INFORMATION: 3 cm advancement of the NG tube. COMPARISON: Portable chest x-ray 11/18/2016. TECHNIQUE: Portable frontal view of the chest was obtained. FINDINGS: Interval advancement of the nasogastric tube, which is now visualized appropriately within the stomach. The tip of the catheter is visualized within the gastric fundus. The side port of the NG tube also lies within the stomach. No significant interval changes in the appearance of the bilateral lungs. IMPRESSION: Interval advancement of the nasogastric tube, which is now appropriately positioned within the stomach.
[2016-11-18 22:00] VITALS: BP 126/80
--- NOTE | 2016-11-18 22:00 | NUR ---
PT PULLED OUT NGT SHORTLY AFTER LAST XRAY TO CONFIRM PLACEMENT. FATEMEH MUELLER MD NOTIFIED. PLAN TO REPLACE NGT ON DAYS AND START TUBE FEEDING.
[2016-11-18 22:57] VITALS: BP 126/80
[2016-11-19 02:00] VITALS: BP 120/80
[2016-11-19 06:00] VITALS: BP 120/80
--- NOTE | 2016-11-19 07:28 | PN- Housestaff ---
CAMPBELL FELIX 11/19/16 0727: Subjective Follow-up For: Drug overdose Hypothermia Decubitus ulcer Complaints: no complaints Tele-Events Since Last Visit: Subjective: The patient was alert and oriented 2 when he saw him this morning. He did not have any complaints. No chest pain, shortness of breath. During the day, he was more lethargic. NG tube was attempted to be placed, without any success. The patient pulled out the NG tube. And so the patient has not received any by mouth medications today. Converted medications to intravenous at this time. He was afebrile overnight. Blood pressure was stable. Review of Systems Constitutional: Reports: see HPI. Objective Last 24 Hrs of Vital Signs/I&O Vital Signs Date Time Temp Pulse Resp B/P B/P Pulse O2 O2 Flow FiO2 Mean Ox Delivery Rate 11/19 0600 97.7 91 20 120/80 94 Room Air 11/18 2257 97.4 71 20 126/80 93 Room Air 11/18 2200 97.4 71 20 126/80 11/18 1344 97.0 79 20 130/80 96 Room Air Intake & Output 11/19 0800 11/19 0000 11/18 1600 Intake Total 100 100 Output Total 200 900 400 Balance -100 -800 -400 Intake, IV 100 100 Output, Urine 200 900 400 Physical Exam General Appearance: No Acute Distress Other Physical Findings: General Exam: AAOx2, No acute distress, currently in restraints. Skin: No rashes, no breakdown HEENT: PERRLA, EOMI Neck: Supple, No JVD No cervical lymphadenopathy CVS: Reg Rate, Normal S1,S2, No MGR Resp: Normal air entry, no ronchi/rales Abdomen: Soft, No tenderness, Normal Bowel Sounds Neuro: Normal Speech, Strength 5/5 b/l x 4 extremities, Sensation intact, CN III -XII NL, Reflexes 2+ Extremities: No cyanosis, pedal edema Current Medications: Current Medications Sig/Anaya Start time Last Medication Dose Route Stop Time Status Admin Chlordiazepoxide HCl 75 MG TID 11/18 1000 AC PO Chlordiazepoxide HCl 100 MG TID 11/09 1600 DC 11/16 PO 0853 Dextrose/Sodium 1,000 ML ONCE ONE 11/17 1315 DC 11/17 Chloride IV 11/18 0914 1341 Enoxaparin Sodium 40 MG DAILY 11/06 1816 AC 11/18 SC 1035 Fentanyl Citrate 25 MCG Q72H 11/16 0945 AC 11/16 TOP 0956 Folic Acid 1 MG DAILY 11/10 1000 AC 11/16 PO 0853 Haloperidol 1 MG Q4-6 PRN PRN 11/11 1930 AC 11/19 IM 0041 Levetiracetam 500 MG ONCE ONE 11/18 2200 DC 11/18 N/A 1 UNIT IV 11/18 2214 2307 Levetiracetam 500 MG Q12 11/16 2200 DC 11/18 N/A 1 UNIT IV 1035 Levetiracetam 500 MG BID 11/07 2200 AC 11/16 NG 0852 Lorazepam 1 MG Q1 PRN 11/18 1345 AC 11/18 IV 1339 Lorazepam 2 MG Q6 11/18 1200 AC 11/19 IV 0505 Lorazepam 2 MG Q4 11/16 1400 DC 11/18 IV 0534 Magnesium Oxide 400 MG BID 11/12 1000 AC 11/16 PO 0852 Methylprednisolone 40 MG DAILY 11/16 1000 AC 11/18 IV 1035 Morphine Sulfate 2 MG Q6P PRN 11/07 1145 AC 11/18 IV 1724 Multivitamins 5 ML DAILY 11/10 1000 AC 11/16 PO 0852 Pantoprazole Sodium 40 MG DAILY 11/07 1000 AC 11/18 IV 1034 Polyethylene Glycol 17 GM DAILY 11/09 1548 AC 11/16 PO 0852 Senna 187 MG AT BEDTIME 11/13 2200 AC 11/14 PO 2134 Thiamine HCl 100 MG DAILY 11/10 1000 AC 11/16 PO 0853 Last 24 Hrs of Lab/Marcus Results Last 24 Hrs of Labs/Mics: Laboratory Tests 11/19/16 0700: Anion Gap 12, Estimated GFR > 60, BUN/Creatinine Ratio 26.7 H, Magnesium 1.9 Assessment/Plan Assessment: Patient is a 56-year-old male with past medical history significant for alcohol abuse, alcohol-related seizures (not an upright home), medication overuse, polysubstance abuse, stage IV sacral decubitus ulcer, hypertension, hyperlipidemia, chronic back pain brought by police after found to be intoxicated. On examination he is found to have clonus. Initial differentials are alcohol withdrawal versus serotonin syndrome versus medication overdose. Patient was admitted to critical care after intubating for airway protection in the setting of acute delirium. Admission vitals were significant for tachycardia/tachycardia with leukocytosis concerning for sepsis however workup including blood cultures, CT abdomen and pelvis has been negative. Started on CIWA protocol. CT scan chest demonstrated groundglass opacities in bilateral lungs consistent with bronchiolitis probably from aspiration pneumonia - his respiratory Cultures grew staph aureus, yeast, Enterobacter. He received a five-day course of azithromycin and ceftriaxone. Also started on IV methylprednisone 60 mg (11/11/2016 2 11/16/2016), tapered to 40 mg (11/16/16). As patient is very agitated started on IV Ativan drip which was now tapered to Librium 75 TID and Ativan IV. Seizure prophylaxis with IV Keppra for her to oral Keppra as patient had history of alcohol related seizures. Nutritional support provided with orogastric tube feeds. Patient was extubated on 11/16/2016 and transferred to general medicine floor on 11/17/2016. He failed swallow evaluation after extubation. EEG on 11/09/2016 - demonstrated Abnormal findings due to moderate to severe generalized slowing with FIRDA consistent with a toxic or metabolic encephalopathy. No epileptiform abnormalities seen. Plan Acute hypoxic respiratory failure secondary to acute delirium from overdose * Patient is currently on room air * Continue IV methylprednisone 40 mg 4/5 days, followed by 30 X 5 days, 20 X 5 days, 10 X 5 days * Completed the course of sntibiotics * Currently on fentanyl 25 g patch which need to be tapered slowly * Patient is on bilateral upper extremity restraints and [place] * Pulmonology advising. Alcohol withdrawal * Continue CIWA protocol with scheduled and as necessary IV Ativan (scores 10-15 ) * Librium taper cannot be done as patient is NPO * Follow-up psychiatric recommendations * Continue Keppra for seizure prophylaxis, monitor for seizures, not on levetiracetam (Keppra) at home. Need to confirm the dose of Keppra. IV Keppra if unable to give any by mouth medications for the time being. * Avoiding serotonergic agents and atypical antipsychotics * Folic acid/Thiamine/multivitamin * Haloperidol 1 mg every 6 IM when necessary for agitation. * Please repeat EKG periodically and check for QTc Stage IV left buttock deubitus ulcer * Present on admission, follows [facility] * Dressing with Xeroform, sealed with Tefla, with tegaderm per wound care Diet * Patient failed swallow evaluation. Possible barium swallow in the a.m. * Repeat swallow evaluation Pain management * Currently on fentanyl patch and morphine 2 mg IV every 6 when necessary Bowel regimen * MiraLAX and senna daily DVT prophylaxis * Subcutaneous Lovenox CODE STATUS * full code Possible family meeting in the a.m. Problem List: 1. Acute hypoxemic respiratory failure 2. Serotonin syndrome 3. Drug overdose 4. Encephalopathy 5. Alcohol withdrawal delirium Pain Ratin Pain Location: unable to assess Pain Goal: Pain 4 or less Pain Plan: Fentanyl Tomorrow's Labs & Rationales: No labs necessary. Patient stable. TAYLOR VICENTE,[facility] [place] 11/19/16 1207: Attending MD Review Statement Attending Statement Attending MD Statement: examined this patient, discuss w/resident/PA/KETTLE CLEANER, agreed w/resident/PA/KETTLE CLEANER, reviewed EMR data (avail), discussed with nursing, discussed with case mgmt, reviewed images, amended to note Attending Assessment/Plan: Patient seen and examined, remains confused. Remains in restraints. NG was inserted yesterday the patient pulled out. Vital Signs Date Time Temp Pulse Resp B/P B/P Pulse O2 O2 Flow FiO2 Mean Ox Delivery Rate 11/19 0600 97.7 91 20 120/80 94 Room Air 11/18 2257 97.4 71 20 126/80 93 Room Air 11/18 2200 97.4 71 20 126/80 11/18 1344 97.0 79 20 130/80 96 Room Air on exam; awake, confused, talking but not making any sense. cv; s1,s2, rrr resp; clear abd; soft, nt, bs+ ext; no edema. Laboratory Tests 11/19 0700 Chemistry Sodium (137 - 145 mmol/L) 140 Potassium (3.5 - 5.1 mmol/L) 4.5 Chloride (98 - 107 mmol/L) 105 Carbon Dioxide (22 - 30 mmol/L) 23 Anion Gap (5 - 16) 12 BUN (9 - 20 mg/dL) 16 Creatinine (0.7 - 1.2 mg/dL) 0.6 L Estimated GFR (>60 ml/min) > 60 BUN/Creatinine Ratio (7 - 25 %) 26.7 H Magnesium (1.6 - 2.3 mg/dL) 1.9 A/P; 56 y/o M with pmh sig for multiple admissions for alcohol dependence and seizure, polysubstance abuse, Stage 4 ulcer on the coccyx, HTN, HLD, gastritis, hemorrhoids, and chronic back pain 2/2 disc herniation admitted with acute hypoxic and spray failure, staph aureus pneumonia, suspected bronchiolitis on CT scanning, altered mental status with the possibility of serotonin syndrome, polysubstance and alcohol use. Patient was initially intubated and finally extubated. Transferred to medicine floor. Remains very confused. NG was inserted yesterday but patient pulled out. Cannot take any by mouth meds at this time until the NG will be inserted. At this point we will further decrease his Ativan to 2 mg every 8 hours. Please clarify about Keppra and find out why this patient is on Keppra. He is still in restraints and will need restraints to make sure that he does pull out his NGT. Continue multivitamin, folate and thiamine. Currently patient is not on any IV hydration. Till the patient gets started on NG feeds, please start the patient on gentle IV hydration. DVT px; Lovenox.
--- NOTE | 2016-11-19 11:30 | NUR ---
PT LETHARGIC AROUND 11AM. VSS. BS 106. MD FELIX PAGED TO ASSESS PATIENT.
--- NOTE | 2016-11-19 11:54 | NUR ---
NG TUBE PLACED BY SUPERVISOR DIE CASTING GEO. PATIENT TOLERATED PROCEDURE WELL. PT STILL ON BILAT SOFT RESTAINTS AND TREVON. PT MORE ALERT.
--- NOTE | 2016-11-19 12:53 | RADIOLOGY REPORT ---
EXAMINATION: XR PORTABLE ABDOMEN CLINICAL INFORMATION: NG tube placement TECHNIQUE: AP view of the abdomen. Imaging limited to the left upper abdomen FINDINGS: Enteric tube terminates at the level of the proximal body of the stomach. Visualized bowel gas is nonobstructive. The left lung base is clear. IMPRESSION: NG tube terminates at the level of the proximal body of the stomach.
--- NOTE | 2016-11-19 13:36 | PN- Pulmonary ---
Subjective HPI/Critical Care Issues: Still confused on room air Objective Current Medications: Current Medications Sig/Anaya Start time Last Medication Dose Route Stop Time Status Admin Chlordiazepoxide HCl 75 MG TID 11/18 1000 DC PO Enoxaparin Sodium 40 MG DAILY 11/06 1816 AC 11/18 SC 1035 Fentanyl Citrate 25 MCG Q72H 11/16 0945 AC 11/16 TOP 0956 Folic Acid 1 MG DAILY 11/10 1000 AC 11/16 PO 0853 Haloperidol 5 MG .STK-MED ONE 11/19 0037 DC IM 11/19 0038 Haloperidol 1 MG Q4-6 PRN PRN 11/11 1930 AC 11/19 IM 0041 Levetiracetam 500 MG DAILY 11/20 1000 CAN N/A 1 UNIT IV Levetiracetam 500 MG ONCE ONE 11/190 AC N/A 1 UNIT IV 11/19 2214 Levetiracetam 500 MG ONCE ONE 11/18 2200 DC 11/18 N/A 1 UNIT IV 11/18 2214 2307 Levetiracetam 500 MG BID 11/07 2200 AC 11/16 NG 0852 Lorazepam 2 MG Q8 11/19 1400 AC IV Lorazepam 1 MG Q1 PRN 11/18 1345 AC 11/18 IV 1339 Lorazepam 2 MG Q6 11/18 1200 DC 11/19 IV 0505 Magnesium Oxide 400 MG BID 11/12 1000 AC 11/16 PO 0852 Methylprednisolone 40 MG DAILY 11/16 1000 AC 11/18 IV 1035 Morphine Sulfate 2 MG Q6P PRN 11/07 1145 AC 11/18 IV 1724 Multivitamins 5 ML DAILY 11/10 1000 AC 11/16 PO 0852 Pantoprazole Sodium 40 MG DAILY 11/07 1000 AC 11/18 IV 1034 Polyethylene Glycol 17 GM DAILY 11/09 1548 AC 11/16 PO 0852 Senna 187 MG AT BEDTIME 11/13 2200 AC 11/14 PO 2134 Thiamine HCl 100 MG DAILY 11/10 1000 AC 11/16 PO 0853 Vital Signs & I&O Last 24 Hrs of Vitals and I&O: Vital Signs Date Time Temp Pulse Resp B/P B/P Pulse O2 O2 Flow FiO2 Mean Ox Delivery Rate 11/19 599 97.7 91 20 120/80 94 Room Air 11/18 2256 97.4 71 20 126/80 93 Room Air 06/14 2200 97.4 71 20 126/80 0614 1344 97.0 79 20 130/80 96 Room Air Intake & Output 11/19 1600 06/15 0800 0615 0000 Intake Total 100 100 Output Total 200 900 Balance -100 -800 Intake, IV 100 100 Output, Urine 200 900 Impression/Plan Impression/Plan Impression/Plan: Physical Exam General Appearance alert and oriented Skin warm, ulcer in the buttock left knee, multiple bruise jacobson over both knees Skin Temp/Moisture Exam: Warm/Dry Sepsis Skin Exam (color): Normal for Ethnicity HEENT Atraumatic, PERRLA, EOMI, dried blood seen in the oral cavity Neck Supple, No JVD Cardiovascular Normal S1, Normal S2, tachycardia Lungs diminished breath sounds bilaterally Abdomen Normal Bowel Sounds, Soft Neurological exaqm difficult. Clonus not sig today Extremities No Clubbing, No Cyanosis, No Edema, Normal Pulses Vascular Normal Pulses, Pulses Symmetrical CT scan of the head was unremarkable CT of the abdomen and pelvis showed groundglass opacity bilateral significant small vessel disease with severe atherosclerosis of the aorta CTA showed significant bronchiolitis-like picture with small vessel disease with no bronchiectasis Echo showed mild IMPRESSION This is an unfortunate 56-year-old gentleman with severe alcohol dependency with multiple admissions, history of seizure, polysubstance abuse, significant sacral decubiti, hypertension, hyperlipidemia, previous gastritis and hemorrhoids, chronic back pain, now comes in with * REsolving Acute delirium secondary to multiple issues which could include combination of and - probable drug overdose versus alcohol withdrawal versus serotonin syndrome. Clonus noted initially by houseofficers on exam upon admission which seems to have resolved * Resp;amadou Severe Resp failure hypoxic due to decreased mentation, Sig bronchiolitis with prob aspiration pna now with enterobacter and staph pna s/p intubation for a prolonged period now extubated * Significant alcoholism with previous withdrawal seizure with probable seizure- now on keppra * Bilateral small airway disease as noted in his recent CT scan highly suggestive of bronchiolitis patient may be having significant GERD or rule out polysub inhalation abuse or He may have had recent viral infection. No clinical evidence suggestive of vasculitis or significant rheumatological disease so far, which needs to be investigated once stable * Depression, mood disorder, chronic pain, polypharmacy / Significant sacral decubiti for months followed by wound clinic * Aortic stenosi mild REC * Steroid po or iv if npo 40 for 5 days 30 for five, 20 x 5, 10 x 5, 5 x5 and dc Will sign off and call if needed Will follow closely
[2016-11-19 13:55] VITALS: BP 140/90
--- NOTE | 2016-11-19 15:12 | NUR ---
REferral received this am via electronic recorder of deeds. This patient is a 56 year old man, admitted to the hospital on 11/06/16 with kirstin Garcia. Patient known to me from previous admissions for similar issues. Reason for referral was "Placement, support after discharge". Case was discused yesterday at [facility]'s; PT has evaluated patient and are recommending , at the least, STR. Patient currently in need of supervision with ambulation;. Will follow. Please note patient will need to be fully and functionally independent in order to participate in a substance abuse rehab program.
--- NOTE | 2016-11-19 16:21 | NUR ---
LATE ENTRY: PT PULLED OUT NG TUBE APPROX. ONE HOUR AFTER PLACEMENT DESPITE BEING ON BILAT SOFT RESTRAINTS ON TREVON. NO ACUTE EVENTS THROUGOUT SHIFT. PT MORE AGITATED TOWARDS END OF SHIFT. VSS.
--- NOTE | 2016-11-19 17:13 | NUR ---
SLAUGHTERER RELIGIOUS RITUAL MARCUS PAGED TO CHANGE ORDERS FROM TUBE FEED TO NPO DUE TO PT PULLING NGT OUT DURING PREVIOUS SHIFT. PT ON D51/2NS TO MAINTAIN. BILATERAL SOFT WRISTS AND TREVON VEST IN PLACE. PT RESTING ON CLINITRON. NO NEW ORDERS. SAFETY PRECAUTIONS MAINTAINED.
[2016-11-19 22:06] VITALS: BP 126/82
[2016-11-20 06:29] VITALS: BP 120/60
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
--- NOTE | 2016-11-20 07:16 | NUR ---
11/20/16 AT 0330 PATIENT BECAME AGITATED AND STATED HE IS IN PAIN. PATIENT RATED THE PAIN 7 OUT OF 10. 2MG MORPHINE WAS ADMINISTERED. PATIENT FELL ASLEEP FOR A WHILE THEN WOKE UP AGITATED. SCHEDULED 1MG ATIVAN WAS ADMINISTERED AT 0530. PATIENT RESTING CALMLY IN BED AT THIS TIME. WILL CONTINUE TO MONITOR.
--- NOTE | 2016-11-20 14:10 | NUR ---
SPEECH THERAPY: ST ATTEMPTED TO SEE PT FOR RE-ASSESSMENT OF SWALLOWING FUNCTION. PT WAS JUST ADMINISTERED MEDICATION OF ATIVAN, CURRENTLY LETHARGIC/SLEEPING. CONSEQUENTLY, PT UNABLE TO BE SEEN. ST TO RETURN AT A LATER TIME TO SEE IF PT'S LEVEL OF ALERTNESS IMPROVES. D/W RN AND MD; ALL IN AGREEMENT.
[2016-11-20 14:30] VITALS: BP 114/72
--- NOTE | 2016-11-20 15:19 | NUR ---
URINE OUTPUT FROM ESPARZA 50 ML THIS SHIFT, NOTIFIED, PT BLADDER SCANNED, NO RESIDUAL.
--- NOTE | 2016-11-20 16:40 | PN- Psychiatry ---
Assessment/Plan Impression: Identifying Info: 56-year-old male known to this service with a h/o ETOH use d/o , PSA, MDD, r/o Wernicke's and chronic pain BIBA to [facility] ED on 11/06/16 with AMS. Admitted to critical care unit for treatment of delirium due to probable drug overdose versus alcohol withdrawal versus serotonin syndrome. Now downgraded to general medical floor. SUBJECTIVE Patient presents again endorsing confusion. He again expresses wish to start antidepressant medication but verbalizes understanding that he may not start until delirium clears. Family meeting with brother, sister, medical staff, and case management. Family reports that up until 2 years ago the patient was extremely high functioning. He recently stated that he wanted to get off all of his meds but then overuse his oxycodone to the point where he finished his prescription 9 days early. At that point she decided to self medicate the withdrawal symptoms with trazodone. In his medication supply of home there are 3 different SSRIs which he abuses impulsively "he can't manage it." Prior to current decompensation the patient had a six-month period of sobriety. He's had increasing stress related to losing his house soon and not getting his job back. Family expresses wish to have brother off of as many psychotropic medications as possible. Brief ROS Gait: Unobserved Sleep: Poor Appetite: Poor, continues to fail swallow evaluations OBJECTIVE Mental Status Exam Presentation/Appearance: Lying in bed. 2 point soft wrist and kierra vest restraints in place. Cooperative with interview to the best of his ability Orientation: Person, month, year, unable to name place Sensorium: Somnolent but easy to arouse Eye contact: Fair Affect: Blunted Mood: Depressed Depression: Endorses Anxiety: Endorses Thought Content: - Denies SI/HI, AH/VH, PI. States and also believes they will not kill themselves. - Denies Hopeless/Helpless Thoughts Thought Process: Confused Associations: Appropriate Speech: Soft, minimal Judgment: Impaired Insight: Impaired Cognition: Memory: Deficits noted Attention/Concentration: Deficits noted Fund of Knowledge: Adequate Abstractions: Did not assess MMSE: Did not assess Discussed case with house staff and attending. Discussed case with outpatient psychiatrist Dr. Obie Carmona. He is in favor of restarting the patient on very low dose of sertraline once he is medically stable. He would strongly prefer that the patient attend intensive outpatient program prior to returning to outpatient services however if this is about possible he would accept the patient back without IOP level of care. Per nursing report patient has been confused and calling out frequently. ASSESSMENT 56-year-old male with a history of chronic alcohol abuse as well as overuse of medications presents to [facility] emergency department with altered mental status. He denies intentional overdose or overuse of psychotropics. He is known to have considerable bereavement issues and has in the past been suspected of Wernicke's. Delirium appears to be clearing slowly. It would be prudent to hold home psych meds for now. Diagnosis Delirium due to multiple etiologies including ETOH withdrawl possible serotonin syndrome and possible Wernicke's encephalopathy, mixed level of activity, clearing Major depressive disorder, severe Alcohol use disorder, severe Cocaine use disorder Marijuana use disorder A total of 60 minutes was spent with the patient with more than 50% of the time spent in counseling and/or coordination of care. Suggestion: 1. Continue CIWA, vitamins, and benzodiazepine taper. Plan 20% decrease in total amount daily. 2. Continue to hold home psychiatric medications until more clear. It patient and family are agreeable would plan to start first with low-dose sertraline. 3. Will plan to restart naltrexone by mouth while in hospital once more medically stable. 4. Continue Haldol as currently ordered for dangerous agitation. 5. If patient continues to be unable to take by mouth medication and is not sleeping consider starting mirtazapine ODT 15 mg daily at bedtime. If able to take by mouth medication melatonin 10 mg daily at bedtime would be preferred. Thank you for including psychiatry in this case, we will continue to follow. Subjective Subjective: as above Objective Last 24 Hrs of Vital Signs/I&O Current Medications Sig/Anaya Start time Last Medication Dose Route Stop Time Status Admin Dextrose/Sodium 1,000 ML Q20H 11/19 1400 AC 11/20 Chloride IV 11/20 1958 1017 Enoxaparin Sodium 40 MG DAILY 11/06 1816 AC 11/20 SC 1023 Fentanyl Citrate 12 MCG Q72H 11/20 1215 AC 11/20 TOP 1217 Fentanyl Citrate 25 MCG Q72H 11/16 0945 DC 11/19 TOP 1427 Folic Acid 1 MG DAILY 11/10 1000 AC 11/16 PO 0853 Haloperidol 1 MG Q4-6 PRN PRN 11/11 1930 AC 11/19 IM 0041 Levetiracetam 500 MG Q12 11/20 2200 CAN N/A 1 UNIT IV Levetiracetam 250 MG Q12 11/20 2200 AC Sodium Chloride 100 ML IV 11/23 2300 Levetiracetam 500 MG Q12 11/20 1000 DC 11/20 N/A 1 UNIT IV 1020 Levetiracetam 500 MG ONCE ONE 11/19 220 DC 11/19 N/A 1 UNIT IV 11/19 2214 2106 Lorazepam 1.5 MG Q8 11/20 1400 AC 11/20 IV 1312 Lorazepam 1 MG Q4 HRS NEEDED PRN 11/20 0845 AC IV Lorazepam 2 MG Q8 11/19 1400 DC 11/20 IV 0540 Lorazepam 1 MG Q1 PRN 11/18 1345 DC 11/18 IV 1339 Magnesium Oxide 400 MG BID 11/12 1000 AC 11/16 PO 0852 Methylprednisolone 30 MG DAILY 11/21 1000 AC IV 11/25 1001 Methylprednisolone 40 MG DAILY 11/16 1000 DC 11/20 IV 1024 Morphine Sulfate 2 MG Q6P PRN 11/07 1145 AC 11/20 IV 0340 Multivitamins 5 ML DAILY 11/10 1000 AC 11/16 PO 0852 Pantoprazole Sodium 40 MG DAILY 11/07 1000 AC 11/20 IV 1023 Polyethylene Glycol 17 GM DAILY 11/09 1548 AC 11/16 PO 0852 Senna 187 MG AT BEDTIME 11/13 2200 AC 11/14 PO 2134 Thiamine HCl 100 MG DAILY 11/10 1000 AC 11/16 PO 0853 Vital Signs Date Time Temp Pulse Resp B/P B/P Pulse O2 O2 Flow FiO2 Mean Ox Delivery Rate 11/20 1430 98.9 85 20 114/72 94 Room Air 11/20 1215 Room Air 2.0L 11/20 628 98.6 89 20 120/60 97 Room Air 11/19 2205 98.1 85 20 126/82 95 Room Air Intake & Output 11/20 1600 11/20 0800 11/20 0000 Intake Total 650 400 400 Output Total 100 250 550 Balance 550 150 -150 Intake, IV 650 400 400 Intake, Oral 0 0 Number 1 Bowel Movements Output, Urine 100 250 550
--- NOTE | 2016-11-20 18:29 | RADIOLOGY REPORT ---
EXAMINATION: XR PORTABLE CHEST CLINICAL INFORMATION: NG tube placement. COMPARISON: Chest x-ray 11/18/2016 TECHNIQUE: Portable frontal view of the chest was obtained. 6:02 PM FINDINGS: Nasogastric tube is looped in the thoracic esophagus. The catheter tip terminates at the thoracic inlet at about the level of T3. Catheter needs to be repositioned. Right costophrenic angle excluded from study. Visualized lungs are clear. No pulmonary vascular congestion or pleural effusion. The cardiac and the mediastinal contours are normal. IMPRESSION: Nasogastric tube looped in thoracic esophagus. Catheter needs to be repositioned. This critical result was discussed with Linda López on 11/20/2016, 6:25 PM and it was ascertained that the content and urgency of the report was understood at the time of direct communication.
--- NOTE | 2016-11-20 20:20 | RADIOLOGY REPORT ---
EXAMINATION: XR PORTABLE CHEST CLINICAL INFORMATION: Nasogastric tube placement. Evaluate for proper position. COMPARISON: Chest radiograph 11/20/2016, 11/18/2016. TECHNIQUE: Portable frontal view of the chest was obtained. FINDINGS: An enteric tube has been placed and the tip and sidehole are located within the body of the stomach. An asymmetric distribution of increased interstitial markings involving both lungs remains essentially unchanged when compared to the recent prior examination obtained on the same day. There is no overt consolidative disease or effusion. No pneumothorax. The cardiac silhouette and upper mediastinal contours are normal. No acute osseous finding. IMPRESSION: The nasogastric tube has been repositioned and its tip and sidehole are located within the body of the stomach. Increased interstitial markings involving both lungs has remained essentially unchanged when compared to prior imaging.
[2016-11-20 22:49] VITALS: BP 116/76
--- NOTE | 2016-11-21 00:08 | NUR ---
PATIENT HAD NGT TO RIGHT NARE PLACED AT 2200 ON 11/20/16. JEVITY 1.2 STARTED WITH NO RESIDUAL UPON EXAMINATION. IV ATIVAN GIVEN ORDERED. BILATERAL SOFT WRIST RESTRAINT AND TREVON IN PLACE. SITTER AT BEDSIDE. WILL CONTINUE TO MONITOR.
--- NOTE | 2016-11-21 02:08 | NUR ---
AT 0015 PT BS 68. KAMRAN KING MD. 12.5MG DEXTROSE ORDERED. MED GIVEN PER EMAR, BS AT 0050 163.
--- NOTE | 2016-11-21 06:13 | NUR ---
PT OUTPUT OVERNIGHT WAS 50ML OF CONCENTRATED TEA COLOR URINE. PT HAS ESPARZA IN PLACE, KAMRAN KING MD. IV FLUIDS STARTED. WILL MONITOR.
[2016-11-21 07:19] VITALS: BP 110/80
--- NOTE | 2016-11-21 08:20 | PN- Housestaff ---
KEVEN MURRAY MD 11/21/16 0820: Subjective Follow-up For: Delirium tremens Drug overdose Hypothermia Decubitus ulcer Subjective: Patient seen and examined at bedside this AM. He is laying in bed with bilateral soft restraints on his upper extremities and sitter is at bedside. Patient has previously pulled out NGT twice, therefore these restraints/sitter are required so he does not pull this tube out again. Urgent chest/abdominal Xray ordered as patient noted diffuse abdominal pain on palpation. We continue to taper keppra and ativan. Due to altered mental status/AAOx2, ROS unobtainable. Review of Systems Constitutional: Reports: see HPI. Objective Last 24 Hrs of Vital Signs/I&O Vital Signs Date Time Temp Pulse Resp B/P B/P Pulse O2 O2 Flow FiO2 Mean Ox Delivery Rate 11/21 0719 97.8 66 16 110/80 94 Room Air 11/20 2249 98.9 69 20 116/76 96 Room Air 11/20 1430 98.9 85 20 114/72 94 Room Air 11/20 1215 Room Air 2.0L Intake & Output 11/21 1600 11/21 0800 11/21 0000 Intake Total 305 515 Output Total 50 350 Balance 255 165 Intake, IV 75 500 Intake, Oral 0 Intake, Tube 230 15 Feeding Number 0 2 Bowel Movements Output, Urine 50 350 Physical Exam General Appearance: No Acute Distress Skin: Stage 4 decubitus ulcer present on admission Skin Temp/Moisture Exam: Warm/Dry HEENT: Atraumatic, PERRLA, EOMI, Slightly dry mucous membranes Neck: Supple, No JVD Lymphatic: Cervical nl Cardiovascular: Regular Rate, Normal S1, Normal S2 Lungs: Normal Air Movement Abdomen: Diffuse tenderness to palpation/grimacing with palpation of all 4 quadrants Neurological: Normal Tone Extremities: No Clubbing, No Cyanosis, No Edema, No Tenderness/Swelling Vascular: Pulses Symmetrical Current Medications: Current Medications Sig/Anaya Start time Last Medication Dose Route Stop Time Status Admin Dextrose 12.5 GM ONCE ONE 11/21 0015 DC 11/21 IV 11/21 0016 0025 Dextrose/Sodium 1,000 ML Q20H 11/19 1400 DC 11/20 Chloride IV 11/20 1959 1017 Enoxaparin Sodium 40 MG DAILY 11/06 1816 AC 11/20 SC 1023 Fentanyl Citrate 12 MCG Q72H 11/20 1215 AC 11/20 TOP 1217 Folic Acid 1 MG DAILY 11/10 1000 AC 11/16 PO 0853 Haloperidol 1 MG Q4-6 PRN PRN 11/11 1930 AC 11/19 IM 0041 Levetiracetam 500 MG Q12 11/20 2200 CAN N/A 1 UNIT IV Levetiracetam 250 MG Q12 11/20 2200 AC 11/20 Sodium Chloride 100 ML IV 11/23 2300 2112 Levetiracetam 500 MG Q12 11/20 1000 DC 11/20 N/A 1 UNIT IV 1020 Lorazepam 1.5 MG Q8 11/20 1400 AC 11/21 IV 0528 Lorazepam 1 MG Q4 HRS NEEDED PRN 11/20 0845 AC IV Magnesium Oxide 400 MG BID 11/12 1000 AC 11/16 PO 0852 Methylprednisolone 30 MG DAILY 11/21 1000 AC IV 11/25 1001 Methylprednisolone 40 MG DAILY 11/16 1000 DC 11/20 IV 1024 Morphine Sulfate 2 MG Q6P PRN 11/07 1145 AC 11/20 IV 2300 Multivitamins 5 ML DAILY 11/10 1000 AC 11/16 PO 0852 Pantoprazole Sodium 40 MG DAILY 11/07 1000 AC 11/20 IV 1023 Polyethylene Glycol 17 GM DAILY 11/09 1548 AC 11/16 PO 0852 Senna 187 MG AT BEDTIME 11/13 2200 AC 11/14 PO 2134 Sodium Chloride 1,000 ML Q13H 11/21 0545 AC 11/21 IV 0550 Thiamine HCl 100 MG DAILY 11/10 1000 AC 11/16 PO 0853 Last 24 Hrs of Lab/Marcus Results Last 24 Hrs of Labs/Mics: Laboratory Tests 11/21/16 0610: Anion Gap 9, Estimated GFR > 60, BUN/Creatinine Ratio 26.7 H Assessment/Plan Assessment: Mr. Macias is a 56-year-old male with past medical history significant for alcohol abuse, alcohol-related seizures, medication overuse, polysubstance abuse , stage IV sacral decubitus ulcer, hypertension, hyperlipidemia and chronic back pain who was brought to the [facility] ED by police after being found to be intoxicated. On presentation, he was noted to have clonus. Patient was admitted to critical care unit after intubating for airway protection in the setting of acute delirium. Admission vitals were significant for tachycardia/tachycardia with leukocytosis concerning for sepsis, however workup including blood cultures, CT abdomen and pelvis were negative. Started on CIWA protocol. CT scan chest demonstrated groundglass opacities in bilateral lungs consistent with bronchiolitis probably from aspiration pneumonia - his respiratory cultures grew staph aureus, yeast, Enterobacter. He received a five-day course of azithromycin and ceftriaxone. Also started on IV methylprednisone 60 mg (11/11/2016 - 11/16/2016), tapered to 40 mg (11/16/16). As patient was very agitated, he was started on IV Ativan drip which was eventually tapered. Seizure prophylaxis with IV Keppra was maintained. Nutritional support provided with orogastric tube feeds. Patient was extubated on 11/16/2016 and transferred to general medicine floor on 11/17/2016. He failed swallow evaluation after extubation. Patient is currently admitted to the general medicine floor and the following is the management: 1. Acute hypoxic respiratory failure secondary to acute delirium from overdose- RESOLVED * Patient is currently on room air saturating well * Continue IV methylprednisone taper, currently at 30 X 5 days, 20 X 5 days, 10 X 5 days * Completed the course of antibiotics * Currently titrating fentanyl patch (12 mcg patch for now then will discontinue in a few days) * Patient is on bilateral upper extremity restraints, kierra and sitter for agitation/removal of ngt, continue for now * Pulmonology has signed off, will reconsult Dr. Carolina MD if pulmonary issues arise 2. Alcohol withdrawal * CIWA protocol has been discontinued, however we will continue with scheduled and as necessary (scores improving, max is 6 in last 24 hours), will taper ativan to 1 Q8 today (continue taper daily until off) * Continue to follow-up psychiatric recommendations * Keppra will be tapered as well, after discussion with pharmacy will decrease dose to 250 mg IV BID for 2 more days then STOP (no history of seizures as noted by family at family meeting) * Avoiding serotonergic agents and atypical antipsychotics * Folic acid/Thiamine/multivitamin * Haloperidol 1 mg every 6 IM when necessary for agitation. * Please repeat EKG periodically and check for QTc (EKG done this AM shows improvement in QTC interval) * URGENT CXR + Abdominal Xray pending due to diffuse abdominal pain and recent placement of NGT 3. Stage IV left buttock decubitus ulcer * Present on admission, follows [facility] * Dressing with Xeroform, sealed with Tefla, with tegaderm per wound care 4. Diet * Patient failed swallow evaluation again yesterday * No PEG tube for now as per family recommendations. * NGT placed last night and tube feeds restarted with increase in water flushes due to concentrated urine/concerns for slight dehydration * NS at 75 cc/h for now x 1 bag 5. Pain management * Currently on fentanyl patch (tapering off) and morphine 2 mg IV every 6 when necessary. 6. Bowel regimen * MiraLAX and senna daily 7. DVT prophylaxis * Subcutaneous Lovenox 8. CODE STATUS * Full code Problem List: 1. Sacral decubitus ulcer, stage IV 2. Polysubstance abuse 3. Acute hypoxemic respiratory failure 4. Sepsis 5. Alcohol withdrawal delirium 6. Encephalopathy 7. Drug overdose Pain Ratin Pain Location: Diffuse abdomen Pain Goal: Pain 4 or less Pain Plan: 12 mcg topical fentanyl patch Tomorrow's Labs & Rationales: BEP (monitor BUN/cre in setting of dehydration) GILBERTO CA MD 11/21/16 0915: Attending MD Review Statement Attending Statement Attending MD Statement: examined this patient, discuss w/resident/PA/RN FLOAT, agreed w/resident/PA/RN FLOAT, reviewed EMR data (avail), discussed with nursing Attending Assessment/Plan: Pt remains agitated and confused. This is a 56-year-old male who is now been here since November 06. He was transferred from the ICU after care for delirium tremens, acute hypoxemic respiratory failure requiring intubation, pneumonia completed course of antibiotics and his active issues now are continued confusion, lethargy with delirium, dysphagia and inability to swallow safely. At this point an NG tube was replaced last night and he has been started on tube feeds. Because of the danger of him pulling out the tube (he has pulled it out twice already) and because we need to maintain nutritional and hydration status we have him restrained with a sitter for safety. We will the continue the NG tube feedings over the weekend and reevaluate his swallow status on Wednesday. He may ultimately need a PEG tube if he continues to fail his swallow eval . He has a stage IV decubitus on his coccyx, we are tapering off his steroids, his Ativan and his Keppra. He is getting dehydrated but his BUN and creatinine are stable so after this bag of fluids I think we can safely stop the fluids and increase of water through the NG tube by the oral route.
--- NOTE | 2016-11-21 10:30 | NUR ---
CHECKED RESIDUAL FROM NG TUBE- 40ML, INCREASED TUBE FEED RATE TO 30ML/HR WITH 150ML FLUSH Q4HRS. PT TOLERATING FEEDINGS, WILL CONTINUE TO MONITOR.
--- NOTE | 2016-11-21 10:48 | RADIOLOGY REPORT ---
EXAMINATION: XR PORTABLE ABDOMEN CLINICAL INFORMATION: Epigastric pain. Feeding tube placement. COMPARISON: 11/19/16. TECHNIQUE: Single portable supine view of the abdomen. FINDINGS: The feeding tube reaches stomach. There is a nonobstructive bowel gas pattern. Vascular calcification is demonstrated. IMPRESSION: Feeding tube in stomach.
--- NOTE | 2016-11-21 10:51 | RADIOLOGY REPORT ---
EXAMINATION: XR PORTABLE CHEST CLINICAL INFORMATION: Diffuse abdominal pain. Feeding tube placement. COMPARISON: Recent priors. TECHNIQUE: Portable frontal view of the chest was obtained. FINDINGS: The feeding tube is seen passing in the stomach but the tip is beyond the field of view. There is stable appearance of mild interstitial prominence which appears more marked on the left likely accentuated by rotation. The pleural spaces are clear. The heart and mediastinal structures are unremarkable. IMPRESSION: Stable appearance of interstitial prominence. No acute abnormality.
[2016-11-21 14:43] VITALS: BP 110/60
--- NOTE | 2016-11-21 17:15 | NUR ---
WHILE PROVIDING MOUTH CARE AND SUCTIONING PATIENT, THIS RN NOTICED POSSIBLE THRUSH IN PT MOUTH, MD BUCK NOTIFIED, [place]STATIN ORDER.
--- NOTE | 2016-11-21 22:23 | NUR ---
NSG NOTE: [employer]OCK[employer] IMGE #[id number] PAGED AND NOTIFIED THAT PT PULLED OUT NGT. TREVON VEST AND BILAT SOFT WRIST RETSTRAINTS IN PLACE AND SITTER AT BEDSIDE. TUBE FEED ON HOLD. WILL RE-ATTEMPT TO PLACE NEW NGT. TUBE FEED WILL BE RESTARTED ONCE NGT IN PLACE AND CONFIRMED BY XRAY. NO NEW ORDERS. SAFETY MAINTAINED
[2016-11-21 22:41] VITALS: BP 118/70
--- NOTE | 2016-11-21 23:52 | NUR ---
NSG NOTE: UNABLE TO PLACE NEW NGT AFTER MULTIPLE ATTEMPTS. PT REFUSING ANOTHER ATTEMPT ASKING "CAN WE PLEASE TRY TOMORROW." MD WELDON PAGED AND NOTIFIED. PER , OK TO LEAVE PT WITHOUT NGT OVERNIGHT AND WILL REASSESS PT IN THE MORNING. IVF INFUSING PER ORDER TO MAINTAIN HYDRATION. TUBE FEED ORDER D/C'D AND NPO ORDER PLACED. NO FURTHER ORDERS GIVEN. PT SAFETY MONITOR AT BEDSIDE, SAFETY MAINTAINED.
[2016-11-22 06:24] VITALS: BP 126/78
--- NOTE | 2016-11-22 08:00 | NUR ---
PT NO LONGER ATTEMPTING UNSAFE AMBULATION, PT SLOWLY REGAINING ORIENTATION AND ALERTNESS AND FOLLOWING COMMANDS, NG TUBE NOT IN PLACE, PT NO LONGER PULLING AT LINES, TREVON AND BILATERAL SOFT UPPERS D/C, SITTER AT BEDSIDE. WILL CONTINUE TO MONITOR.
--- NOTE | 2016-11-22 08:36 | PN- Att Addend ---
Attending Addendum Attending Brief Note Patient seen and examined. Events overnight noted. Patient pulled out his NG tube again. Overnight because of difficulty replacing the NG tube and at patient's request we've held off on putting the tube again and started on D5NS at 75 an hour. On exam he is delirious and confused. For his own safety, he has a sitter and soft restraints as he is pulling out tubes and IVs. He is afebrile, blood pressure is 120/70, pulse is 78 and his breathing at 16- 18. He can't really get anything from him in terms of history or review of systems. Lungs appear clear anteriorly, heart is S1-S2 regular, abdomen is soft but he grimaces when you press on it and he has a stage IV decubitus. Labs show BUN and creatinine stable. He is a 56-year-old male who has had a complicated course with acute alcohol withdrawal, delirium tremens and likely alcohol withdrawal related seizures with acute hypoxemic respiratory failure. Transferred from the ICU and the issue is ongoing delirium with lethargy and inability to swallow. He has failed swallow evals and has pulled out NG tube multiple times. At this point I think the risks of putting the NG tube may outweigh the benefits and he'll need a repeat swallow eval tomorrow and if he fails that than likely PEG tube. The Ativan, keppra and steroids are actively being tapered. Because of the worry of dehydration and hypoglycemia I would keep him on the low-dose fluids until the swallow eval can be reevaluated.
[2016-11-22 15:06] VITALS: BP 118/70
--- NOTE | 2016-11-22 18:48 | PN- Housestaff ---
Subjective Follow-up For: Delirium tremens Drug overdose Hypothermia Decubitus ulcer Subjective: Patient was seen and examined this morning, he is more alert, possible evaluation for nectar, start diet today. Later in the day patient was evaluated , he tolerated diet well. Formal swallow eval in a.m. Review of Systems Constitutional: Reports: see HPI. Objective Last 24 Hrs of Vital Signs/I&O Vital Signs Date Time Temp Pulse Resp B/P B/P Pulse O2 O2 Flow FiO2 Mean Ox Delivery Rate 11/22 1506 98.5 79 20 118/70 93 11/22 0800 Room Air 11/22 0624 97.9 61 18 126/78 97 Room Air 11/21 2241 97.8 68 20 118/70 98 Room Air Intake & Output 11/22 1600 11/22 0800 11/22 0000 Intake Total 1040 600 390 Output Total 675 550 300 Balance 365 50 90 Intake, IV 600 600 150 Intake, Oral 440 0 Intake, Tube 90 Feeding Intake, Tube 150 Irrigant Number 1 2 Bowel Movements Output, Urine 675 550 300 Physical Exam General Appearance: Alert, Cooperative, No Acute Distress Skin: No Rashes, No Breakdown, No Significant Lesion Cardiovascular: Regular Rate, Normal S1, Normal S2, No Murmurs Lungs: Clear to Auscultation, Normal Air Movement Abdomen: Normal Bowel Sounds, Soft, No Tenderness, No Hepatospenomegaly, No Masses Neurological: Normal Gait, Normal Speech, Strength at 5/5 X4 Ext, Normal Tone, Sensation Intact, Cranial Nerves 3-12 NL, Reflexes 2+ Extremities: No Clubbing, No Cyanosis, No Edema, Normal Pulses, No Tenderness/ Swelling Assessment/Plan Assessment: Mr. Macias is a 56-year-old male with past medical history significant for alcohol abuse, alcohol-related seizures, medication overuse, polysubstance abuse , stage IV sacral decubitus ulcer, hypertension, hyperlipidemia and chronic back pain who was brought to the [facility] ED by police after being found to be intoxicated. On presentation, he was noted to have clonus. Patient was admitted to critical care unit after intubating for airway protection in the setting of acute delirium. Admission vitals were significant for tachycardia/tachycardia with leukocytosis concerning for sepsis, however workup including blood cultures, CT abdomen and pelvis were negative. Started on CIWA protocol. CT scan chest demonstrated groundglass opacities in bilateral lungs consistent with bronchiolitis probably from aspiration pneumonia - his respiratory cultures grew staph aureus, yeast, Enterobacter. He received a five-day course of azithromycin and ceftriaxone. Also started on IV methylprednisone 60 mg (11/11/2016 - 11/16/2016), tapered to 40 mg (11/16/16). As patient was very agitated, he was started on IV Ativan drip which was eventually tapered. Seizure prophylaxis with IV Keppra was maintained. Nutritional support provided with orogastric tube feeds. Patient was extubated on 11/16/2016 and transferred to general medicine floor on 11/17/2016. He failed swallow evaluation after extubation. Patient is currently admitted to the general medicine floor and the following is the management: 1. Acute hypoxic respiratory failure secondary to acute delirium from overdose- RESOLVED * Patient is currently on room air saturating well * Continue IV methylprednisone taper, currently at 30 X 5 days, 20 X 5 days, 10 X 5 days * Completed the course of antibiotics * Currently titrating fentanyl patch (12 mcg patch for now then will discontinue in a few days) * Patient is on bilateral upper extremity restraints, kierra and sitter for agitation/removal of ngt, continue for now * Pulmonology has signed off, will reconsult Dr. Carolina MD if pulmonary issues arise 2. Alcohol withdrawal * CIWA protocol has been discontinued, however we will continue with scheduled and as necessary (scores improving, max is 6 in last 24 hours), will taper ativan to 1 Q8 today (continue taper daily until off) * Continue to follow-up psychiatric recommendations * Keppra will be tapered as well, after discussion with pharmacy will decrease dose to 250 mg IV BID for 2 more days then STOP (no history of seizures as noted by family at family meeting) * Avoiding serotonergic agents and atypical antipsychotics * Folic acid/Thiamine/multivitamin * Haloperidol 1 mg every 6 IM when necessary for agitation. * Please repeat EKG periodically and check for QTc (EKG done this AM shows improvement in QTC interval) * URGENT CXR + Abdominal Xray pending due to diffuse abdominal pain and recent placement of NGT 3. Stage IV left buttock decubitus ulcer * Present on admission, follows [facility] * Dressing with Xeroform, sealed with Tefla, with tegaderm per wound care 4. Diet * Patient passed bedside swallow eval for next, will obtain formal swallow evaluation in the a.m. 5. Pain management * Currently on fentanyl patch (tapering off) and morphine 2 mg IV every 6 when necessary. 6. Bowel regimen * MiraLAX and senna daily 7. DVT prophylaxis * Subcutaneous Lovenox 8. CODE STATUS * Full code Problem List: 1. Alcohol dependence Pain Ratin Pain Location: none Pain Goal: Pain 4 or less Pain Plan: mild pain pathway Tomorrow's Labs & Rationales: bmp
--- NOTE | 2016-11-22 19:49 | Transfer of Care Summary ---
Hospital Course Course Hospital Course: The events below relate to time patient was transferred from ICU to the general medicine floor. See ICU transfer of care summary for events that occured prior to general medicine transfer. Mr. Macias is a 56-year-old male with past medical history significant for alcohol abuse, alcohol-related seizures, medication overuse, polysubstance abuse , stage IV sacral decubitus ulcer, hypertension, hyperlipidemia and chronic back pain who was brought to the [facility] ED by police after being found to be intoxicated. On presentation, he was noted to have clonus. Patient was admitted to critical care unit after intubating for airway protection in the setting of acute delirium. Admission vitals were significant for tachycardia/tachycardia with leukocytosis concerning for sepsis, however workup including blood cultures, CT abdomen and pelvis were negative. Started on CIWA protocol. CT scan chest demonstrated groundglass opacities in bilateral lungs consistent with bronchiolitis probably from aspiration pneumonia - his respiratory cultures grew staph aureus, yeast, Enterobacter. He received a five-day course of azithromycin and ceftriaxone. Also started on IV methylprednisone 60 mg (11/11/2016 - 11/16/2016), tapered to 40 mg (11/16/16). As patient was very agitated, he was started on IV Ativan drip which was eventually tapered. Seizure prophylaxis with IV Keppra was maintained. Nutritional support provided with orogastric tube feeds. Patient was extubated on 11/16/2016 and transferred to general medicine floor on 11/17/2016. He failed swallow evaluation after extubation. Patient was transferred to the general medicine floor and below was the management: 1. Acute hypoxic respiratory failure: Resolved on transfer to the general medicine foor. Patient stable saturating well on room air. He will complete steroid taper as noted: 30 X 5 days, 20 X 5 days, 10 X 5 days. He has already completed antibiotic therapy while in the ICU. Pulmonology (Dr. Carolina MD) has signed off on the case but will reevaluate patient as needed. To do: Continue steroid taper, monitor vital signs and provide supplemental O2 as needed to maintain O2 sat >92%. 2. Alcohol withdrawl with delirium: Patient initially on ativan drip but this has since been discontinued and patient is on an ativan taper. CIWA has been discontinued. Folic acid/Thiamine/multivitamin provided. Avoiding serotonergic agents and atypical antipsychotics. Haldol 1 mg Q6 IM is ordered as patient continues to show agitation and this may be needed to prevent worsening agitation. Periodic EKG should be checked to monitor QTC. Continue sitter and restraints for agitation. Of note, patient was placed on keppra in the ICU but this is being tapered off as there is no personal history of seizures and patient has shown no evidence of seizure like activity since transfer to the general medicine floor. Please follow up psych recommendations. 3. Nutrition: Patient has remained AAOx1-2 since admission and is uncooperative with history taking. He has had 3 NGT's placed and while in soft restraints has been able to pull these NGT out. At this point, risk of reinserting another NGT is greater than leaving the NGT out. Patient will be hydrated with D5NS. Patient will have repeat swallow evaluation tomorrow and if he fails, discussions must be had with patient's family in regards to proceeding with PEG tube placement. 4. Stage 4 left buttock decubitus ulcer: Present on admission, follows [facility]. Dressing with Xeroform, sealed with Tefla, with tegaderm per wound care. 5. Pain management: Currently on fentanyl patch (tapering off) and morphine 2 mg IV every 6 when necessary. Assessment/Plan: See above.
[2016-11-22 22:23] VITALS: BP 120/60
[2016-11-23 06:30] VITALS: BP 134/70
--- NOTE | 2016-11-23 08:27 | PN- Housestaff ---
JAZZ SHELTON 11/23/16 0827: Subjective Follow-up For: Altered mental status, acute delirium Acute Hypoxic and hypercarbic respiratory failure Aspiration pneumonia Alcohol withdrawal Chronic decubitus ulcer Complaints: no complaints Subjective: Patient was seen and examined this morning. He is alert awake and oriented to time place and person early in the morning. However he was delirious later part of the day and he was agitated, trying to get out of bed-received Ativan and Haldol. placed on sitter again. foleys catheter was discontinued Formal swallow evaluation was done this morning, recommended mechanical soft and honey thick diet for now. He has no complaints today. Vitals remained stable. Afebrile, heart rate 81, respiratory rate 18, blood pressure 134/70, saturating at 96 on room air. Review of Systems Constitutional: Reports: no symptoms. Objective Last 24 Hrs of Vital Signs/I&O Vital Signs Date Time Temp Pulse Resp B/P B/P Pulse O2 O2 Flow FiO2 Mean Ox Delivery Rate 11/23 1359 97.7 69 20 118/90 96 Room Air 11/23 0630 98.7 81 18 134/70 96 Room Air 11/22 2223 98.2 71 19 120/60 97 Room Air 11/22 1506 98.5 79 20 118/70 93 Intake & Output 11/23 1600 11/23 0800 11/23 0000 Intake Total 700 450 Output Total 650 450 50 Balance -650 250 400 Intake, IV 600 300 Intake, Oral 100 150 Output, Urine 650 450 50 Physical Exam General Appearance: Alert, Oriented X3 Skin: No Rashes, No Breakdown HEENT: Atraumatic, PERRLA, EOMI Neck: Supple, No JVD Lymphatic: Cervical nl Cardiovascular: Normal S1, Normal S2 Lungs: Normal Air Movement Abdomen: Normal Bowel Sounds, Soft, No Tenderness Extremities: No Clubbing, No Cyanosis, No Edema Current Medications: Current Medications Sig/Anaya Start time Last Medication Dose Route Stop Time Status Admin Acetaminophen 650 MG Q4P PRN 11/22 1530 AC 11/22 PO 1529 Acetaminophen 1,000 MG Q6P PRN 11/22 1530 AC N/A 1 UNIT IV Aspirin Buffered 81 MG DAILY 11/23 1000 AC 11/23 PO 1038 Dextrose/Sodium 1,000 ML Q13H 11/22 0630 DC 11/22 Chloride IV 2003 Enoxaparin Sodium 40 MG DAILY 11/07 1815 AC 11/23 SC 1010 Fentanyl Citrate 12 MCG Q72H 11/20 1215 DC 11/20 TOP 1217 Folic Acid 1 MG DAILY 11/10 1000 AC 11/23 PO 1009 Haloperidol 2 MG ONCE ONE 11/23 1445 DC IM 11/23 1446 Haloperidol 1 MG Q4-6 PRN PRN 11/11 1930 DC 11/19 IM 0041 Levetiracetam 250 MG Q12 11/20 2200 AC 11/23 Sodium Chloride 100 ML IV 11/23 2300 1038 Lorazepam 0.5 MG Q8 11/23 0949 AC PO 11/30 0948 Lorazepam 1 MG Q8 11/21 1400 DC 11/23 IV 0541 Lorazepam 1 MG Q4 HRS NEEDED PRN 11/20 0845 AC 11/23 IV 1355 Magnesium Oxide 400 MG BID 11/12 1000 DC 11/22 PO 2153 Methylprednisolone 30 MG DAILY 11/21 1000 DC 11/23 IV 11/25 1001 0812 Morphine Sulfate 2 MG Q6P PRN 11/07 1145 DC 11/20 IV 2300 Multivitamins 5 ML DAILY 11/10 1000 AC 11/23 PO 1010 Nystatin 5 ML 4 TIMES/DAY 11/21 1800 AC 11/23 PO 1009 Omeprazole 40 MG DAILY AC 11/23 1000 AC PO Pantoprazole Sodium 40 MG DAILY 11/07 1000 DC 11/23 IV 0812 Phenol 2 SPRAY Q2P PRN 11/21 2000 AC 11/21 EXT 2036 Polyethylene Glycol 17 GM DAILY 11/09 1548 AC 11/23 PO 1009 Prednisone 30 MG DAILY 11/24 1000 AC PO 11/25 1001 Senna 187 MG AT BEDTIME 11/13 2200 AC 11/22 PO 2153 Thiamine HCl 100 MG DAILY 11/10 1000 AC 11/23 PO 1009 Last 24 Hrs of Lab/Marcus Results Last 24 Hrs of Labs/Mics: Laboratory Tests 11/23/16 0640: Anion Gap 5, Estimated GFR > 60, BUN/Creatinine Ratio 18.3 Assessment/Plan Assessment: Mr. Macias is a 56-year-old male with past medical history significant for alcohol abuse, alcohol-related seizures, medication overuse, polysubstance abuse , stage IV sacral decubitus ulcer, hypertension, hyperlipidemia and chronic back pain who was brought to the [place] ED by police after being found to be intoxicated. On presentation, he was noted to have clonus. Patient was admitted to critical care unit after intubating for airway protection in the setting of acute delirium. Admission vitals were significant for tachycardia/tachycardia with leukocytosis concerning for sepsis, however workup including blood cultures, CT abdomen and pelvis were negative. Started on CIWA protocol. CT scan chest demonstrated groundglass opacities in bilateral lungs consistent with bronchiolitis probably from aspiration pneumonia - his respiratory cultures grew staph aureus, yeast, Enterobacter. He received a five-day course of azithromycin and ceftriaxone. Also started on IV methylprednisone 60 mg (11/11/2016 - 11/16/2016), tapered to 40 mg (11/16/16). As patient was very agitated, he was started on IV Ativan drip which was eventually tapered. Seizure prophylaxis with IV Keppra was maintained. Nutritional support provided with orogastric tube feeds. Patient was extubated on 11/16/2016 and transferred to general medicine floor on 11/17/2016. He failed swallow evaluation after extubation. Patient is currently admitted to the general medicine floor and the following is the management: 1. Acute hypoxic respiratory failure secondary to acute delirium from overdose- RESOLVED * Patient is currently on room air saturating well * Continue IV methylprednisone taper, currently at 30 X 5 days, 20 X 5 days, 10 X 5 days. * Completed the course of antibiotics * Currently titrating fentanyl patch 25, 12, then stop. Discontinued fentanyl patch on 11/23/2016. * Patient is on bilateral upper extremity restraints, kierra and sitter for agitation/removal of ngt, continue for now * Pulmonology has signed off, will reconsult Dr. Carolina MD if pulmonary issues arise. 2. Alcohol withdrawal * CIWA protocol has been discontinued, however we will continue with scheduled and as necessary (scores improving), will taper ativan to 0.5 Q8 today (continue taper daily until off) * Continue to follow-up psychiatric recommendations * Keppra will be tapered as well, after discussion with pharmacy will decrease dose to 250 mg IV BID for 2 more days then STOP (no history of seizures as noted by family at family meeting). last dose today * Avoiding serotonergic agents and atypical antipsychotics * Folic acid/Thiamine/multivitamin * Haloperidol 1 mg every 6 IM when necessary for agitation. * Please repeat EKG periodically and check for QTc (EKG done this AM shows improvement in QTC interval) 3. Stage IV left buttock decubitus ulcer * Present on admission, follows [facility] [place] * Dressing with Xeroform, sealed with Tefla, with tegaderm per wound care 4. Diet * Patient passed bedside swallow eval . * formal evaluation was done this morning. * Recommended mechanical soft and honey thickened diet for now * requires modified barium swallow. * Fluids were discontinued 5. Pain management * Currently on fentanyl patch (tapering off) and morphine 2 mg IV every 6 when necessary. 6. Bowel regimen * MiraLAX and senna daily 7. DVT prophylaxis * Subcutaneous Lovenox 8. CODE STATUS * Full code Problem List: 1. Decubitus ulcer of left buttock, stage 4 2. Alcohol abuse 3. Alcohol withdrawal delirium 4. Acute delirium 5. Drug overdose 6. Acute hypoxemic respiratory failure Pain Ratin Pain Location: n/a Pain Goal: Remain pain free Pain Plan: tylinol Tomorrow's Labs & Rationales: none TAYLOR VICENTE,AMANDA 11/23/16 1324: Attending MD Review Statement Attending Statement Attending MD Statement: examined this patient, discuss w/resident/PA/SUCTION PLATE CARRIER CLEANER, agreed w/resident/PA/SUCTION PLATE CARRIER CLEANER, discussed with family, reviewed EMR data (avail), discussed with nursing, discussed with case mgmt, reviewed images, amended to note Attending Assessment/Plan: Patient seen and examined, initially in the morning he was sleeping but then later on he was much more awake. He wants to leave the hospital. He has passed swallow evaluation and has been started on diet. His IV fluids can be discontinued. His Ativan will be further tapered down to 0.5 mg by mouth every 8 hours. It will be further tapered down tomorrow. All his medications can be switched to oral. At this point he needs to go to rehabilitation. He is on Lovenox for DVT prophylaxis.
--- NOTE | 2016-11-23 10:00 | NUR ---
ESPARZA CATHETER REMOVED. URINE IN BAG STANLEY IN COLOR PRIOR TO REMOVAL. ONE OLD BROWN THIN CLOT ALSO NOTED. AFTER CATHETER REMOVED, SOME BLEEDING NOTED. WILL MONITOR.
--- NOTE | 2016-11-23 11:49 | Discharge Summary ---
Visit Information Visit Dates Admission Date: 11/06/16 Discharge Date: 11/24/2016 Hospital Course Course Attending Physician: CARMENCITA VICENTE,BAM Tobin Primary Care Physician: HENRRY VICENTE,PRITI [facility] Course: Mr. Macias is a 56-year-old male with past medical history significant for alcohol abuse, alcohol-related seizures, medication overuse, polysubstance abuse , stage IV sacral decubitus ulcer, hypertension, hyperlipidemia and chronic back pain who was brought to the [place] ED by police after being found to be intoxicated. On presentation, he was noted to have clonus. Patient was admitted to critical care unit after intubating for airway protection in the setting of acute delirium. Admission vitals were significant for tachycardia/tachycardia with leukocytosis concerning for sepsis, however workup including blood cultures, CT abdomen and pelvis were negative. Started on CIWA protocol. CT scan chest demonstrated groundglass opacities in bilateral lungs consistent with bronchiolitis probably from aspiration pneumonia - his respiratory cultures grew staph aureus, yeast, Enterobacter. He received a five-day course of azithromycin and ceftriaxone. Also started on IV methylprednisone 60 mg (11/11/2016 - 11/16/2016), tapered to 40 mg (11/16/16). As patient was very agitated, he was started on IV Ativan drip which was eventually tapered. Seizure prophylaxis with IV Keppra was maintained. Nutritional support provided with orogastric tube feeds. Patient was extubated on 11/16/2016 and transferred to general medicine floor on 11/17/2016. He failed swallow evaluation after extubation. Patient was transferred to the general medicine floor and below was the management: 1. Acute hypoxic respiratory failure: Resolved on transfer to the general medicine foor. Patient stable saturating well on room air. He will complete steroid taper as noted: 30 X 5 days, 20 X 5 days, 10 X 5 days. He has already completed antibiotic therapy while in the ICU. Pulmonology (Dr. Carmencita MD) has signed off on the case but will reevaluate patient as needed. To do: Continue steroid taper, monitor vital signs and provide supplemental O2 as needed to maintain O2 sat >92%. 2. Alcohol withdrawl with delirium: Patient initially on ativan drip but this has since been discontinued and patient is on an ativan taper. CIWA has been discontinued. Folic acid/Thiamine/multivitamin provided. Avoiding serotonergic agents and atypical antipsychotics. Haldol 1 mg Q6 IM is ordered as patient continues to show agitation and this may be needed to prevent worsening agitation. Periodic EKG should be checked to monitor QTC. Continue sitter and restraints for agitation. Of note, patient was placed on keppra in the ICU but this is being tapered off as there is no personal history of seizures and patient has shown no evidence of seizure like activity since transfer to the general medicine floor. patient remained confused, agitated and confused. Due to attempt for unsafe ambulation and pulling IV lines, he had one on one sitter and bilateral upper and lateral soft restarints. Due to his poor PO status NG tube was placed X2 which was pulled out by the patient. Medication was reviewed and revised by the medical team. Fentanyl patch, and keppra was stopped. It was instructed to house staff by the attending to keep the patient off narcotics and hypnotics. Patients mentation improved. Patient requested to leave the hospital. Per family members request patient was assessed by psych routing clerk to assess his capacity for making medical descions. Patient was found capable of making the descion for himself. He was restarted on his home dose of Gabapentine, and Baclofen and supplements. Mirtazapine was added for depression and increase in appetite. Patient took full responsibility of making descion and its consequences. After speaking with NAINA VARGAS,BROOK patient agreed with the plan to stop Trazodone and starting naltrexone and also cmmitting to participate in [facility] IOP intake appointment scheduled for December 04 at 10 AM at [address] [place] [address]. Complications: NONE Allergies: Coded Allergies: Penicillins (UNKNOWN 11/06/16) Disposition Summary Disposition Principal Diagnosis: Drug overdose Additional Diagnosis: polysubstance abuse Discharge Disposition: SNF Discharge Instructions General Discharge Information Code Status: Full Code Patient's Diet: nectar thick liquid Patient's Activity: as tolerted Follow-Up Instructions/Appts: follow up with your PCP follow up with your pyschiatrist Medications at Discharge Discharge Medications: Stop taking the following medications: Escitalopram Oxalate (Lexapro) 20 MG TABLET ORAL DAILY Days = 29 Pantoprazole Sodium (Pantoprazole Sodium) 20 MG TABLET. ORAL DAILY Hydrocodone/Acetaminophen (Hydrocodon-Acetaminophen 5-325) 5 MG-325 MG TABLET ORAL EVERY 4-6 HOURS NEEDED as needed for PAIN Trazodone HCl (Trazodone HCl) 50 MG TABLET ORAL Every night Continue taking these medications: Aspirin (Ecotrin*) 81 MG TABLET. 1 Tablet ORAL DAILY Qty = 30 Comments: Last Taken: 11/26/16 Time: 10AM This prescription has been renewed Atorvastatin Calcium (Atorvastatin Calcium) 10 MG TABLET 1 Tablet ORAL DAILY Qty = 30 Comments: Last Taken: 11/29/16 Time: 5PM This prescription has been renewed Baclofen (Baclofen) 20 MG TABLET 1 Tablet ORAL THREE TIMES DAILY Qty = 30 Comments: Last Taken: 11/30/16 Time: 8:30AM This prescription has been renewed Cyanocobalamin (Vitamin B-12) 1,000 MCG TABLET 1 Tablet ORAL DAILY Qty = 30 Comments: Last Taken: 11/30/16 Time: 8:30AM This prescription has been renewed Ferrous Sulfate (Ferrous Sulfate) 325 MG (65 MG IRON) TABLET. 325 Milligram ORAL DAILY Qty = 30 Comments: NOT GIVEN WHILE IN HOSPITAL This prescription has been renewed Folic Acid (Folic Acid) 1 MG TABLET 1 Tablet ORAL DAILY Qty = 30 This prescription has been renewed Gabapentin (Neurontin) 300 MG CAPSULE 1 Capsule ORAL THREE TIMES DAILY Qty = 30 Instructions: Dosed 900 am 900 mg two pm 1200 at bed time Comments: Last Taken: 11/30/16 Time: 1PM This prescription has been renewed Hydrochlorothiazide (Hydrochlorothiazide) 12.5 MG CAPSULE 1 Capsule ORAL DAILY Qty = 30 Comments: NOT GIVEN WHILE IN HOSPITAL This prescription has been renewed Lisinopril (Lisinopril) 20 MG TABLET 1 Tablet ORAL DAILY Qty = 30 Comments: Last Taken: 11/30/16 Time: 8:30AM This prescription has been renewed Multivitamin (One Daily Multivitamin) 1 EACH TABLET 1 Tablet ORAL DAILY Qty = 30 This prescription has been renewed Omeprazole (Omeprazole) 20 MG CAPSULE. 2 Tablet ORAL DAILY Qty = 30 Comments: Last Taken: 11/30/16 Time: 7AM This prescription has been renewed Pyridoxine HCl (Vitamin B-6) 50 MG CAPSULE 1 Capsule ORAL DAILY Qty = 30 Comments: NOT GIVEN WHILE IN HOSPITAL This prescription has been renewed Folic Acid (Folic Acid) 1 MG TABLET 1 Tablet ORAL DAILY Qty = 30 Comments: Last Taken: 11/30/16 Time: 8:30AM This prescription has been renewed Start taking the following new medications: Mirtazapine (Mirtazapine) 15 MG TAB.RAPDIS 15 Milligram ORAL AT BEDTIME Qty = 30 No Refills Instructions: . Comments: Last Taken: 11/29/16 Time: 10PM Thiamine HCl (Vitamin B-1) 100 MG TABLET 100 Milligram ORAL DAILY Qty = 15 No Refills Instructions: . Comments: Last Taken: 11/30/16 Time: 8:30AM Prednisone (Prednisone) 10 MG TABLET 1 Tablet ORAL DAILY Qty = 5 No Refills Instructions: take one tab from 12/01 to 12/05. Comments: Last Taken: 11/30/16 Time: 8:30AM The following medications have been changed: Old: Cholecalciferol (Vitamin D3) (Vitamin D3) (Unknown Strength) CAPSULE Unknown Dose ORAL DAILY New: Cholecalciferol (Vitamin D3) (Vitamin D3) 1,000 UNIT CAPSULE 1 Tablet ORAL DAILY Qty = 30 Comments: NOT GIVEN WHILE IN HOSPITAL Old: Ascorbic Acid (Vitamin C) (Unknown Strength) TABLET Unknown Dose ORAL DAILY New: Ascorbic Acid (Vitamin C) 500 MG TABLET 1 Tablet ORAL DAILY Qty = 30 Comments: NOT GIVEN WHILE IN HOSPITAL Old: Naltrexone HCl (Naltrexone HCl) 50 MG TABLET New: Naltrexone HCl (Naltrexone HCl) 50 MG TABLET 1 Tablet ORAL DAILY Qty = 15 Comments: NOT GIVEN WHILE IN HOSPITAL Copies To: HENRRY VICENTE,PRITI Attending MD Review Statement Documenting Attending: DOUG GR MD Other Findings: The patient was seen on the day of discharge. Over the last week his delirium has resolved and he is able to ambulate and swallow w/o difficulty. He was evaluated by psychiatry and found to be competent to make decisions. He agrees to [facility] and declines inpatient rehab. He did complain of pain and his usual Gabapentin/Baclofen were restarted. His sister expressed concern that he should not require these medications. I advised her that this would be monitored by Dr. Gilbert and may be tapered down if able. These are not controlled substances and no opioids or benzodiazepines are prescribed. Will attempt to find a way to give patient telephone access to arrange appointments. He was advised when he sees Dr. Gilbert and [facility] to schedule next appointments and call [employer] from their offices to arrange next appointment ride.
[2016-11-23 13:59] VITALS: BP 118/90
--- NOTE | 2016-11-23 15:17 | NUR ---
LATE ENTRY: AT 1330 P.M. PT ALERT/COMBATIVE. ATTEMPTING UNSAFE AMBULATION. REPEATED ATTEMPTS TO GET OUT OF BED. PT STATES "I WANT TO LEAVE-I DON'T CARE-ILL LEAVE AMA" PHYSICAL GEOGRAPHER CALLED - JAZZ.PT GIVEN IV ATIVAN.
--- NOTE | 2016-11-23 17:47 | NUR ---
PT COMBATIVE. THREW DINNER TRAY ON FLOOR AND STATES "IM NOT EATING THIS SHIT". MD AWARE. PT GIVEN IV ATIVAN FOR AGGITATION. SEE EMAR.
--- NOTE | 2016-11-23 22:00 | NUR ---
PT AGITATED, MULTIPLE ATTEMPTS TO CLIMB OOB, NOT ORIENTED TO PLACE OR TIME. NOTIFIED LOREN KAUR MD. HALDOL IM ONE TIME DOSE ADMINISTERED. WILL CONTINUE TO MONITOR THIS SHIFT.
[2016-11-23 22:17] VITALS: BP 122/60
--- NOTE | 2016-11-24 03:24 | NUR ---
PT VERBALLY ABUSIVE, ATTEMPTING TO PUNCH STAFF AND GET OOB. ADMINISTERED ATIVAN, CALLED ORDER #10 AND NOTIFIED LOREN KAUR MD. WILL CONTINUE TO MONITOR THIS SHIFT.
--- NOTE | 2016-11-24 06:24 | NUR ---
PT AGITATED, ATTEMPTED TO LEAVE. PUSHING STAFF AND BEING COMBATIVE. CALLED ORDER #10, NOTIFIED LOREN KAUR MD. ADMINISTERED ONE TIME DOSE HALDOL IM. WILL CONTINUE TO MONITOR THIS SHIFT.
[2016-11-24 06:41] VITALS: BP 126/74
--- NOTE | 2016-11-24 08:02 | PN- Housestaff ---
JAZZ SHELTON 11/24/16 0802: Subjective Follow-up For: Altered mental status, acute delirium Acute Hypoxic and hypercarbic respiratory failure Aspiration pneumonia Alcohol withdrawal Chronic decubitus ulcer Complaints: pt unable to provide hx Subjective: Patient was seen and examined this morning. He is alert awake and not oriented to time place and person. agitated, security was called, placed on sitter for safety. foleys catheter was discontinued He has no complaints today. Vitals remained stable. Afebrile, heart rate 81, respiratory rate 18, blood pressure 134/70, saturating at 96 on room air. Review of Systems Constitutional: Reports: no symptoms. Objective Last 24 Hrs of Vital Signs/I&O Vital Signs Date Time Temp Pulse Resp B/P B/P Pulse O2 O2 Flow FiO2 Mean Ox Delivery Rate 11/24 0641 97.4 60 16 126/74 94 Room Air 11/23 2217 97.9 69 20 122/60 95 Room Air 11/23 1557 Room Air 2.0L 11/23 1359 97.7 69 20 118/90 96 Room Air Intake & Output 11/24 1600 11/24 0800 11/24 0000 Intake Total 150 270 Output Total 450 Balance 150 -180 Intake, IV 30 150 Intake, Oral 120 120 Number 1 1 Bowel Movements Output, Urine 450 Physical Exam General Appearance: Alert, delirious Skin: No Rashes, No Breakdown HEENT: Atraumatic, PERRLA, EOMI, Mucous Membr. moist/pink Neck: Supple, No JVD Lymphatic: Cervical nl Cardiovascular: Normal S1, Normal S2 Lungs: Normal Air Movement Abdomen: Normal Bowel Sounds, Soft, No Tenderness Extremities: No Clubbing, No Cyanosis, No Edema Vascular: Pulses Symmetrical Current Medications: Current Medications Sig/Anaya Start time Last Medication Dose Route Stop Time Status Admin Acetaminophen 650 MG Q4P PRN 11/22 1530 AC 11/22 PO 1529 Acetaminophen 1,000 MG Q6P PRN 11/22 1530 AC N/A 1 UNIT IV Aspirin 81 MG DAILY 11/25 1000 CAN TX Aspirin Buffered 81 MG DAILY 11/23 1000 DC 11/24 PO 1014 Bisacodyl 10 MG DAILY PRN 11/24 1330 AC TX Dextrose/Sodium 1,000 ML Q13H 11/24 1145 AC 11/24 Chloride IV 11/25 1344 1151 Enoxaparin Sodium 40 MG DAILY 11/06 1816 AC 11/24 SC 1015 Folic Acid 1 MG DAILY 11/10 1000 DC 11/24 PO 1015 Haloperidol 2.5 MG Q6P PRN 11/24 1345 AC IM Haloperidol 2 MG ONCE ONE 11/24 0630 DC 11/24 IM 11/24 0631 0623 Haloperidol 2 MG ONCE ONE 11/24 0400 CAN IM 11/24 0401 Haloperidol 2 MG ONCE ONE 11/23 2030 DC 11/23 IM 11/23 2031 2048 Haloperidol 2 MG ONCE ONE 11/23 1445 DC 11/23 IM 11/23 1446 1502 Levetiracetam 250 MG Q12 11/20 2200 DC 11/23 Sodium Chloride 100 ML IV 11/23 2300 2005 Lorazepam 0.5 MG BID 11/24 220 AC IV Lorazepam 0.5 MG Q8 11/23 0949 DC 11/24 PO 11/30 0948 0507 Lorazepam 1 MG Q4 HRS NEEDED PRN 11/20 0845 AC 11/24 IV 0319 Methylprednisolone 20 MG DAILY 11/26 1000 AC IV 11/30 1001 Methylprednisolone 30 MG DAILY 11/25 1000 AC IV 11/25 1001 Mirtazapine 15 MG AT BEDTIME 11/24 2200 AC PO Multivitamins 5 ML DAILY 11/10 1000 DC 11/24 PO 1015 Nystatin 5 ML 4 TIMES/DAY 11/21 1800 AC 11/24 PO 1319 Omeprazole 40 MG DAILY AC 11/23 1000 DC 11/24 PO 0507 Pantoprazole Sodium 40 MG DAILY 11/25 1000 AC IV Phenol 2 SPRAY Q2P PRN 11/21 2000 AC 11/21 EXT 2036 Polyethylene Glycol 17 GM DAILY 11/09 1548 DC 11/24 PO 0949 Prednisone 30 MG DAILY 11/24 1000 DC 11/24 PO 11/25 1001 1014 Senna 187 MG AT BEDTIME 11/13 2200 DC 11/23 PO 2010 Thiamine HCl 100 MG DAILY 11/24 1340 UNVr Sodium Chloride 100 ML IV Thiamine HCl 100 MG DAILY 11/10 1000 DC 11/24 PO 1014 Assessment/Plan Assessment: Mr. Macias is a 56-year-old male with past medical history significant for alcohol abuse, alcohol-related seizures, medication overuse, polysubstance abuse , stage IV sacral decubitus ulcer, hypertension, hyperlipidemia and chronic back pain who was brought to the [place] ED by police after being found to be intoxicated. On presentation, he was noted to have clonus. Patient was admitted to critical care unit after intubating for airway protection in the setting of acute delirium. Admission vitals were significant for tachycardia/tachycardia with leukocytosis concerning for sepsis, however workup including blood cultures, CT abdomen and pelvis were negative. Started on CIWA protocol. CT scan chest demonstrated groundglass opacities in bilateral lungs consistent with bronchiolitis probably from aspiration pneumonia - his respiratory cultures grew staph aureus, yeast, Enterobacter. He received a five-day course of azithromycin and ceftriaxone. Also started on IV methylprednisone 60 mg (11/11/2016 - 11/16/2016), tapered to 40 mg (11/16/16). As patient was very agitated, he was started on IV Ativan drip which was eventually tapered. Seizure prophylaxis with IV Keppra was maintained. Nutritional support provided with orogastric tube feeds. Patient was extubated on 11/16/2016 and transferred to general medicine floor on 11/17/2016. He failed swallow evaluation after extubation. Patient is currently admitted to the general medicine floor and the following is the management: 1. Acute hypoxic respiratory failure secondary to acute delirium from overdose- RESOLVED * Patient is currently on room air saturating well * Continue IV methylprednisone taper, currently at 30 X 5 days, 20 X 5 days, 10 X 5 days. * Completed the course of antibiotics * Discontinued fentanyl patch on 11/23/2016. * Patient is placed on sitter for agitation/removal of ngt, continue for now * Pulmonology has signed off, will reconsult Dr. Carolina MD if pulmonary issues arise. 2. Alcohol withdrawal * CIWA protocol has been discontinued, however we will continue with scheduled and as necessary (scores improving), will taper ativan to 0.5 Q12 IV today ( continue taper daily until off) * Continue to follow-up psychiatric recommendations * Keppra WAS tapered as well. * Avoiding serotonergic agents and atypical antipsychotics * Folic acid/Thiamine/multivitamin * Haloperidol 2.5 mg every 6hrs IM when necessary for agitation. * Please repeat EKG periodically and check for QTc (EKG done this AM shows improvement in QTC interval). * mirtazepine ODT 15 mg qhs for sleep. 3. Stage IV left buttock decubitus ulcer * Present on admission, follows [facility] [place] * Dressing with Xeroform, sealed with Tefla, with tegaderm per wound care 4. Diet * Patient passed bedside swallow eval . * formal evaluation was done- aspiration risk * required modified barium swallow. 1. Slow oropharyngeal phase of swallowing with mild pooling of contrast within the valleculae. 2. Silent penetration of contrast seen with honey, nectar, thin and bread consistencies. 3. Intermittent aspiration with honey and thin consistencies, eliciting a cough reflex. * NPO NOW BECAUSE OF ASPIRATION RISK. * FLUIDS WERE STARTED. 5. Pain management * Currently on morphine 2 mg IV every 6 when necessary. 6. Bowel regimen * dulcolax supp daily 7. DVT prophylaxis * Subcutaneous Lovenox 8. CODE STATUS * Full code Problem List: 1. Acute hypoxemic respiratory failure 2. Polysubstance abuse 3. Drug overdose 4. Encephalopathy 5. Acute delirium Pain Ratin Pain Location: n/a Pain Goal: Remain pain free Pain Plan: morphine Tomorrow's Labs & Rationales: none TAYLOR VICENTE,AMANDA 11/24/16 1137: Attending MD Review Statement Attending Statement Attending MD Statement: examined this patient, discuss w/resident/PA/MARRIAGE AND FAMILY THERAPIST, agreed w/resident/PA/MARRIAGE AND FAMILY THERAPIST, reviewed EMR data (avail), discussed with nursing, discussed with case mgmt, amended to note Attending Assessment/Plan: Patient seen and examined, he was sleepy this morning. Apparently overnight he was very agitated and required a few doses of Haldol. He still has a sitter. His vital signs are stable. At this point his prednisone on taper. His Keppra has been stopped after it has been tapered. His Ativan will be further tapered. Will ask psychiatry to come and evaluate him and assess his need for any scheduled psychiatric medications. Please follow-up on modified barium swallow study and adjust his diet accordingly. DVT prophylaxis: Lovenox. Patient will need to go to rehabilitation when he is not agitated.
--- NOTE | 2016-11-24 12:12 | RADIOLOGY REPORT ---
EXAMINATION: XR MODIFIED BARIUM SWALLOW CLINICAL INFORMATION: Dysphagia. Cough. Question aspiration. COMPARISON: None. TECHNIQUE: A modified barium swallow was performed with speech pathologist in attendance. Pur?e, honey thick, nectar thick, thin, and bread consistencies were given to the patient and the swallowing mechanism was observed fluoroscopically with several spot films taken. FLUOROSCOPY TIME: 5 minutes 7 seconds. FINDINGS: With all consistencies, the oropharyngeal phase of swallowing is mildly delayed, and there is mild pooling of contrast noted in the valleculae. With the honey consistency, nectar consistency, thin consistencies, and bread, silent penetration of contrast is noted. On one occasion, shilo aspiration is seen with the honey and thin consistencies, eliciting a cough reflex. IMPRESSION: 1. Slow oropharyngeal phase of swallowing with mild pooling of contrast within the valleculae. 2. Silent penetration of contrast seen with honey, nectar, thin and bread consistencies. 3. Intermittent aspiration with honey and thin consistencies, eliciting a cough reflex. Speech pathologist assessment issued separately.
--- NOTE | 2016-11-24 12:39 | PN- Psychiatry ---
Assessment/Plan Impression: Identifying Info: 56-year-old male known to this service with a h/o ETOH use d/o , PSA, MDD, r/o Wernicke's and chronic pain BIBA to [place] ED on 11/06/16 with AMS. Admitted to critical care unit for treatment of delirium due to probable drug overdose versus alcohol withdrawal versus serotonin syndrome. Now downgraded to general medical floor. SUBJECTIVE Pt somnolent and declines interview at this time. Brief ROS Gait: Unobserved Sleep: Poor Appetite: Poor, continues to fail swallow evaluations OBJECTIVE Mental Status Exam Presentation/Appearance: Lying in bed. Sitter present. Hospital garb Orientation: Unable to assess Sensorium: Somnolent,difficult to arouse Eye contact: Poor Affect: Blunted Mood: Unable to assess Depression: Unable to assess Anxiety: Unable to assess Thought Content: - Unable to assess Thought Process: Unable to assess Associations: Unable to assess Speech: Soft, minimal Judgment: Impaired Insight: Impaired Cognition: Memory: Unable to assess Attention/Concentration: Unable to assess Fund of Knowledge: Unable to assess Abstractions: Unable to assess MMSE: Unable to assess Per nursing report patient has been intermittently confused. He is able to respond to questions regarding orientation appropriately when awoken. He has been lethargic all day and sleeping. Yesterday evening he became increasingly confused and agitated yelling out and attempting to strike staff he received 3 doses of Haldol 2 mg IM. Of note pt has failed another swallow eval and can no longer take PO medications at this time. ASSESSMENT 56-year-old male with a history of chronic alcohol abuse as well as overuse of medications presents to [facility] emergency department with altered mental status. He denies intentional overdose or overuse of psychotropics. He is known to have considerable bereavement issues and has in the past been suspected of Wernicke's. Delirium appears to worsening, potentially due to prednisone. Diagnosis Delirium due to multiple etiologies including ETOH withdrawl possible serotonin syndrome and possible Wernicke's encephalopathy, mixed level of activity Major depressive disorder, severe Alcohol use disorder, severe Cocaine use disorder Marijuana use disorder A total of 30 minutes was spent with the patient with more than 50% of the time spent in counseling and/or coordination of care. Suggestion: 1. Please restart thiamine IV. 2. Please start Haldol 2.5mg IM PRN q6h for agitation. Montitor EKG, Mg, & K on this medication. 3. Please start mirtazepine ODT 15 mg qhs for sleep. Thank you for including psychiatry in this case, we will continue to follow. Subjective Subjective: as above take by mouth medication melatonin 10 mg daily at bedtime would be preferred. Thank you for including psychiatry in this case, we will continue to follow.
--- NOTE | 2016-11-24 14:22 | NUR ---
PT REMAINS CONFUSED BUT MAKING STATEMENTS SUCH "I NEED TO GET MY GUNS". WHEN ASKED WHY HE STATES, "IM GOING TO OFF MYSELF". PT CURRENTLY BEING FOLLOWED BY PSYCHIARTY. STATEMENTS ALSO REPORTED TO SUPERINTENDENT MARINE JAZZ. PATIENT CURRENTLY HAS PATIENT SAFETY MONITOR FOR UNSAFE AMBULATION AND CONFUSION.
[2016-11-24 14:51] VITALS: BP 150/90
--- NOTE | 2016-11-24 16:06 | NUR ---
Following patients progress. Patient with confusion and agitation today; was significantly agitated last evening and on the overnight. [place] with a 1:1 sitter for safety. Making concerning statements re: his own safety. Follow and collaborate with psychiatry and case management for disposition planning.
[2016-11-24 22:28] VITALS: BP 110/68
[2016-11-25 06:36] VITALS: BP 128/80
--- NOTE | 2016-11-25 08:18 | PN- Housestaff ---
JAZZ SHELTON 11/25/16 0818: Subjective Follow-up For: Altered mental status, acute delirium Acute Hypoxic and hypercarbic respiratory failure Aspiration pneumonia Alcohol withdrawal Chronic decubitus ulcer Complaints: pain scale (0-10), no complaints Subjective: Patient was seen and examined this morning. He is alert awake and oriented to time place and person. no acute overnight events noticed. He is looking much better this morning, not delirious. Able to answer each and every question. He feels hungry this morning, waiting for swallow evaluation to be done He has no complaints today. Vitals remained stable. Afebrile, heart rate 81, respiratory rate 18, blood pressure 134/70, saturating at 96 on room air. on sitter Review of Systems Constitutional: Reports: no symptoms. Objective Last 24 Hrs of Vital Signs/I&O Vital Signs Date Time Temp Pulse Resp B/P B/P Pulse O2 O2 Flow FiO2 Mean Ox Delivery Rate 11/25 0636 98.2 65 18 128/80 96 Room Air 11/25 0000 97 Room Air 11/24 2228 97.7 71 20 110/68 97 Room Air 11/24 1451 97.7 79 20 150/90 97 Room Air Intake & Output 11/25 1600 11/25 0800 11/25 0000 Intake Total 600 600 Output Total Balance 600 600 Intake, IV 600 600 Intake, Oral 0 0 Number 0 Bowel Movements Physical Exam General Appearance: Alert, Oriented X3, Cooperative Skin: No Rashes, No Breakdown HEENT: Atraumatic, PERRLA, EOMI, Mucous Membr. moist/pink Neck: Supple, No JVD Lymphatic: Cervical nl Cardiovascular: Normal S1, Normal S2 Lungs: Normal Air Movement Abdomen: Normal Bowel Sounds, Soft, No Tenderness Neurological: Normal Speech, Strength at 5/5 X4 Ext, Normal Tone, Sensation Intact, Cranial Nerves 3-12 NL Extremities: No Clubbing, No Cyanosis, No Edema Vascular: Pulses Symmetrical Current Medications: Current Medications Sig/Anaya Start time Last Medication Dose Route Stop Time Status Admin Acetaminophen 650 MG Q4P PRN 11/22 1530 AC 11/22 PO 1529 Acetaminophen 1,000 MG Q6P PRN 11/22 1530 AC N/A 1 UNIT IV Bisacodyl 10 MG DAILY PRN 11/24 1330 AC NM Dextrose/Sodium 1,000 ML Q13H 11/24 1145 AC 11/25 Chloride IV 11/25 1344 0230 Enoxaparin Sodium 40 MG DAILY 11/06 1816 AC 11/25 SC 0823 Haloperidol 2.5 MG Q6P PRN 11/24 1345 AC IM Lorazepam 0.5 MG BID 11/24 2200 AC 11/24 IV 2048 Lorazepam 1 MG Q4 HRS NEEDED PRN 11/20 0845 AC 11/24 IV 1623 Methylprednisolone 20 MG DAILY 11/26 1000 AC IV 11/30 1001 Methylprednisolone 30 MG DAILY 11/25 1000 DC 11/25 IV 11/25 1001 0823 Mirtazapine 15 MG AT BEDTIME 11/24 2200 CAN PO Mirtazapine 15 MG AT BEDTIME 11/24 2200 AC 11/24 PO 2048 Nicotine 21 MG DAILY 11/24 1448 AC 11/25 TOP 0824 Nystatin 5 ML 4 TIMES/DAY 11/21 1800 AC 11/25 PO 0824 Pantoprazole Sodium 40 MG DAILY 11/25 1000 AC 11/25 IV 0824 Phenol 2 SPRAY Q2P PRN 11/21 2000 AC 11/21 EXT 2036 Thiamine HCl 100 MG DAILY 11/24 1340 AC 11/25 Sodium Chloride 100 ML IV 0838 Assessment/Plan Assessment: Mr. Macias is a 56-year-old male with past medical history significant for alcohol abuse, alcohol-related seizures, medication overuse, polysubstance abuse , stage IV sacral decubitus ulcer, hypertension, hyperlipidemia and chronic back pain who was brought to the [place] ED by police after being found to be intoxicated. On presentation, he was noted to have clonus. Patient was admitted to critical care unit after intubating for airway protection in the setting of acute delirium. Admission vitals were significant for tachycardia/tachycardia with leukocytosis concerning for sepsis, however workup including blood cultures, CT abdomen and pelvis were negative. Started on CIWA protocol. CT scan chest demonstrated groundglass opacities in bilateral lungs consistent with bronchiolitis probably from aspiration pneumonia - his respiratory cultures grew staph aureus, yeast, Enterobacter. He received a five-day course of azithromycin and ceftriaxone. Also started on IV methylprednisone 60 mg (11/11/2016 - 11/16/2016), tapered to 40 mg (11/16/16). As patient was very agitated, he was started on IV Ativan drip which was eventually tapered. Seizure prophylaxis with IV Keppra was maintained. Nutritional support provided with orogastric tube feeds. Patient was extubated on 11/16/2016 and transferred to general medicine floor on 11/17/2016. He failed swallow evaluation after extubation. Patient is currently admitted to the general medicine floor and the following is the management: 1. Acute hypoxic respiratory failure secondary to acute delirium from overdose- RESOLVED * Patient is currently on room air saturating well * Continue IV methylprednisone taper, currently at 30 X 5 days, 20 X 5 days, 10 X 5 days. * Completed the course of antibiotics * Discontinued fentanyl patch on 11/23/2016. * Patient is placed on sitter for agitation/removal of ngt, continue for now * Pulmonology has signed off, will reconsult Dr. Carolina MD if pulmonary issues arise. 2. Alcohol withdrawal * CIWA protocol has been discontinued, however we will continue with scheduled and as necessary (scores improving), will taper ativan to 0.5 Q12 IV today and once tmr (continue taper daily until off) * Continue to follow-up psychiatric recommendations * Keppra WAS tapered as well. * Avoiding serotonergic agents and atypical antipsychotics * Folic acid/Thiamine/multivitamin * Haloperidol 2.5 mg every 6hrs IM when necessary for agitation. * Please repeat EKG periodically and check for QTc (EKG done this AM shows improvement in QTC interval). * mirtazepine ODT 15 mg qhs for sleep. 3. Stage IV left buttock decubitus ulcer * Present on admission, follows [facility] [place] * Dressing with Xeroform, sealed with Tefla, with tegaderm per wound care 4. Diet * failed formal swallow evaluation many times * required modified barium swallow. 1. Slow oropharyngeal phase of swallowing with mild pooling of contrast within the valleculae. 2. Silent penetration of contrast seen with honey, nectar, thin and bread consistencies. 3. Intermittent aspiration with honey and thin consistencies, eliciting a cough reflex. * NPO NOW BECAUSE OF ASPIRATION RISK. * FLUIDS WERE STARTED. * We'll do swallow evaluation again as his more alert awake and oriented today, not received any Haldol over 24 hours 5. Pain management * Currently on morphine 2 mg IV every 6 when necessary. 6. Bowel regimen * dulcolax supp daily 7. DVT prophylaxis * Subcutaneous Lovenox 8. CODE STATUS * Full code Problem List: 1. Acute hypoxemic respiratory failure 2. Polysubstance abuse 3. Drug overdose 4. Serotonin syndrome Pain Ratin Pain Location: n/a Pain Goal: Remain pain free Pain Plan: tylinol Tomorrow's Labs & Rationales: none AMANDA VAZQUEZ MD 11/25/16 1144: Attending MD Review Statement Attending Statement Attending MD Statement: examined this patient, discuss w/resident/PA/DIRECTOR TELECOMMUNICATIONS, agreed w/resident/PA/DIRECTOR TELECOMMUNICATIONS, discussed with family, reviewed EMR data (avail), discussed with nursing, discussed with case mgmt, reviewed images, amended to note Attending Assessment/Plan: Patient seen and examined, much more awake and alert today. He is hungry and wants to eat. He currently denies any aches or pains. Patient did not require any Haldol last night. This patient who was originally admitted with altered mental status with the likelihood of serotonin syndrome, acute hypoxic respiratory failure, history of polysubstance use as well as staph aureus pneumonia who had been in and out of agitation over the past few days. Over the course of his hospital stay his Keppra has been discontinued and his Ativan has been stopped. Currently is on a prednisone taper. He has failed swallow evaluation multiple times and the most recent modified barium swallow was yesterday. But at that point he was still very confused and had required Haldol the night previously. Today he is much more awake and alert, we'll repeat a swallow evaluation. If he passes in all his medications can be switched to oral and then we should be doing his discharge planning. He is on Lovenox for DVT prophylaxis. I have discussed his plan of care with his sister at length over the phone.
[2016-11-25 14:46] VITALS: BP 140/90
--- NOTE | 2016-11-25 20:30 | NUR ---
RADIOLOGY CALLED AND REPORTED BARIUM SWALLOW ORDER WITH WRONG DATE. ASKED TO HAVE DATE CHANGED TO TOMORROW. DR LETY KAUR NOTIFIED VIA TEXT PAGE TO CHANGE DATE TO TOMORROW.
[2016-11-25 23:14] VITALS: BP 144/86
[2016-11-26 06:00] VITALS: BP 124/78
--- NOTE | 2016-11-26 08:20 | PN- Housestaff ---
JAZZ SHELTON 11/26/16 0820: Subjective Follow-up For: Altered mental status, acute delirium Acute Hypoxic and hypercarbic respiratory failure Aspiration pneumonia Alcohol withdrawal Chronic decubitus ulcer Complaints: pain scale (0-10) Subjective: Patient was seen and examined this morning. He is alert awake and oriented to time place and person. no acute overnight events noticed. He is looking much better this morning, not delirious. Able to answer each and every question. Started on mechanical soft and nectar thick diet. He has no complaints today. Vitals remained stable. Afebrile, heart rate 81, respiratory rate 18, blood pressure 134/70, saturating at 96 on room air. Review of Systems Constitutional: Reports: no symptoms. Objective Last 24 Hrs of Vital Signs/I&O Vital Signs Date Time Temp Pulse Resp B/P B/P Pulse O2 O2 Flow FiO2 Mean Ox Delivery Rate 11/26 1419 98.5 95 20 136/64 95 Room Air 11/26 1038 Room Air 2.0L 11/26 1007 Room Air 2.0L 11/26 0600 98.5 65 20 124/78 98 Room Air 11/25 2314 98.1 70 20 144/86 97 Room Air Intake & Output 11/26 1600 11/26 0800 11/26 0000 Intake Total 705 600 600 Output Total 800 Balance 705 600 -200 Intake, IV 225 600 600 Intake, Oral 480 0 0 Number 1 Bowel Movements Output, Urine 800 Physical Exam General Appearance: Alert, Oriented X3, Cooperative, No Acute Distress Skin: No Rashes, No Breakdown HEENT: Atraumatic, PERRLA, EOMI, Mucous Membr. moist/pink Neck: Supple, No JVD Lymphatic: Cervical nl Cardiovascular: Normal S1, Normal S2 Lungs: Normal Air Movement Abdomen: Normal Bowel Sounds, Soft, No Tenderness Neurological: Strength at 5/5 X4 Ext, Sensation Intact, Cranial Nerves 3-12 NL Extremities: No Clubbing, No Cyanosis, No Edema Vascular: Pulses Symmetrical Current Medications: Current Medications Sig/Anaya Start time Last Medication Dose Route Stop Time Status Admin Acetaminophen 650 MG Q4P PRN 11/22 1530 AC 11/22 PO 1529 Acetaminophen 1,000 MG Q6P PRN 11/22 1530 AC N/A 1 UNIT IV Bisacodyl 5 MG DAILY PRN 11/26 1100 AC PO Bisacodyl 10 MG DAILY PRN 11/24 1330 AC OK Dextrose/Sodium 1,000 ML Q13H 11/25 1515 DC 11/26 Chloride IV 11/26 1714 0512 Enoxaparin Sodium 40 MG DAILY 11/06 1816 AC 11/26 SC 1035 Famotidine 20 MG BID 11/26 1000 DC 11/26 IV 1035 Haloperidol 2.5 MG Q6P PRN 11/24 1345 AC IM Lorazepam 0.5 MG ONCE ONE 11/26 1000 DC IV 11/26 1001 Lorazepam 0.5 MG BID 11/24 2200 DC 11/25 IV 11/25 2300 2101 Lorazepam 1 MG Q4 HRS NEEDED PRN 11/20 0845 AC 11/24 IV 1623 Methylprednisolone 20 MG DAILY 11/26 1000 DC 11/26 IV 11/30 1001 1034 Mirtazapine 15 MG AT BEDTIME 11/24 2200 AC 11/25 PO 2102 Nicotine 21 MG DAILY 11/24 1448 AC 11/26 TOP 1035 Nystatin 5 ML 4 TIMES/DAY 11/21 1800 DC 11/25 PO 1750 Omeprazole 40 MG DAILY AC 11/27 0700 AC PO Phenol 2 SPRAY Q2P PRN 11/21 2000 AC 11/21 EXT 2036 Polyethylene Glycol 17 GM DAILY PRN 11/26 1100 AC PO Prednisone 20 MG DAILY 11/27 1000 AC PO 11/30 1001 Senna/Docusate Sodium 2 TAB DAILY PRN 11/26 1100 AC PO Thiamine HCl 100 MG DAILY 11/24 1340 AC 11/26 Sodium Chloride 100 ML IV 1144 Assessment/Plan Assessment: Mr. Macias is a 56-year-old male with past medical history significant for alcohol abuse, alcohol-related seizures, medication overuse, polysubstance abuse , stage IV sacral decubitus ulcer, hypertension, hyperlipidemia and chronic back pain who was brought to the [facility] ED by police after being found to be intoxicated. On presentation, he was noted to have clonus. Patient was admitted to critical care unit after intubating for airway protection in the setting of acute delirium. Admission vitals were significant for tachycardia/tachycardia with leukocytosis concerning for sepsis, however workup including blood cultures, CT abdomen and pelvis were negative. Started on CIWA protocol. CT scan chest demonstrated groundglass opacities in bilateral lungs consistent with bronchiolitis probably from aspiration pneumonia - his respiratory cultures grew staph aureus, yeast, Enterobacter. He received a five-day course of azithromycin and ceftriaxone. Also started on IV methylprednisone 60 mg (11/11/2016 - 11/16/2016), tapered to 40 mg (11/16/16). As patient was very agitated, he was started on IV Ativan drip which was eventually tapered. Seizure prophylaxis with IV Keppra was maintained. Nutritional support provided with orogastric tube feeds. Patient was extubated on 11/16/2016 and transferred to general medicine floor on 11/17/2016. He failed swallow evaluation after extubation. Patient is currently admitted to the general medicine floor and the following is the management: 1. Acute hypoxic respiratory failure secondary to acute delirium from overdose- RESOLVED * Patient is currently on room air saturating well * Continue steroid taper, currently at 20 X 5 days, 10 X 5 days. * Completed the course of antibiotics * Discontinued fentanyl patch on 11/23/2016. * Patient is placed on sitter for agitation/removal of ngt, continue for now * Pulmonology has signed off, will reconsult Dr. Carolina MD if pulmonary issues arise. 2. Alcohol withdrawal * CIWA protocol has been discontinued * Ativan taper was completed * Continue to follow-up psychiatric recommendations * Keppra WAS tapered as well. * Avoiding serotonergic agents and atypical antipsychotics * Folic acid/Thiamine/multivitamin * Haloperidol 2.5 mg every 6hrs IM when necessary for agitation. * Please repeat EKG periodically and check for QTc (EKG done this AM shows improvement in QTC interval). * mirtazepine ODT 15 mg qhs for sleep. 3. will include in W10 that patient is to be followed by psychiatry at short- term rehabilitation. 4. patient is to be scheduled with intake appointment at [facility] dual diagnosis intensive outpatient program at [phone] once discharge date from [facility] is known. 3. Stage IV left buttock decubitus ulcer * Present on admission, follows [facility] * Dressing with Xeroform, sealed with Tefla, with tegaderm per wound care 4. Diet Modified barium swallow was done on 11/26/2016. Slowed oral bolus phase of swallowing. Pooling of contrast within the valleculae and posterior hypopharynx with all consistencies. Penetration of thin liquid contrast down to the cord level without significant cough reflex. * Recommended mechanical soft and nectar thick diet. 5. Pain management * Currently on morphine 2 mg IV every 6 when necessary. 6. Bowel regimen * dulcolax supp, MiraLAX, senna daily as needed 7. DVT prophylaxis * Subcutaneous Lovenox 8. CODE STATUS * Full code Problem List: 1. Decubitus ulcer of left buttock, stage 4 2. Acute hypoxemic respiratory failure 3. Polysubstance abuse 4. Drug overdose Pain Ratin Pain Location: n/a Pain Goal: Remain pain free Pain Plan: tylenol Tomorrow's Labs & Rationales: none AMANDA VAZQUEZ MD 11/26/16 1306: Attending MD Review Statement Attending Statement Attending MD Statement: examined this patient, discuss w/resident/PA/AIRPLANE CHARTER CLERK, agreed w/resident/PA/AIRPLANE CHARTER CLERK, reviewed EMR data (avail), discussed with nursing, discussed with case mgmt, reviewed images, amended to note Attending Assessment/Plan: Patient seen and examined, passed his modified barium swallow and he was eating his lunch. He is much more alert and calm. He did not require any Haldol last night. 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 Patient will be encouraged to ambulate. Please switch all the medications to oral including thiamine. Ativan has been tapered to off. Patient be on a prednisone taper. DVT pxs: Lovenox. Patient would be a possible discharge to rehabilitation tomorrow if bed available.
--- NOTE | 2016-11-26 11:36 | PN- Psychiatry ---
See Addendum Assessment/Plan Impression: Identifying Info: 56-year-old male known to this service with a h/o ETOH use d/o , PSA, MDD, r/o Wernicke's and chronic pain BIBA to [place] ED on 11/06/16 with AMS. Admitted to critical care unit for treatment of delirium due to probable drug overdose versus alcohol withdrawal versus serotonin syndrome. Now downgraded to general medical floor. SUBJECTIVE Pt reports he is "not bad." Expressing hope for future. States he would like to obtain IOP treatment post discharge from [facility], provided with contact info for [facility] IOP program. He is agreeable to continued treatment with mirtazepine. Discussed with patient his comments regarding his firearms. He reports that his not suicidal and has no history of harming self with firearms or of thinking of harming self with firearms. Reports his current preoccupation with them is the result of his guns currently being locked in the hospital safe. Brief ROS Gait: Steady Sleep: Adequate, improved Appetite: Adequate, reports he passed swallow eval today OBJECTIVE Mental Status Exam Presentation/Appearance: Calm and cooperative. Lying in hospital bed. Hospital garb. Orientation: x4 Sensorium: Awake and alert Eye contact: Appropriate Affect: Full range, congruent Mood: Euthymic Depression: Denies Anxiety: Denies Thought Content: - Denies SI/HI, AH/VH, PI. States and also believes they will not kill themselves. - Denies Hopeless/Helpless Thoughts Thought Process: Linear, goal directed, future oriented Associations: Appropriate Speech: Normal tone and rate Judgment: Intact Insight: Intact Cognition: Memory: Grossly intact Attention/Concentration: Grossly intact Fund of Knowledge: Adequate Abstractions: Unable to assess MMSE: Unable to assess Per nursing report patient has been much improved. Oriented but does make illogical comments at times with some intermittent confusion. Some impulsivity but easily redirected. He has been frequently talking about his guns. Of note the patient has received no when necessary doses of Haldol since mirtazapine was initiated. ASSESSMENT 56-year-old male with a history of chronic alcohol abuse as well as overuse of medications presents to [facility] emergency department with altered mental status. He denies intentional overdose or overuse of psychotropics. He is known to have considerable bereavement issues and has in the past been suspected of Wernicke's. Present the patient mental status appears greatly improved since sleep improved. Diagnosis Delirium due to multiple etiologies including ETOH withdrawl possible serotonin syndrome and possible Wernicke's encephalopathy, resolving Major depressive disorder, severe Alcohol use disorder, severe Cocaine use disorder Marijuana use disorder A total of 30 minutes was spent with the patient with more than 50% of the time spent in counseling and/or coordination of care. Suggestion: 1. Please continue thiamine supplementation. 2. Continue psychotropics as currently ordered. Montitor EKG, Mg, & K. 3. Please include W10 that patient is to be followed by psychiatry at short- term rehabilitation. 4. Please include an discharge instructions to short-term rehabilitation that patient is to be scheduled with intake appointment at [facility] dual diagnosis intensive outpatient program at [phone] once discharge date from [facility] is known. Thank you for including psychiatry in this case, we will continue to follow. Subjective Subjective: as above Objective Last 24 Hrs of Vital Signs/I&O Current Medications Sig/Anaya Start time Last Medication Dose Route Stop Time Status Admin Acetaminophen 650 MG Q4P PRN 11/22 1530 AC 11/22 PO 1529 Acetaminophen 1,000 MG Q6P PRN 11/22 1530 AC N/A 1 UNIT IV Bisacodyl 5 MG DAILY PRN 11/26 1100 AC PO Bisacodyl 10 MG DAILY PRN 11/24 1330 AC OR Dextrose/Sodium 1,000 ML Q13H 11/25 1515 DC 11/26 Chloride IV 11/26 1714 0512 Dextrose/Sodium 1,000 ML Q13H 11/24 1145 DC 11/25 Chloride IV 11/25 1344 0230 Enoxaparin Sodium 40 MG DAILY 11/06 1816 AC 11/26 SC 1035 Famotidine 20 MG BID 11/26 1000 DC 11/26 IV 1035 Haloperidol 2.5 MG Q6P PRN 11/24 1345 AC IM Lorazepam 0.5 MG ONCE ONE 11/26 1000 DC IV 11/26 1001 Lorazepam 0.5 MG BID 11/24 2200 DC 11/25 IV 11/25 2300 2101 Lorazepam 1 MG Q4 HRS NEEDED PRN 11/20 0845 AC 11/24 IV 1623 Methylprednisolone 20 MG DAILY 11/26 1000 DC 11/26 IV 11/30 1001 1034 Mirtazapine 15 MG AT BEDTIME 11/24 2200 AC 11/25 PO 2102 Nicotine 21 MG DAILY 11/24 1448 11/26 TOP 1035 Nystatin 5 ML 4 TIMES/DAY 11/21 1800 DC 11/25 PO 1750 Omeprazole 40 MG DAILY AC 11/27 0700 AC PO Pantoprazole Sodium 40 MG DAILY 11/25 1000 DC 11/25 IV 0824 Phenol 2 SPRAY Q2P PRN 11/21 2000 AC 11/21 EXT 2036 Polyethylene Glycol 17 GM DAILY PRN 11/26 1100 AC PO Prednisone 20 MG DAILY 11/27 1000 AC PO 11/30 1001 Senna/Docusate Sodium 2 TAB DAILY PRN 11/26 1100 AC PO Thiamine HCl 100 MG DAILY 11/24 1340 11/25 Sodium Chloride 100 ML IV 0838 Vital Signs Date Time Temp Pulse Resp B/P B/P Pulse O2 O2 Flow FiO2 Mean Ox Delivery Rate 11/26 1038 Room Air 2.0L 11/26 1007 Room Air 2.0L 11/26 06 98.5 65 20 124/78 98 Room Air 11/25 2314 98.1 70 20 144/86 97 Room Air 11/25 1446 99.5 80 20 140/90 97 Intake & Output 11/26 1600 11/26 0800 11/26 0000 Intake Total 600 600 Output Total 800 Balance 600 -200 Intake, IV 600 600 Intake, Oral 0 0 Output, Urine 800
--- NOTE | 2016-11-26 12:00 | NUR ---
PT IS NOW A & O AND ACTING LESS IMPULSIVELY. DISCUSSED WITH TERRELL LEÓN TO GA PATIENT SAFETY MONITOR. BED ALARM PLACED. PT EDUCATED CERTIFIED PESTICIDE APPLICATOR MONGE.
[2016-11-26 14:19] VITALS: BP 136/64
--- NOTE | 2016-11-26 14:26 | RADIOLOGY REPORT ---
EXAMINATION: XR MODIFIED BARIUM SWALLOW CLINICAL INFORMATION: Failed formal swallowing evaluation. Patient is agitated and wants to get the test is AP. Otherwise no sign AMA because he is on very. Presumptive diagnosis of aspiration. COMPARISON: None. TECHNIQUE: A modified barium swallow was performed with speech pathologist in attendance. Pur?e, honey thick, nectar thick, thin, bread, and cracker consistencies were given to the patient and the swallowing mechanism was observed fluoroscopically with several spot films taken. FLUOROSCOPY TIME: 2 minute 16 seconds. FINDINGS: With all consistencies, the oral phase of swallowing remains slow. With all consistencies, small amount of pooling of contrast within the valleculae and along the posterior hypopharynx is seen. This contrast pooling partially clears on subsequent swallow. With thin liquids taken from the cup, penetration of contrast down to the cord is seen without significant cough reflex. Penetration of contrast with thin liquids persisted despite chin tuck maneuver. Subsequent to this penetration, all subsequent swallows with bread, cracker, and puree consistencies lead to transient penetration of contrast. Prior to the penetration with liquids, no penetration was observed with puree. IMPRESSION: 1. Slowed oral bolus phase of swallowing. 2. Pooling of contrast within the valleculae and posterior hypopharynx with all consistencies. 3. Penetration of thin liquid contrast down to the cord level without significant cough reflex. 4. Transient penetration of contrast with bread and cracker consistency and intermittent penetration of contrast with puree. Speech pathologist assessment issued separately.
--- NOTE | 2016-11-26 15:45 | NUR ---
sw into see pt who is on a bed alarm going off because he stood. Pt easily redirected to sit. Pt then given his food tray which has thicket and cut food on it. Pt eating and happy to be. Pt making eye contact and speaking aout his family. Pt thoughts are organized,linaer and future focused. Pt aware he has lost weight and may need STR then addiction tx. Pt leasant and cooperative. Pt not fully clear what brought him into the hospital. Later, jhoan received call from Kareem Franco. she had spoke with family and they had questions regarding pt signing health care goodwill representative. Sw spoke with Sister Diana who had questions and provided info. Sw went to [facility] asked if he was interested in having his sister diana [phone] ( ALEXYS ) or brother Hardeep in [place] become his Health Care Review Consultant. He agreed to sign for his sister.
--- NOTE | 2016-11-26 20:22 | NUR ---
PT AGGITATED. STATES HE "HAS THINGS TO DO, AND WANTS TO LEAVE NOW." I TRIED REASONING WITH HIM DID BEN (CREDIT RISK OFFICER) LOREN KAUR CALLED AND INFORMED. LOREN WILL COME TO FLOOR AND ASSESS THE SITUATION.
--- NOTE | 2016-11-26 22:04 | Event Note ---
Event Note Event Note: Nurse paged me at 8:15 PM reporting that patient's wants to be discharged AMA. Myself and the resident and Elicia Velez evaluated the patient, he reported that he has an important appointment [facility] the court tomorrow. Psych crisis was called to evaluate the patient regarding patient's ability to leave AMA at 8:30 pm ( they did not get back to us). Patient was convinced to stay until morning to arrange for a ride from him. Of note; patient was requesting to leave AMA on 11/26 at 4 AM, patient was convinced to stay. Psych evaluation on the same day didn't report if patient can leave AMA or not.
[2016-11-26 22:10] VITALS: BP 132/88
--- NOTE | 2016-11-26 22:17 | NUR ---
PT AGREED TO STAY THE NIGHT. CURRENTLY RESTING IN BED
[2016-11-27 06:09] VITALS: BP 146/80
--- NOTE | 2016-11-27 06:34 | NUR ---
NSG NOTE: PT REFUSED BLOOD DRAW TEAM TO DRAW MORNING LABS. SALT MAKER LOREN PAGED AND NOTIFIED. NO FURTHER ORDERS.
--- NOTE | 2016-11-27 06:48 | NUR ---
NSG NOTE: PT BECOMING INCREASINGLY AGITATED AND AGGRESSIVE STATING "I NEED TO LEAVE NOW." PT ATTEMPTED TO WALK INTO ANOTHER PT'S ROOM. ORDER #7 CALLED BY [facility]. PT ATTEMPTED TO HIT PT SAFETY MONITOR WHEN CONFRONTED AND TOLD HE NEEDS TO STAY IN HIS ROOM. ALL AVAILABLE STAFF RESPONDED. PT SITTING IN CHAIR. IV ATIVAN ADMINSTERED TO PT PER ORDER. PT CALMLY SITTING IN CHAIR AND COOPERATING WITH STAFF. SAFETY MAINTAINED AND NEEDS WITHIN REACH.
--- NOTE | 2016-11-27 08:32 | PN- Housestaff ---
JAZZ SHELTON 11/27/16 0832: Subjective Follow-up For: Altered mental status, acute delirium Acute Hypoxic and hypercarbic respiratory failure Aspiration pneumonia/BRONCHOLITIS Alcohol withdrawal Chronic decubitus ulcer Complaints: pain scale (0-10), pt unable to provide hx Subjective: Patient was seen and examined this morning. He is alert awake and NOT oriented to time place and person. Overnight he was agitated and confused and he wants to leave AMA. He received Haldol and Ativan overnight. He was very drowsy early in the morning Started on mechanical soft and nectar thick diet. Able to tolerate his diet. He has no complaints today. Vitals remained stable. Afebrile, heart rate 81, respiratory rate 18, blood pressure 134/70, saturating at 96 on room air. Review of Systems Constitutional: Denies: see HPI. Objective Last 24 Hrs of Vital Signs/I&O Vital Signs Date Time Temp Pulse Resp B/P B/P Pulse O2 O2 Flow FiO2 Mean Ox Delivery Rate 11/27 0609 98.1 77 18 146/80 96 Room Air 11/26 2210 98.3 80 18 132/88 98 11/26 1419 98.5 95 20 136/64 95 Room Air Intake & Output 11/27 1600 11/27 0800 11/27 0000 Intake Total 240 410 Output Total 200 Balance -200 240 410 Intake, IV 10 Intake, Oral 240 400 Number 1 Bowel Movements Output, Urine 200 Physical Exam General Appearance: Alert, not oriented Skin: No Rashes, No Breakdown HEENT: Atraumatic, PERRLA, EOMI, Mucous Membr. moist/pink Neck: Supple, No JVD Lymphatic: Cervical nl Cardiovascular: Normal S1, Normal S2 Lungs: Normal Air Movement Abdomen: Normal Bowel Sounds, Soft, No Tenderness, No Hepatospenomegaly Extremities: No Clubbing, No Cyanosis, No Edema Vascular: Normal Pulses, Pulses Symmetrical Current Medications: Current Medications Sig/Anaya Start time Last Medication Dose Route Stop Time Status Admin Acetaminophen 650 MG .STK-MED ONE 11/26 1619 DC PO 11/26 1620 Acetaminophen 650 MG Q4P PRN 11/22 1530 AC 11/26 PO 1619 Acetaminophen 1,000 MG Q6P PRN 11/22 1530 AC N/A 1 UNIT IV Bisacodyl 5 MG DAILY PRN 11/26 1100 AC PO Bisacodyl 10 MG DAILY PRN 11/24 1330 AC IL Enoxaparin Sodium 40 MG DAILY 11/06 1816 AC 11/27 SC 1013 Haloperidol 2.5 MG Q6P PRN 11/24 1345 DC 11/26 IM 2246 Lorazepam 1 MG Q4 HRS NEEDED PRN 11/20 0845 DC 11/27 IV 0450 Mirtazapine 15 MG AT BEDTIME 11/24 2200 AC 11/26 PO 2057 Nicotine 21 MG DAILY 11/24 1448 AC 11/27 TOP 1013 Omeprazole 40 MG DAILY AC 11/27 0700 AC PO Phenol 2 SPRAY Q2P PRN 11/21 2000 AC 11/21 EXT 2036 Polyethylene Glycol 17 GM DAILY PRN 11/26 1100 AC PO Prednisone 20 MG DAILY 11/27 1000 AC 11/27 PO 11/30 1001 1013 Senna/Docusate Sodium 2 TAB DAILY PRN 11/26 1100 AC PO Thiamine HCl 100 MG DAILY 11/27 1000 AC 11/27 PO 1013 Thiamine HCl 100 MG DAILY 11/24 1340 DC 11/26 Sodium Chloride 100 ML IV 1144 Last 24 Hrs of Lab/Marcus Results Last 24 Hrs of Labs/Mics: Laboratory Tests 11/27/16 0906: Triglycerides 116, Cholesterol 237 H, LDL Cholesterol, Calc 168 H, HDL Cholesterol 46, Cholesterol/HDL Ratio 5 H Assessment/Plan Assessment: Mr. Macias is a 56-year-old male with past medical history significant for alcohol abuse, alcohol-related seizures, medication overuse, polysubstance abuse , stage IV sacral decubitus ulcer, hypertension, hyperlipidemia and chronic back pain who was brought to the [place] ED by police after being found to be intoxicated. On presentation, he was noted to have clonus. Patient was admitted to critical care unit after intubating for airway protection in the setting of acute delirium. Admission vitals were significant for tachycardia/tachycardia with leukocytosis concerning for sepsis, however workup including blood cultures, CT abdomen and pelvis were negative. Started on CIWA protocol. CT scan chest demonstrated groundglass opacities in bilateral lungs consistent with bronchiolitis probably from aspiration pneumonia - his respiratory cultures grew staph aureus, yeast, Enterobacter. He received a five-day course of azithromycin and ceftriaxone. Also started on IV methylprednisone 60 mg (11/11/2016 - 11/16/2016), tapered to 40 mg, 30, 20, 10. As patient was very agitated, he was started on IV Ativan drip which was eventually tapered. Seizure prophylaxis with IV Keppra was maintained and tapered. Nutritional support provided with orogastric tube feeds. Patient was extubated on 11/16/2016 and transferred to general medicine floor on 11/17/2016. He failed swallow evaluation after extubation. Patient is currently admitted to the general medicine floor and the following is the management: 1. Acute hypoxic respiratory failure secondary to acute delirium from overdose- RESOLVED * Patient is currently on room air saturating well * Continue steroid taper, currently at 20 X 5 days, 10 X 5 days. * Completed the course of antibiotics * Discontinued fentanyl patch on 11/23/2016. * Patient is placed on sitter for agitation/removal of ngt, continue for now * Pulmonology has signed off, will reconsult Dr. Carolina MD if pulmonary issues arise. 2. Alcohol withdrawal * CIWA protocol has been discontinued * Ativan taper was completed * Continue to follow-up psychiatric recommendations * Keppra WAS tapered as well. * Avoiding serotonergic agents and atypical antipsychotics * Folic acid/Thiamine/multivitamin * mirtazepine ODT 15 mg qhs for sleep. * Please avoid haloperidol and Ativan for anxiety or agitation- As patient is getting more confusion after receiving haloperidol/Ativan. Please continue to avoid benzodiazepines, opioid analgesics, and meds with strong anticholinergic properties as much as possible to prevent further confusion. 3. Stage IV left buttock decubitus ulcer * Present on admission, follows [facility] [place] * Dressing with Xeroform, sealed with Tefla, with tegaderm per wound care 4. Diet Modified barium swallow was done on 11/26/2016. Slowed oral bolus phase of swallowing. Pooling of contrast within the valleculae and posterior hypopharynx with all consistencies. Penetration of thin liquid contrast down to the cord level without significant cough reflex. * Recommended mechanical soft and nectar thick diet. 5. Pain management * Currently on morphine 2 mg IV every 6 when necessary. 6. Bowel regimen * dulcolax supp, MiraLAX, senna daily as needed 7. DVT prophylaxis * Subcutaneous Lovenox 8. CODE STATUS * Full code Problem List: 1. Polysubstance abuse 2. Drug overdose 3. Serotonin syndrome 4. Acute delirium Pain Ratin Pain Location: n/a Pain Goal: Remain pain free Pain Plan: tylenol Tomorrow's Labs & Rationales: none AMANDA VAZQUEZ MD 11/27/16 1140: Attending MD Review Statement Attending Statement Attending MD Statement: examined this patient, discuss w/resident/PA/[employer], agreed w/resident/PA/[employer], reviewed EMR data (avail), discussed with nursing, discussed with case mgmt, amended to note Attending Assessment/Plan: Patient seen and examined, and he remains confused. Last night he was agitated therefore required Haldol as well as Ativan this morning. Patient kept on talking about his house closing. Vital Signs Date Time Temp Pulse Resp B/P B/P Pulse O2 O2 Flow FiO2 Mean Ox Delivery Rate 11/27 0609 98.1 77 18 146/80 96 Room Air 11/26 2210 98.3 80 18 132/88 98 11/26 1419 98.5 95 20 136/64 95 Room Air on exam; awake, not oriented cv; s1,s2, rrr resp; clear abd; soft, nt, bs+ ext; no edema Laboratory Tests 11/27 0906 Chemistry Triglycerides (<150 mg/dL) 116 Cholesterol (< 200 MG/DL) 237 H LDL Cholesterol, Calc (65 - 129 mg/dL) 168 H HDL Cholesterol (40 - 60 mg/dL) 46 Cholesterol/HDL Ratio (0.00 - 4.88 %) 5 H A/P: 56 y/o M with pmh sig for multiple admissions for alcohol dependence and seizure, polysubstance abuse, Stage 4 ulcer on the coccyx, HTN, HLD, gastritis, hemorrhoids, and chronic back pain 2/2 disc herniation admitted with acute hypoxic resp failure, staph aureus pneumonia, suspected bronchiolitis on CT scanning, altered mental status with the possibility of serotonin syndrome, polysubstance and alcohol. Had a complicated hospital course. Initially was managed in ICU and then transferred to medicine floor. Since then his Keppra has been tapered off, his Ativan has been tapered off except that he has required few here and there doses of when necessary Ativan. Patient remains off-and-on delirious. He has passed swallow evaluation and finally was started on diet. Last night he was agitated therefore required Haldol as well as Ativan. 3 nights ago when he required Haldol he became very confused. I feel like these medications make him more confused therefore I'm going to discontinue them and I would recommend not to use them overnight. Patient should be oriented nonpharmacologically at night. Patient was started on mirtazapine at night as recommended by psychiatry to help him sleep. We can also use some melatonin to help him sleep. I have asked psychiatry to evaluate him for his capacity. Currently he does not seem to have a capacity therefore cannot leave AMA. continue other current regimen. DVT prophylaxis: Lovenox.
--- NOTE | 2016-11-27 11:37 | Event Note ---
Event Note Event Note: Patient needs special hospital bed , with low air loss mattress at the time of discharge. 1. Diagnosis Post polio paralysis and bedbound patient - requiring a hospital bed at the time of discharge 2. 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 * Hospital bed also helps with positioning of patient * Also reduces skin break and damage * Requires nonweight bearing * ALLEVIATE pain from prolonged Lying on back. * Patient also has third degree bowling left inner thigh-needs leg elevation for better cure. 3. Prognosis * With post polio paralysis and bedbound for years, hospital bed helps him with better positioning. * His clinical condition is worsening day by day. * Timoteo couldn't do ADLS, home visiting nurse helps him WITH most of the activities. 4. Valid prescription was provided for hospital bed * bessy Mahmood * Date of 1960 * He needs hospital bed with the low 80s or loss mattress * Diagnosis post polio paralysis and bedbound * Length of need-whole life
--- NOTE | 2016-11-27 12:40 | NUR ---
SHIFT NOTE: PATIENT WITH INCREASED CONFUSION TODAY, THIS AM THOUGHT HE WAS IN THE BANK AND MEETING TO FORECLOSE ON HIS HOME, THE DAY PROGRESSED HIS MENTATION HAS CLEARED SOME, BUT STILL WITH CONFUSION TO NEED TO STAY IN THE HOSPITAL, AND RECEIVE CARE, AMBULATING IND WITH SUPERVISION, TAKEN FOR A WALK THIS AM AROUND LOOP OF FLOOR, WASHED UP, ORAL CARE PREFORMED, EATING WELL, NO PAIN, DRESSING TO COCCYX CLEANED, CDI, ASKED DR CRISTA FARAH HARMONICA MAKER IF SHE WOULD LIKE TO ORDER VITAMINS PER SKIN PROTOCOL, AWAITING DECISION, PATIENT CURRENTLY IN BED, WITH BED ALARM, SAFETY MAINTAINED.
--- NOTE | 2016-11-27 13:03 | PN- Psychiatry ---
Assessment/Plan Impression: Identifying Info: 56-year-old male known to this service with a h/o ETOH use d/o , PSA, MDD, r/o Wernicke's and chronic pain BIBA to [place] ED on 11/06/16 with AMS. Admitted to critical care unit for treatment of delirium due to probable drug overdose versus alcohol withdrawal versus serotonin syndrome. Now downgraded to general medical floor. SUBJECTIVE Pt reports he is "getting frustrated... I am worried about foreclosure." Pt concerned about home that is being shown today, would like to leave hospital. Verbalizes understanding that at present he should stay in hospital until he is thinking more clearly. Agrees that he is "a bit foggy" currently. Is agreeable to stay if he call call brother and sister has but lost their numbers. Pt provided numbers as listed in EMR. Brief ROS Gait: Steady Sleep: Adequate Appetite: Adequate OBJECTIVE Mental Status Exam Presentation/Appearance: Calm and cooperative. Lying in hospital bed. Hospital garb. Orientation: x3 states day of week is Wednesday Sensorium: Awake and alert Eye contact: Appropriate Affect: Full range, congruent Mood: Euthymic Depression: Denies Anxiety: Denies Thought Content: - Denies SI/HI, AH/VH, PI. States and also believes they will not kill themselves. - Denies Hopeless/Helpless Thoughts Thought Process: Linear, goal directed, future oriented Associations: Appropriate Speech: Normal tone and rate Judgment: Intact Insight: Intact Cognition: Memory: Grossly intact Attention/Concentration: Some alterations. Unable to complete simple math and counting tasks. Fund of Knowledge: Adequate Abstractions: Unable to assess MMSE: Unable to assess Per nursing report patient has been increasingly confused since dose of ativan yesterday night. He has been intermittently asking to leave hospital AMA but is clear at times. Per attending, the preference would be to hold antidepressant and antipsychotic medication at this time and see if patient mentation clears. Capacity assessment Patient is able to communicate a choice of treatment vs no treatment at this time prefering no treatment. He is unable to provide accurate accounting of risks and benefits and is unable to complete simple reasoning tasks. At present he cannot fully appreciate the situation and it's consequences, understand the relevant informationand reason about treatment options. ASSESSMENT 56-year-old male with a history of chronic alcohol abuse as well as overuse of medications presents to [facility] emergency department with altered mental status. He denies intentional overdose or overuse of psychotropics. He is known to have considerable bereavement issues and has in the past been suspected of Wernicke's. Present the patient mental status appears to have declined post dose of ativan. Diagnosis Delirium due to multiple etiologies including ETOH withdrawl possible serotonin syndrome and possible Wernicke's encephalopathy, resolving Major depressive disorder, severe Alcohol use disorder, severe Cocaine use disorder Marijuana use disorder A total of 30 minutes was spent with the patient with more than 50% of the time spent in counseling and/or coordination of care. Suggestion: 1. Please continue thiamine supplementation. 2. Please continue to avoid benzodiazepines, opioid analgesics, and meds with strong anticholinergic properties as much as possible to prevent further confusion. 3. Please initiate the following nonpharmacologic interventions: -Avoid nursing and medical procedures during sleep hours whenever possible - Cluster at night interventions that must be completed as much as possible to minimize sleep disruption - Decrease noise patient area during sleeping hours - Reduce lighting at night - Ensure patient has any sensory aids close by that he regularly uses 4. Please include W10 that patient is to be followed by psychiatry at short- term rehabilitation. 5. Please include an discharge instructions to short-term rehabilitation that patient is to be scheduled with intake appointment at [facility] dual diagnosis intensive outpatient program at [phone] once discharge date from [facility] is known. 6. If patient does not go to rehabilitation would appreciate social work assistance in disposition planning for intensive outpatient level of care. 7. Please continue mirtazapine as currently ordered. This medication tends to be more sedating at lower doses. If sleep remains poor could consider reducing dose to 7.5 mg or starting melatonin. Thank you for including psychiatry in this case, we will continue to follow. Subjective Subjective: as above Objective Last 24 Hrs of Vital Signs/I&O Current Medications Sig/Anaya Start time Last Medication Dose Route Stop Time Status Admin Acetaminophen 650 MG .STK-MED ONE 11/26 1619 DC PO 11/26 1620 Acetaminophen 650 MG Q4P PRN 11/22 1530 AC 11/26 PO 1619 Acetaminophen 1,000 MG Q6P PRN 11/22 1530 AC N/A 1 UNIT IV Bisacodyl 5 MG DAILY PRN 11/26 1100 AC PO Bisacodyl 10 MG DAILY PRN 11/24 1330 AC TX Enoxaparin Sodium 40 MG DAILY 11/06 1816 AC 11/27 SC 1013 Haloperidol 2.5 MG Q6P PRN 11/24 1345 DC 11/26 IM 2246 Lorazepam 1 MG Q4 HRS NEEDED PRN 11/20 0845 DC 11/27 IV 0450 Mirtazapine 15 MG AT BEDTIME 11/24 2200 AC 11/26 PO 2057 Nicotine 21 MG DAILY 11/24 1448 AC 11/27 TOP 1013 Omeprazole 40 MG DAILY AC 11/27 0700 AC PO Phenol 2 SPRAY Q2P PRN 11/21 2000 AC 11/21 EXT 2036 Polyethylene Glycol 17 GM DAILY PRN 11/26 1100 AC PO Prednisone 20 MG DAILY 11/27 1000 AC 11/27 PO 11/30 1001 1013 Senna/Docusate Sodium 2 TAB DAILY PRN 11/26 1100 AC PO Thiamine HCl 100 MG DAILY 11/27 1000 AC 11/27 PO 1013 Thiamine HCl 100 MG DAILY 11/24 1340 DC 11/26 Sodium Chloride 100 ML IV 1144 Laboratory Tests 11/27/16 0906: Triglycerides 116, Cholesterol 237 H, LDL Cholesterol, Calc 168 H, HDL Cholesterol 46, Cholesterol/HDL Ratio 5 H Vital Signs Date Time Temp Pulse Resp B/P B/P Pulse O2 O2 Flow FiO2 Mean Ox Delivery Rate 11/27 0609 98.1 77 18 146/80 96 Room Air 11/26 2210 98.3 80 18 132/88 98 11/26 1419 98.5 95 20 136/64 95 Room Air Intake & Output 11/27 1600 11/27 0800 11/27 0000 Intake Total 240 410 Output Total 200 Balance -200 240 410 Intake, IV 10 Intake, Oral 240 400 Number 1 Bowel Movements Output, Urine 200
[2016-11-27 14:13] VITALS: BP 140/80
--- NOTE | 2016-11-27 14:32 | NUR ---
Case discussed at [facility]'s this morning. Patient with fluctuating mental status; increased confusion and delirium. Patient does have bed offer today; per psychiatry, does not have capacity to make decisions. [employer] document to be withheld for now; can be re-adressed if requested.
[2016-11-27] MEDS ORDERED: MIRTAZAPINE15 M3 PO (15:37)
[2016-11-27] MEDS ORDERED: PREDNISONE10 M2 PO (15:37)
[2016-11-27 21:45] VITALS: BP 150/92
--- NOTE | 2016-11-27 21:58 | NUR ---
PT BP 172/101. THIS RN RECHECKED 15 MINUTES LATER WITH BP AT 150/92. DR KAUR NOTIFIED VIA TEXT PAGE. WILL CONTINUE TO MONITOR.
[2016-11-27 22:04] VITALS: BP 172/101
[2016-11-27 22:15] VITALS: BP 150/92
[2016-11-28 06:30] VITALS: BP 142/80
--- NOTE | 2016-11-28 09:06 | PN- Housestaff ---
JAZZ SHELTON 11/28/16 0906: Subjective Follow-up For: Altered mental status, acute delirium Acute Hypoxic and hypercarbic respiratory failure Aspiration pneumonia/BRONCHOLITIS Alcohol withdrawal Chronic decubitus ulcer Complaints: no complaints Subjective: Patient was seen and examined this morning. He is alert awake and oriented to time place and person. No acute overnight events He slept well last night. No agitation or delirium or confusion overnight. Didn't receive any Haldol or Ativan last night. He received mirtazapine. He is willing to go home today. Started on mechanical soft and nectar thick diet. Able to tolerate his diet. He has no complaints today. Vitals remained stable. Afebrile, heart rate 81, respiratory rate 18, blood pressure 134/70, saturating at 96 on room air. Review of Systems Constitutional: Reports: no symptoms. Objective Last 24 Hrs of Vital Signs/I&O Vital Signs Date Time Temp Pulse Resp B/P B/P Pulse O2 O2 Flow FiO2 Mean Ox Delivery Rate 11/28 0630 97.9 79 20 142/80 98 Room Air 11/27 2215 150/92 11/27 2204 97.5 84 20 172/101 99 Room Air 11/27 1413 97.4 78 20 140/80 97 Room Air Intake & Output 11/28 1600 11/28 0800 11/28 0000 Intake Total 200 260 Output Total 200 Balance -200 200 260 Intake, IV 20 Intake, Oral 200 240 Output, Urine 200 Physical Exam General Appearance: Alert, Oriented X3, Cooperative, No Acute Distress Skin: No Rashes, No Breakdown HEENT: Atraumatic, PERRLA, EOMI, Mucous Membr. moist/pink Neck: Supple, No JVD Lymphatic: Cervical nl Cardiovascular: Normal S1, Normal S2 Lungs: Normal Air Movement Abdomen: Normal Bowel Sounds, Soft, No Tenderness Extremities: No Clubbing, No Cyanosis, No Edema Vascular: Normal Pulses, Pulses Symmetrical Current Medications: Current Medications Sig/Anaya Start time Last Medication Dose Route Stop Time Status Admin Acetaminophen 650 MG Q4P PRN 11/22 1530 AC 11/26 PO 1619 Acetaminophen 1,000 MG Q6P PRN 11/22 1530 AC N/A 1 UNIT IV Bisacodyl 5 MG DAILY PRN 11/26 1100 AC PO Bisacodyl 10 MG DAILY PRN 11/24 1330 AC WI Enoxaparin Sodium 40 MG DAILY 11/06 1816 AC 11/28 SC 0823 Mirtazapine 15 MG AT BEDTIME 11/24 2200 AC 11/27 PO 2048 Nicotine 21 MG DAILY 11/24 1448 AC 11/28 TOP 0823 Omeprazole 40 MG DAILY AC 11/27 0700 AC 11/28 PO 0600 Phenol 2 SPRAY Q2P PRN 11/21 2000 AC 11/21 EXT 203 Polyethylene Glycol 17 GM DAILY PRN 11/26 1100 AC PO Prednisone 20 MG DAILY 11/27 1000 AC 11/28 PO 11/30 1001 0823 Senna/Docusate Sodium 2 TAB DAILY PRN 11/26 1100 AC PO Thiamine HCl 100 MG DAILY 11/27 1000 AC 11/28 PO 0823 Assessment/Plan Assessment: Mr. Macias is a 56-year-old male with past medical history significant for alcohol abuse, alcohol-related seizures, medication overuse, polysubstance abuse , stage IV sacral decubitus ulcer, hypertension, hyperlipidemia and chronic back pain who was brought to the [place] ED by police after being found to be intoxicated. On presentation, he was noted to have clonus. Patient was admitted to critical care unit after intubating for airway protection in the setting of acute delirium. Admission vitals were significant for tachycardia/tachycardia with leukocytosis concerning for sepsis, however workup including blood cultures, CT abdomen and pelvis were negative. Started on CIWA protocol. CT scan chest demonstrated groundglass opacities in bilateral lungs consistent with bronchiolitis probably from aspiration pneumonia - his respiratory cultures grew staph aureus, yeast, Enterobacter. He received a five-day course of azithromycin and ceftriaxone. Also started on IV methylprednisone 60 mg (11/11/2016 - 11/16/2016), tapered to 40 mg, 30, 20, 10. As patient was very agitated, he was started on IV Ativan drip which was eventually tapered. Seizure prophylaxis with IV Keppra was maintained and tapered. Nutritional support provided with orogastric tube feeds. Patient was extubated on 11/16/2016 and transferred to general medicine floor on 11/17/2016. He failed swallow evaluation after extubation. Patient is currently admitted to the general medicine floor and the following is the management: 1. Acute hypoxic respiratory failure secondary to acute delirium from overdose- RESOLVED CT scan chest demonstrated groundglass opacities in bilateral lungs consistent with bronchiolitis probably from aspiration pneumonia - his respiratory cultures grew staph aureus, yeast, Enterobacter. He received a five-day course of azithromycin and ceftriaxone. Also started on IV methylprednisone 60 mg (11/11/2016 - 11/16/2016), tapered to 40 mg, 30, 20, 10. * Patient is currently on room air saturating well * Continue steroid taper, currently at 20 X 5 days, 10 X 5 days. * Completed the course of antibiotics * Discontinued fentanyl patch on 11/23/2016. * sitter d/c * Pulmonology has signed off, will reconsult Dr. Carolina MD if pulmonary issues arise. 2. Alcohol withdrawal * CIWA protocol has been discontinued * Ativan taper was completed * Continue to follow-up psychiatric recommendations * Keppra WAS tapered as well. * Avoiding serotonergic agents and atypical antipsychotics * Folic acid/Thiamine/multivitamin * mirtazepine ODT 15 mg qhs for sleep. * Please avoid haloperidol and Ativan for anxiety or agitation- As patient is getting more confusion after receiving haloperidol/Ativan. Please continue to avoid benzodiazepines, opioid analgesics, and meds with strong anticholinergic properties as much as possible to prevent further confusion. 3. Stage IV left buttock decubitus ulcer * Present on admission, follows [facility] [place] * Dressing with Xeroform, sealed with Tefla, with tegaderm per wound care 4. Diet Modified barium swallow was done on 11/26/2016. Slowed oral bolus phase of swallowing. Pooling of contrast within the valleculae and posterior hypopharynx with all consistencies. Penetration of thin liquid contrast down to the cord level without significant cough reflex. * Recommended mechanical soft and nectar thick diet. * Tolerating diets 5. Pain management * Currently on morphine 2 mg IV every 6 when necessary. 6. Bowel regimen * dulcolax supp, MiraLAX, senna daily as needed 7. DVT prophylaxis * Subcutaneous Lovenox 8. CODE STATUS * Full code Problem List: 1. Serotonin syndrome 2. Drug overdose 3. Encephalopathy 4. Acute delirium Pain Ratin Pain Location: n/a Pain Goal: Remain pain free Pain Plan: Tylenol Tomorrow's Labs & Rationales: None DOUG GR MD 11/28/16 5664: Attending MD Review Statement Attending Statement Attending MD Statement: examined this patient, discuss w/resident/PA/LABOR MEDIATOR, agreed w/resident/PA/LABOR MEDIATOR, reviewed EMR data (avail), discussed with nursing, discussed with case mgmt, amended to note Attending Assessment/Plan: The patient was seen and discussed with house staff and nursing. Mental status significantly improved. Patient reluctant to consider short term rehab. Still some residual effects from Haldol/benzos noted. Will continue to observe today. Re-asses tomorrow.
[2016-11-28 14:10] VITALS: BP 130/70
--- NOTE | 2016-11-28 21:43 | PN- Psychiatry ---
Assessment/Plan Impression: Saw Mr. Macias who had requested to leave AMA. I reviewed the chart, most notably the waxing/waning of his mental status over the last several days. The primary team note that he has been more coherent and less confused over the last day. He did state that he wanted to go home b/c his home was being foreclosed on and he needed to manage this/intervene. He was aware that the reason for his admission was for alcohol intoxication. He was aware of the risks of leaving AMA - seizure if he continued to have alcohol withdrawal, and potential for . He stated that he had never had seizures from alcohol before and stated that in general he had no withdrawal sx. He was reminded that he had clonus, was delirious and was intubated on admission due to etoh use. He was aware of the consequences of tx refusal and had some appreciation of this. He had poor ability to weigh different options offered (rehab, AMA discharge, remain admitted), instead focusing on leaving here. I discussed that due to his waxing mental status, I would like to re-eval him for a more consistent ability to make decisions and provide rational explanation, in addition to seek family collateral for documentation of his recent mental status. I called his sister and brother and left messages. Impression: at this time has not demonstrated sufficiently consistent ability to discuss the risks of leaving AMA, to manipulate treatment related information, and to appropriately weigh his options. He was agreeable to continue receiving tx until collateral information was obtained and his mental status could be evaluated. Suggestion: see above Subjective Subjective: I want to go home
[2016-11-28 21:44] VITALS: BP 130/90
[2016-11-29 06:49] VITALS: BP 134/70
--- NOTE | 2016-11-29 08:19 | PN- Housestaff ---
JAZZ SHELTON 11/29/16 0819: Subjective Follow-up For: Altered mental status, acute delirium Acute Hypoxic and hypercarbic respiratory failure Aspiration pneumonia/BRONCHOLITIS Alcohol withdrawal Chronic decubitus ulcer Complaints: pain scale (0-10) Subjective: Patient was seen and examined this morning. He is alert awake and oriented to time place and person. No acute overnight events He slept well last night. No agitation or delirium or confusion overnight. Didn't receive any Haldol or Ativan last night. He received mirtazapine. He is willing to go home tomorrow. Started on mechanical soft and nectar thick diet. Able to tolerate his diet. He has no complaints today. Vitals remained stable. Afebrile, heart rate 81, respiratory rate 18, blood pressure 134/70, saturating at 96 on room air. Review of Systems Constitutional: Reports: see HPI. Objective Last 24 Hrs of Vital Signs/I&O Vital Signs Date Time Temp Pulse Resp B/P B/P Pulse O2 O2 Flow FiO2 Mean Ox Delivery Rate 11/29 0649 97.8 71 20 134/70 98 Room Air 11/28 2144 98.3 103 20 130/90 98 Room Air 11/28 1410 98.4 98 18 130/70 97 Room Air Intake & Output 11/29 1600 11/29 0800 11/29 0000 Intake Total 250 610 Output Total Balance 250 610 Intake, IV 10 10 Intake, Oral 240 600 Physical Exam General Appearance: Alert, Oriented X3, Cooperative, No Acute Distress Skin: No Rashes, No Breakdown HEENT: Atraumatic, PERRLA, EOMI, Mucous Membr. moist/pink Neck: Supple, No JVD Lymphatic: Cervical nl Cardiovascular: Normal S1, Normal S2 Lungs: Normal Air Movement Abdomen: Normal Bowel Sounds, Soft, No Tenderness Extremities: No Clubbing, No Cyanosis, No Edema Vascular: Pulses Symmetrical Current Medications: Current Medications Sig/Anaya Start time Last Medication Dose Route Stop Time Status Admin Acetaminophen 650 MG Q4P PRN 11/22 1530 AC 11/26 PO 1619 Acetaminophen 1,000 MG Q6P PRN 11/22 1530 AC N/A 1 UNIT IV Bisacodyl 5 MG DAILY PRN 11/26 1100 AC PO Bisacodyl 10 MG DAILY PRN 11/24 1330 AC DC Enoxaparin Sodium 40 MG DAILY 11/06 1816 AC 11/29 SC 0859 Mirtazapine 15 MG AT BEDTIME 11/24 2200 AC 11/28 PO 2110 Nicotine 21 MG DAILY 11/24 1448 AC 11/29 TOP 0900 Omeprazole 40 MG DAILY AC 11/27 0700 AC 11/29 PO 0502 Phenol 2 SPRAY Q2P PRN 11/21 2000 AC 11/21 EXT 2036 Polyethylene Glycol 17 GM DAILY PRN 11/26 1100 AC PO Prednisone 20 MG DAILY 11/27 1000 AC 11/29 PO 11/30 1001 0859 Senna/Docusate Sodium 2 TAB DAILY PRN 11/26 1100 AC PO Thiamine HCl 100 MG DAILY 11/27 1000 AC 11/29 PO 0859 Assessment/Plan Assessment: Mr. Macias is a 56-year-old male with past medical history significant for alcohol abuse, alcohol-related seizures, medication overuse, polysubstance abuse , stage IV sacral decubitus ulcer, hypertension, hyperlipidemia and chronic back pain who was brought to the [place] ED by police after being found to be intoxicated. On presentation, he was noted to have clonus. Patient was admitted to critical care unit after intubating for airway protection in the setting of acute delirium. Admission vitals were significant for tachycardia/tachycardia with leukocytosis concerning for sepsis, however workup including blood cultures, CT abdomen and pelvis were negative. Started on CIWA protocol. CT scan chest demonstrated groundglass opacities in bilateral lungs consistent with bronchiolitis probably from aspiration pneumonia - his respiratory cultures grew staph aureus, yeast, Enterobacter. He received a five-day course of azithromycin and ceftriaxone. Also started on IV methylprednisone 60 mg (11/11/2016 - 11/16/2016), tapered to 40 mg, 30, 20, 10. As patient was very agitated, he was started on IV Ativan drip which was eventually tapered. Seizure prophylaxis with IV Keppra was maintained and tapered. Nutritional support provided with orogastric tube feeds. Patient was extubated on 11/16/2016 and transferred to general medicine floor on 11/17/2016. He failed swallow evaluation after extubation. Patient is currently admitted to the general medicine floor and the following is the management: 1. Acute hypoxic respiratory failure secondary to acute delirium from overdose- RESOLVED CT scan chest demonstrated groundglass opacities in bilateral lungs consistent with bronchiolitis probably from aspiration pneumonia - his respiratory cultures grew staph aureus, yeast, Enterobacter. He received a five-day course of azithromycin and ceftriaxone. Also started on IV methylprednisone 60 mg (11/11/2016 - 11/16/2016), tapered to 40 mg, 30, 20, 10. * Patient is currently on room air saturating well * Continue steroid taper, currently at 20 X 5 days, 10 X 5 days. * Completed the course of antibiotics * Discontinued fentanyl patch on 11/23/2016. * sitter d/c * Pulmonology has signed off, will reconsult Dr. Carolina MD if pulmonary issues arise. 2. Alcohol withdrawal * CIWA protocol has been discontinued * Ativan taper was completed * Continue to follow-up psychiatric recommendations * Keppra WAS tapered as well. * Avoiding serotonergic agents and atypical antipsychotics * Folic acid/Thiamine/multivitamin * mirtazepine ODT 15 mg qhs for sleep. * Please avoid haloperidol and Ativan for anxiety or agitation- As patient is getting more confusion after receiving haloperidol/Ativan. Please continue to avoid benzodiazepines, opioid analgesics, and meds with strong anticholinergic properties as much as possible to prevent further confusion. 3. Stage IV left buttock decubitus ulcer * Present on admission, follows [facility] [place] * Dressing with Xeroform, sealed with Tefla, with tegaderm per wound care 4. Diet Modified barium swallow was done on 11/26/2016. Slowed oral bolus phase of swallowing. Pooling of contrast within the valleculae and posterior hypopharynx with all consistencies. Penetration of thin liquid contrast down to the cord level without significant cough reflex. * Recommended mechanical soft and nectar thick diet. * Tolerating diets 5. Pain management * Currently on morphine 2 mg IV every 6 when necessary. 6. Bowel regimen * dulcolax supp, MiraLAX, senna daily as needed 7. DVT prophylaxis * Subcutaneous Lovenox 8. CODE STATUS * Full code Willing to go home tomorrow after psychiatric evaluation. Patient also wants to discuss about inpatient rehabilitation with the psychiatrist. Problem List: 1. Acute delirium Pain Ratin Pain Location: n/a Pain Goal: Remain pain free Pain Plan: tylinol Tomorrow's Labs & Rationales: none DOUG GR MD 11/29/16 1524: Attending MD Review Statement Attending Statement Attending MD Statement: examined this patient, discuss w/resident/PA/BUTTON BRADDER, agreed w/resident/PA/BUTTON BRADDER, reviewed EMR data (avail), amended to note Attending Assessment/Plan: The patient was seen and discussed with the resident. Agree with the plan of care. Was advised by patient that he is not getting his usual medications. I verified meds and doses in [place] (Dr. Gilbert chart). Will need to do medicine reconciliation. Home Meds: Lisinopril 20 mg daily Gabapentin tid- 900 mg, 900 mg, 1200 mg Atorvastatin 10 mg qd Baclofen 20 mg tid Trazodone 50 mg qpm Vitamin B12 1000 mcg po qd Folic Acid 1 mg po qd MVI 1 tab po qd Pantoprazole 20 mg po qd (is on Omeprazole here) Patient is also on Escitalopram 20 mg qd, however will defer this to Psychiatry tomorrow. Patient wishes to discuss with psychiatry IOP/etc. Delirium appears to have cleared.
[2016-11-29 13:58] VITALS: BP 142/70
[2016-11-29] MEDS ORDERED: LISINOPRIL20 M1 PO (15:37)
[2016-11-29] MEDS ORDERED: NEURONTIN300 M1 PO (15:39)
[2016-11-29] MEDS ORDERED: TRAZODONE HCL50 M1 PO (15:40)
--- NOTE | 2016-11-29 15:49 | PN- Psychiatry ---
Assessment/Plan Impression: Saw Mr. Macias who had requested to leave AMA. I reviewed the chart, most notably the waxing/waning of his mental status over the last several days. The primary team note that he has been more coherent and less confused over the last day. He did state that he wanted to go home b/c his home was being foreclosed on and he needed to manage this/intervene. He was aware that the reason for his admission was for alcohol intoxication. He was aware of the risks of leaving AMA - seizure if he continued to have alcohol withdrawal, and potential for . He stated that he had never had seizures from alcohol before and stated that in general he had no withdrawal sx. He was reminded that he had clonus, was delirious and was intubated on admission due to etoh use. He was aware of the consequences of tx refusal and had some appreciation of this. He had poor ability to weigh different options offered (rehab, AMA discharge, remain admitted), instead focusing on leaving here. I discussed that due to his waxing mental status, I would like to re-eval him for a more consistent ability to make decisions and provide rational explanation, in addition to seek family collateral for documentation of his recent mental status. I called his sister and brother and left messages. Impression: at this time has not demonstrated sufficiently consistent ability to discuss the risks of leaving AMA, to manipulate treatment related information, and to appropriately weigh his options. He was agreeable to continue receiving tx until collateral information was obtained and his mental status could be evaluated. Suggestion: 11/29 - discussed with primary team, Mr. Macias is in agreement to stay and complete his admission. Subjective Subjective: see above
[2016-11-29 22:34] VITALS: BP 132/84
[2016-11-30 07:22] VITALS: BP 128/74
--- NOTE | 2016-11-30 07:35 | PN- Housestaff ---
JAZZ SHELTON 11/30/16 0734: Subjective Follow-up For: Altered mental status, acute delirium Acute Hypoxic and hypercarbic respiratory failure Aspiration pneumonia/BRONCHOLITIS Alcohol withdrawal Chronic decubitus ulcer Complaints: no complaints Subjective: Patient was seen and examined this morning. He is alert awake and oriented to time place and person. No acute overnight events He slept well last night. No agitation or delirium or confusion overnight. Didn't receive any Haldol or Ativan last night. He received mirtazapine. He is willing to go home today. Swallow evaluation was done this morning. Patient was started on regular diets. Able to tolerate his diet. He has no complaints today. Vitals remained stable. Afebrile, heart rate 81, respiratory rate 18, blood pressure 134/70, saturating at 96 on room air. Review of Systems Constitutional: Reports: see HPI. Objective Last 24 Hrs of Vital Signs/I&O Vital Signs Date Time Temp Pulse Resp B/P B/P Pulse O2 O2 Flow FiO2 Mean Ox Delivery Rate 11/30 0838 119 104/60 11/30 0722 97.6 114 20 128/74 97 Room Air 11/29 2234 98.1 102 20 132/84 97 Room Air Intake & Output 11/30 1600 11/30 0800 11/30 0000 Intake Total 720 Output Total Balance 720 Intake, IV 0 Intake, Oral 720 Number 1 Bowel Movements Physical Exam General Appearance: Alert, Oriented X3, Cooperative, No Acute Distress Skin: No Rashes, No Breakdown HEENT: Atraumatic, PERRLA, EOMI, Mucous Membr. moist/pink Neck: Supple, No JVD Lymphatic: Cervical nl Cardiovascular: Normal S1, Normal S2, No Murmurs Lungs: Normal Air Movement Abdomen: Normal Bowel Sounds, Soft, No Tenderness Extremities: No Clubbing, No Cyanosis, No Edema Vascular: Pulses Symmetrical Current Medications: Current Medications Sig/Anaya Start time Last Medication Dose Route Stop Time Status Admin Acetaminophen 650 MG .STK-MED ONE 11/29 1806 DC PO 11/29 1807 Acetaminophen 650 MG Q4P PRN 11/22 1530 AC 11/30 PO 1259 Acetaminophen 1,000 MG Q6P PRN 11/22 1530 AC N/A 1 UNIT IV Atorvastatin Calcium 10 MG 1700 11/29 1700 AC 11/29 PO 1735 Baclofen 20 MG TID 11/29 1600 AC 11/30 PO 0838 Bisacodyl 5 MG DAILY PRN 11/26 1100 AC PO Bisacodyl 10 MG DAILY PRN 11/24 1330 AC TX Cyanocobalamin 1,000 MCG DAILY 11/29 1541 AC 11/30 PO 0837 Enoxaparin Sodium 40 MG DAILY 11/06 1816 AC 11/30 SC 0839 Folic Acid 1 MG DAILY 11/29 1541 AC 11/30 PO 0838 Gabapentin 900 MG 0800,1200 11/30 0800 AC 11/30 PO 1258 Gabapentin 300 MG ONCE ONE 11/29 2200 CAN PO 11/29 2201 Gabapentin 1,200 MG AT BEDTIME 11/29 2200 AC 11/29 PO 1957 Gabapentin 900 MG Q8 11/29 1543 CAN PO Lisinopril 20 MG DAILY 11/29 1538 AC 11/30 PO 0838 Mirtazapine 15 MG AT BEDTIME 11/24 2200 AC 11/29 PO 1957 Multivitamins 1 TAB DAILY 11/29 1541 AC 11/30 Therapeutic PO 0838 Nicotine 21 MG DAILY 11/24 1448 AC 11/30 TOP 0840 Omeprazole 40 MG DAILY AC 11/27 0700 AC 11/30 PO 0642 Patient Medication 1 ED .STK-MED ONE 11/30 1357 DC Teaching ED 11/30 1358 Phenol 2 SPRAY Q2P PRN 11/21 2000 AC 11/21 EXT 2036 Polyethylene Glycol 17 GM DAILY PRN 11/26 1100 AC PO Prednisone 20 MG DAILY 11/27 1000 DC 11/30 PO 11/30 1001 0838 Senna/Docusate Sodium 2 TAB DAILY PRN 11/26 1100 AC PO Thiamine HCl 100 MG DAILY 11/27 1000 AC 11/30 PO 0838 Trazodone HCl 50 MG QPM 11/29 2200 AC 11/29 PO 1957 Assessment/Plan Assessment: Mr. Macias is a 56-year-old male with past medical history significant for alcohol abuse, alcohol-related seizures, medication overuse, polysubstance abuse , stage IV sacral decubitus ulcer, hypertension, hyperlipidemia and chronic back pain who was brought to the [place] ED by police after being found to be intoxicated. On presentation, he was noted to have clonus. Patient was admitted to critical care unit after intubating for airway protection in the setting of acute delirium. Admission vitals were significant for tachycardia/tachycardia with leukocytosis concerning for sepsis, however workup including blood cultures, CT abdomen and pelvis were negative. Started on CIWA protocol. CT scan chest demonstrated groundglass opacities in bilateral lungs consistent with bronchiolitis probably from aspiration pneumonia - his respiratory cultures grew staph aureus, yeast, Enterobacter. He received a five-day course of azithromycin and ceftriaxone. Also started on IV methylprednisone 60 mg (11/11/2016 - 11/16/2016), tapered to 40 mg, 30, 20, 10. As patient was very agitated, he was started on IV Ativan drip which was eventually tapered. Seizure prophylaxis with IV Keppra was maintained and tapered. Nutritional support provided with orogastric tube feeds. Patient was extubated on 11/16/2016 and transferred to general medicine floor on 11/17/2016. He failed swallow evaluation after extubation. Patient is currently admitted to the general medicine floor and the following is the management: 1. Acute hypoxic respiratory failure secondary to acute delirium from overdose- RESOLVED CT scan chest demonstrated groundglass opacities in bilateral lungs consistent with bronchiolitis probably from aspiration pneumonia - his respiratory cultures grew staph aureus, yeast, Enterobacter. He received a five-day course of azithromycin and ceftriaxone. Also started on IV methylprednisone 60 mg (11/11/2016 - 11/16/2016), tapered to 40 mg, 30, 20, 10. * Patient is currently on room air saturating well * Continue steroid taper, currently at 10 X 5 days. * Completed the course of antibiotics * Discontinued fentanyl patch on 11/23/2016. * sitter d/c * Pulmonology has signed off, will reconsult Dr. Carolina MD if pulmonary issues arise. 2. Alcohol withdrawal * CIWA protocol has been discontinued * Ativan taper was completed * Continue to follow-up psychiatric recommendations * Keppra WAS tapered as well. * Avoiding serotonergic agents and atypical antipsychotics * Folic acid/Thiamine/multivitamin * mirtazepine ODT 15 mg qhs for sleep. * Please avoid haloperidol and Ativan for anxiety or agitation- As patient is getting more confusion after receiving haloperidol/Ativan. Please continue to avoid benzodiazepines, opioid analgesics, and meds with strong anticholinergic properties as much as possible to prevent further confusion. 3. Stage IV left buttock decubitus ulcer * Present on admission, follows [facility] [place] * Dressing with Xeroform, sealed with Tefla, with tegaderm per wound care 4. Diet Modified barium swallow was done on 11/26/2016. Slowed oral bolus phase of swallowing. Pooling of contrast within the valleculae and posterior hypopharynx with all consistencies. Penetration of thin liquid contrast down to the cord level without significant cough reflex. * The patient mentation was good now, formal swallow evaluation done this morning and recommended regular diets and patient is tolerating his regular diet 5. Pain management * Currently on morphine 2 mg IV every 6 when necessary. 6. Bowel regimen * dulcolax supp, MiraLAX, senna daily as needed 7. DVT prophylaxis * Subcutaneous Lovenox 8. CODE STATUS * Full code Problem List: 1. Acute delirium 2. Alcohol withdrawal delirium Pain Ratin Pain Location: n/a Pain Goal: Remain pain free Pain Plan: reggie Tomorrow's Labs & Rationales: none DOUG RG MD 11/30/16 1901: Attending MD Review Statement Attending Statement Attending MD Statement: examined this patient, discuss w/resident/PA/SENIOR PROJECT ENGINEER, agreed w/resident/PA/SENIOR PROJECT ENGINEER, discussed with family, reviewed EMR data (avail), discussed with nursing, discussed with case mgmt, amended to note Attending Assessment/Plan: The patient was seen and discussed with house staff and case management. Appreciate Psychiatry input. Delirium has resolved since last week and patient is able to ambulate and swallow without difficulty. Mr. Pino reviewed options of follow-up with patient and he elected as per psychiatry note. Declined any inpatient treatment. The patient is alert, oriented and capable of making his own decisions. His sister called and expressed concern regarding his history with drugs, etc. The patient gave permission for us to speak with her. She was informed that we were sending him with only short term supply of Gabapentin, Baclofen, etc. and that we would advise PCP to give small prescriptions as well. The patient's brother is holding his phone at present and sister states they will not return it to him. He will require ability to call for [employer] rides to his appointments. Rides have been arranged to his [facility] intake and Dr. Gilbert appointment later this week. His sister expressed her feelings that we should not discharge him to home. Again explained that at the present time he is deemed competent to make his own decisions and we could not control his future actions (if he were to use alcohol or drugs). I did reassure her that Dr. Gilbert will attempt to see him with enough frequency to monitor.
[2016-11-30 08:38] VITALS: BP 104/60
--- NOTE | 2016-11-30 12:43 | PN- Psychiatry ---
Assessment/Plan Impression: Identifying Info: 56-year-old male known to this service with a h/o ETOH use d/o , PSA, MDD, r/o Wernicke's and chronic pain BIBA to [facility] on 11/06/16 with AMS. Admitted to critical care unit for treatment of delirium due to probable drug overdose versus alcohol withdrawal versus serotonin syndrome. Now downgraded to general medical floor. SUBJECTIVE Pt reports he is agreeable to go to [facility] level treatment. He would not like to go to residential treatment program. He requests this literary writer speak to his sister regarding this. He is agreeable to restarting naltrexone for alcohol cravings. With patient's permission spoke to patient's sister who stated that if the patient was unwilling to go to residential alcohol treatment she and her brother would no longer help him with anything. She expressed concern regarding medications the patient would be discharged on. She states that when she talks to Scar he sounds like cognitively he is at his baseline. Brief ROS Gait: Steady Sleep: Adequate Appetite: Adequate OBJECTIVE Mental Status Exam Presentation/Appearance: Calm and cooperative. Lying in hospital bed. Hospital garb. Orientation: x3 states day of week is Wednesday Sensorium: Awake and alert Eye contact: Appropriate Affect: Full range, congruent Mood: Euthymic Depression: Denies Anxiety: Denies Thought Content: - Denies SI/HI, AH/VH, PI. States and also believes they will not kill themselves. - Denies Hopeless/Helpless Thoughts Thought Process: Linear, goal directed, future oriented Associations: Appropriate Speech: Normal tone and rate Judgment: Intact Insight: Intact Cognition: Memory: Grossly intact Attention/Concentration: Grossly intact Fund of Knowledge: Adequate Abstractions: Unable to assess MMSE: Unable to assess ASSESSMENT 56-year-old male with a history of chronic alcohol abuse as well as overuse of medications presents to [facility] emergency department with altered mental status. He denies intentional overdose or overuse of psychotropics. He is known to have considerable bereavement issues and has in the past been suspected of Wernicke's. Diagnosis Delirium due to multiple etiologies including ETOH withdrawl possible serotonin syndrome and possible Wernicke's encephalopathy, resolved Major depressive disorder, severe Alcohol use disorder, severe Cocaine use disorder Marijuana use disorder A total of 60 minutes was spent with the patient with more than 50% of the time spent in counseling and/or coordination of care. Suggestion: 1. Please continue thiamine supplementation. 2. Please start naltrexone 50 mg daily. 3. Please discontinue trazodone as patient was abusing and overusing this medication which contributed to his suspected serotonin syndrome. 4. Please include W10 that patient is to be followed by psychiatry at short- term rehabilitation. 5. Please include an discharge instructions to "[facility] IOP intake appointment scheduled for December 04 at 10 AM at [address] in [place] "Verdar[address] 6. Recommend discharging the patient with no more than 2 week supply of psychotropics due to history of overuse. Thank you for including psychiatry in this case, we will sign off. Subjective Subjective: as above Objective Last 24 Hrs of Vital Signs/I&O Current Medications Sig/Anaya Start time Last Medication Dose Route Stop Time Status Admin Acetaminophen 650 MG .STK-MED ONE 11/29 1806 DC PO 11/29 1807 Acetaminophen 650 MG Q4P PRN 11/22 1530 AC 11/29 PO 1805 Acetaminophen 1,000 MG Q6P PRN 11/22 1530 AC N/A 1 UNIT IV Atorvastatin Calcium 10 MG 1700 11/29 1700 AC 11/29 PO 1735 Baclofen 20 MG TID 11/29 1600 AC 11/30 PO 0838 Bisacodyl 5 MG DAILY PRN 11/26 1100 AC PO Bisacodyl 10 MG DAILY PRN 11/24 1330 AC IA Cyanocobalamin 1,000 MCG DAILY 11/29 1541 AC 11/30 PO 0837 Enoxaparin Sodium 40 MG DAILY 11/06 1816 AC 11/30 SC 0839 Folic Acid 1 MG DAILY 11/29 1541 AC 11/30 PO 0838 Gabapentin 900 MG 0800,1200 11/30 0800 AC 11/30 PO 0837 Gabapentin 300 MG ONCE ONE 11/29 2200 CAN PO 11/29 220 Gabapentin 1,200 MG AT BEDTIME 11/29 2200 AC 11/29 PO 1956 Gabapentin 900 MG Q8 11/29 1543 CAN PO Lisinopril 20 MG DAILY 11/29 1538 AC 11/30 PO 0838 Mirtazapine 15 MG AT BEDTIME 11/24 2200 AC 11/29 PO 1957 Multivitamins 1 TAB DAILY 11/29 1541 AC 11/30 Therapeutic PO 0838 Nicotine 21 MG DAILY 11/24 1448 AC 11/30 TOP 0840 Omeprazole 40 MG DAILY AC 11/27 0700 AC 11/30 PO 0642 Phenol 2 SPRAY Q2P PRN 11/21 2000 AC 11/21 EXT 2036 Polyethylene Glycol 17 GM DAILY PRN 11/26 1100 AC PO Prednisone 20 MG DAILY 11/27 1000 DC 11/30 PO 11/30 1001 0838 Senna/Docusate Sodium 2 TAB DAILY PRN 11/26 1100 AC PO Thiamine HCl 100 MG DAILY 11/27 1000 AC 11/30 PO 0838 Trazodone HCl 50 MG QPM 11/29 2200 AC 11/29 PO 1957 Vital Signs Date Time Temp Pulse Resp B/P B/P Pulse O2 O2 Flow FiO2 Mean Ox Delivery Rate 11/30 0838 119 104/60 11/30 0722 97.6 114 20 128/74 97 Room Air 11/29 2234 98.1 102 20 132/84 97 Room Air 11/29 1358 98.2 100 18 142/70 97 Room Air Intake & Output 11/30 1600 11/30 0800 11/30 0000 Intake Total 720 Output Total Balance 720 Intake, IV 0 Intake, Oral 720 Number 1 Bowel Movements
[2016-11-30] MEDS ORDERED: PREDNISONE10 M2 PO ×2 (13:25→14:25)
[2016-11-30] MEDS ORDERED: VITAMIN B-1100 MG PO ×2 (13:25→14:25)
[2016-11-30] MEDS ORDERED: FOLIC ACID1 M1 PO ×2 (14:23→14:25)
[2016-11-30] MEDS ORDERED: ATORVASTATIN CA10 M1 PO (14:23)
[2016-11-30] MEDS ORDERED: NEURONTIN300 M1 PO (14:23)
[2016-11-30] MEDS ORDERED: OMEPRAZOLE20 M2 PO ×2 (14:23)
[2016-11-30] MEDS ORDERED: FERROUS SULFAT325 M2 PO (14:23)
[2016-11-30] MEDS ORDERED: ONE DAILY MULT1 EAC2 PO (14:23)
[2016-11-30] MEDS ORDERED: VITAMIN B-650 M1 PO (14:23)
[2016-11-30] MEDS ORDERED: BACLOFEN20 M1 PO (14:23)
[2016-11-30] MEDS ORDERED: VITAMIN D31000 UNI1 PO (14:23)
[2016-11-30] MEDS ORDERED: LISINOPRIL20 M1 PO (14:23)
[2016-11-30] MEDS ORDERED: HYDROCHLOROTH12.5 M3 PO (14:23)
[2016-11-30] MEDS ORDERED: VITAMIN C500 M8 PO (14:23)
[2016-11-30] MEDS ORDERED: ASPIRIN EC81 M1 PO (14:23)
[2016-11-30] MEDS ORDERED: VITAMIN B-121000 MC3 PO (14:23)
[2016-11-30] MEDS ORDERED: NALTREXONE HCL50 M1 PO (14:23)
[2016-11-30] MEDS ORDERED: MIRTAZAPINE15 M3 PO (14:25)
--- NOTE | 2016-11-30 16:23 | NUR ---
Late Entry: Aware of patients discharge home this afternoon. I met with patient late this morning along with Jamilah Pino APRN from psychiatry. Scar is alert and oriented, pleasant and engaged in interview. Upon entry into Scar's room, he says " My sister is not in charge of me. I make my own decisions". Scar reported that he was not interested in inpatient treatment; he would like to return to [facility] and has in the past done well in this modality. We talked about transportation and he reported good knowledge of access to [employer]. Later in day, heel caser reported that sister Scarlett was on phone, and reported that she paid for his phone and was not going to return it to him, thus making it difficult for Scar to make transport arrangements. Scar has an intake secured at the [facility] for 12/04/16 at 10:00am and transportation arrangements have been arranged through [employer] already. Reviewed plan with patient who is in agreement.
== END 2016-11-30 15:53 | DRG 812 ==
LOC: ERH 15:05 → CRI 17:40 → ERHI 17:40 → 2NA 17:40 → ENRESERV 18:59 → CRI 20:57 → 2NB 11-17 15:32 → 2NA 11-18 05:00 → ENPENDDIS 11-30 14:41 → 2NA 11-30 15:53
PROVIDERS: Dermatology; Hospitalist; Internal Medicine; Physician Assistant; Student in an Organized Health Care Education/Training Program; ADMIT Internal Medicine Pulmonary Disease
PROC: 0BH17EZ Insertion of Endotracheal Airway into Trachea, Via Natural or Artificial Opening (ICD-10-PCS; principal; 2016-11-06)
PROC: 5A1955Z Respiratory Ventilation, Greater than 96 Consecutive Hours (ICD-10-PCS; principal; 2016-11-06)
DX: T50.901A Poisoning by unspecified drugs, medicaments and biological substances, accidental (unintentional), initial encounter (principal); J96.01 Acute respiratory failure with hypoxia; J69.0 Pneumonitis due to inhalation of food and vomit; G92 Toxic encephalopathy; J15.211 Pneumonia due to Methicillin susceptible Staphylococcus aureus; J44.0 Chronic obstructive pulmonary disease with (acute) lower respiratory infection; L89.154 Pressure ulcer of sacral region, stage 4; E87.2 Acidosis; F10.239 Alcohol dependence with withdrawal, unspecified; E78.5 Hyperlipidemia, unspecified; I10 Essential (primary) hypertension; R25.8 Other abnormal involuntary movements; Y92.009 Unspecified place in unspecified non-institutional (private) residence as the place of occurrence of the external cause; J21.9 Acute bronchiolitis, unspecified; F32.9 Major depressive disorder, single episode, unspecified; F14.90 Cocaine use, unspecified, uncomplicated; F12.90 Cannabis use, unspecified, uncomplicated; R68.0 Hypothermia, not associated with low environmental temperature
CPT/HCPCS: 2NAP; 2NASP; 87184; CCU; 36415; 74000; 74176; 74230; 80307; 81001; 82436; 87040; 87070; 87071; 87086; 87147; 87449; 87450; 93005; 93010; 93306; 94799; 95816; 96374; 96375; 96376; 97110-GO; 97112-GO; 97116-GO; 97162-GP; 97166-GO; 97530-GO; G0463; G0480; J0131; J0696; J0713; J1200; J1630; J1650; J1940; J1953; J2060; J2920; J2930; J3010; J3370; J3490; J7040; J7042; J7060; J7512; Q9966